=== PATIENT | female | born 1970 | race Caucasian/White ===

== ENCOUNTER 2017-07-02 07:42 | Observation (INO) | payer BC ==
[~2017-07-02] VITALS: Ht 162.6 cm; Wt 123.9 kg
[~2017-07-02 07:42] MED LIST: ASPI81TA28 PO; ATOR-26 PO; CLOP1TAB15 PO; GLC/500 PO; INSDGIPEN SC; LOSA50TA6 PO; METO1TAB69 PO; NVLGIPEN SC
[2017-07-02] MEDS ORDERED: LOSA100T65 PO (08:19)
[2017-07-02] MEDS ORDERED: TPRSR/100 PO (08:19)
--- NOTE | 2017-07-02 08:25 | EMERGENCY ROOM VISIT NOTE ---
History First contact with patient: 07:52 Chief Complaint: CHEST PAIN Stated Complaint: BACK PAIN (UPPER) - TIGHTNESS AROUND CHEST Nursing Triage Summary: pt report feeling tightness around upper abd lower chest area describes as feeling like a band. has been burping all night and does not feel rested this am, feeling worn down .denies any sob History of Present Illness The patient is a 47 year old female who presents to the Emergency Room via private vehicle with complaints of "back pain (upper)- tightness around chest". The patient states that she has a history of diabetes, hypertension, coronary disease, and STEMI with stent placement 2014 as well as hypercholesterolemia with complaints of a band sensation around her chest for the past 2 weeks has been off and on. Most recently it occurred upon awakening this morning around 6 AM. She states that she also had some reflux/eructation. She is concerned secondary to her past medical history that this could be a serious event therefore came here for evaluation today. She denies any symptoms at present time. She did take an aspirin and all of her medications as prescribed prior to arrival. Review of Systems A complete 10-point Review of Systems was discussed with the patient, with pertinent positives and negatives listed in the History of Present Illness. All remaining Review of Systems questions can be considered negative unless otherwise specified. Past Medical/Surgical History Medical Problems: (1) Chest pain (2) CHF (congestive heart failure) (3) Dog bite (4) HTN (hypertension) (5) NSTEMI (non-ST elevated myocardial infarction) (6) Visit for suture removal Social History Smoking Status: Never Smoker Drug Use: none Marital Status: Housing Status: lives with family Occupation Status: employed Current/Historical Medications Scheduled Aspirin (Aspirin Ec), 81 MG PO DAILY Atorvastatin (Lipitor), 80 MG PO DAILY Clopidogrel (Plavix), 75 MG PO DAILY Losartan Potassium (Cozaar), 100 MG PO DAILY Metformin Hcl (Glucophage), 500 MG PO BID Metoprolol Succinate (Metoprolol Succinate ER), 200 MG PO DAILY Physical Exam Vital Signs Date Time Temp Pulse Resp B/P (MAP) Pulse Ox O2 Delivery O2 Flow Rate FiO2 07/02/17 10:02 64 18 129/69 96 Room Air 07/02/17 09:50 95 Room Air 07/02/17 09:36 55 18 94/55 95 Room Air 07/02/17 09:25 67 102/68 96 Room Air 07/02/17 09:21 62 98/66 96 Room Air 07/02/17 09:20 44 07/02/17 08:55 69 18 156/86 99 Room Air 07/02/17 08:08 72 07/02/17 07:59 71 20 152/88 100 Room Air 07/02/17 07:59 99 Room Air 07/02/17 07:47 36.7 78 18 168/83 99 Room Air Physical Exam VITAL SIGNS - Vital signs and nursing notes were reviewed. Afebrile, hypertensive, non-tachycardic and is saturating well on room air 99%. GENERAL -27-year-old female appearing her stated age who is in no acute distress. Communicates well with provider and answers questions appropriately. SKIN - Without rashes. No petechial rashes. HEAD - NC/AT. MOUTH/OROPHARYNX - Without perioral cyanosis. LUNGS - Chest wall symmetric without accessory muscle use, intercostals retractions, or central cyanosis. Normal vesicular breath sounds CTA B/L. No wheezes, rales, or rhonchi appreciated. CARDIAC - RRR with S1/S2. No murmur, rubs, or gallops appreciated. ABDOMEN - Abdominal contour without pulsations or visible masses. BS normoactive all four quadrants. No tenderness, palpable masses, hepatosplenomegaly, or ascites noted. EXTREMITIES - No clubbing or peripheral cyanosis. No pretibial edema present. +5 /5 strength noted in UE/LE bilaterally. NEUROLOGIC - Cranial nerves II through XII grossly intact. PSYCH - A&O. and cooperates fully with examiner. Pt is very pleasant and interacts well with examiner. Medical Decision & Procedures ER Provider Diagnostic Interpretation: CHEST ONE VIEW PORTABLE CLINICAL HISTORY: 47 years-old Female presenting with chest pain. TECHNIQUE: Portable upright AP view of the chest was obtained. COMPARISON: 12/24/2015. FINDINGS: Cardiomediastinal silhouette normal. Interval decreased prominence of pulmonary vasculature. Lungs and pleural spaces clear. Osseous structures normal. Upper abdomen normal. IMPRESSION: 1. Resolution of mild pulmonary vascular congestion. No convincing evidence of acute cardiopulmonary disease. Electronically signed by: Darrell Brenner M.D. 07/02/2017 8:51 AM Dictated Date/Time: 07/02/2017 8:49 AM Laboratory Results 07/02/17 08:35 Red Blood Count 5.02, Mean Corpuscular Volume 80.5, Mean Corpuscular Hemoglobin 25.9, Mean Corpuscular Hemoglobin Concent 32.2, Mean Platelet Volume 9.1, Neutrophils (%) (Auto) 71.3, Lymphocytes (%) (Auto) 20.3, Monocytes (%) (Auto) 6.0, Eosinophils (%) (Auto) 1.8, Basophils (%) (Auto) 0.4, Neutrophils # (Auto) 4.05, Lymphocytes # (Auto) 1.15, Monocytes # (Auto) 0.34, Eosinophils # (Auto) 0.10, Basophils # (Auto) 0.02 07/02/17 08:35 Test 07/02/17 08:35 07/02/17 08:42 White Blood Count 5.67 K/uL (4.8-10.8) Red Blood Count 5.02 M/uL (4.2-5.4) Hemoglobin 13.0 g/dL (12.0-16.0) Hematocrit 40.4 % (37-47) Mean Corpuscular Volume 80.5 fL (80-100) Mean Corpuscular Hemoglobin 25.9 pg (25-34) Mean Corpuscular Hemoglobin Concent 32.2 g/dl (32-36) Platelet Count 146 K/uL (130-400) Mean Platelet Volume 9.1 fL (7.4-10.4) Neutrophils (%) (Auto) 71.3 % Lymphocytes (%) (Auto) 20.3 % Monocytes (%) (Auto) 6.0 % Eosinophils (%) (Auto) 1.8 % Basophils (%) (Auto) 0.4 % Neutrophils # (Auto) 4.05 K/uL (1.4-6.5) Lymphocytes # (Auto) 1.15 K/uL (1.2-3.4) Monocytes # (Auto) 0.34 K/uL (0.11-0.59) Eosinophils # (Auto) 0.10 K/uL (0-0.5) Basophils # (Auto) 0.02 K/uL (0-0.2) RDW Standard Deviation 44.6 fL (36.4-46.3) RDW Coefficient of Variation 15.5 % (11.5-14.5) Immature Granulocyte % (Auto) 0.2 % Immature Granulocyte # (Auto) 0.01 K/uL (0.00-0.02) Prothrombin Time 10.3 SECONDS (9.0-12.0) Prothromb Time International Ratio 1.0 (0.9-1.1) Activated Partial Thromboplast Time 26.1 SECONDS (21.0-31.0) Partial Thromboplastin Ratio 1.0 Urine Color YELLOW Urine Appearance CLEAR (CLEAR) Urine pH 6.0 (4.5-7.5) Urine Specific [place] 1.009 (1.000-1.030) Urine Protein NEG (NEG) Urine Glucose (UA) NEG (NEG) Urine Ketones NEG (NEG) Urine Occult Blood NEG (NEG) Urine Nitrite NEG (NEG) Urine Bilirubin NEG (NEG) Urine Urobilinogen NEG (NEG) Urine Leukocyte Esterase MODERATE (NEG) Urine WBC (Auto) 10-30 /hpf (0-5) Urine RBC (Auto) 0-4 /hpf (0-4) Urine Hyaline Casts (Auto) 1-5 /lpf (0-5) Urine Epithelial Cells (Auto) >30 /lpf (0-5) Urine Bacteria (Auto) 1+ (NEG) Urine Test NEG (NEG) Anion Gap 5.0 mmol/L (3-11) Est Creatinine Clear Calc Drug Dose 96.2 ml/min Estimated GFR () 84.2 Estimated GFR (Non- 72.7 BUN/Creatinine Ratio 14.2 (10-20) Calcium Level 8.6 mg/dl (8.5-10.1) Magnesium Level 2.1 mg/dl (1.8-2.4) Total Bilirubin 0.5 mg/dl (0.2-1) Aspartate Amino Transf (AST/SGOT) 15 U/L (15-37) Alanine Aminotransferase (ALT/SGPT) 25 U/L (12-78) Alkaline Phosphatase 76 U/L (45-117) Total Protein 6.9 gm/dl (6.4-8.2) Albumin 3.4 gm/dl (3.4-5.0) Globulin 3.5 gm/dl (2.5-4.0) Albumin/Globulin Ratio 1.0 (0.9-2) Bedside Troponin I < 0.030 ng/ml (0-0.045) Medications Administered Medications (Trade) Dose Ordered Sig/Cain Route Start Time Stop Time Status Last Admin Dose Admin Sodium Chloride 500 ml @ 999 mls/hr Q31M STAT IV 07/02/17 09:22 07/02/17 09:52 DC 07/02/17 09:36 999 MLS/HR Medical Decision Patient was seen and evaluated as above. After obtaining a thorough history and physical examination IV access was initiated, and the above workup was performed. Patient presents to us today with generalized bandlike sensation around her chest, history of MO in the past. There is concern of potential cardiac events. Stat EKG was obtained, and reveals normal sinus rhythm, right bundle-branch block, which appears to be new. EKG was repeated as the patient did have an episode of hypotension here, and her pulse went down to 48/m. There is a bifascicular block noted. Her EKG today has changed from previous. I do believe that further evaluation is necessary. Her initial troponin is negative. Chest x-ray negative. CBC reveals no leukocytosis or anemia. Coags normal. CMP unremarkable for acute process. Urine reveals what appears to be a contaminated sample with epithelial cells. Case was discussed with the attending physician. Patient was given 1 L of normal saline here during her episode of hypotension. She already had aspirin this morning. I believe that further evaluation in inpatient setting is warranted. Please refer to further documentation regarding her stay. Concern is over ACS, therefore chest pain rule out admission will be considered. In evaluation treatment this patient the following differential diagnoses were entertained: MO, PE, GI causes, among others. Impression Primary Impression: Chest pain Departure Information Dispostion Admitted as an inpatient Condition GOOD Referrals Marylou Dasilva M.D. (PCP) Patient Instructions My [facility]
[2017-07-02 08:49] LABS: BASO % 0.4 %; BASO ABS # 0.02 K/uL (0-0.2); COMPLETE YES; EOS % 1.8 %; HEMATOCRIT 40.4 % (37-47); IG% 0.2 %; LYMPH % 20.3 %; LYMPH ABS # 1.15 K/uL (1.2-3.4); MEAN CELL VOLUME 80.5 fL (80-100); MEAN CORPUSCULAR HEMOGLOBIN 25.9 pg (25-34); MEAN CORPUSCULAR HGB CONC 32.2 g/dl (32-36); MEAN PLATELET VOLUME 9.1 fL (7.4-10.4); NEUT % 71.3 %; PLATELET COUNT 146 K/uL (130-400); RED BLOOD COUNT 5.02 M/uL (4.2-5.4); WHITE BLOOD COUNT 5.67 K/uL (4.8-10.8)
--- NOTE | 2017-07-02 08:52 | DIAGNOSTIC IMAGING REPORT ---
CHEST ONE VIEW PORTABLE CLINICAL HISTORY: 47 years-old Female presenting with chest pain. TECHNIQUE: Portable upright AP view of the chest was obtained. COMPARISON: 12/24/2015. FINDINGS: Cardiomediastinal silhouette normal. Interval decreased prominence of pulmonary vasculature. Lungs and pleural spaces clear. Osseous structures normal. Upper abdomen normal. IMPRESSION: 1. Resolution of mild pulmonary vascular congestion. No convincing evidence of acute cardiopulmonary disease. Electronically signed by: Darrell Brenner M.D. 07/02/2017 8:51 AM Dictated Date/Time: 07/02/2017 8:49 AM
[2017-07-02 08:54] LABS: URINE APPEARANCE CLEAR (CLEAR); URINE BILIRUBIN NEG (NEG); URINE COLOR YELLOW; URINE EPITHELIAL CELL AUTO >30 /lpf (0-5); URINE NITRITE NEG (NEG); URINE SPECIFIC GRAVITY 1.009 (1.000-1.030); UROBILINOGEN NEG (NEG); ZZUR CULT IF INDIC CLEAN CATCH YES
[2017-07-02 08:55] LABS: MANUAL MICROSCOPIC REQUIRED? NO; REVIEW REQ? NO
[2017-07-02 08:58] LABS: PROTHROMBIN TIME (PATIENT) 10.3 SECONDS (9.0-12.0)
[2017-07-02 09:07] LABS: BUN/CREATININE RATIO 14.2 (10-20); CALCIUM 8.6 mg/dl (8.5-10.1); CREATININE 0.93 mg/dl (0.60-1.20); MAGNESIUM 2.1 mg/dl (1.8-2.4)
[2017-07-02] MEDS ORDERED: SODIUM CHLORIDE 0.9% 500ML 500 ML IV STA (09:22)
[2017-07-02 09:50] VITALS: O2SAT 95; Ht 162.6 cm; Wt 123.9 kg
[2017-07-02] MEDS ORDERED: POLYETHYLENE (MIRALAX) 17 GM PACK PO PRN (10:30)
[2017-07-02] MEDS ORDERED: ALUMINUM/MAGNESIUM/SIMETH (MAALOX MAX) 30 ML UDC PO PRN (10:30)
[2017-07-02] MEDS ORDERED: ONDANSETRON INJ 2 MG/ML 2 ML VIAL IV PRN (10:30)
[2017-07-02] MEDS ORDERED: ACETAMINOPHEN 325 MG TAB PO PRN (10:30)
[2017-07-02] MEDS ORDERED: MoRPHine SULFATE 2 MG/ML CARP IV PRN (10:30)
[2017-07-02] MEDS ORDERED: MAGNESIUM HYDROXIDE SUSP 30 ML UDC PO PRN (10:30)
[2017-07-02] MEDS ORDERED: SODIUM CHLORIDE 0.9% 1000ML 1,000 ML IV ONE (10:45)
--- NOTE | 2017-07-02 10:53 | History and Physical ---
History & Physical Date & Time of Service: Jul 02, 2017 at 10:34 Chief Complaint: Back Pain (Upper) - Tightness Around Chest Primary Care Physician: Marylou Dasilva M.D. History of Present Illness Source: patient, family ( at bedside), clinic records, hospital records Patient is a pleasant 47 y/o female, with PMHx of CAD s/p STEMI w/ stent placement to LAD in 2014, T2DM, HTN, and hypercholesterolemia, who presented to the ED because of chest discomfort. Two weeks ago, patient started to notice discomfort under bilateral breast radiating to back- no epigastric pain. Pain would increase with movement so she initially thought she pulled a muscle. Patient notes that taking her Lasix seemed to improve her pain, but did not work this AM. This morning around 6AM, the discomfort woke her up and was a constant pain. Due to her h/o of PR, she presented to the ED today. She had one episode of nausea/vomiting and diaphoresis while in ED. Denies any injuries. Currently, she states she is feeling well. She follows w/ Dr. Toribio and Gricel Shetty PA-C. She was last seen by cardiology 6 months ago, no changes were made. Her last admission to [facility] was in 12/2015 with acute on chronic systolic CHF exacerbation. She denies any SOB, edema, or acute weight gain. Denies h/o GERD. Patient denies any fever, chills, sweats, lightheadedness, dizziness, vision changes, CP, palpitations, edema, SOB, wheezing, cough, abdominal pain, diarrhea, urinary symptoms, melena, numbness/tingling, weakness, muscle/joint pain, anxiety/depression, active bleeding, or new skin discoloration/changes. Past Medical/Surgical History Past Medical History: CAD s/p STEMI w/ stent placement to LAD in 2014 T2DM HTN hypercholesterolemia Social History Smoking Status: Former Smoker Drug Use: none Marital Status: Housing status: lives with family Occupational Status: employed Multi-Drug Resistant Organisms History of MDRO: No Allergies Coded Allergies: No Known Allergies (Unverified , 07/02/17) Home Medications Scheduled Aspirin (Aspirin Ec), 81 MG PO DAILY Atorvastatin (Lipitor), 80 MG PO DAILY Clopidogrel (Plavix), 75 MG PO DAILY Losartan Potassium (Cozaar), 100 MG PO DAILY Metformin Hcl (Glucophage), 500 MG PO BID Metoprolol Succinate (Metoprolol Succinate ER), 200 MG PO DAILY Physical Exam Vital Signs Date Time Temp Pulse Resp B/P (MAP) Pulse Ox O2 Delivery O2 Flow Rate FiO2 07/02/17 10:02 64 18 129/69 96 Room Air 07/02/17 09:50 95 Room Air 07/02/17 09:36 55 18 94/55 95 Room Air 07/02/17 09:25 67 102/68 96 Room Air 07/02/17 09:21 62 98/66 96 Room Air 07/02/17 09:20 44 07/02/17 08:55 69 18 156/86 99 Room Air 07/02/17 08:08 72 07/02/17 07:59 71 20 152/88 100 Room Air 07/02/17 07:59 99 Room Air 07/02/17 07:47 36.7 78 18 168/83 99 Room Air General Appearance: no apparent distress, + obese Head: normocephalic, atraumatic Eyes: normal inspection, PERRL ENT: hearing grossly normal Neck: supple Respiratory/Chest: lungs clear, no respiratory distress, no accessory muscle use Cardiovascular: regular rate, rhythm, no JVD Abdomen/GI: normal bowel sounds, non tender, soft Back: normal inspection, no CVA tenderness, no muscle spasm, normal range of motion Extremities/Musculoskelatal: no calf tenderness, no pedal edema Neurologic/Psych: alert, normal mood/affect, oriented x 3 Skin: normal color, warm/dry, no rash Diagnostics Laboratory Results Results Past 24 Hours Test 07/02/17 08:35 07/02/17 08:42 Range/Units White Blood Count 5.67 4.8-10.8 K/uL Red Blood Count 5.02 4.2-5.4 M/uL Hemoglobin 13.0 12.0-16.0 g/dL Hematocrit 40.4 37-47 % Mean Corpuscular Volume 80.5 80-100 fL Mean Corpuscular Hemoglobin 25.9 25-34 pg Mean Corpuscular Hemoglobin Concent 32.2 32-36 g/dl Platelet Count 146 130-400 K/uL Mean Platelet Volume 9.1 7.4-10.4 fL Neutrophils (%) (Auto) 71.3 % Lymphocytes (%) (Auto) 20.3 % Monocytes (%) (Auto) 6.0 % Eosinophils (%) (Auto) 1.8 % Basophils (%) (Auto) 0.4 % Neutrophils # (Auto) 4.05 1.4-6.5 K/uL Lymphocytes # (Auto) 1.15 1.2-3.4 K/uL Monocytes # (Auto) 0.34 0.11-0.59 K/uL Eosinophils # (Auto) 0.10 0-0.5 K/uL Basophils # (Auto) 0.02 0-0.2 K/uL RDW Standard Deviation 44.6 36.4-46.3 fL RDW Coefficient of Variation 15.5 11.5-14.5 % Immature Granulocyte % (Auto) 0.2 % Immature Granulocyte # (Auto) 0.01 0.00-0.02 K/uL Prothrombin Time 10.3 9.0-12.0 SECONDS Prothromb Time International Ratio 1.0 0.9-1.1 Activated Partial Thromboplast Time 26.1 21.0-31.0 SECONDS Partial Thromboplastin Ratio 1.0 Urine Color YELLOW Urine Appearance CLEAR CLEAR Urine pH 6.0 4.5-7.5 Urine Specific [place] 1.009 1.000-1.030 Urine Protein NEG NEG Urine Glucose (UA) NEG NEG Urine Ketones NEG NEG Urine Occult Blood NEG NEG Urine Nitrite NEG NEG Urine Bilirubin NEG NEG Urine Urobilinogen NEG NEG Urine Leukocyte Esterase MODERATE NEG Urine WBC (Auto) 10-30 0-5 /hpf Urine RBC (Auto) 0-4 0-4 /hpf Urine Hyaline Casts (Auto) 1-5 0-5 /lpf Urine Epithelial Cells (Auto) >30 0-5 /lpf Urine Bacteria (Auto) 1+ NEG Urine Test NEG NEG Sodium Level 141 136-145 mmol/L Potassium Level 4.0 3.5-5.1 mmol/L Chloride Level 108 98-107 mmol/L Carbon Dioxide Level 28 21-32 mmol/L Anion Gap 5.0 3-11 mmol/L Blood Urea Nitrogen 13 7-18 mg/dl Creatinine 0.93 0.60-1.20 mg/dl Est Creatinine Clear Calc Drug Dose 96.2 ml/min Estimated GFR () 84.2 Estimated GFR (Non- 72.7 BUN/Creatinine Ratio 14.2 10-20 Random Glucose 181 70-99 mg/dl Calcium Level 8.6 8.5-10.1 mg/dl Magnesium Level 2.1 1.8-2.4 mg/dl Total Bilirubin 0.5 0.2-1 mg/dl Aspartate Amino Transf (AST/SGOT) 15 15-37 U/L Alanine Aminotransferase (ALT/SGPT) 25 12-78 U/L Alkaline Phosphatase 76 45-117 U/L Total Protein 6.9 6.4-8.2 gm/dl Albumin 3.4 3.4-5.0 gm/dl Globulin 3.5 2.5-4.0 gm/dl Albumin/Globulin Ratio 1.0 0.9-2 Bedside Troponin I < 0.030 0-0.045 ng/ml Microbiology Results 07/02/17 Urine Culture, Received Pending Diagnostic Radiology CHEST ONE VIEW PORTABLE CLINICAL HISTORY: 47 years-old Female presenting with chest pain. TECHNIQUE: Portable upright AP view of the chest was obtained. COMPARISON: 12/24/2015. FINDINGS: Cardiomediastinal silhouette normal. Interval decreased prominence of pulmonary vasculature. Lungs and pleural spaces clear. Osseous structures normal. Upper abdomen normal. IMPRESSION: 1. Resolution of mild pulmonary vascular congestion. No convincing evidence of acute cardiopulmonary disease. Electronically signed by: Darrell Brenner M.D. 07/02/2017 8:51 AM Dictated Date/Time: 07/02/2017 8:49 AM The status of this report is Signed. Draft = Not yet reviewed or approved by Radiologist. Signed = Reviewed and approved by Radiologist. EKG MELANI WEN ID:[id number] 02-JUL-2017 09:21:50 [facility] Sinus bradycardia with sinus arrhythmia Right bundle branch block Left anterior fascicular block Bifascicular block Anteroseptal infarct (cited on or before 14-OCT-2015) Abnormal ECG When compared with ECG of 02-JUL-2017 07:58, (unconfirmed) Vent. rate has decreased BY 29 BPM 25mm/s 10mm/mV 150Hz 8.0 SP2 12SL 241 MADI: 0 Referred by: Referred Self Unconfirmed Vent. rate 49 BPM MS interval 160 ms QRS duration 138 ms QT/QTc 498/449 ms P-R-T axes 57 -48 34 1970 (47 yr) Female 110in 1lb Room:[facility] Loc:15 Asp Web Developer:JERSON PICKERING Test ind: MELANI WEN ID:[id number] 02-JUL-2017 07:58:00 [facility] Normal sinus rhythm Right bundle branch block Septal infarct (cited on or before 14-OCT-2015) Abnormal ECG When compared with ECG of 24-DEC-2015 03:13, Premature ventricular complexes are no longer Present Right bundle branch block is now Present 25mm/s 10mm/mV 150Hz 8.0 SP2 12SL 241 MADI: 0 Referred by: Referred Self Unconfirmed Vent. rate 78 BPM MS interval 166 ms QRS duration 140 ms QT/QTc 432/492 ms P-R-T axes 57 -2 36 1970 (47 yr) Female 110in 1lb Room:B12B Loc:15 Asp Web Developer:JERSON PICKERING Test ind: Impression Assessment and Plan Patient is a pleasant 47 y/o female, with PMHx of CAD s/p STEMI w/ stent placement to LAD in 2014, T2DM, HTN, and hypercholesterolemia, who presented to the ED because of chest discomfort. ACS r/o, h/o CAD s/p STEMI with stent placement to LAD in 2015: - Admit to tele for cardiac monitoring - Trend cardiac enzymes- initially negative - Follow EKG QAM and PRN w/ CP - O2 protocol - IV Morphine PRN for CP and nitro paste - Continue Plavix 75 mg daily, ASA 81 mg daily - Continue Metoprolol 200 mg daily cautiously with episode of bradycardia at 44 in ED- resolved at admission - Stress echocardiogram in the AM if cardiac enzymes remain negative - Consult cardiology, appreciate recommendations HTN: - Continue Cozaar 100 mg daily cautiously with nitro paste and episodes of hypotension in ED - Hypotension resolved: Treated with IV NSS x1 bag in ED, will given addition IV NSS @ 100 ml/hr x1 T2DM: - Hold Metformin 500 mg BID - BSG ACHS and sliding insulin scale - Check HgbA1c Hypercholesterolemia: - Continue Lipitor 80 mg HS - Check lipid panel tomorrow AM UA dirty- no s/s of UTI: Hold on antibiotic therapy pending UCx GI prophylaxis: Protonix DVT prophylaxis: Lovenox SQ 24 hrs Code Status: LEVEL I, FULL Dispo: From home, lives w/ - no discharge needs anticipated Level of Care Telemetry Advanced Directives Existing Living Will: No Existing Power of Die Repairer Forging: No Resuscitation Status FULL RESUSCITATION VTE Prophylaxis VTE Risk Assessment Done? Y/N: Yes Risk Level: Moderate Given or contraindicated: Enoxaparin (Lovenox)SQ, T.E.D. Stockings, SCD's Note Attending Admission Note & Attestation: Pt seen/examined, chart reviewed, care plan d/w [facility]. I agree w/ the carranza components of her admission documentation. 47yo female with known CAD s/p LAD stent due to PR in 2014, T2DM, HTN, morbid obesity - presenting with 2 weeks of intermittent b/l lower costal margin pain ( she points to just under the rib cage b/l). No inciting factors. No associated dyspnea. Seems to be worse with activity. No association with food/ meals. Pain wraps around to the back/flanks. Was doing some heavy lifting at work about 2 weeks ago when it started. Denies any DOS SANTOS, sob, orthopnea, chest pain at rest or chest pain with activity. Has had fatigue. No fevers/chills. Came today to ER because she woke up with the pain. Initial work-up -- troponin , EKG, cxr - neg/normal. PMH, PSH, allergies, meds, sochx, famhx, ros - reviewed vitals - transient hypotension, transient bradycardia - resolved; VSS otherwise gen - nad, obese neck - no JVD; lymphadenopathy on left, about 1.5cm; nontender; mouth - MMM, no lesions heart - RRR, s1, s2, no murmur chest - no reproducible chest wall pain lungs - CTA b/l abd - soft, NT, ND, BS+, no HSM ext - trace edema left, none on right, pulses 2+ b/l back - no tenderness to palpation over t-spine or l-spine; minimal tenderness left paraspinal areas cbc, bmp, troponin - normal u/a - mildly dirty cxr - no infiltrates EKG - NSR, RBBB, <1mm (subtle) ST depression V4-V6 A/P: 1. atypical lower chest/upper abdominal discomfort for 1-2 weeks with no inciting factors 2. known CAD with prior PR 2014, s/p LAD stent; had mild disease in L Cx and RCA as well on that cath 3. T2DM 4. HTN 5. Hyperlipidemia 6. morbid obesity with increased risk of BEHZAD 7. cervical lymphadenopathy doubt GI causes for #1; doubt aortic dissection or PEs r/o PR with 2 more sets of enzymes stress echo in AM if cardiac w/u is negative this may be musculoskeletal outpatient f/u for lymphadenopathy and fatigue pt needs outpatient sleep study as well transient hypotension/bradycardia could have been vagal response to her nausea/ diaphoresis; she does not appear volume depleted monitor carefully Gurvinder Hoover MD
[2017-07-02 11:05] VITALS: BP 128/84; PULSE 66; TEMP 36.7; O2SAT 99
[2017-07-02] MEDS ORDERED: IV FLUIDS COMPLETED PRN (11:30)
[2017-07-02 12:00] VITALS: O2SAT 99
[2017-07-02] MEDS ORDERED: NITROGLYCERIN OINT 2% 1GM PACKET EXT SCH (12:00)
[2017-07-02] MEDS: INSULIN ASPART 100 UNITS/ML 3 ML PEN SC SCH ×2 (12:19→17:26)
[2017-07-02 15:35] VITALS: BP 161/98; PULSE 70; TEMP 36.6; O2SAT 98
[2017-07-02 16:00] VITALS: O2SAT 97
--- NOTE | 2017-07-02 16:58 | CARDIOLOGY CONSULTATION ---
DATE OF CONSULTATION: 07/02/2017 DATE OF CONSULTATION: 07/02/2017 REFERRING PHYSICIAN: Gurvinder Hoover M.D. PRIMARY PHYSICIAN: Marylou Dasilva M.D. CONSULTATION: Sekou Toribio M.D. HISTORY OF PRESENT ILLNESS: The patient is a 47-year-old white female with a known history of coronary artery disease. She underwent emergency intervention to a subtotal early mid LAD occlusion on 10/15/2015 performed for acute anterior myocardial infarction. Deployment of 3.5 x 15 mm Xience drug-eluting stent. No residual stenosis. The catheterization also revealed a 75% early distal LAD stenosis (very small caliber vessel at this site), 20-30% mid left circumflex stenosis, 30% proximal and 20% mid RCA stenosis. Small caliber right posterolateral artery with 90% ostial stenosis. Small caliber second right posterolateral artery with 50% ostial stenosis. Echocardiography performed on 10/13/2015 revealed LV ejection fraction 25-30%. Apical akinesis. Repeat echocardiogram performed 12/24/2015 revealed LV ejection fraction 42%. Basal septal and apical akinesis reported at that time. She states that at the time of her myocardial infarction in 2014 she had jaw discomfort. In December of 2015, she was admitted with complaints of dyspnea. She came to the Emergency Department for evaluation. It resolved after 1 hour with no intervention. Her cardiac enzymes were negative for injury at that time. Chest x-ray revealed no significant findings of heart failure. Her electrocardiogram revealed septal NJ, which was noted previously. She was subsequently discharged home. The presumptive diagnosis was heart failure. However, her dyspnea resolved without any intervention. Her lung exam performed by maintenance foreman at that time showed no rales. There is no physical evidence of congestive heart failure. Her BNP was slightly elevated at 1,676. The patient states that over the past few weeks she has been experiencing bilateral aching pain beneath both breasts radiating around the sides of her thorax to her back. There are no associated symptoms of nausea, dyspnea, or diaphoresis. The discomfort is usually precipitated by movement of her upper body. The symptoms usually only last seconds. With strenuous exertion such as prolonged walking or carrying heavy object she denies any such symptoms. She denies any exertionally precipitated jaw discomfort in her upper chest discomfort. No exertionally precipitated dyspnea. Her exercise tolerance recently has been stable. She has felt fatigued over the past 2 days. Last night she went to bed feeling fine. When she awoke this morning she noticed that she had bilateral aching pain. However, this pain was constant and appeared similar to the pain which she has been experiencing over the past few weeks. It did not increase in intensity with exertion. She had no associated symptoms with it. Because it persisted she came to the Emergency Department for evaluation. By the time she was evaluated in the Emergency Department she states the discomfort had resolved. It lasted for approximately 1-1/2 hours. Since then, no such discomfort. While in the Emergency Department she did have a sensation of feeling hot and nauseated. This was associated with lightheadedness. She was noted to have a blood pressure of 94/55. Her blood pressure subsequently improved and her symptoms resolved. Since admission to telemetry unit, she denies any cardiac type complaints. PAST MEDICAL HISTORY: 1. Coronary artery disease as above. 2. Ischemic cardiomyopathy as above. 3. Dyslipidemia. 4. Hypertension. 5. Type 2 diabetes mellitus. PAST SURGICAL HISTORY: Negative. FAMILY HISTORY: Her father had a myocardial infarction when he was in his 60s. History of diabetes mellitus in her father and brother. Mother with history of hypertension. Father with history of hypertension. SOCIAL HISTORY: The patient is and lives with her . Rare alcohol use. She does not smoke cigarettes. ALLERGIES: No known drug allergies. CURRENT MEDICATIONS: Aspirin 81 mg daily, atorvastatin 80 mg daily, clopidogrel 75 mg daily, losartan 100 mg daily, metoprolol succinate ER 200 mg daily, pantoprazole 40 mg daily, enoxaparin 40 mg subQ daily, nitroglycerin ointment was prescribed at 1/2 inch q. 6 hours (discontinued by me), and several p.r.n. medications. In the Emergency Department, she received a bolus of normal saline 500 mL. This was after the episode of low blood pressure. CURRENT EXAMINATION: VITAL SIGNS: Most recent vitals signs with oral temperature 36.6, pulse 70, blood pressure 161/98, pulse oximetry room air 98%. GENERAL APPEARANCE: Shows her to be in no distress. She is sitting up in her bed. HEAD: Normal. EYES: Pupils equal and round. Anicteric. Conjunctivae normal. No xanthelasma. NECK: No jugular venous distension. Carotids 2/2 bilaterally. Normal upstroke. No bruits. LUNGS: Normal respiratory effort. Clear. No rales or wheezes. CHEST: Tenderness on palpation of her lateral chest wall. This is on the right and left sides. She states it replicates the discomfort which she complained this morning. HEART: Regular rate and rhythm. S1, S2 normal. No S3 or S4. No murmur or rub. ABDOMEN: Soft. Nontender. No palpable masses or organomegaly. No bruits. Normal bowel sounds. EXTREMITIES: No pretibial edema. PULSES: Distal pulses strongly palpable all extremities. NEUROLOGICAL: Alert and oriented x3. Motor grossly intact. PSYCHIATRIC: Affect normal. LABORATORY DATA: Labs today with WBC 5.67, hemoglobin 13.0, hematocrit 40.4, platelet count 146. INR 1.0. PTT 26.1. Metabolic profile -- sodium 141, potassium 4.0, chloride 108, carbon dioxide 28, BUN 13, creatinine 0.93. Random glucose 181. AST 15. ALT 25. Plan of care troponin I at 8:42 a.m. was less than 0.030. Chest x-ray reviewed by me shows no evidence of pulmonary vascular congestion. No infiltrate. Electrocardiogram at 8:12 a.m. and then at 9:17 a.m. reviewed by me. Normal sinus rhythm, right bundle branch block, anteroseptal NJ, no ST or T-wave abnormalities diagnostic of ischemia or acute injury. ADDENDUM TO HISTORY OF PRESENT ILLNESS: On a 10-point review of systems her responses are negative other than that reported above. No HEENT complaints. No pulmonary complaints. No symptoms of bleeding. No GI complaints reported to me. No urinary complaints. No cerebrovascular type complaints. No claudication type complaints. No skin rash complaints. No fevers or chills. No constitutional complaints. ASSESSMENT: 1. Musculoskeletal type chest discomfort by history and exam. She states that the discomfort has been present for the past few weeks and was precipitated by twisting of her upper body. No relationship to strenuous exertion. She did have a prolonged episode this morning at rest. However, no increase in intensity with exertion, different than her prior anginal/NJ pains. She has tenderness on her chest wall on exam this afternoon. 2. Troponin I performed this morning was negative for myocardial injury. 3. Electrocardiogram without any acute ischemic changes. 4. Right bundle branch block. This is a new finding compared to 2016. However, right bundle branch block is not usually associated with myocardial ischemia or injury. 5. Hypertension. Blood pressure elevated today. It is unclear whether she took her hypertensive medications this morning. 6. History of ischemic cardiomyopathy. No current signs or symptoms of congestive heart failure. 7. No bleeding complaints on dual antiplatelet therapy. 8. Dyslipidemia and coronary disease. She is on a maximum atorvastatin dose consistent with current guidelines. PLAN: 1. Stress echocardiogram this afternoon. If there is no evidence of any significant myocardial ischemia, would then recommend she be discharged home this evening. 2. Continue current medications. If she remains hypertensive with normal dosing of her antihypertensives then she would need increase in her antihypertensive regimen. When she was last seen in cardiology clinic at [facility] in February of 2017, her blood pressure was 130/80. 3. As stated above, further recommendations and plans will be based upon the results of the stress echocardiogram. If there is no evidence of significant myocardial ischemia, no further cardiac workup at this time. Analgesics for the chest discomfort. Thank you for asking us to see this patient in cardiology consultation.
--- NOTE | 2017-07-02 18:10 | EXERCISE STRESS ECHO ---
*NOTICE TO RECEIVING CONSTITUTION PARTY AGENCY This information is strictly Confidential and protected under [place] law. [place] law prohibits you from making any further disclosure of this information unless further disclosure is expressly permitted by the written consent of the person to whom it pertains or is authorized by law. A general authorization for the release of medical or other information is not sufficient for this purpose. Hospital accepts no responsibility if the information is made available to any other person, INCLUDING THE PATIENT. Interpretation Summary * Name: MELANI WEN Study Date: 07/02/2017 04:04 PM BP: 156/101 mmHg * Patient Location: C.2T\S\S238\S\1 HR: 67 * : 1970 (M/d/yyyy) Gender: Female Height: 64 in * Age: 47 yrs Ethnicity: [place] Weight: 273 lb * Ordering Physician: Sekou Toribio * Referring Physician: Self, Referred * Performed By: Tripp Figueroa RCS * * Reason For Study: Chest Pain * BSA: 2.2 m2 * Resting echo with moderate LV systolic dysfunction . Akinesis of the LV apex. * The stress echocardiogram is negative for inducible ischemia. * The stress ECG response was normal Procedure Details * ECHOEX, CPT #24485 * A contrast injection of Definity was performed to improve assessment of LV function. * Contrast was injected into an intravenous site in the left arm. * One vial of Definity ultrasound contrast was diluted in normal saline to a total volume of 10 ml. A total of '4' ml of solution was administered during imaging. * Lot # 4 of Definity utilized for procedure. * Expiration date 1A. * The attending nurse who injected the contrast agent was Momo Loza RN. Left Ventricle * The left ventricle is normal in size. * Left ventricular systolic function is moderately reduced. * Ejection Fraction = 40-45%. * There is apical akinesis. * There is moderate anterior wall hypokinesis. * With exercise improvement in LV wall motion except the apex which remained akinetic.The overall LV systolic function increased post exercise compared to rest. There was a decrease in the end systolic volume post exercise compared to rest. Stress Parameters * Normal sinus rhythm, right bundle branch block, normal ST -T * The stress ECG response was normal * The stress portion of this study was personally supervised by the undersigned interpreting physician. * Rest heart rate was '67' BPM. * Rest blood pressure was '156/101' * Maximum heart rate achieved was 137 bpm. * Maximum heart rate was 79 % of maximum age-predicted heart rate. * Maximum blood pressure was '206/100' * Total exercise time was '4:11' * Maximum exercise MET level achieved was '6' METS * Maximum treadmill speed was '2.5' miles per hour. * Maximum treadmill elevation was '12'% grade. * Exercise was terminated due to 'fatigue' * No chest pain during or following exercise. * Exercise-induced hypertension.
--- NOTE | 2017-07-02 18:45 | Discharge Instructions ---
Discharge Instructions Date of Service Jul 02, 2017. Admission Reason for Admission: Chest Pain Discharge Discharge Diagnosis / Problem: chest pain, negative stress test Discharge Goals Goal(s): Learn about illness, Diagnostic testing, Therapeutic intervention Activity Recommendations Activity Limitations: resume your previous activity (as tolerated (as long as your activity does not make your pain worse)) . Instructions / Follow-Up Instructions / Follow-Up From Dr. Hoover - 1. Your blood work for your heart, stress test, ekg's, and telemetry were all negative/normal making it unlikely that the cause of your pain is from the heart. 2. Your pain may be due to muscle pain. Please take an hvvk-[id number] aleve 250mg tonight, tomorrow morning, and tomorrow evening to see if this helps your pain. While taking the aleve I would hold your aspirin for a day or so. Take the aleve with food. You may also try tylenol, heat, stretching exercises, etc. 3. Please see your family doctor (Dr. Dasilva) this for follow- up. 4. Please have Dr. Dasilva recheck your swollen glands in the neck. 5. Discuss having a sleepy study. 6. Return to [facility] if - * your back/lower chest/upper abdominal discomfort worsens * you develop chest pain in the center of your chest * you develop any new symptoms that concern you Current Hospital Diet Patient's current hospital diet: AHA Diet (Heart Healthy), Diabetes Type 2 Diet Discharge Diet Recommended Diet: AHA Diet (Heart Healthy) Procedures Procedures Performed: stress echocardiogram - NEGATIVE STRESS TEST. Pending Studies Studies pending at discharge: yes List of pending studies: urine culture Medical Emergencies . Who to Call and When: Medical Emergencies: If at any time you feel your situation is an emergency, please call 911 immediately. . Non-Emergent Contact Non-Emergency issues call your: Primary Care Provider Call Non-Emergent contact if: temperature is above 100.5, your pain is not controlled, your pain is worsening, your pain is unusual for you, your pain is concerning you, you have any medication questions . . "Provider Documentation" section prepared by Gurvinder Hoover. . VTE Core Measure Inpt VTE Proph given/why not?: Enoxaparin (Lovenox)SQ, T.E.Samy. Stockings, SCD's
[2017-07-02 19:04] VITALS: BP 161/98; PULSE 70; TEMP 36.6; O2SAT 97
[2017-07-02] MEDS ORDERED: ENOXAPARIN 40 MG/0.4 ML SYR SC SCH (21:00)
[2017-07-03] MEDS ORDERED: ATORVASTATIN 40 MG TAB PO SCH (09:00)
[2017-07-03] MEDS ORDERED: LOSARTAN POTASSIUM 50 MG TAB PO SCH (09:00)
[2017-07-03] MEDS ORDERED: CLOPIDOGREL BISULFATE 75 MG TAB PO SCH (09:00)
[2017-07-03] MEDS ORDERED: METOPROLOL SUCC 50MG EXT REL TAB PO SCH (09:00)
[2017-07-03] MEDS ORDERED: ASPIRIN 81 MG ECTAB PO SCH ×2 (09:00)
[2017-07-03] MEDS ORDERED: PANTOprazole SOD 40 MG TAB PO SCH (09:00)
--- NOTE | 2017-07-03 22:03 | Discharge Summary ---
Discharge Summary Date of Service Jul 03, 2017. Discharge Summary Admission Date: Jul 02, 2017 at 10:33 Discharge Date: Jul 02, 2017 Discharge Disposition: Home Principal Diagnosis: chest pain, acute OH ruled out, negative stress test Problems/Secondary Diagnoses: 1. Coronary artery disease s/p OH in the past with stent deployment. 2. Ischemic cardiomyopathy with resulting chronic systolic CHF. 3. Dyslipidemia. 4. Hypertension. 5. Type 2 diabetes mellitus. 6. Morbid obesity with BMI 46. Procedures: exercise stress echocardiogram: * Resting echo with moderate LV systolic dysfunction, EF 40-45%. Akinesis of the LV apex. * The stress echocardiogram is negative for inducible ischemia. * The stress ECG response was normal. Consultations: cardiology - Sekou Toribio MD Medication Reconciliation Continued Medications: Aspirin (Aspirin Ec) 81 Mg Tab 81 MG PO DAILY Atorvastatin (Lipitor) 80 Mg Tab 80 MG PO DAILY, TAB Clopidogrel (Plavix) 75 Mg Tab 75 MG PO DAILY, TAB Losartan Potassium (Cozaar) 100 Mg Tab 100 MG PO DAILY, TAB Metformin Hcl (Glucophage) 500 Mg Tab 500 MG PO BID, TAB Metoprolol Succinate (Metoprolol Succinate ER) 100 Mg Tabcr 200 MG PO DAILY Discharge Exam Physical Exam: General Appearance: no apparent distress, + obese ENT: pharynx normal Neck: no JVD Respiratory/Chest: lungs clear, no respiratory distress, no accessory muscle use Cardiovascular: regular rate, rhythm, no gallop, no murmur, normal peripheral pulses Abdomen / GI: normal bowel sounds, non tender, soft, no organomegaly, + pertinent finding (minimal tenderness over left flank/left lower back paraspinal muscles ) Extremities: no pedal edema Hospital Course HISTORY OF PRESENT ILLNESS: Patient is a pleasant 47 y/o female, with PMHx of CAD s/p STEMI w/ stent placement to LAD in 2014, T2DM, HTN, and hypercholesterolemia, who presented to the ED because of chest discomfort. Two weeks ago, patient started to notice discomfort under bilateral breast radiating to back- no epigastric pain. Pain would increase with movement so she initially thought she pulled a muscle. Patient notes that taking her Lasix seemed to improve her pain, but did not work this AM. This morning around 6AM, the discomfort woke her up and was a constant pain. Due to her h/o of OH, she presented to the ED today. She had one episode of nausea/vomiting and diaphoresis while in ED. Denies any injuries. Currently, she states she is feeling well. She follows w/ Dr. Toribio and Gricel Shetty PA-C. She was last seen by cardiology 6 months ago, no changes were made. Her last admission to [facility] was in 12/2015 with acute on chronic systolic CHF exacerbation. She denies any SOB, edema, or acute weight gain. Denies h/o GERD. Patient denies any fever, chills, sweats, lightheadedness, dizziness, vision changes, CP, palpitations, edema, SOB, wheezing, cough, abdominal pain, diarrhea, urinary symptoms, melena, numbness/tingling, weakness, muscle/joint pain, anxiety/depression, active bleeding, or new skin discoloration/changes. HOSPITAL COURSE: The patient's brief hospital stay was marked by negative cardiac enzymes, normal telemetry, and resolution of her lower chest wall pain. She was seen in consult by her primary filler leaf cutter long, Dr. Sekou Toribio, who performed an exercise stress echocardiogram that was NEGATIVE for inducible ischemia. The only abnormality during her stay was that of labile blood pressure and one episode of transient bradycardia. The team did not recommend any titration of her blood pressure medications but instead advised the patient to purchase a BP cuff for home use and to check her BP at home. She was asked to review her home BPs with her PCP at time of hospital follow-up. The exact cause of her presenting chest discomfort was uncertain but may have been musculoskeletal in origin. The symptoms had started shortly after she had been lifting some heavy objects at her work-place. In addition, the pain was positional in nature and often brought on by certain movements. She was asked to try [id number] NSAIDs for 1-2 days to see if she gained any relief. Lastly, due to her morbid obesity, she was asked to speak with her PCP about obtaining a sleepy study to rule out BEHZAD. Total Time Spent: Greater than 30 minutes This includes examination of the patient, discharge planning, medication reconciliation, and communication with other providers. Discharge Instructions Please refer to the electronic Patient Visit Report (Discharge Instructions) for additional information. Follow-Up see Dr. Dasilva in 2-3 days Additional Copies To Marylou Dasilva M.D.; Sekou Toribio M.D.
== END 2017-07-02 19:15 | disposition home or self-care (01) ==
LOC: C.EDB 07:43 → C.2T 10:33 → ENRESERV 10:41
PROVIDERS: ADMIT Internal Medicine; ATTEND Internal Medicine
DX: R07.9 Chest pain, unspecified (principal); I25.10 Atherosclerotic heart disease of native coronary artery without angina pectoris; I50.22 Chronic systolic (congestive) heart failure; I25.5 Ischemic cardiomyopathy; I11.0 Hypertensive heart disease with heart failure; I25.2 Old myocardial infarction; E78.5 Hyperlipidemia, unspecified; E11.9 Type 2 diabetes mellitus without complications; E66.01 Morbid (severe) obesity due to excess calories; Z68.42 Body mass index [BMI] 45.0-49.9, adult; Z79.82 Long term (current) use of aspirin; Z79.84 Long term (current) use of oral hypoglycemic drugs; Z79.899 Other long term (current) drug therapy; Z95.5 Presence of coronary angioplasty implant and graft

== ENCOUNTER → 2017-07-24 | Outpatient (CLI) | payer BC ==
[~2017-07-24] MED LIST changes: -INSDGIPEN SC; +LOSA100T65 PO; -LOSA50TA6 PO; -METO1TAB69 PO; -NVLGIPEN SC; +TPRSR/100 PO
== END | disposition home or self-care (01) ==
LOC: C.LABPVFM 10:10
PROVIDERS: ATTEND Family Medicine
DX: R39.9 Unspecified symptoms and signs involving the genitourinary system (principal)

== ENCOUNTER 2019-01-02 21:40 | Inpatient (IN) ==
[2019-01-02] MEDS ORDERED: METOPROLOL TARTRATE 1 MG/ML VIAL IV ONE (22:07)
[2019-01-02] MEDS ORDERED: METOPROLOL TARTRATE 1 MG/ML VIAL IV STA (22:07)
[2019-01-02 22:13] LABS: Basophils # (auto) 0.04 K/uL (0-0.2); Basophils % (auto) 0.7 %; Eosinophils % (auto) 1.8 %; Hemoglobin 13.8 g/dL (12.0-16.0); Immature Granulocytes # (auto) 0.01 K/uL (0.00-0.02); Immature Granulocytes % (auto) 0.2 %; Lymphocytes # (auto) 1.48 K/uL (1.2-3.4); Mean Corpuscular Hgb Conc 32.9 g/dL (32-36); Mean Platelet Volume 9.6 fL (7.4-10.4); Monocytes # (auto) 0.27 K/uL (0.11-0.59); Monocytes % (auto) 4.7 %; Neutrophils % (auto) 66.6 %; Platelet Count 157 K/uL (130-400); RDW Coefficient of Variation 14.2 % (11.5-14.5); RDW Standard Deviation 43.7 fL (36.4-46.3)
[2019-01-02 22:19] LABS: iSTAT Hemoglobin 13.6 g/dl (12.0-16.0); iSTAT Ionized Calcium 1.18 mmol/l (1.12-1.32)
[2019-01-02] MEDS: METOPROLOL TARTRATE 1 MG/ML VIAL IV PRN ×2 (22:20→22:39)
--- NOTE | 2019-01-02 22:27 | XRay Report ---
XR chest 1V portable CLINICAL HISTORY: Palpitations COMPARISON STUDY: 08/01/2018 FINDINGS: The heart is enlarged. There is mild central vascular prominence without evidence for overt failure. There is no lobar consolidation. There are no pleural effusions.[ IMPRESSION: Mild cardiomegaly. No evidence of focal pulmonary consolidation. No evidence of overt adriana lure Electronically signed by: Jony Zaman M.D. 01/02/2019 10:26 PM
[2019-01-02 22:34] LABS: Albumin Level 3.5 gm/dl (3.4-5.0); Calcium 8.8 mg/dl (8.5-10.1); Creatinine Clr Calc Pharmacy 60.1 ml/min; Est GFR (African American) 48.5; Est GFR (Non-African American) 41.8; Magnesium 1.7 mg/dl (1.8-2.4); Potassium 3.5 mmol/L (3.5-5.1)
[2019-01-02 22:39] LABS: Albumin Globulin Ratio 1.1 (0.9-2); Bilirubin,Total 0.5 mg/dl (0.2-1); Globulin 3.3 gm/dl (2.5-4.0); Total Protein 6.8 gm/dl (6.4-8.2)
[2019-01-02 22:40] LABS: Troponin I 0.115 ng/ml (0-0.045)
[2019-01-02 23:08] LABS: Lyme Ab IgG w/WB Rflx Negative (Negative); Lyme Ab IgM w/WB Rflx Negative (Negative)
[2019-01-02] MEDS ORDERED: dilTIAZem HCl 5 MG/ML 5 ML VIAL IV STA (23:10)
[2019-01-02] MEDS ORDERED: MAGNESIUM SULFATE / D5W 1 GM/100 ML BAG IV ONE (23:13)
[2019-01-02] MEDS ORDERED: dilTIAZem HCl 125 MG in DEXTROSE 5% 100 ML IV SCH (23:15)
[2019-01-03 00:33] LABS: Partial Thromboplastin Time 25.4 Seconds (21.0-31.0); Prothrombin Time 10.5 Seconds (9.0-12.0)
[2019-01-03] MEDS ORDERED: HEPARIN STANDARD DEXTROSE 25,000 UNITS/500 ML IV SCH (00:46)
[2019-01-03] MEDS ORDERED: HEPARIN BOLUS ED USE ONLY IV STA (00:46)
--- NOTE | 2019-01-03 01:32 | History & Physical Report ---
Date of Service January 03, 2019 Assessment & Plan (1) Atrial fibrillation with RVR: Patient with new onset atrial fibrillation. Rate improving on cardizem gtt, 108-122 during my encounter. TSH WNL. Magnesium repleted, electrolytes otherwise normal. Lyme serology ordered. Trace pitting edema of bilateral LE which patient gets at times, otherwise no suggestion of failure. -Admit to PCU -Trend troponin x 3 sets -Check 2d echo -Cardiology consultation - appreciate assistance with this case -Continue Diltiazem gtt -Continue home Metoprolol 200mg po daily -Heparin gtt for anticoagulation -Lasix 40mg PO x 1 (2) Elevated troponin: Patient with mildly elevated troponin at 0.115, known CAD s/p revascularization. Patient denies chest pain, SOB. Most likely rate-related demand ischemia -Trend cardiac enzymes as above -Continue ASA, Atorvastatin -Cardiology consult as above (3) CAD (coronary artery disease): Patient with known CAD s/p anterior NJ in 09/2015 s/p DAMON to LAD. She had ICM with EF of 25% initially which improved with medical management. Presently with no chest pain -Continue ASA -Hold Plavix while patient is on Heparin gtt -Continue Metoprolol -Continue Atorvastatin -Continue Losartan (4) Diabetes: Blood sugar elevated at 260 presently. [id number]=8.7 07/2018 -Hold Metformin while inpatient -Lantus 10u BID -ISS -Target blood sugar 80 - 140 (5) HTN (hypertension): Blood pressure 136/112 at present -Continue Metoprolol -Continue Losartan (6) CHF (congestive heart failure): Patient with history of ICM s/p acute NJ which improved with medical management. Presently no evidence of CHF -2D echo as above -Lasix 40mg po x 1 dose Morbid Obesity - encourage healthy lifestyle modifications, diet and exercise F/E/N- [place]. Mg repleted, repeat chemistry/Mg in AM, Heart healthy diet as tolerated Ppx - Heparin gtt. Continue home Protonix Code - Full per discussion with patient Dispo - Admit to PCU for continued rate control and further workup of new onset AF History of Present Illness Chief Complaint: Palpitations Primary Care Provider: Marylou Dasilva MD Patient is a 48yo female with history of CAD s/p acute NJ in 2014 with DAMON placed to the LAD, HTN, HLP, DM and Obesity presenting with acute onset of palpitations. Patient was out to dinner with her zhang. When she came home she had sudden onset of feeling her heart racing. Heartbeat felt irregular. Associated with some decreased energy. No chest pain/dizziness/SOB/ syncope. Patient with no prior history of arrhythmia. She follows with Dr. Toribio. Last seen in June 2018. Her cardiac history is significant for acute anterior NJ in September, with DAMON placed to mid-LAD. Nonobstructive CAD of LCx, RCA noted as well. Echo performed 10/13/15 with poor EF, 25-30%. Repeat echo with improved EF to 42%. Echo in 07/02/17 wtih EF of 40-45%. Negative stress echo 07/02/17. ER Course: Diltiazem 10mg IV then gtt, Heparin gtt, Mag 1gm, Metoprolol 5mg IV x 4 Allergies Allergy/AdvReac Type Severity Reaction Status Date / Time No Known Allergies Allergy Verified 01/03/19 00:38 Home Medications Home Medications Medication Instructions Recorded Confirmed Type aspirin 81 mg PO DAILY 08/01/18 01/03/19 History atorvastatin 80 mg PO DAILY 08/01/18 01/03/19 History clopidogrel 75 mg PO DAILY 08/01/18 01/03/19 History furosemide 40 mg PO DAILY PRN 08/01/18 01/03/19 History ibuprofen 400 mg PO Q4 PRN 08/01/18 01/03/19 History losartan 100 mg PO DAILY 08/01/18 01/03/19 History metformin 500 mg PO BID 08/01/18 01/03/19 History metoprolol succinate 200 mg PO DAILY 08/01/18 01/03/19 History pantoprazole 40 mg PO DAILY 08/01/18 01/03/19 History Past Med/Surg History Medical History Benign essential HTN DM II (diabetes mellitus, type II), controlled HLD (hyperlipidemia) Morbid obesity with BMI of 40.0-44.9, adult Myocardial infarction anterior NJ, DAMON to LAD in 2014 Surgical History H/O heart artery stent 2014 Social History Current Living Situation: Spouse and Family Feels Safe at Home: Yes Smoking Status: Never smoker Hx Alcohol Use: No Hx Substance Use: No Beliefs That Will Affect Care: None Preferred Language: Turkish Review of Systems All systems reviewed & are unremarkable except as noted in HPI & below Physical Exam 2 Vital Signs (Past 24 Hours): Last Vital Signs Temp 36.9 C 01/02/19 21:42 Pulse 136 H 01/02/19 23:51 Resp 20 01/02/19 23:51 BP 164/122 H 01/02/19 23:51 Pulse Ox 93 01/02/19 23:51 Physical Exam: General: patient resting comfortably, NAD, non-toxic in appearance, AA&O x 4 Skin: warm, dry, intact, no rashes or lesions HEENT: NC/AT, PERRL, EOMI, anicteric sclera, conjunctiva without injection, external ear normal to inspection and nontender, nares patent, moist mucus membranes, dentition intact, no oropharyngeal lesions, neck supple, trachea midline, no LAD, no thyromegaly, no JVD Heart: +S1/S2, irregularly irregular, no m/r/g Lungs: equal air entry bilaterally, no rales/rhonchi/wheezes Abd: +BS, soft, NT/ND, no masses/organomegaly/ascites Ext: warm, 2+ pulses in UE/LE bilaterally, no clubbing/cyanosis, trace pitting LE edema Neuro: nonfocal, patient AA&O x 4, speech intact, no facial droop, moving all extremities on command with equal strength 5/5 Results & Data Laboratory Results Lab Results 01/02/19 01/02/19 01/02/19 Range/Units 22:00 22:00 22:00 WBC 5.70 (4.8-10.8) K/uL RBC 5.00 (4.2-5.4) M/uL Hgb 13.8 (12.0-16.0) g/dL POC Hgb (12.0-16.0) g/dl Hct 42.0 (37-47) % POC Hct (37-47) % MCV 84.0 (80-100) fL MCH 27.6 (25-34) pg MCHC 32.9 (32-36) g/dL RDW Std Deviation 43.7 (36.4-46.3) fL RDW Coeff of [place]hela 14.2 (11.5-14.5) % Plt Count 157 (130-400) K/uL MPV 9.6 (7.4-10.4) fL Immature Gran % (Auto) 0.2 % Neut % (Auto) 66.6 % Lymph % (Auto) 26.0 % [place] % (Auto) 4.7 % Eos % (Auto) 1.8 % Baso % (Auto) 0.7 % Immature Gran # (Auto) 0.01 (0.00-0.02) K/uL Neut # (Auto) 3.80 (1.4-6.5) K/uL Lymph # (Auto) 1.48 (1.2-3.4) K/uL [place] # (Auto) 0.27 (0.11-0.59) K/uL Eos # (Auto) 0.10 (0-0.5) K/uL Baso # (Auto) 0.04 (0-0.2) K/uL PT (9.0-12.0) Seconds INR (0.9-1.1) APTT (21.0-31.0) Seconds PTT Ratio POC Sodium (135-144) mEq/L Sodium 139 (136-145) mmol/L POC Potassium (3.3-5.0) mEq/L Potassium 3.5 (3.5-5.1) mmol/L POC Chloride (101-112) mEq/L Chloride 105 (98-107) mmol/L Carbon Dioxide 27 (21-32) mmol/L POC Total CO2 (24-31) mEq/l Anion Gap 7.0 (3-11) POC Anion Gap (16-25) mmol/L POC BUN (7-18) mg/dl BUN 19 H (7-18) mg/dl Creatinine 1.46 H (0.6-1.2) mg/dl POC Creatinine (0.6-1.3) mg/dl Est Cr Clr Drug Dosing 60.1 ml/min Est GFR ( Amer) 48.5 Est GFR (Non-Af Amer) 41.8 BUN/Creatinine Ratio 13.0 (10-20) Glucose 260 H (70-99) mg/dl POC Glucose (other) (70-99) mg/dl Calcium 8.8 (8.5-10.1) mg/dl POC Ioniz Calcium [place] (1.12-1.32) mmol/l Magnesium 1.7 L (1.8-2.4) mg/dl Total Bilirubin 0.5 (0.2-1) mg/dl AST 28 (15-37) U/L ALT 34 (12-78) U/L Alkaline Phosphatase 111 (45-117) U/L POC Troponin I (0-0.045) ng/ml Troponin I 0.115 H* (0-0.045) ng/ml Total Protein 6.8 (6.4-8.2) gm/dl Albumin 3.5 (3.4-5.0) gm/dl Globulin 3.3 (2.5-4.0) gm/dl Albumin/Globulin Ratio 1.1 (0.9-2) TSH 1.670 (0.300-4.500) uIu/ml Specimen Hemolysis Lyme Disease IgG Ab Negative (Negative) Lyme Disease IgM Ab Negative (Negative) 01/02/19 01/02/19 01/02/19 Range/Units 22:00 22:06 22:10 WBC (4.8-10.8) K/uL RBC (4.2-5.4) M/uL Hgb (12.0-16.0) g/dL POC Hgb 13.6 (12.0-16.0) g/dl Hct (37-47) % POC Hct 40 (37-47) % MCV (80-100) fL MCH (25-34) pg MCHC (32-36) g/dL RDW Std Deviation (36.4-46.3) fL RDW Coeff of [place] (11.5-14.5) % Plt Count (130-400) K/uL MPV (7.4-10.4) fL Immature Gran % (Auto) % Neut % (Auto) % Lymph % (Auto) % [place] % (Auto) % Eos % (Auto) % Baso % (Auto) % Immature Gran # (Auto) (0.00-0.02) K/uL Neut # (Auto) (1.4-6.5) K/uL Lymph # (Auto) (1.2-3.4) K/uL [place] # (Auto) (0.11-0.59) K/uL Eos # (Auto) (0-0.5) K/uL Baso # (Auto) (0-0.2) K/uL PT 10.5 (9.0-12.0) Seconds INR 1.0 (0.9-1.1) APTT 25.4 (21.0-31.0) Seconds PTT Ratio 1.0 POC Sodium 140 (135-144) mEq/L Sodium (136-145) mmol/L POC Potassium 3.5 (3.3-5.0) mEq/L Potassium (3.5-5.1) mmol/L POC Chloride 102 (101-112) mEq/L Chloride (98-107) mmol/L Carbon Dioxide (21-32) mmol/L POC Total CO2 26 (24-31) mEq/l Anion Gap (3-11) POC Anion Gap 16.0 (16-25) mmol/L POC BUN 17 (7-18) mg/dl BUN (7-18) mg/dl Creatinine (0.6-1.2) mg/dl POC Creatinine 1.3 (0.6-1.3) mg/dl Est Cr Clr Drug Dosing ml/min Est GFR ( Amer) Est GFR (Non-Af Amer) BUN/Creatinine Ratio (10-20) Glucose (70-99) mg/dl POC Glucose (other) 245 H (70-99) mg/dl Calcium (8.5-10.1) mg/dl POC Ioniz Calcium [place] 1.18 (1.12-1.32) mmol/l Magnesium (1.8-2.4) mg/dl Total Bilirubin (0.2-1) mg/dl AST (15-37) U/L ALT (12-78) U/L Alkaline Phosphatase (45-117) U/L POC Troponin I 0.09 H (0-0.045) ng/ml Troponin I (0-0.045) ng/ml Total Protein (6.4-8.2) gm/dl Albumin (3.4-5.0) gm/dl Globulin (2.5-4.0) gm/dl Albumin/Globulin Ratio (0.9-2) TSH (0.300-4.500) uIu/ml Specimen Hemolysis Lyme Disease IgG Ab (Negative) Lyme Disease IgM Ab (Negative) Diagnostic Findings XR chest 1V portable CLINICAL HISTORY: Palpitations COMPARISON STUDY: 08/01/2018 FINDINGS: The heart is enlarged. There is mild central vascular prominence without evidence for overt failure. There is no lobar consolidation. There are no pleural effusions.[ IMPRESSION: Mild cardiomegaly. No evidence of focal pulmonary consolidation. No evidence of overt failure Electronically signed by: Jony Zaman M.D. 01/02/2019 10:26 PM Dictated: 01/02/192224 Transcribed: 01/02/192224 ECG Additional Comments: AF with RVR, rate of 122, left axis deviation, RXM=291, QTc =495, RBBB, prior anterior/septal infarct, no acute ischemia Code Status & VTE Plan Code Status full VTE Prophylaxis Plan VTE Prophylaxis will be ordered: Yes Critical Care Time Critical Care Time: No _ (1) CAD (coronary artery disease) Coronary Disease-Associated Artery/Lesion type: [place] artery [place] vs. transplanted heart: [place] heart Associated angina: without angina Qualified Code(s): I25.10 - Atherosclerotic heart disease of [place] coronary artery without angina pectoris (2) Diabetes Diabetes mellitus type: type 2 Diabetes mellitus terminal supervisor insulin use: with terminal supervisor use Diabetes mellitus complication status: without complication Qualified Code(s): E11.9 - Type 2 diabetes mellitus without complications; Z79.4 - USP (current) use of insulin (3) HTN (hypertension) Hypertension type: essential hypertension Qualified Code(s): I10 - Essential (primary) hypertension (4) CHF (congestive heart failure) Heart failure type: systolic Heart failure chronicity: chronic Qualified Code(s): I50.22 - Chronic systolic (congestive) heart failure
[2019-01-03] MEDS ORDERED: GLUCAGON FOR INJ 1 MG VIAL SQ PRN (01:45)
[2019-01-03] MEDS ORDERED: GLUCOSE 10 TABS/TUBE PO PRN (01:45)
[2019-01-03] MEDS ORDERED: CARBOHYDRATES FOR HYPOGLYCEMIA PO PRN (01:45)
[2019-01-03] MEDS ORDERED: dilTIAZem HCl 125 MG in DEXTROSE 5% 100 ML IV SCH (01:45)
[2019-01-03] MEDS ORDERED: Heparin IV Standard *NO* Bolus IV ONE (01:45)
[2019-01-03] MEDS ORDERED: GLUCOSE 40% GEL 15 GM TUBE PO PRN (01:45)
[2019-01-03] MEDS: HEPARIN STANDARD DEXTROSE 25,000 UNITS/500 ML IV SCH ×2 (01:45→21:58)
[2019-01-03] MEDS ORDERED: DEXTROSE 50% 50 ML SYRINGE IV PRN (01:45)
[2019-01-03] MEDS ORDERED: ACETAMINOPHEN 325 MG TAB PO PRN (01:45)
[2019-01-03] MEDS ORDERED: FUROSEMIDE 40 MG TAB PO PRN (01:45)
[2019-01-03 02:21] LABS: BUN Creatinine Ratio 12.7 (10-20); Calcium 8.2 mg/dl (8.5-10.1); Creatinine Clr Calc Pharmacy 69.1 ml/min; Est GFR (African American) 57.4; Est GFR (Non-African American) 49.5; Magnesium 1.9 mg/dl (1.8-2.4); Potassium 3.7 mmol/L (3.5-5.1)
[2019-01-03 02:33] LABS: Troponin I 0.313 ng/ml (0-0.045)
--- NOTE | 2019-01-03 02:51 | Emergency Department Note ---
Entered by Willem Freed acting as a scribe for Jones Rivas MD ED Provider Note CHIEF COMPLAINT: Palpitations HISTORY OF PRESENT ILLNESS: The patient is a 48 year old female who presents to the ED with complaints of constant heart palpitations that started about 2 hours ago. She states she currently feels okay but is just very tired. She denies any lightheadedness. She states this has happened before but never this bad. She does have an extensive cardiac history including a myocardial infarction in 2014. She currently takes 200mg of Metoprolol daily, along with Metformin for diabetes, Losartan for hypertension, and Plavix, but she is not on any blood thinners. She also admitted that she forgot to take her medications this morning, but does note she has done this before without having these symptoms. Pt denies LOC, headache, fevers, chills, diaphoresis, visual changes, neck pain , chest pain, breathing difficulties, nausea, vomiting, abdominal pain, back pain, melena, hematochezia, urinary symptoms, numbness, weakness, lymphadenopathy, rash, or other complaints. REVIEW OF SYSTEMS: See HPI for pertinent positives and negatives. A total of ten systems were reviewed and were otherwise negative. PMHx/PSHx: Diabetes, myocardial infarction, hypertension, diabetes, HLD SOCIAL HISTORY: Patient lives at home. PHYSICAL EXAM: GENERAL: Awake, alert, well-appearing, in no distress HENT: Normocephalic, atraumatic. Oropharynx unremarkable. EYES: Normal conjunctiva. Sclera non-icteric. NECK: Inspection normal. Non-tender. Supple. No nuchal rigidity. FROM. No masses. RESPIRATORY: Clear to auscultation. No wheezes. No rales. Normal respiratory effort. CARDIAC: Tachycardic rate. Irregular rhythm. No murmurs. No rubs. Extremities warm and well perfused. Pulses equal. No JVD. GI: Soft, non-distended. No tenderness to palpation. No rebound or guarding. No masses. RECTAL: Deferred. MUSCULOSKELETAL: Atraumatic. Chest examination reveals no tenderness. The back is symmetrical on inspection without obvious abnormality. There is no CVA tenderness to palpation. No joint edema. LOWER EXTREMITIES: Calves are equal size bilaterally and non-tender. No edema. No discoloration. NEURO: Normal sensorium. No sensory or motor deficits noted. SKIN: No rash or jaundice noted. EMERGENCY DEPARTMENT COURSE: 2204: Past medical records reviewed. The patient was evaluated in room C12A, and a complete history and physical examination were performed. 2330: I reevaluated the patient and updated her on results. Given her lab results and EKG she will be hospitalized. 0015: I spoke to Dr. Kelly - [facility] Hospitalist about the patient's case and she is going to accept the her for further evaluation. MEDICAL DECISION MAKING: Prior records/ancillary studies reviewed. Triage Nursing notes reviewed and agree them. Additional history obtained from the family. The patient's history was concerning for palpitations. Differential diagnosis: Etiologies such as electrolyte abnormality, cardiac dysrhythmia, thyroid dysfunction, pulmonary embolism, infection, gastrointestinal, as well as others were entertained. Physical examination: Severe tachycardia noted. ER treatment provided: Cardiac monitoring. IV metoprolol 5 mg x3 with out successful rate control. IV Cardizem bolus and drip. IV heparin Diagnostic interpretation by me: The electrocardiogram concerning for new onset rapid atrial fibrillation The labs revealed an unremarkable CBC. Chemistry panel unremarkable except for hyperglycemia. The patient's troponin is elevated. Imaging studies: Chest x-ray negative for acute pathology. The patient presented with new onset rapid atrial fibrillation. She was treated as above. She was started on IV heparin. Consultation: A consultation was placed with the hospitalist. The case was discussed and diagnostics were reviewed. The patient was evaluated in the ER for further treatment. IMPRESSION: Hypomagnesaemia, Afib with RVR, elevated troponin Critical Care: I have personally spent greater than 30 minutes of critical care time in the direct management of this patient. This includes bedside care, interpretation of diagnostic studies, and testing, discussion with consultants, patient, and family members, and other required patient management activities. This 30 minutes is in excess of all separately billable procedures. PLAN: Being evaluated by a hospitalist The scribe's documentation has been prepared under my direction and personally reviewed by me in its entirety. I confirm that the note above accurately reflects all work, treatment, procedures, and medical decision making performed by me. Impression & Plan Hypomagnesemia, Atrial fibrillation with RVR, Elevated troponin Past Med/Surg History Social History Current Living Situation: Family Other Information That Helps Us Care for You: Yes Feels Safe at Home: Yes Safety Concerns: Feels Safe At This Time Smoking Status: Never smoker Do You Dip or Chew Tobacco: No Second Hand Exposure: No Tobacco Cessation Education Requested by Patient: No Hx Alcohol Use: No Hx Substance Use: No Beliefs That Will Affect Care: None Preferred Language: Finnish Communication Ability: Effective Russian History Professor Required: No Results & Data Vital Signs Vital Signs - 24 hr 01/02/19 21:42 01/02/19 22:10 01/02/19 22:15 Temperature 36.9 C Temperature Source Oral Sepsis Recent Fever Within 48 Hours No Sepsis Action Taken by Nursing No Action Required Pulse Rate 150 H 163 H Pulse Rate [Finger] 135 H Pulse Rhythm [Finger] Pulse Strength [Finger] Respiratory Rate 20 20 Respiratory Effort / Characteristics Non-Labored Respiratory Depth Normal Respiratory Pattern Blood Pressure 157/91 H 176/128 H Blood Pressure [Left Arm] 167/130 H Blood Pressure Mean 113 Blood Pressure Mean [Left Arm] 142 Blood Pressure Position [Left Arm] Pulse Oximetry 96 95 Oxygen Delivery Method Room Air 01/02/19 22:20 01/02/19 22:24 01/02/19 22:41 Temperature Temperature Source Sepsis Recent Fever Within 48 Hours Sepsis Action Taken by Nursing Pulse Rate 136 H Pulse Rate [Finger] 125 H Pulse Rhythm [Finger] Pulse Strength [Finger] Respiratory Rate 19 Respiratory Effort / Characteristics Respiratory Depth Respiratory Pattern Blood Pressure 129/112 H Blood Pressure [Left Arm] 166/124 H Blood Pressure Mean Blood Pressure Mean [Left Arm] 138 Blood Pressure Position [Left Arm] Pulse Oximetry 95 93 Oxygen Delivery Method Room Air Room Air 01/02/19 23:04 01/02/19 23:11 01/02/19 23:21 Temperature Temperature Source Sepsis Recent Fever Within 48 Hours Sepsis Action Taken by Nursing Pulse Rate 139 H 133 H Pulse Rate [Finger] 129 H Pulse Rhythm [Finger] Pulse Strength [Finger] Respiratory Rate 21 17 30 H Respiratory Effort / Characteristics Respiratory Depth Respiratory Pattern Blood Pressure 168/98 H 162/105 H Blood Pressure [Left Arm] 150/95 H Blood Pressure Mean 121 124 Blood Pressure Mean [Left Arm] 113 Blood Pressure Position [Left Arm] Pulse Oximetry 93 92 94 Oxygen Delivery Method Room Air 01/02/19 23:51 01/03/19 00:00 01/03/19 00:01 Temperature Temperature Source Sepsis Recent Fever Within 48 Hours Sepsis Action Taken by Nursing Pulse Rate 136 H 138 H 132 H Pulse Rate [Finger] Pulse Rhythm [Finger] Pulse Strength [Finger] Respiratory Rate 20 26 H 9 L Respiratory Effort / Characteristics Respiratory Depth Respiratory Pattern Blood Pressure 164/122 H 166/129 H Blood Pressure [Left Arm] Blood Pressure Mean 136 141 Blood Pressure Mean [Left Arm] Blood Pressure Position [Left Arm] Pulse Oximetry 93 94 90 Oxygen Delivery Method 01/03/19 00:12 01/03/19 00:21 01/03/19 00:30 Temperature Temperature Source Sepsis Recent Fever Within 48 Hours Sepsis Action Taken by Nursing Pulse Rate 103 H 108 H 112 H Pulse Rate [Finger] Pulse Rhythm [Finger] Pulse Strength [Finger] Respiratory Rate 31 H 16 25 H Respiratory Effort / Characteristics Respiratory Depth Respiratory Pattern Blood Pressure 177/129 H 172/132 H Blood Pressure [Left Arm] Blood Pressure Mean 145 145 Blood Pressure Mean [Left Arm] Blood Pressure Position [Left Arm] Pulse Oximetry 91 91 91 Oxygen Delivery Method 01/03/19 00:31 01/03/19 00:41 01/03/19 00:48 Temperature Temperature Source Sepsis Recent Fever Within 48 Hours Sepsis Action Taken by Nursing Pulse Rate 122 H 117 H 109 H Pulse Rate [Finger] Pulse Rhythm [Finger] Pulse Strength [Finger] Respiratory Rate 15 26 H 19 Respiratory Effort / Characteristics Respiratory Depth Respiratory Pattern Blood Pressure 175/139 H 160/116 H 155/99 H Blood Pressure [Left Arm] Blood Pressure Mean 151 130 117 Blood Pressure Mean [Left Arm] Blood Pressure Position [Left Arm] Pulse Oximetry 93 95 94 Oxygen Delivery Method 01/03/19 01:00 01/03/19 01:01 01/03/19 01:59 Temperature Temperature Source Sepsis Recent Fever Within 48 Hours Sepsis Action Taken by Nursing Pulse Rate 104 H 104 H 126 H Pulse Rate [Finger] Pulse Rhythm [Finger] Pulse Strength [Finger] Respiratory Rate 21 28 H Respiratory Effort / Characteristics Respiratory Depth Respiratory Pattern Blood Pressure 136/112 H Blood Pressure [Left Arm] Blood Pressure Mean 120 Blood Pressure Mean [Left Arm] Blood Pressure Position [Left Arm] Pulse Oximetry 93 95 Oxygen Delivery Method 01/03/19 02:09 Temperature 37 C Temperature Source Oral Sepsis Recent Fever Within 48 Hours Sepsis Action Taken by Nursing Pulse Rate Pulse Rate [Finger] 105 H Pulse Rhythm [Finger] Irregular Pulse Strength [Finger] Normal Respiratory Rate 16 Respiratory Effort / Characteristics Non-Labored Spontaneous Respiratory Depth Normal Respiratory Pattern Regular Blood Pressure Blood Pressure [Left Arm] 134/90 Blood Pressure Mean Blood Pressure Mean [Left Arm] 104 Blood Pressure Position [Left Arm] Sitting Pulse Oximetry 95 Oxygen Delivery Method Room Air Home Medications Current Medication List: was personally reviewed by me Laboratory Data Attestation: I reviewed the patient's lab results. Result diagrams: 01/02/19 22:00 01/03/19 01:53 Lab Results 01/02/19 01/02/19 01/02/19 Range/Units 22:00 22:00 22:00 WBC 5.70 (4.8-10.8) K/uL RBC 5.00 (4.2-5.4) M/uL Hgb 13.8 (12.0-16.0) g/dL POC Hgb (12.0-16.0) g/dl Hct 42.0 (37-47) % POC Hct (37-47) % MCV 84.0 (80-100) fL MCH 27.6 (25-34) pg MCHC 32.9 (32-36) g/dL RDW Std Deviation 43.7 (36.4-46.3) fL RDW Coeff of Esthela 14.2 (11.5-14.5) % Plt Count 157 (130-400) K/uL MPV 9.6 (7.4-10.4) fL Immature Gran % (Auto) 0.2 % Neut % (Auto) 66.6 % Lymph % (Auto) 26.0 % [place] % (Auto) 4.7 % Eos % (Auto) 1.8 % Baso % (Auto) 0.7 % Immature Gran # (Auto) 0.01 (0.00-0.02) K/uL Neut # (Auto) 3.80 (1.4-6.5) K/uL Lymph # (Auto) 1.48 (1.2-3.4) K/uL [place] # (Auto) 0.27 (0.11-0.59) K/uL Eos # (Auto) 0.10 (0-0.5) K/uL Baso # (Auto) 0.04 (0-0.2) K/uL PT (9.0-12.0) Seconds INR (0.9-1.1) APTT (21.0-31.0) Seconds PTT Ratio POC Sodium (135-144) mEq/L Sodium 139 (136-145) mmol/L POC Potassium (3.3-5.0) mEq/L Potassium 3.5 (3.5-5.1) mmol/L POC Chloride (101-112) mEq/L Chloride 105 (98-107) mmol/L Carbon Dioxide 27 (21-32) mmol/L POC Total CO2 (24-31) mEq/l Anion Gap 7.0 (3-11) POC Anion Gap (16-25) mmol/L POC BUN (7-18) mg/dl BUN 19 H (7-18) mg/dl Creatinine 1.46 H (0.6-1.2) mg/dl POC Creatinine (0.6-1.3) mg/dl Est Cr Clr Drug Dosing 60.1 ml/min Est GFR ( Amer) 48.5 Est GFR (Non-Af Amer) 41.8 BUN/Creatinine Ratio 13.0 (10-20) Glucose 260 H (70-99) mg/dl POC Glucose (other) (70-99) mg/dl Calcium 8.8 (8.5-10.1) mg/dl POC Ioniz Calcium Jailene (1.12-1.32) mmol/l Phosphorus (2.5-4.9) mg/dl Magnesium 1.7 L (1.8-2.4) mg/dl Total Bilirubin 0.5 (0.2-1) mg/dl AST 28 (15-37) U/L ALT 34 (12-78) U/L Alkaline Phosphatase 111 (45-117) U/L POC Troponin I (0-0.045) ng/ml Troponin I 0.115 H* (0-0.045) ng/ml Total Protein 6.8 (6.4-8.2) gm/dl Albumin 3.5 (3.4-5.0) gm/dl Globulin 3.3 (2.5-4.0) gm/dl Albumin/Globulin Ratio 1.1 (0.9-2) TSH 1.670 (0.300-4.500) uIu/ml Specimen Hemolysis Lyme Disease IgG Ab Negative (Negative) Lyme Disease IgM Ab Negative (Negative) 01/02/19 01/02/19 01/02/19 Range/Units 22:00 22:06 22:10 WBC (4.8-10.8) K/uL RBC (4.2-5.4) M/uL Hgb (12.0-16.0) g/dL POC Hgb 13.6 (12.0-16.0) g/dl Hct (37-47) % POC Hct 40 (37-47) % MCV (80-100) fL MCH (25-34) pg MCHC (32-36) g/dL RDW Std Deviation (36.4-46.3) fL RDW Coeff of Esthela (11.5-14.5) % Plt Count (130-400) K/uL MPV (7.4-10.4) fL Immature Gran % (Auto) % Neut % (Auto) % Lymph % (Auto) % [place] % (Auto) % Eos % (Auto) % Baso % (Auto) % Immature Gran # (Auto) (0.00-0.02) K/uL Neut # (Auto) (1.4-6.5) K/uL Lymph # (Auto) (1.2-3.4) K/uL [place] # (Auto) (0.11-0.59) K/uL Eos # (Auto) (0-0.5) K/uL Baso # (Auto) (0-0.2) K/uL PT 10.5 (9.0-12.0) Seconds INR 1.0 (0.9-1.1) APTT 25.4 (21.0-31.0) Seconds PTT Ratio 1.0 POC Sodium 140 (135-144) mEq/L Sodium (136-145) mmol/L POC Potassium 3.5 (3.3-5.0) mEq/L Potassium (3.5-5.1) mmol/L POC Chloride 102 (101-112) mEq/L Chloride (98-107) mmol/L Carbon Dioxide (21-32) mmol/L POC Total CO2 26 (24-31) mEq/l Anion Gap (3-11) POC Anion Gap 16.0 (16-25) mmol/L POC BUN 17 (7-18) mg/dl BUN (7-18) mg/dl Creatinine (0.6-1.2) mg/dl POC Creatinine 1.3 (0.6-1.3) mg/dl Est Cr Clr Drug Dosing ml/min Est GFR ( Amer) Est GFR (Non-Af Amer) BUN/Creatinine Ratio (10-20) Glucose (70-99) mg/dl POC Glucose (other) 245 H (70-99) mg/dl Calcium (8.5-10.1) mg/dl POC Ioniz Calcium Jailene 1.18 (1.12-1.32) mmol/l Phosphorus (2.5-4.9) mg/dl Magnesium (1.8-2.4) mg/dl Total Bilirubin (0.2-1) mg/dl AST (15-37) U/L ALT (12-78) U/L Alkaline Phosphatase (45-117) U/L POC Troponin I 0.09 H (0-0.045) ng/ml Troponin I (0-0.045) ng/ml Total Protein (6.4-8.2) gm/dl Albumin (3.4-5.0) gm/dl Globulin (2.5-4.0) gm/dl Albumin/Globulin Ratio (0.9-2) TSH (0.300-4.500) uIu/ml Specimen Hemolysis Lyme Disease IgG Ab (Negative) Lyme Disease IgM Ab (Negative) 01/03/19 Range/Units 01:53 WBC (4.8-10.8) K/uL RBC (4.2-5.4) M/uL Hgb (12.0-16.0) g/dL POC Hgb (12.0-16.0) g/dl Hct (37-47) % POC Hct (37-47) % MCV (80-100) fL MCH (25-34) pg MCHC (32-36) g/dL RDW Std Deviation (36.4-46.3) fL RDW Coeff of Esthela (11.5-14.5) % Plt Count (130-400) K/uL MPV (7.4-10.4) fL Immature Gran % (Auto) % Neut % (Auto) % Lymph % (Auto) % [place] % (Auto) % Eos % (Auto) % Baso % (Auto) % Immature Gran # (Auto) (0.00-0.02) K/uL Neut # (Auto) (1.4-6.5) K/uL Lymph # (Auto) (1.2-3.4) K/uL [place] # (Auto) (0.11-0.59) K/uL Eos # (Auto) (0-0.5) K/uL Baso # (Auto) (0-0.2) K/uL PT (9.0-12.0) Seconds INR (0.9-1.1) APTT (21.0-31.0) Seconds PTT Ratio POC Sodium (135-144) mEq/L Sodium 137 (136-145) mmol/L POC Potassium (3.3-5.0) mEq/L Potassium 3.7 (3.5-5.1) mmol/L POC Chloride (101-112) mEq/L Chloride 110 H (98-107) mmol/L Carbon Dioxide 22 (21-32) mmol/L POC Total CO2 (24-31) mEq/l Anion Gap 5.0 (3-11) POC Anion Gap (16-25) mmol/L POC BUN (7-18) mg/dl BUN 16 (7-18) mg/dl Creatinine 1.27 H (0.6-1.2) mg/dl POC Creatinine (0.6-1.3) mg/dl Est Cr Clr Drug Dosing 69.1 ml/min Est GFR ( Amer) 57.4 Est GFR (Non-Af Amer) 49.5 BUN/Creatinine Ratio 12.7 (10-20) Glucose 247 H (70-99) mg/dl POC Glucose (other) (70-99) mg/dl Calcium 8.2 L (8.5-10.1) mg/dl POC Ioniz Calcium Jailene (1.12-1.32) mmol/l Phosphorus 3.0 (2.5-4.9) mg/dl Magnesium 1.9 (1.8-2.4) mg/dl Total Bilirubin (0.2-1) mg/dl AST (15-37) U/L ALT (12-78) U/L Alkaline Phosphatase (45-117) U/L POC Troponin I (0-0.045) ng/ml Troponin I 0.313 H* (0-0.045) ng/ml Total Protein (6.4-8.2) gm/dl Albumin (3.4-5.0) gm/dl Globulin (2.5-4.0) gm/dl Albumin/Globulin Ratio (0.9-2) TSH (0.300-4.500) uIu/ml Specimen Hemolysis Lyme Disease IgG Ab (Negative) Lyme Disease IgM Ab (Negative) Administered Medications Discontinued Medications Diltiazem HCl (Cardizem) 10 mg IV NOW STA Stop: 01/02/19 23:11 Last Admin: 01/02/19 23:57 Dose: 10 mg Heparin Sodium (Porcine) (Heparin Iv Bolus) 5,000 units IV NOW STA Stop: 01/03/19 00:47 Last Admin: 01/03/19 01:10 Dose: 5,000 units Heparin Sodium/Dextrose () 1 ea N/A NOW STA; Protocol Stop: 01/03/19 00:17 Last Admin: 01/03/19 01:13 Dose: Not Given Diltiazem HCl 125 mg/ Dextrose 125 mls @ 5 mls/hr IV .Q24H [facility]; Protocol Stop: 02/01/19 23:14 Last Admin: 01/02/19 23:58 Dose: 5 mg/hr, 5 mls/hr Magnesium Sulfate/Dextrose (Magnesium Sulfate / D5w) 1 gm in 100 mls @ 100 mls/ hr IV ONE ONE Stop: 01/03/19 00:12 Last Infusion: 01/03/19 00:46 Dose: 0 mls/hr Admin: 01/02/19 23:35 Dose: 100 mls/hr Heparin Sodium/Dextrose (Heparin Sodium/Dextrose) 25,000 units in 500 mls @ 29 mls/hr IV .[id number] [facility]; Protocol Stop: 02/02/19 00:45 Last Admin: 01/03/19 01:11 Dose: 1,450 units/hr, 29 mls/hr Metoprolol Tartrate (Lopressor) 5 mg IV NOW STA Stop: 01/02/19 22:08 Last Admin: 01/02/19 22:10 Dose: 5 mg Metoprolol Tartrate (Lopressor) Confirm Administered Dose 5 mg IV .STK-MED ONE Stop: 01/02/19 22:08 Last Admin: 01/02/19 22:10 Dose: Not Given Metoprolol Tartrate (Lopressor) 5 mg IV Q5M PRN PRN Reason: Tachycardia Stop: 02/01/19 22:07 Last Admin: 01/02/19 22:39 Dose: 5 mg Admin: 01/02/19 22:20 Dose: 5 mg Imaging Data Radiologist's Impression: Radiology results as stated below per my review and the radiologist's interpretation: XR chest 1V portable CLINICAL HISTORY: Palpitations COMPARISON STUDY: 08/01/2018 FINDINGS: The heart is enlarged. There is mild central vascular prominence without evidence for overt failure. There is no lobar consolidation. There are no pleural effusions.[ IMPRESSION: Mild cardiomegaly. No evidence of focal pulmonary consolidation. No evidence of overt failure Electronically signed by: Jony Zaman M.D. 01/02/2019 10:26 PM ECG Data Attestation: I personally reviewed and interpreted this ECG as follows: Indication: palpitations Rate (beats per minute): 144 Rhythm: atrial fibrillation Findings: + PVC, + Q waves (Anteroseptal), + RBBB and + left axis deviation Comparison ECG Date: from (08/01/2018) Change: the following changes noted (Afib is new) Additional Comments: REPEAT: AFib with RVR rate of 122, left axis deviation, RBBB, anteroseptal Q waves, PVC Blood Pressure Blood Pressure Findings: Elevated blood pressure Blood Pressure Disposition: further management by hospitalist Discharge Plan Visit Data *Final* Discharge Date/Time: 01/03/19 01:21 Chief Complaint: Cardiac Assessment Stated Complaint: CHEST PAIN- CARDIAC HX ED Provider: Jones Rivas Discharge Problem: Hypomagnesemia, Atrial fibrillation with RVR, Elevated troponin Patient Disposition: Admitted As Inpatient Discharge Instructions Interventions: ED Discharge Assessment Last Done: 01/03/19 01:21 The scribe's documentation has been prepared under my direction and personally reviewed by me in its entirety. I confirm that the note above accurately reflects all work, treatment, procedures, and medical decision making performed by me.
[2019-01-03] MEDS: INSULIN GLARGINE SOLOSTAR 100 UNITS/ML 3 ML PEN SC SCH ×3 (02:58→21:22)
[2019-01-03] MEDS: INSULIN ASPART 100 UNITS/ML 3 ML PEN SC SCH ×5 (03:03→21:22)
[2019-01-03 06:35] LABS: Estimated Average Glucose 186 mg/dl
[2019-01-03] MEDS ORDERED: PERFLUTREN LIPID MICROSPHERE (DEFINITY) IV ONE (07:37)
[2019-01-03] MEDS: ASPIRIN 81 MG ECTAB PO SCH (08:28)
[2019-01-03] MEDS: ATORVASTATIN 40 MG TAB PO SCH (08:28)
[2019-01-03] MEDS: LOSARTAN POTASSIUM 50 MG TAB PO SCH (08:28)
[2019-01-03 08:29] LABS: Partial Thromboplastin Ratio 1.5; Partial Thromboplastin Time 38.5 Seconds (21.0-31.0)
[2019-01-03] MEDS: METOPROLOL SUCC 50MG EXT REL TAB PO SCH (08:29)
[2019-01-03] MEDS: PANTOprazole 40 MG TAB PO SCH (08:29)
[2019-01-03] MEDS ORDERED: HEPARIN IV BOLUS 7,000 UNITS in SYRINGE 0 ML IV ONE (09:00)
[2019-01-03] MEDS ORDERED: POTASSIUM CHLORIDE 20 MEQ TABCR PO STA (11:26)
[2019-01-03] MEDS ORDERED: MAGNESIUM SULFATE / D5W 1 GM/100 ML BAG IV ONE (12:15)
--- NOTE | 2019-01-03 14:01 | Family Medicine Progress Note ---
Date of Service January 03, 2019 Assessment & Plan (1) Atrial fibrillation with RVR: 48 y/o F with PMH CAD s/p [place] 2014 e/ DAMON in LAD, HTN, HLD, DM, obesity presenting with acute onset of palpitations and found to be in Afib with RVR. 1) A fib w/RVR - had missed dose of metoprolol yesterday am. -converted to NSR. -stop heparin gtt and dilt gtt -eliquis 5 mg BID -Continue home Metoprolol 200mg po daily -Echo 01/03- EF 40-45%, LV moderately dilated, Mild concentric LVH -with h/o significant snoring - will need outpatient sleep study. -Cardiac consult WCT -Wide complexes noted on EKG. QRS 144. Will monitor pt overnight -replace K and mag 2) Elevated troponin -last trop .313, known CAD s/p revascularization. Patient asymptomatic, denies chest pain, SOB. Most likely rate-related demand ischemia from initial Afib w/ RVR -Continue ASA, Atorvastatin 3) CAD -anterior [place] in 09/2015 s/p DAMON to LAD -Continue ASA, Metoprolol, Atorvastatin, Losartan 4) DM -CyC8N=4.7 07/2018 -Hold Metformin while inpatient -Lantus 10u BID -ISS. Target blood sugar 80 - 140 5) HTN -BP stable at present -Continue Metoprolol, Losartan 6) CHF -Presently no evidence of CHF -Echo results as above -Lasix 40mg po if overloaded. Will monitor 7) GERD -cont home PPI FULL DVT Prophylaxis: Eliquis 5 mg BID Dispo - PCU for continue monitor. Likely d/c tomorrow Supervising Physician Co-Signing Physician Notes Resident Physician Supervision Note: I independently interviewed and examined the patient and verified the carranza history and physical, reviewed labs and image studies, discussed the case with the resident Dr. Coleman and agree with the findings and care plan. Subjective 48 y/o F found in bed this AM in NAD. Pt reports no acute overnight events. Denies CP, palpitations, SOB, syncope. Tolerating PO intake. No issues voiding or with ambulation. Pt has no other acute concerns or complaints. Review of Systems All systems reviewed & are unremarkable except as noted in HPI & below Physical Exam 2 Vital Signs (Past 24 Hours): Last Vital Signs Temp 36.9 C 01/03/19 11:51 Pulse 89 01/03/19 11:51 Resp 18 01/03/19 11:51 BP 136/90 01/03/19 11:51 Pulse Ox 95 01/03/19 11:51 Constitutional: WD/WN, vitals as above Eyes: PERRL, conjunctivae normal, anicteric sclerae ENMT: external ear and nose normal, oropharynx normal Respiratory: normal respiratory effort, lungs clear to auscultation Cardiovascular: RRR, no murmur, no edema Gastrointestinal (Abdomen): normal bowel sounds, soft, nontender, no hepatosplenomegaly Skin: no rashes, warm and dry Psychiatric: A+Ox3, euthymic affect Lymphatic: trace LE edema Results & Data Laboratory Results Laboratory Results - last 24 hr 01/02/19 01/02/19 01/02/19 22:00 22:00 22:00 WBC 5.70 RBC 5.00 Hgb 13.8 POC Hgb Hct 42.0 POC Hct MCV 84.0 MCH 27.6 MCHC 32.9 RDW Std Deviation 43.7 RDW Coeff of Esthela 14.2 Plt Count 157 MPV 9.6 Immature Gran % (Auto) 0.2 Neut % (Auto) 66.6 Lymph % (Auto) 26.0 Gray % (Auto) 4.7 Eos % (Auto) 1.8 Baso % (Auto) 0.7 Immature Gran # (Auto) 0.01 Neut # (Auto) 3.80 Lymph # (Auto) 1.48 Gray # (Auto) 0.27 Eos # (Auto) 0.10 Baso # (Auto) 0.04 PT INR APTT PTT Ratio POC Sodium Sodium 139 POC Potassium Potassium 3.5 POC Chloride Chloride 105 Carbon Dioxide 27 POC Total CO2 Anion Gap 7.0 POC Anion Gap POC BUN BUN 19 H Creatinine 1.46 H POC Creatinine Est Cr Clr Drug Dosing 60.1 Est GFR ( Amer) 48.5 Est GFR (Non-Af Amer) 41.8 BUN/Creatinine Ratio 13.0 Glucose 260 H POC Glucose POC Glucose (other) Estimat Average Glucose Hemoglobin A1c Calcium 8.8 POC Ioniz Calcium Jailene Phosphorus Magnesium 1.7 L Total Bilirubin 0.5 AST 28 ALT 34 Alkaline Phosphatase 111 POC Troponin I Troponin I 0.115 H* Total Protein 6.8 Albumin 3.5 Globulin 3.3 Albumin/Globulin Ratio 1.1 TSH 1.670 Specimen Hemolysis Lyme Disease IgG Ab Negative Lyme Disease IgM Ab Negative 01/02/19 01/02/19 01/02/19 22:00 22:06 22:10 WBC RBC Hgb POC Hgb 13.6 Hct POC Hct 40 MCV MCH MCHC RDW Std Deviation RDW Coeff of Esthela Plt Count MPV Immature Gran % (Auto) Neut % (Auto) Lymph % (Auto) Gray % (Auto) Eos % (Auto) Baso % (Auto) Immature Gran # (Auto) Neut # (Auto) Lymph # (Auto) Gray # (Auto) Eos # (Auto) Baso # (Auto) PT 10.5 INR 1.0 APTT 25.4 PTT Ratio 1.0 POC Sodium 140 Sodium POC Potassium 3.5 Potassium POC Chloride 102 Chloride Carbon Dioxide POC Total CO2 26 Anion Gap POC Anion Gap 16.0 POC BUN 17 BUN Creatinine POC Creatinine 1.3 Est Cr Clr Drug Dosing Est GFR ( Amer) Est GFR (Non-Af Amer) BUN/Creatinine Ratio Glucose POC Glucose POC Glucose (other) 245 H Estimat Average Glucose Hemoglobin A1c Calcium POC Ioniz Calcium Jailene 1.18 Phosphorus Magnesium Total Bilirubin AST ALT Alkaline Phosphatase POC Troponin I 0.09 H Troponin I Total Protein Albumin Globulin Albumin/Globulin Ratio TSH Specimen Hemolysis Lyme Disease IgG Ab Lyme Disease IgM Ab 01/03/19 01/03/19 01/03/19 01:53 01:53 03:02 WBC RBC Hgb POC Hgb Hct POC Hct MCV MCH MCHC RDW Std Deviation RDW Coeff of Esthela Plt Count MPV Immature Gran % (Auto) Neut % (Auto) Lymph % (Auto) Gray % (Auto) Eos % (Auto) Baso % (Auto) Immature Gran # (Auto) Neut # (Auto) Lymph # (Auto) Gray # (Auto) Eos # (Auto) Baso # (Auto) PT INR APTT PTT Ratio POC Sodium Sodium 137 POC Potassium Potassium 3.7 POC Chloride Chloride 110 H Carbon Dioxide 22 POC Total CO2 Anion Gap 5.0 POC Anion Gap POC BUN BUN 16 Creatinine 1.27 H POC Creatinine Est Cr Clr Drug Dosing 69.1 Est GFR ( Amer) 57.4 Est GFR (Non-Af Amer) 49.5 BUN/Creatinine Ratio 12.7 Glucose 247 H POC Glucose 202 H POC Glucose (other) Estimat Average Glucose 186 Hemoglobin A1c 8.1 H Calcium 8.2 L POC Ioniz Calcium Jailene Phosphorus 3.0 Magnesium 1.9 Total Bilirubin AST ALT Alkaline Phosphatase POC Troponin I Troponin I 0.313 H* Total Protein Albumin Globulin Albumin/Globulin Ratio TSH Specimen Hemolysis Lyme Disease IgG Ab Lyme Disease IgM Ab 01/03/19 01/03/19 01/03/19 07:37 07:53 11:17 WBC RBC Hgb POC Hgb Hct POC Hct MCV MCH MCHC RDW Std Deviation RDW Coeff of Esthela Plt Count MPV Immature Gran % (Auto) Neut % (Auto) Lymph % (Auto) Gray % (Auto) Eos % (Auto) Baso % (Auto) Immature Gran # (Auto) Neut # (Auto) Lymph # (Auto) Gray # (Auto) Eos # (Auto) Baso # (Auto) PT INR APTT 38.5 H PTT Ratio 1.5 POC Sodium Sodium POC Potassium Potassium POC Chloride Chloride Carbon Dioxide POC Total CO2 Anion Gap POC Anion Gap POC BUN BUN Creatinine POC Creatinine Est Cr Clr Drug Dosing Est GFR ( Amer) Est GFR (Non-Af Amer) BUN/Creatinine Ratio Glucose POC Glucose 163 H 169 H POC Glucose (other) Estimat Average Glucose Hemoglobin A1c Calcium POC Ioniz Calcium Jailene Phosphorus Magnesium Total Bilirubin AST ALT Alkaline Phosphatase POC Troponin I Troponin I Total Protein Albumin Globulin Albumin/Globulin Ratio TSH Specimen Hemolysis Lyme Disease IgG Ab Lyme Disease IgM Ab Medications Administered Current Inpatient Medications Acetaminophen (Tylenol) 650 mg PO Q4H PRN PRN Reason: pain/fever Stop: 02/02/19 01:44 Aspirin (Ecotrin Ectab) 81 mg PO DAILY [facility] Stop: 02/02/19 08:59 Last Admin: 01/03/19 08:28 Dose: 81 mg Atorvastatin Calcium (Lipitor) 80 mg PO DAILY [facility] Stop: 02/02/19 08:59 Last Admin: 01/03/19 08:28 Dose: 80 mg Dextrose (Dextrose 50%) 25 - 50 ml IV UD PRN; Protocol PRN Reason: Hypoglycemia Protocol Stop: 02/02/19 01:44 Furosemide (Lasix) 40 mg PO DAILY PRN PRN Reason: Edema Stop: 02/02/19 01:44 Glucagon (Glucagen) 1 mg SQ UD PRN; Protocol PRN Reason: Hypoglycemia Protocol Stop: 02/02/19 01:44 Glucose (Glucose 40%) 15 - 30 gm PO UD PRN; Protocol PRN Reason: Hypoglycemia Protocol Stop: 02/02/19 01:44 Glucose (Dex4 Glucose) 4 - 8 tabs PO UD PRN; Protocol PRN Reason: Hypoglycemia Protocol Stop: 02/02/19 01:44 Diltiazem HCl 125 mg/ Dextrose 125 mls @ 5 mls/hr IV .Q24H [facility]; Protocol Stop: 02/02/19 01:44 Last Titration: 01/03/19 07:08 Dose: 5 mg/hr, 5 mls/hr Heparin Sodium/Dextrose (Heparin Sodium/Dextrose) 25,000 units in 500 mls @ 36 mls/hr IV .[id number] [facility]; Protocol Stop: 02/02/19 02:29 Last Titration: 01/03/19 08:37 Dose: 1,800 units/hr, 36 mls/hr Insulin Aspart (Novolog Flexpen) 0 units SC ACHS [facility] Stop: 02/02/19 02:44 Last Admin: 01/03/19 12:09 Dose: 2 units Insulin Glargine (Lantus Solostar Pen) 10 units SC BID [facility] Stop: 02/02/19 02:44 Last Admin: 01/03/19 08:28 Dose: 10 units Losartan Potassium (Cozaar) 100 mg PO DAILY [facility] Stop: 02/02/19 08:59 Last Admin: 01/03/19 08:28 Dose: 100 mg Metoprolol Succinate (Toprol Xl) 200 mg PO DAILY [facility] Stop: 02/02/19 08:59 Last Admin: 01/03/19 08:29 Dose: 200 mg Miscellaneous (Carbohydrates For Hypoglycemia) 15 - 30 gm PO UD PRN PRN Reason: Hypoglycemia Treatment Stop: 02/02/19 01:44 Pantoprazole Sodium (Protonix) 40 mg PO DAILY [facility] Stop: 02/02/19 08:59 Last Admin: 01/03/19 08:29 Dose: 40 mg Resident Activity Tracking Resident Involvement: Resident Care Provided Care Provided: Adult Hospital Medicine
[2019-01-03 15:55] LABS: Partial Thromboplastin Ratio 4.1
[2019-01-03 15:57] LABS: Partial Thromboplastin Time 107.6 Seconds (21.0-31.0)
[2019-01-03] MEDS ORDERED: Nursing to Pharmacy Communication ONE (17:42)
--- NOTE | 2019-01-03 20:56 | Consultation Report ---
DATE OF CONSULTATION: 01/03/2019 REQUESTING PHYSICIAN: Ashtyn Terrell MD SHOT EXAMINER: Luis Enrique Moreira DO, [facility], for Dr. 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 REASON FOR CONSULTATION: Atrial fibrillation with a rapid ventricular response, coronary artery disease with an ischemic cardiomyopathy. Dear Ashtyn, Thank you for requesting cardiology consultation on Shanelle with regards to her episode of atrial fibrillation. As you know, she is a very pleasant 48-year-old female with a history of a prior heart attack approximately 18 months ago in the fall of 2014. She is known to have an ischemic cardiomyopathy. She has been on appropriate medical regimens as an outpatient. She notes yesterday morning she forgot to take her 200 mg of Toprol. She went about her work day as usual. They went to dinner and when they arrived home, she noted she just felt like all the energy was drained out of her. She also had to walk at a slight incline into her house with a short number of stairs and she was very fatigued. She laid down in bed. Her episode did not improve and she subsequently came to the Emergency Room where she was found to be in atrial fibrillation with a rapid ventricular response with heart rates in the 140s. Overnight, she converted back to sinus rhythm. She feels back to herself. She denies any chest pain, chest pressure, chest heaviness, shortness of breath, PND, orthopnea. She has no further palpitations. I did ask her if she has noted any palpitations like this in the past and she denies them. She was also having short runs of nonsustained VT on the monitor and denies feeling any of those episodes either. She is able to climb 7 steps to a landing and an additional 7 steps without any difficulty. She can carry the groceries and laundry without any difficulty. Her functional capacity has been stable. She denies any bleeding, bruising, dark stools, black stools, fevers, chills, sweats, cough, productive sputum. Her appetite is stable. Her weight is stable. She snores very loudly and notes that she and her compete to see who snores the loudest. She has daytime somnolence, some of this she attributes to taking care of her grandson who does not sleep well. She has never fallen asleep driving the car or talking in mid conversation. The rest of review of systems is otherwise negative. PAST MEDICAL HISTORY: 1. Coronary artery disease status post LAD infarct, fall 2017. 2. [id number]-ge-bdmfmcdm ischemic cardiomyopathy with an ejection fraction in the range of 40% to 45% by biplane El's. 3. Hyperlipidemia. 4. Hypertension. 5. Diabetes mellitus type 2. 6. Atrial fibrillation with a rapid ventricular response with a CHADS2-VASc score being her gender, diabetes, coronary artery disease, heart failure, and hypertension. 7. Short episodes of nonsustained VT. 8. GERD. 9. Obesity. 10. Likely untreated obstructive sleep apnea. SOCIAL HISTORY: She is . She denies any tobacco. 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 FAMILY HISTORY: Noncontributory. MEDICATIONS: Reviewed in the electronic medical record. ALLERGIES: No known drug allergies. PHYSICAL EXAMINATION: GENERAL: She is awake, alert, oriented x3. She is no acute distress, a well-appearing female who looks her stated age. VITAL SIGNS: Her heart rate is 90, blood pressure 132/81, respirations 16, sat 96% on room air. HEENT: Mildly reduced carotid upstrokes. No evidence of carotid bruits. Jugular venous pressure appeared normal. Her sclerae are anicteric. Her hearing is normal. LUNGS: Clear to auscultation bilaterally. No rales, rhonchi or wheezing. HEART: Regular rate and rhythm. No appreciable murmurs, rubs, or gallops. ABDOMEN: Soft, nontender, nondistended. Positive bowel sounds. EXTREMITIES: No clubbing, cyanosis, or edema. PSYCHIATRIC: Affect appeared appropriate. ECHOCARDIOGRAM: Mild left ventricular hypertrophy, EF 40% to 45%, moderately dilated left ventricle, distal LAD wall motion abnormality, moderate pulmonary hypertension. IMAGING DATA: Chest x-ray, cardiomegaly, no evidence of heart failure. LABORATORY STUDIES: Hemoglobin 13.8, platelet count 157. Sodium 137, potassium 3.7, BUN 16, creatinine 1.27. Her troponin 0.313. IMPRESSION: 1. Atrial fibrillation with a rapid ventricular response with spontaneous conversion back to sinus rhythm. 2. CHADS2-VASc score of 5. 3. Coronary artery disease with LAD territory wall motion abnormality and a [id number] ischemic cardiomyopathy with an ejection fraction in the range of 40%. 4. Episodes of nonsustained ventricular tachycardia. 5. Probable obstructive sleep apnea. RECOMMENDATIONS: I made the following recommendations in discussion with the hospitalist service. 1. She will need a formal outpatient sleep study. 2. We will replete her magnesium and potassium to keep her mag greater than 2 and potassium greater than 4 with her episodes of nonsustained ventricular tachycardia. 3. She will be placed on apixaban 5 mg b.i.d. as her weight is just under 120 kilos. 4. She will remain on the rest of her medical regimen. I did discuss with her if she has future episodes of atrial fibrillation, she may need antiarrhythmic therapy in order to maintain sinus rhythm. But that hopefully if she has sleep apnea, by treating it and being compliant with her medications, we can avoid future episodes. She is having episodes of nonsustained ventricular tachycardia. We will keep her overnight to monitor her to make sure she does not have any extended episodes. We will also replace her electrolytes. She ultimately may need additional risk stratification based on her coronary disease and cardiomyopathy. Her troponin is related to demand ischemia. There is nothing to suggest acute coronary syndrome. Thank you for allowing us to participate in her care. LASHON
[2019-01-03] MEDS: APIXABAN 5 MG TABLET PO SCH (21:20)
[2019-01-04 06:51] LABS: Basophils # (auto) 0.02 K/uL (0-0.2); Basophils % (auto) 0.4 %; Eosinophils # (auto) 0.12 K/uL (0-0.5); Eosinophils % (auto) 2.2 %; Hematocrit (blood only) 40.2 % (37-47); Hemoglobin 12.8 g/dL (12.0-16.0); Immature Granulocytes # (auto) 0.01 K/uL (0.00-0.02); Immature Granulocytes % (auto) 0.2 %; Lymphocytes % (auto) 23.3 %; Mean Corpuscular Hgb Conc 31.8 g/dL (32-36); Mean Corpuscular Volume 84.3 fL (80-100); Mean Platelet Volume 9.9 fL (7.4-10.4); Monocytes # (auto) 0.45 K/uL (0.11-0.59); Monocytes % (auto) 8.1 %; Neutrophils # (auto) 3.67 K/uL (1.4-6.5); Neutrophils % (auto) 65.8 %; Platelet Count 168 K/uL (130-400); RDW Coefficient of Variation 14.3 % (11.5-14.5); RDW Standard Deviation 44.2 fL (36.4-46.3); Red Blood Count 4.77 M/uL (4.2-5.4); White Blood Count 5.57 K/uL (4.8-10.8)
[2019-01-04 06:58] LABS: Partial Thromboplastin Time 26.4 Seconds (21.0-31.0)
[2019-01-04 07:29] LABS: Albumin Level 3.3 gm/dl (3.4-5.0); BUN Creatinine Ratio 13.1 (10-20); Calcium 8.4 mg/dl (8.5-10.1); Creatinine Clr Calc Pharmacy 64.8 ml/min; Est GFR (African American) 53.3; Magnesium 2.1 mg/dl (1.8-2.4); Potassium 4.1 mmol/L (3.5-5.1)
[2019-01-04 07:32] LABS: Albumin Globulin Ratio 1.1 (0.9-2); Bilirubin,Total 0.9 mg/dl (0.2-1); Globulin 3.1 gm/dl (2.5-4.0); Total Protein 6.4 gm/dl (6.4-8.2)
[2019-01-04] MEDS: INSULIN ASPART 100 UNITS/ML 3 ML PEN SC SCH (08:07)
[2019-01-04] MEDS: LOSARTAN POTASSIUM 50 MG TAB PO SCH (08:08)
[2019-01-04] MEDS: ATORVASTATIN 40 MG TAB PO SCH (08:08)
[2019-01-04] MEDS: PANTOprazole 40 MG TAB PO SCH (08:09)
[2019-01-04] MEDS: ASPIRIN 81 MG ECTAB PO SCH (08:09)
[2019-01-04] MEDS: METOPROLOL SUCC 50MG EXT REL TAB PO SCH (08:09)
[2019-01-04] MEDS: APIXABAN 5 MG TABLET PO SCH (08:09)
[2019-01-04] MEDS: INSULIN GLARGINE SOLOSTAR 100 UNITS/ML 3 ML PEN SC SCH (08:10)
--- NOTE | 2019-01-04 10:03 | Discharge Summary ---
Date of Service January 04, 2019 Admission HPI Per Admitting Provider Patient is a 48yo female with history of CAD s/p acute [place] in 2014 with DAMON placed to the LAD, HTN, HLP, DM and Obesity presenting with acute onset of palpitations. Patient was out to dinner with her zhang. When she came home she had sudden onset of feeling her heart racing. Heartbeat felt irregular. Associated with some decreased energy. No chest pain/dizziness/SOB/ syncope. Patient with no prior history of arrhythmia. She follows with Dr. Toribio. Last seen in June 2018. Her cardiac history is significant for acute anterior [place] in September, with DAMON placed to mid-LAD. Nonobstructive CAD of LCx, RCA noted as well. Echo performed 10/13/15 with poor EF, 25-30%. Repeat echo with improved EF to 42%. Echo in 07/02/17 wtih EF of 40-45%. Negative stress echo 07/02/17. ER Course: Diltiazem 10mg IV then gtt, Heparin gtt, Mag 1gm, Metoprolol 5mg IV x 4 Principal Diagnosis a fib Discharge Exam Constitutional WD/WN, vitals as above Eyes PERRL, conjunctivae normal, anicteric sclerae ENMT external ear and nose normal, oropharynx normal Respiratory normal respiratory effort, lungs clear to auscultation Cardiovascular RRR, no murmur, no edema Gastrointestinal (Abdomen) normal bowel sounds, soft, nontender, no hepatosplenomegaly Skin no rashes, warm and dry Psychiatric A+Ox3, euthymic affect Discharge Data Allergies Allergy/AdvReac Type Severity Reaction Status Date / Time No Known Allergies Allergy Verified 01/03/19 00:38 Consultations 01/03/19 00:13 ED Decision to Admit Stat 01/03/19 01:45 Consult Cardiology Routine Hospital Course (1) Atrial fibrillation with RVR: 48 y/o F with PMH CAD s/p [place] 2015 e/ DAMON in LAD, HTN, HLD, DM, obesity presented to [facility] on 01/03 with acute onset of palpitations when she was out to dinner. Pt had some associated decreased energy, but otherwise denies chest pain /dizziness/SOB/syncope. EKG showed that pt was in A fib with RVR and was started on Diltiazem 10mg IV then gtt, Heparin gtt, Metoprolol 5mg IV x 4 The following is the medical management during her stay here. For pt's A fib w/ RVR, she was converted to NSR overnight, so we stopped heparin gtt and dilt gtt. Pt was put on eliquis 5 mg BID and continued on home Metoprolol 200mg po daily. Echo 01/03 showed EF 40-45%, LV moderately dilated, Mild concentric LVH. On tele, pt was seen to have episodes of nonsustained ventricular tachycardia, and thus was monitored overnight to make sure she did not have any extended episodes, which she did not. We repleted her magnesium and potassium to keep her mag greater than 2 and potassium greater than 4. Pt instructed to take daily K and Mg and to double her dose of K whenever she takes Lasix (normally only takes prn for fluid overload). Cardiology was consulted and made the following recommendations: Pt will be placed on apixaban 5 mg b.i.d. as her weight is just under 120 kilos, and will remain on the rest of her medical regimen. Also advised that pt should have a formal outpatient sleep study because if she has sleep apnea, by treating it and being compliant with her medications, we can avoid future episodes of A fib. Otherwise, if she has future episodes of atrial fibrillation, she may need antiarrhythmic therapy in order to maintain sinus rhythm. Pt's elevated troponin (peak .313, known CAD) was likely rate-related demand ischemia from initial Afib w/ RVR. Patient was asymptomatic during stay, denied chest pain, SOB. We continued ASA, Metoprolol, Atorvastatin, Losartan. Pt's DM managed with Lantus 10u BID and ISS, Metformin was held. Pt's HTN was stable and was continued on Metoprolol, Losartan. GERD managed with home PPI. DVT Prophylaxis with Eliquis 5 mg BID. At time of d/c, pt had no other acute concerns or complaints. Total Time Total Time Spent Total Time Spent (In Minutes): 30 min Discharge Plan Discharge Items Patient Disposition: Home - Self-Care Reason For Visit: AF WITH RVR Discharge Diagnosis: A fib Discharge Goals: Improve disease control Activity: Per 'Additional Instructions' section Non-emergency contact: Primary Care Provider Call non-emergency contact if: you have any medication questions and your symptoms worsen Diet: Carb Consistent or DM2 Addtl Provider Instructions: You were admitted for chest palpitations and were found to be in A fib. You were given a rate controlling medication along with anticoagulation meds and eventually went back into a normal rhythm. However, while on monitor, you were found to have episodes of nonsustained ventricular tachycardia, so we kept you overnight to monitor to make sure you did not have any extended episodes. Please follow the below instructions that are recommended by us and cardiology: -Please see your PCP within one week of discharge. You will need to have a formal outpatient sleep study. -Please see Dr. Toribio ([facility]) within 10 days of discharge -You will start daily potassium and magnesium supplements. You will double your potassium dose whenever you take your lasix. -Please continue taking eliquis 5 mg 2x/day -if you have similar symptoms that you had on admission, please come back into ER Prescriptions: New apixaban [Eliquis] 5 mg Tablet 5 mg PO BID Qty: 30 RF: 0 magnesium 200 mg tablet 200 mg PO DAILY Qty: 30 RF: 0 potassium chloride 20 mEq tablet extended release 20 meq PO DAILY Qty: 30 RF: 0 apixaban [Eliquis] 5 mg tablet 5 mg PO BID Qty: 30 RF: 0 potassium chloride 20 mEq tablet extended release 20 meq PO DAILY Qty: 30 RF: 0 magnesium 200 mg tablet 200 mg PO DAILY Qty: 30 RF: 0 Continue furosemide 40 mg tablet 40 mg PO DAILY PRN (Reason: Edema) RF: 0 metformin 500 mg tablet 500 mg PO BID RF: 0 atorvastatin 80 mg tablet 80 mg PO DAILY RF: 0 metoprolol succinate 200 mg tablet extended release 24 hr 200 mg PO DAILY RF: 0 clopidogrel 75 mg tablet 75 mg PO DAILY RF: 0 pantoprazole 40 mg tablet,delayed release (DR/EC) 40 mg PO DAILY RF: 0 losartan 100 mg tablet 100 mg PO DAILY RF: 0 aspirin 81 mg Tablet,Delayed Release (Dr/Ec) 81 mg PO DAILY RF: 0 ibuprofen 200 mg Tablet 400 mg PO Q4 PRN (Reason: Fever Or Pain) RF: 0 Stand-Alone Forms: My [facility]/Other Patient Handouts: Hyperglycemia, Hypoglycemia, Blood Sugar Check Discharge Orders: Discharge Order (Routine); Ordered 01/04/19 Ordered By: Andrew Coleman Admission Data Admit Date/Time: 01/03/19 00:59 Attending Provider: Ashtyn Terrell Admit Provider: Jayshree Kelly Primary Care Provider: Marylou Dasilva Other Providers: Jayshree Kelly ; Jaime Dimas ; Tito Lay ; Bud Masters ; Jesu Ramos ; Sekou Toribio Jr ; Иван Denton ; Amy Brown ; Gricel Mcelroy ; Cachorro Novoa ; Cachorro Ordoñez ; Alexandro Christensen ; Willem Sharma ; Jones Schmitt ; Kim Meraz ; Shantelle Breaux Service: Telemetry Other Interventions: Discharge Summary Assessment (RN) Last Done: 01/04/19 10:49 DC Date/Time DO NOT enter until pt leaves facility: 01/04/19 11:11 Supervising Physician Co-Signing Physician Notes Resident Physician Supervision Note: I independently interviewed and examined the patient and verified the carranza history and physical, reviewed labs and image studies, discussed the case with the resident Dr. Coleman and agree with the findings and care plan. Time spent in discharge 35 min Resident Activity Tracking Resident Involvement: Resident Care Provided Care Provided: Adult Hospital Medicine
== END 2019-01-04 11:11 | disposition home or self-care (01) | DRG 309 ==
LOC: ED 21:40 → 2E 01-03 00:59 → SUATTDRO 01-03 00:59 → 2E 01-03 01:21

== ENCOUNTER 2019-09-16 05:41 | Inpatient (IN) ==
[2019-09-16] MEDS ORDERED: ACETAMINOPHEN 1,000 MG/100 ML VIAL IV STA (06:02)
[2019-09-16] MEDS ORDERED: KETOROLAC 30 MG/ML VIAL IV STA (06:02)
--- NOTE | 2019-09-16 06:07 | Emergency Department Note ---
History of Present Illness General Chief complaint: Flu Like Symptoms Stated complaint: ILL,VOMITING,FLU SYMPTOMS Time Seen by Provider: 09/16/19 05:59 History of Present Illness Maximum Pain Intensity: 7 This is a 49-year-old female presenting to the emergency department with flulike symptoms for the past 2 days. The patient feels very fatigued and has a dry cough. Patient does not have any chest pain, chest tightness, or shortness of breath. She has not taken anything [id number] for her discomfort. She does report possible exposure to the flu. No recent travel history. She rates her current discomfort a 7/10. She has felt nauseated, and feels like she has not eaten or drinking well. Home Medications Home Medications Medication Instructions Recorded Confirmed Type atorvastatin 80 mg PO DAILY 08/01/18 09/16/19 History ibuprofen 400 mg PO Q4 PRN 08/01/18 09/16/19 History metformin 500 mg PO BID 08/01/18 09/16/19 History magnesium 200 mg PO DAILY #30 tab 01/04/19 09/16/19 Rx potassium chloride 20 meq PO DAILY #30 tab 01/04/19 09/16/19 Rx losartan 100 mg tablet 100 mg PO DAILY #30 tab 06/30/19 09/16/19 Rx blood sugar diagnostic strips #10 ea 07/06/19 09/16/19 History ferrous gluconate 324 mg (37.5 mg 324 mg PO BID tab 07/06/19 09/16/19 History iron) tablet furosemide 40 mg tablet 40 mg PO DAILY 07/06/19 09/16/19 History metoprolol succinate ER 200 mg 300 mg PO DAILY tab 07/06/19 09/16/19 History tablet,extended release 24 hr pantoprazole 40 mg tablet,delayed 40 mg PO DAILY #30 tab 07/22/19 09/16/19 Rx release apixaban 5 mg tablet 5 mg PO BID #30 tab 09/15/19 09/16/19 Rx Allergies Allergy/AdvReac Type Severity Reaction Status Date / Time lisinopril AdvReac Mild Cough Verified 09/16/19 06:23 Past Med/Surg History Medical History Mild acid reflux (Acute) Dyslipidemia (Acute) Cardiomyopathy (Acute) Wide-complex tachycardia (Acute) Diabetes (Acute) CAD (coronary artery disease) (Acute) Hypomagnesemia (Acute) Atrial fibrillation with RVR (Acute) Elevated troponin (Acute) Shortness of breath (Acute) HTN (hypertension) (Acute) CHF (congestive heart failure) (Acute) Chest pain (Acute) NSTEMI (non-ST elevated myocardial infarction) (Acute) Benign essential HTN DM II (diabetes mellitus, type II), controlled HLD (hyperlipidemia) Morbid obesity with BMI of 40.0-44.9, adult Myocardial infarction anterior [place], DAMON to LAD in 2015 Surgical History H/O heart artery stent 2014 Social History Preferred Language: Belarusian Communication Ability: Effective Games Dealer Required: No Beliefs That Will Affect Care: None Current Living Situation: Family Feels Safe at Home: Yes Smoking Status: Never smoker Second Hand Exposure: No ; Hx Alcohol Use: No Hx Substance Use: No Review of Systems A total of 10 systems reviewed and were otherwise negative Physical Exam Vital Signs Vital Signs - 24 hr 09/16/19 05:46 Temperature 37.9 C H Temperature Source Oral Sepsis Recent Fever Within 48 Hours Yes Sepsis New/Unexplained Change in Mental Status No Sepsis Action Taken by Nursing No Action Required Pulse Rate 87 Respiratory Rate 18 Respiratory Effort / Characteristics Non-Labored Spontaneous Respiratory Depth Normal Respiratory Pattern Regular Blood Pressure 133/73 Blood Pressure Mean 93 Blood Pressure Position Sitting Pulse Oximetry 99 Oxygen Delivery Method Room Air VITALS: Vitals are noted on the nurse's note and reviewed by myself. Vital s igns with low-grade fever GENERAL: Well-developed, well-nourished, white female, who appears ill but nontoxic. HEAD: Normocephalic atraumatic. MOUTH: Mucous membranes moist. Tonsils are not enlarged. Pharynx without erythema, blood, or exudate. Uvula midline. Airway patent. NECK: Supple without nuchal rigidity. No lymphadenopathy. No thyromegaly. Cervical spine is nontender. HEART: Regular rate and rhythm LUNGS: Clear to auscultation bilaterally without wheezes, rales or rhonchi. No retractions or accessory muscle use. ABDOMEN: Positive normal bowel sounds x 4. Soft with mild epigastric tenderness MUSCULOSKELETAL: No muscle atrophy, erythema, or edema noted. Full range of motion in all extremities. Course Administered Medications Sodium Chloride (Nss 1000ml) 1,000 mls @ 999 mls/hr IV .Q1H1M REAGAN Stop: 09/16/19 07:15 Last Admin: 09/16/19 06:19 Dose: 999 mls/hr Documented by: [id number] Discontinued Medications Acetaminophen (Ofirmev) 1,000 mg in 100 mls @ 400 mls/hr IV NOW STA Stop: 09/16/19 06:16 Last Infusion: 09/16/19 06:48 Dose: 0 mls/hr Documented by: [id number] Admin: 09/16/19 06:20 Dose: 400 mls/hr Documented by: [id number] Ketorolac Tromethamine (Toradol) 30 mg IV NOW STA Stop: 09/16/19 06:03 Last Admin: 09/16/19 06:20 Dose: 30 mg Documented by: [id number] Ondansetron HCl (Zofran) 4 mg IV NOW STA Stop: 09/16/19 06:25 Last Admin: 09/16/19 06:53 Dose: 4 mg Documented by: [id number] Medical Decision Making Differential Diagnosis Differential diagnosis: Etiologies such as viral syndrome, otitis, pharyngitis, pneumonia, influenza, meningitis, urinary tract infection, septic arthritis, soft tissue infectious process, intra-abdominal process, sepsis, bacteremia, as well as others were entertained. Laboratory Data Result diagrams: 09/16/19 06:10 09/16/19 06:10 Lab Results 09/16/19 09/16/19 Range/Units 06:10 06:10 WBC 11.32 H (4.8-10.8) K/uL RBC 4.83 (4.2-5.4) M/uL Hgb 10.5 L (12.0-16.0) g/dL Hct 36.8 L (37-47) % MCV 76.2 L (80-100) fL MCH 21.7 L (25-34) pg MCHC 28.5 L (32-36) g/dL RDW Std Deviation 52.6 H (36.4-46.3) fL RDW Coeff of Esthela 18.9 H (11.5-14.5) % Plt Count 156 (130-400) K/uL MPV 9.4 (7.4-10.4) fL Immature Gran % (Auto) 0.2 % Neut % (Auto) 94.1 % Lymph % (Auto) 1.4 % [place] % (Auto) 4.2 % Eos % (Auto) 0.0 % Baso % (Auto) 0.1 % Immature Gran # (Auto) 0.02 (0.00-0.02) K/uL Neut # (Auto) 10.65 H (1.4-6.5) K/uL Lymph # (Auto) 0.16 L (1.2-3.4) K/uL [place] # (Auto) 0.48 (0.11-0.59) K/uL Eos # (Auto) 0.00 (0-0.5) K/uL Baso # (Auto) 0.01 (0-0.2) K/uL Sodium 137 (136-145) mmol/L Potassium 3.6 (3.5-5.1) mmol/L Chloride 103 (98-107) mmol/L Carbon Dioxide 24 (21-32) mmol/L Anion Gap 10.0 (3-11) BUN 14 (7-18) mg/dl Creatinine 1.44 H (0.6-1.2) mg/dl Est Cr Clr Drug Dosing 54.8 ml/min Est GFR ( Amer) 49.0 Est GFR (Non-Af Amer) 42.2 BUN/Creatinine Ratio 10.0 (10-20) Glucose 210 H (70-99) mg/dl Calcium 9.3 (8.5-10.1) mg/dl Total Bilirubin 6.6 H (0.2-1) mg/dl AST 184 H (15-37) U/L ALT 176 H (12-78) U/L Alkaline Phosphatase 265 H (45-117) U/L Total Protein 6.9 (6.4-8.2) gm/dl Albumin 3.6 (3.4-5.0) gm/dl Globulin 3.3 (2.5-4.0) gm/dl Albumin/Globulin Ratio 1.1 (0.9-2) Imaging Data Radiologist's Impression: XR chest 1V portable CLINICAL HISTORY: Fever. Cough. COMPARISON STUDY: Chest radiograph January 02, 2019. Chest CT October 27, 2015. FINDINGS: Lung volumes are normal. Lungs are clear. There is no pneumothorax or pleural effusion. Mild enlargement of the cardiac silhouette is unchanged. Mediastinal contours are normal. There is no evidence for pulmonary edema. IMPRESSION: No acute cardiopulmonary findings. Stable mild enlargement of the cardiac silhouette. MDM Narrative Physical exam and history were performed. Nursing notes, EMR, and Medication List were personally reviewed. Patient appears to have fever, fatigue, and flulike symptoms for the past 1 to 2 days. She does have a fever here in the department. IV access was established and labs were obtained. The patient was hydrated with normal saline and given IV Toradol and IV Tylenol. Chest x-ray was performed. The patient's blood work is as above and was reviewed. The patient does have mildly elevated white blood cell count of 11,000. She is mildly anemic, however this seems consistent with labs that were performed about 4 months ago. Glucose is 210. Creatinine is 1.44. The patient transaminases are elevated higher than normal. Chest x-ray was reviewed by myself and radiology showing no acute process. With the patient's elevated transaminases I did reevaluate her. She does report some right upper quadrant tenderness. Because of this I did elect to perform ultrasound of the right upper quadrant. At this time additional blood work is pending. The patient remained in stable condition until the time of shift change. The case was discussed with my colleague, Raciel Alvarez PA-C, who will assume care. Please see Lilliam Antonio's dictation for further patient course, plan, and disposition. The chart was completed utilizing [employer] Voice Recognition Software. G rammatical errors, random word insertions, pronoun errors, and incomplete sentences are an occasional consequence of this system due to software limitations, ambient noise, and hardware issues. Any formal questions or concerns about the content, text, or information contained within the body of this dictation should be directly addressed to the provider for clarification. . Impression & Plan Acute febrile illness, Epigastric abdominal pain, Elevated LFTs Discharge Plan Visit Data Chief Complaint: Flu Like Symptoms Stated Complaint: ILL,VOMITING,FLU SYMPTOMS ED Provider: Sharita Hassan ED Midlevel Provider: Luigi Walters Discharge Problem: Acute febrile illness, Epigastric abdominal pain, Elevated LFTs Forms Stand Alone Forms: My [employer] Prescriptions Prescriptions: No Action losartan 100 mg tablet 100 mg PO DAILY Qty: 30 RF: 11 Eliquis 5 mg tablet 5 mg PO BID Qty: 30 RF: 11 ferrous gluconate 324 mg (37.5 mg iron) tablet 324 mg PO BID RF: 0 furosemide 40 mg tablet 40 mg PO DAILY RF: 0 FreeStyle Lite Strips strip .ROUTE .MEDSUPPLY Qty: 10 RF: 0 pantoprazole 40 mg tablet,delayed release (DR/EC) 40 mg PO DAILY Qty: 30 RF: 5 metformin 500 mg tablet 500 mg PO BID RF: 0 atorvastatin 80 mg tablet 80 mg PO DAILY RF: 0 ibuprofen 200 mg Tablet 400 mg PO Q4 PRN (Reason: Fever Or Pain) RF: 0 metoprolol succinate 200 mg tablet extended release 24 hr 300 mg PO DAILY RF: 0 magnesium 200 mg tablet 200 mg PO DAILY Qty: 30 RF: 0 potassium chloride 20 mEq tablet extended release 20 meq PO DAILY Qty: 30 RF: 0 Referrals Referrals: Marylou Dasilva MD [Primary Care Provider] -
[2019-09-16] MEDS ORDERED: SODIUM CHLORIDE 0.9% 1000ML 1,000 ML IV SCH (06:15)
[2019-09-16] MEDS ORDERED: ONDANSETRON INJ 2 MG/ML 2 ML VIAL IV STA (06:24)
[2019-09-16 06:27] LABS: Basophils # (auto) 0.01 K/uL (0-0.2); Basophils % (auto) 0.1 %; Hematocrit (blood only) 36.8 % (37-47); Hemoglobin 10.5 g/dL (12.0-16.0); Immature Granulocytes # (auto) 0.02 K/uL (0.00-0.02); Immature Granulocytes % (auto) 0.2 %; Lymphocytes # (auto) 0.16 K/uL (1.2-3.4); Lymphocytes % (auto) 1.4 %; Mean Corpuscular Hemoglobin 21.7 pg (25-34); Mean Corpuscular Hgb Conc 28.5 g/dL (32-36); Mean Corpuscular Volume 76.2 fL (80-100); Mean Platelet Volume 9.4 fL (7.4-10.4); Monocytes # (auto) 0.48 K/uL (0.11-0.59); Monocytes % (auto) 4.2 %; Neutrophils # (auto) 10.65 K/uL (1.4-6.5); Neutrophils % (auto) 94.1 %; Platelet Count 156 K/uL (130-400); RDW Coefficient of Variation 18.9 % (11.5-14.5); RDW Standard Deviation 52.6 fL (36.4-46.3); Red Blood Count 4.83 M/uL (4.2-5.4); White Blood Count 11.32 K/uL (4.8-10.8)
--- NOTE | 2019-09-16 06:29 | XRay Report ---
XR chest 1V portable CLINICAL HISTORY: Fever. Cough. COMPARISON STUDY: Chest radiograph January 02, 2019. Chest CT October 27, 2015. FINDINGS: Lung volumes are normal. Lungs are clear. There is no pneumothorax or pleural effusion. Mil d enlargement of the cardiac silhouette is unchanged. Mediastinal contours are normal. There is no ev idence for pulmonary edema. IMPRESSION: No acute cardiopulmonary findings. Stable mild enlargement of the cardiac silhouette. Electronically signed by: Yung Oates M.D. 09/16/2019 6:28 AM
[2019-09-16 06:44] LABS: Albumin Level 3.6 gm/dl (3.4-5.0); Calcium 9.3 mg/dl (8.5-10.1); Creatinine Clr Calc Pharmacy 54.8 ml/min; Est GFR (Non-African American) 42.2; Potassium 3.6 mmol/L (3.5-5.1)
[2019-09-16 06:52] LABS: Albumin Globulin Ratio 1.1 (0.9-2); Bilirubin,Total 6.6 mg/dl (0.2-1); Globulin 3.3 gm/dl (2.5-4.0); Total Protein 6.9 gm/dl (6.4-8.2)
--- NOTE | 2019-09-16 07:07 | Emergency Department Note ---
ED Provider Note 49-year-old female whose care was transferred to ks from Luigi Walters PA-C at change of shift. The patient presented to the emergency department with complaint of fever, cough and weakness. The patient reports that she has been having some right upper abdomen, flank and back pain for the past few days that is progressively worsening. At the time of transfer of care, an ultrasound of the right upper quadrant was pending secondary to elevated liver transaminases, alkaline phosphatase and bilirubin. At 7:03 AM, the patient's repeat oral tem perature was 37.9 C. The patient had just been administered IV Tylenol and Toradol. Review of labs did show a mild leukocytosis. Lipase was normal. Influenza screen was negative. The patient does have a significant cardiac history with prior history of myocardial infarction. Troponin was normal. A chest x-ray was performed and was normal. ECG showed sinus rhythm with occasional PVCs and right bundle branch block. No ST elevations or ischemic changes are noted. When compared with the prior ECG of 01/03/2019, no significant changes were found. Ultrasound shows evidence for acute lotus cystitis and probable choledocholithiasis. After the patient returned from ultrasound, she was administered an additional Dilaudid 0.5 mg IVP for pain. This reduced her pain to a 2 out of 10. The patient reports resolution of nausea. The case was discussed with Dr. Hassan, ED attending physician, who recommended surgical consultation. The case was discussed with Luis Rome PA-C, working with Dr. Soto, general surgeon, who recommended hospitalist admission with GI consultation for ERCP followed by laparoscopic cholecystectomy. Please see their dictations for further treatment and final disposition. At the time of transfer of care, the patient was hemodynamically stable and comfortable. Impression & Plan Choledocholithiasis with acute cholecystitis, Acute febrile illness, Epigastric abdominal pain, Elevated LFTs Past Med/Surg History Medical History Paroxysmal atrial fibrillation Mild acid reflux (Acute) Dyslipidemia (Acute) Cardiomyopathy (Acute) Wide-complex tachycardia (Acute) Diabetes (Acute) CAD (coronary artery disease) (Acute) Hypomagnesemia (Acute) Atrial fibrillation with RVR (Acute) Elevated troponin (Acute) Shortness of breath (Acute) HTN (hypertension) (Acute) CHF (congestive heart failure) (Acute) Chest pain (Acute) NSTEMI (non-ST elevated myocardial infarction) (Acute) Benign essential HTN DM II (diabetes mellitus, type II), controlled HLD (hyperlipidemia) Morbid obesity with BMI of 40.0-44.9, adult Myocardial infarction anterior [place], DAMON to LAD in 2014 Surgical History S/P coronary artery stent placement H/O heart artery stent 2014 Family History Other Diabetes Heart disease Hypertension Myocardial infarction Social History Preferred Language: Serbian Communication Ability: Effective Dry Heat Cabinet Attendant Required: No Beliefs That Will Affect Care: None Current Living Situation: Family Feels Safe at Home: Yes Smoking Status: Never smoker Second Hand Exposure: No ; Hx Alcohol Use: No Hx Substance Use: No Results & Data Vital Signs Vital Signs - 24 hr 09/16/19 05:46 09/16/19 07:03 Temperature 37.9 C H Temperature Source Oral Sepsis Recent Fever Within 48 Hours Yes Sepsis New/Unexplained Change in Mental Status No Sepsis Action Taken by Nursing No Action Required Pulse Rate 87 Pulse Rate [Right Finger] 77 Respiratory Rate 18 20 Respiratory Effort / Characteristics Non-Labored Spontaneous Non-Labored Spontaneous Respiratory Depth Normal Normal Respiratory Pattern Regular Regular Blood Pressure 133/73 Blood Pressure [Left Arm] 120/60 Blood Pressure Mean 93 Blood Pressure Mean [Left Arm] 80 Blood Pressure Position Sitting Pulse Oximetry 99 93 Oxygen Delivery Method Room Air Room Air Home Medications Current Medication List: was personally reviewed by me Laboratory Data Attestation: I reviewed the patient's lab results. Result diagrams: 09/16/19 06:10 09/16/19 06:10 Lab Results 09/16/19 09/16/19 09/16/19 Range/Units 06:10 06:10 06:10 WBC 11.32 H (4.8-10.8) K/uL RBC 4.83 (4.2-5.4) M/uL Hgb 10.5 L (12.0-16.0) g/dL Hct 36.8 L (37-47) % MCV 76.2 L (80-100) fL MCH 21.7 L (25-34) pg MCHC 28.5 L (32-36) g/dL RDW Std Deviation 52.6 H (36.4-46.3) fL RDW Coeff of Esthela 18.9 H (11.5-14.5) % Plt Count 156 (130-400) K/uL MPV 9.4 (7.4-10.4) fL Immature Gran % (Auto) 0.2 % Neut % (Auto) 94.1 % Lymph % (Auto) 1.4 % [place] % (Auto) 4.2 % Eos % (Auto) 0.0 % Baso % (Auto) 0.1 % Immature Gran # (Auto) 0.02 (0.00-0.02) K/uL Neut # (Auto) 10.65 H (1.4-6.5) K/uL Lymph # (Auto) 0.16 L (1.2-3.4) K/uL [place] # (Auto) 0.48 (0.11-0.59) K/uL Eos # (Auto) 0.00 (0-0.5) K/uL Baso # (Auto) 0.01 (0-0.2) K/uL Sodium 137 (136-145) mmol/L Potassium 3.6 (3.5-5.1) mmol/L Chloride 103 (98-107) mmol/L Carbon Dioxide 24 (21-32) mmol/L Anion Gap 10.0 (3-11) BUN 14 (7-18) mg/dl Creatinine 1.44 H (0.6-1.2) mg/dl Est Cr Clr Drug Dosing 54.8 ml/min Est GFR ( Amer) 49.0 Est GFR (Non-Af Amer) 42.2 BUN/Creatinine Ratio 10.0 (10-20) Glucose 210 H (70-99) mg/dl Calcium 9.3 (8.5-10.1) mg/dl Total Bilirubin 6.6 H (0.2-1) mg/dl AST 184 H (15-37) U/L ALT 176 H (12-78) U/L Alkaline Phosphatase 265 H (45-117) U/L Troponin I 0.028 (0-0.045) ng/ml Total Protein 6.9 (6.4-8.2) gm/dl Albumin 3.6 (3.4-5.0) gm/dl Globulin 3.3 (2.5-4.0) gm/dl Albumin/Globulin Ratio 1.1 (0.9-2) Lipase 264 (73-393) U/L Influenza Type A Ag Neg for Influ A (Neg) Influenza Type B Ag Neg for Influ B (Neg) Administered Medications Potassium Chloride/Sodium Chloride (Normal Saline W/20 Meq Kcl) 20 meq in 1,000 mls @ 100 mls/hr IV .Q10H REAGAN Stop: 10/16/19 11:59 Last Admin: 09/16/19 12:38 Dose: 100 mls/hr Documented by: [id number] Insulin Aspart (Novolog Flexpen) 0 units SC ACHS REAGAN Stop: 10/16/19 11:29 Last Admin: 09/16/19 12:50 Dose: 1 units Documented by: [id number] Cosigned by: [id number] Metoprolol Succinate (Toprol Xl) 300 mg PO DAILY REAGAN Stop: 10/16/19 11:59 Last Admin: 09/16/19 12:08 Dose: Not Given Documented by: [id number] Discontinued Medications Hydromorphone HCl (Dilaudid) 0.5 mg IV NOW STA Stop: 09/16/19 07:47 Last Admin: 09/16/19 07:59 Dose: 0.5 mg Documented by: [id number] Acetaminophen (Ofirmev) 1,000 mg in 100 mls @ 400 mls/hr IV NOW STA Stop: 09/16/19 06:16 Last Infusion: 09/16/19 06:48 Dose: 0 mls/hr Documented by: [id number] Admin: 09/16/19 06:20 Dose: 400 mls/hr Documented by: [id number] Sodium Chloride (Nss 1000ml) 1,000 mls @ 999 mls/hr IV .Q1H1M REAGAN Stop: 09/16/19 07:15 Last Infusion: 09/16/19 07:28 Dose: 0 mls/hr Documented by: [id number] Admin: 09/16/19 06:19 Dose: 999 mls/hr Documented by: [id number] Piperacillin Sod/Tazobactam (Sod 3.375 gm/ Dextrose) 115 mls @ 230 mls/hr IV 1200 ONE; Protocol Stop: 09/16/19 12:29 Last Infusion: 09/16/19 13:08 Dose: 0 mls/hr Documented by: [id number] Admin: 09/16/19 12:38 Dose: 230 mls/hr Documented by: [id number] Ketorolac Tromethamine (Toradol) 30 mg IV NOW STA Stop: 09/16/19 06:03 Last Admin: 09/16/19 06:20 Dose: 30 mg Documented by: [id number] Ondansetron HCl (Zofran) 4 mg IV NOW STA Stop: 09/16/19 06:25 Last Admin: 09/16/19 06:53 Dose: 4 mg Documented by: [id number] Imaging Data Attestation: I personally reviewed and interpreted this imaging study as follows: Blood Pressure Blood Pressure Findings: Normal blood pressure Medical Decision Making Medical Records Attestation: I reviewed the patient's medical records. Home Medications Current Medication List: was personally reviewed by me Laboratory Data Attestation: I reviewed the patient's lab results. Result diagrams: 09/16/19 06:10 09/16/19 06:10 Lab Results 09/16/19 09/16/19 09/16/19 Range/Units 06:10 06:10 06:10 WBC 11.32 H (4.8-10.8) K/uL RBC 4.83 (4.2-5.4) M/uL Hgb 10.5 L (12.0-16.0) g/dL Hct 36.8 L (37-47) % MCV 76.2 L (80-100) fL MCH 21.7 L (25-34) pg MCHC 28.5 L (32-36) g/dL RDW Std Deviation 52.6 H (36.4-46.3) fL RDW Coeff of Esthela 18.9 H (11.5-14.5) % Plt Count 156 (130-400) K/uL MPV 9.4 (7.4-10.4) fL Immature Gran % (Auto) 0.2 % Neut % (Auto) 94.1 % Lymph % (Auto) 1.4 % [place] % (Auto) 4.2 % Eos % (Auto) 0.0 % Baso % (Auto) 0.1 % Immature Gran # (Auto) 0.02 (0.00-0.02) K/uL Neut # (Auto) 10.65 H (1.4-6.5) K/uL Lymph # (Auto) 0.16 L (1.2-3.4) K/uL [place] # (Auto) 0.48 (0.11-0.59) K/uL Eos # (Auto) 0.00 (0-0.5) K/uL Baso # (Auto) 0.01 (0-0.2) K/uL Sodium 137 (136-145) mmol/L Potassium 3.6 (3.5-5.1) mmol/L Chloride 103 (98-107) mmol/L Carbon Dioxide 24 (21-32) mmol/L Anion Gap 10.0 (3-11) BUN 14 (7-18) mg/dl Creatinine 1.44 H (0.6-1.2) mg/dl Est Cr Clr Drug Dosing 54.8 ml/min Est GFR ( Amer) 49.0 Est GFR (Non-Af Amer) 42.2 BUN/Creatinine Ratio 10.0 (10-20) Glucose 210 H (70-99) mg/dl Calcium 9.3 (8.5-10.1) mg/dl Total Bilirubin 6.6 H (0.2-1) mg/dl AST 184 H (15-37) U/L ALT 176 H (12-78) U/L Alkaline Phosphatase 265 H (45-117) U/L Troponin I 0.028 (0-0.045) ng/ml Total Protein 6.9 (6.4-8.2) gm/dl Albumin 3.6 (3.4-5.0) gm/dl Globulin 3.3 (2.5-4.0) gm/dl Albumin/Globulin Ratio 1.1 (0.9-2) Lipase 264 (73-393) U/L Influenza Type A Ag Neg for Influ A (Neg) Influenza Type B Ag Neg for Influ B (Neg) Imaging Data Attestation: I personally reviewed and interpreted this imaging study as follows: My Impression: Right upper quadrant ultrasound shows evidence for acute cholecystitis, cholelithiasis and possible choledocholithiasis. My interpretation of a two-view chest x-ray does not show any consolidations or pneumothorax. Radiologist reports were reviewed. Radiologist's Impression: US gallbladder HISTORY: 49 years-old Female n/v, elevated lft acute nausea and vomiting with elevated LFTs COMPARISON: Chest CT 10/27/2015 TECHNIQUE: Multiple real-time sonographic images of the abdominal right upper quadrant were obtained assessing grayscale appearance and color flow FINDINGS: Visualized pancreas is unremarkable. There is mild central intrahepatic biliary ductal dilation. No evidence of cirrhosis or focal hepatic mass lesion. Gallbladder distention with moderate cholelithiasis and intraluminal sludge. The gallbladder wall is mildly thickened and edematous measuring up to 4 mm. Sonographic Miller sign reported as positive. No definite pericholecystic fluid. Common bile duct is dilated measuring up to 1.7 cm. There is an equivocal no nshadowing small filling defect within the common bile duct on image 48. There is a hypoechoic mildly complex structure of the upper pole right kidney measuring up to 2.2 cm with a thin internal septation no central flow. 1.5 cm benign-appearing cyst of the inferior pole right kidney. IMPRESSION: 1. Gallbladder distention with sludge, cholelithiasis and wall thickening is noted in conjunction with positive sonographic Miller's sign. Findings are suspicious for acute cholecystitis. 2. Intrahepatic and extrahepatic biliary ductal dilation is noted with equivocal choledocholithiasis. Correlate with laboratory analysis. 3. Hypoechoic lesion of the superior pole right kidney, 2.2 cm with thin i nternal septation suggests a probable complex cyst. This could be further evaluated with CT or MRI. XR chest 1V portable CLINICAL HISTORY: Fever. Cough. COMPARISON STUDY: Chest radiograph January 02, 2019. Chest CT October 27, 2015. FINDINGS: Lung volumes are normal. Lungs are clear. There is no pneumothorax or pleural effusion. Mild enlargement of the cardiac silhouette is unchanged. Mediastinal contours are normal. There is no evidence for pulmonary edema. IMPRESSION: No acute cardiopulmonary findings. Stable mild enlargement of the cardiac silhouette. Blood Pressure Blood Pressure Findings: Normal blood pressure MDM Narrative Patient does have laboratory studies and ultrasound findings concerning for acute calculus cholecystitis with possible choledocholithiasis. The patient will likely require ERCP procedure, followed by microscopic cholecystectomy. Additional laboratory studies are not suggestive of acute cardiopulmonary etiologies, pancreatitis or UTI. Discharge Plan Visit Data *Final* Discharge Date/Time: 09/16/19 10:25 Chief Complaint: Flu Like Symptoms Stated Complaint: ILL,VOMITING,FLU SYMPTOMS ED Provider: Sharita Hassan ED Midlevel Provider: Hernán Alvarez Discharge Problem: Choledocholithiasis with acute cholecystitis, Acute febrile illness, Epigastric abdominal pain, Elevated LFTs Patient Disposition: Admitted As Inpatient Discharge Instructions Interventions: ED Discharge Assessment Last Done: 09/16/19 10:25
[2019-09-16 07:12] LABS: Troponin I 0.028 ng/ml (0-0.045)
[2019-09-16] MEDS ORDERED: HYDROmorphone INJ 0.5 MG/0.5 ML SYR IV STA (07:46)
--- NOTE | 2019-09-16 08:11 | Ultrasound Report ---
US gallbladder HISTORY: 49 years-old Female n/v, elevated lft acute nausea and vomiting with elevated LFTs COMPARISON: Chest CT 10/27/2015 TECHNIQUE: Multiple real-time sonographic images of the abdominal right upper quadrant were obtained assessing grayscale appearance and color flow FINDINGS: Visualized pancreas is unremarkable. There is mild central intrahepatic biliary ductal dilation. No e vidence of cirrhosis or focal hepatic mass lesion. Gallbladder distention with moderate cholelithiasi s and intraluminal sludge. The gallbladder wall is mildly thickened and edematous measuring up to 4 m m. Sonographic Miller sign reported as positive. No definite pericholecystic fluid. Common bile duct is dilated measuring up to 1.7 cm. There is an equivocal nonshadowing small filling defect within the common bile duct on image 48. There is a hypoechoic mildly complex structure of the upper pole right kidney measuring up to 2.2 cm with a thin internal septation no central flow. 1.5 cm benign-appearing cyst of the inferior pole rig ht kidney. IMPRESSION: 1. Gallbladder distention with sludge, cholelithiasis and wall thickening is noted in conjunction wit h positive sonographic Miller's sign. Findings are suspicious for acute cholecystitis. 2. Intrahepatic and extrahepatic biliary ductal dilation is noted with equivocal choledocholithiasis. Correlate with laboratory analysis. 3. Hypoechoic lesion of the superior pole right kidney, 2.2 cm with thin internal septation suggests a probable complex cyst. This could be further evaluated with CT or MRI. The above report was generated using voice recognition software. It may contain grammatical, syntax o r spelling errors. Electronically signed by: Jayro Catalan M.D. 09/16/2019 8:10 AM
--- NOTE | 2019-09-16 09:23 | Surgery Consultation ---
Date of Consultation September 16, 2019 Assessment & Plan (1) Choledocholithiasis with acute cholecystitis: This is a 49y F with a significant cardiac history on eliquis and DM who presents to the [facility] ED on 09/16/19 with complaints of right sided upper abdominal pain and fatigue since saturday. Workup in the ED showed an elevated Tbili to 6.6, elevated transaminases, WBC 11.3, and RUQ US findings concerning for acute cholecystitis with equivocal findings of choledocholithiasis. At this time would recommend keeping patient NPO with IVF. Appreciate medicine accepting patient and would also recommend a GI consultation for consideration of an ERCP. Medicine ordered an MRCP in the interim to further evaluate for CBD stones. Patient's Eliquis should continue to be held. We will follow along with you and will schedule cholecystectomy this admission pending GI workup. History of Present Illness History of Present Illness This is a 49y F with a PMH of afib on eliquis, [place] s/p cardiac stent in 09/2015, DM, and HTN who presents to the [facility] ED on 09/16/19 with complaints of fatigue and abdominal pain. Patient states that her symptoms started this past Saturday as she notice she was more tired than normal and started to feel some pains her right upper abdomen. She states that her pain stayed constant and each day progressively worsened, prompting her to come to the ED this morning. She says her pain radiates towards her back and rates it a 8/10 in severity. Her last meal was Saturday- /2 of a BLT, albanian fries, and applesauce. She endorses fever, chills, and and episode of vomiting x1 this AM. She denies diarrhea, constipation, any urinary symptoms, shortness of breath, or chest pain. Her last BM was this morning. In the ED workup shows a WBC: 11.3, Tbili: 6.6, AST: 184, ALT: 176, Alkp: 265, lipase: 264, and negative troponin. A RUQ US was obtained revealing gallbladder distention with sludge, cholelithiasis and wall thickening is noted in conjunction with positive sonographic Miller's sign, suspicious for acute cholecystitis. Intrahepatic and extrahepatic biliary ductal dilation is noted with equivocal choledocholithiasis. General surgery was consulted thereafter for gallbladder findings. Patient reports that she started Eliquis this past , and her last dose was yesterday evening. Allergies Allergy/AdvReac Type Severity Reaction Status Date / Time lisinopril AdvReac Mild Cough Verified 09/16/19 06:23 Home Medications Home Medications Medication Instructions Recorded Confirmed Type atorvastatin 80 mg PO DAILY 08/01/18 09/16/19 History ibuprofen 400 mg PO Q4 PRN 08/01/18 09/16/19 History metformin 500 mg PO BID 08/01/18 09/16/19 History magnesium 200 mg PO DAILY #30 tab 01/04/19 09/16/19 Rx potassium chloride 20 meq PO DAILY #30 tab 01/04/19 09/16/19 Rx losartan 100 mg tablet 100 mg PO DAILY #30 tab 06/30/19 09/16/19 Rx blood sugar diagnostic strips #10 ea 07/06/19 09/16/19 History ferrous gluconate 324 mg (37.5 mg 324 mg PO BID tab 07/06/19 09/16/19 History iron) tablet furosemide 40 mg tablet 40 mg PO DAILY 07/06/19 09/16/19 History metoprolol succinate ER 200 mg 300 mg PO DAILY tab 07/06/19 09/16/19 History tablet,extended release 24 hr pantoprazole 40 mg tablet,delayed 40 mg PO DAILY #30 tab 07/22/19 09/16/19 Rx release apixaban 5 mg tablet 5 mg PO BID #30 tab 09/15/19 09/16/19 Rx Patient History Medical History Mild acid reflux (Acute) Dyslipidemia (Acute) Cardiomyopathy (Acute) Wide-complex tachycardia (Acute) Diabetes (Acute) CAD (coronary artery disease) (Acute) Hypomagnesemia (Acute) Atrial fibrillation with RVR (Acute) Elevated troponin (Acute) Shortness of breath (Acute) HTN (hypertension) (Acute) CHF (congestive heart failure) (Acute) Chest pain (Acute) NSTEMI (non-ST elevated myocardial infarction) (Acute) Benign essential HTN DM II (diabetes mellitus, type II), controlled HLD (hyperlipidemia) Morbid obesity with BMI of 40.0-44.9, adult Myocardial infarction anterior [place], DAMON to LAD in 2014 Surgical History H/O heart artery stent 2014 Family History Other Diabetes Heart disease Hypertension Myocardial infarction Social History Preferred Language: Croatian Communication Ability: Effective Desk Representative Required: No Beliefs That Will Affect Care: None Current Living Situation: Family Feels Safe at Home: Yes Smoking Status: Never smoker Second Hand Exposure: No ; Hx Alcohol Use: No Hx Substance Use: No Review of Systems Constitutional: + fever, + chills and + fatigue Respiratory: no shortness of breath Cardiovascular: no chest pain Gastrointestinal: + abdominal pain (of right sided upper abdomen), + nausea and + vomiting; no change in bowel habits Genitourinary: no dysuria Physical Exam Physical Exam: awake/alert Constitutional: well developed, well nourished and cooperative; no acute distress Respiratory: normal respiratory effort Cardiovascular: Rate/Rhythm: regular rate Gastrointestinal (Abdomen): Inspection/Auscultation: abdomen not distended Percussion/Palpation: + abdomen tender (RUQ) and abdomen soft Results & Data Vital Signs (Past 12 Hours) Vital Signs Temp Pulse Pulse Resp BP BP Pulse Ox 09/16/19 07:03 77 20 120/60 93 09/16/19 05:46 37.9 C H 87 18 133/73 99 US gallbladder HISTORY: 49 years-old Female n/v, elevated lft acute nausea and vomiting with elevated LFTs COMPARISON: Chest CT 10/27/2015 TECHNIQUE: Multiple real-time sonographic images of the abdominal right upper quadrant were obtained assessing grayscale appearance and color flow FINDINGS: Visualized pancreas is unremarkable. There is mild central intrahepatic biliary ductal dilation. No evidence of cirrhosis or focal hepatic mass lesion. Gallbladder distention with moderate cholelithiasis and intraluminal sludge. The gallbladder wall is mildly thickened and edematous measuring up to 4 mm. Sonographic Miller sign reported as positive. No definite pericholecystic fluid. Common bile duct is dilated measuring up to 1.7 cm. There is an equivocal nonshadowing small filling defect within the common bile duct on image 48. There is a hypoechoic mildly complex structure of the upper pole right kidney measuring up to 2.2 cm with a thin internal septation no central flow. 1.5 cm benign-appearing cyst of the inferior pole right kidney. IMPRESSION: 1. Gallbladder distention with sludge, cholelithiasis and wall thickening is noted in conjunction with positive sonographic Miller's sign. Findings are suspicious for acute cholecystitis. 2. Intrahepatic and extrahepatic biliary ductal dilation is noted with equivocal choledocholithiasis. Correlate with laboratory analysis. 3. Hypoechoic lesion of the superior pole right kidney, 2.2 cm with thin internal septation suggests a probable complex cyst. This could be further evaluated with CT or MRI. The above report was generated using voice recognition software. It may contain grammatical, syntax or spelling errors. Electronically signed by: Jayro Catalan M.D. 09/16/2019 8:10 AM PG Care Time/CCT Total # of Minutes Spent Total Time Spent with Patient: Total time spent is greater than 50% in coordination of care (as documented) at patient's floor/unit and/or counseling patient:
--- NOTE | 2019-09-16 09:31 | History & Physical Report ---
Date of Service September 16, 2019 Assessment & Plan (1) Choledocholithiasis with acute cholecystitis: 2 days of pain and nausea, presents with jaundice vitals stable treat with Zosyn IV, NSS at 100cc/hr will obtain MRCP to determine location of stone consult Gastroenterology for possible ERCP keep NPO for now, allow for medications with sip took Eliquis 5mg evening of 09/15, ideally should wait 48 hours which would be evening 09/17 general surgery consulted, they will follow repeat CBC and CMP in the morning (2) Diabetes: hold oral agents use Novolog SS monitor for hypoglycemia (3) CAD (coronary artery disease): h/o DAMON in 2014 no issues since that time will consult cardiology for pre-operative evaluation, anticipate that anesthesia would want their input (4) Cardiomyopathy: examines euvolemic, maybe a little dry will give some IV fluids, monitor volume status, hold Lasix for now (5) HTN (hypertension): hold Losartan and Lasix continue Metoprolol with sips given h/o atrial fibrillation (6) Sepsis: due to cholecystitis treat with Zosyn, NSS at 100cc/hr follow up cultures plan for possible ERCP/cholecystectomy (7) Atrial fibrillation: chronic, rate controlled continue Metoprolol hold Eliquis, last dose was last evening, 09/15 (8) CKD stage 3 due to type 2 diabetes mellitus: Cr is 1.44, close to her baseline will give IV fluids as she examines a little dry repeat BMP in the morning electrolytes stable History of Present Illness Chief Complaint: I feel terrible Primary Care Provider: Marylou Dasilva MD 49 yo female with history of NSTEMI, atrial fibrillation, DM type II who presented to the ED this morning with abdominal pain and nausea. Her symptoms started two days ago, were subtle. She had epigastric and RUQ pain, associated with nausea and poor appetite. Two days ago she had fevers, chills. No dyspnea or cough. No chest pain or pressure. She stayed home from work due to not feeling well. Her symptoms progressed to the point that she was having severe pain in RUQ. The pain would not improve with positioning. She developed some yellow discoloration of her eyes and skin over the past 24 hours. Her last BM was this morning, normal color, no blood. She takes Eliquis for her atrial fibr illation, last dose was last night. She follows with Dr. Toribio in the office. She has a history of NSTEMI with DAMON in 2014, no events since that time. She believes she had an echo within the past year. In the ED she had stable vitals but temperature was 37.9. WBC was 11.3, Cr 1.44. Bili elevated at 6.6, Alk phos 265. GB US with evidence of cholecystitis, possible CBD dilatation. General surgery consulted for possible cholecystitis, they would like medicine admission with GI consultation. Will need to wait 48 hours from Eliquis dosing. Allergies Allergy/AdvReac Type Severity Reaction Status Date / Time lisinopril AdvReac Mild Cough Verified 09/16/19 06:23 Home Medications Home Medications Medication Instructions Recorded Confirmed Type atorvastatin 80 mg PO DAILY 08/01/18 09/16/19 History ibuprofen 400 mg PO Q4 PRN 08/01/18 09/16/19 History metformin 500 mg PO BID 08/01/18 09/16/19 History magnesium 200 mg PO DAILY #30 tab 01/04/19 09/16/19 Rx potassium chloride 20 meq PO DAILY #30 tab 01/04/19 09/16/19 Rx losartan 100 mg tablet 100 mg PO DAILY #30 tab 06/30/19 09/16/19 Rx blood sugar diagnostic strips #10 ea 07/06/19 09/16/19 History ferrous gluconate 324 mg (37.5 mg 324 mg PO BID tab 07/06/19 09/16/19 History iron) tablet furosemide 40 mg tablet 40 mg PO DAILY 07/06/19 09/16/19 History metoprolol succinate ER 200 mg 300 mg PO DAILY tab 07/06/19 09/16/19 History tablet,extended release 24 hr pantoprazole 40 mg tablet,delayed 40 mg PO DAILY #30 tab 07/22/19 09/16/19 Rx release apixaban 5 mg tablet 5 mg PO BID #30 tab 09/15/19 09/16/19 Rx Past Med/Surg History Medical History Mild acid reflux (Acute) Dyslipidemia (Acute) Cardiomyopathy (Acute) Wide-complex tachycardia (Acute) Diabetes (Acute) CAD (coronary artery disease) (Acute) Hypomagnesemia (Acute) Atrial fibrillation with RVR (Acute) Elevated troponin (Acute) Shortness of breath (Acute) HTN (hypertension) (Acute) CHF (congestive heart failure) (Acute) Chest pain (Acute) NSTEMI (non-ST elevated myocardial infarction) (Acute) Benign essential HTN DM II (diabetes mellitus, type II), controlled HLD (hyperlipidemia) Morbid obesity with BMI of 40.0-44.9, adult Myocardial infarction anterior [place], DAMON to LAD in 2014 Surgical History H/O heart artery stent 2015 Family History Other Diabetes Heart disease Hypertension Myocardial infarction Social History Preferred Language: Welsh Communication Ability: Effective Health Evaluator Required: No Beliefs That Will Affect Care: None Current Living Situation: Family Feels Safe at Home: Yes Smoking Status: Never smoker Second Hand Exposure: No ; Hx Alcohol Use: No Hx Substance Use: No Review of Systems Review of Systems: All systems reviewed & are unremarkable except as noted in HPI & below Constitutional: + fever, + chills, + fatigue, + malaise and + weakness; no sweats Eyes: + problem reported (icterus) Respiratory: no cough and no dyspnea Cardiovascular: no chest pain and no edema Gastrointestinal: + abdominal pain, + nausea and + vomiting; no constipation, no diarrhea/loose stools, no blood in stools and no melena Genitourinary: no dysuria, no urinary frequency and no hematuria Physical Exam Constitutional: WD/WN, vitals as above + overweight Eyes: normal visual gray by confrontation, + scleral abnormality (icterus), PERRL and EOM intact bilaterally ENMT: external ear and nose normal, oropharynx normal Neck: trachea midline, no thyromegaly Respiratory: normal respiratory effort, lungs clear to auscultation Cardiovascular: RRR, no murmur, no edema Gastrointestinal (Abdomen): Inspection/Auscultation: + abdomen distended and normal bowel sounds Percussion/Palpation: + abdomen tender (RUQ) and abdomen soft; no guarding and abdomen not rigid Musculoskeletal: no cyanosis or clubbing, extremities motor strength 5/5 Skin: no rashes, warm and dry (mild jaundice) Neurologic: patellar DTR's 2+ bilat, sensation intact and PERRL, EOMI, accommodation nl, no face palsy, no dysarthria Psychiatric: A+Ox3, euthymic affect Lymphatic: no cervical or axillary lymphadenopathy Results & Data Vital Signs (Past 12 Hours) Vital Signs Temp Pulse Pulse Resp BP BP Pulse Ox 09/16/19 09:20 61 20 96/55 L 96 09/16/19 07:03 77 20 120/60 93 09/16/19 05:46 37.9 C H 87 18 133/73 99 Laboratory Results Laboratory Results - last 24 hr 09/16/19 09/16/19 09/16/19 06:10 06:10 06:10 WBC 11.32 H RBC 4.83 Hgb 10.5 L Hct 36.8 L MCV 76.2 L MCH 21.7 L MCHC 28.5 L RDW Std Deviation 52.6 H RDW Coeff of Esthela 18.9 H Plt Count 156 MPV 9.4 Immature Gran % (Auto) 0.2 Neut % (Auto) 94.1 Lymph % (Auto) 1.4 [place] % (Auto) 4.2 Eos % (Auto) 0.0 Baso % (Auto) 0.1 Immature Gran # (Auto) 0.02 Neut # (Auto) 10.65 H Lymph # (Auto) 0.16 L [place] # (Auto) 0.48 Eos # (Auto) 0.00 Baso # (Auto) 0.01 Sodium 137 Potassium 3.6 Chloride 103 Carbon Dioxide 24 Anion Gap 10.0 BUN 14 Creatinine 1.44 H Est Cr Clr Drug Dosing 54.8 Est GFR ( Amer) 49.0 Est GFR (Non-Af Amer) 42.2 BUN/Creatinine Ratio 10.0 Glucose 210 H Calcium 9.3 Total Bilirubin 6.6 H AST 184 H ALT 176 H Alkaline Phosphatase 265 H Troponin I 0.028 Total Protein 6.9 Albumin 3.6 Globulin 3.3 Albumin/Globulin Ratio 1.1 Lipase 264 Influenza Type A Ag Neg for Influ A Influenza Type B Ag Neg for Influ B Diagnostic Findings US gallbladder HISTORY: 49 years-old Female n/v, elevated lft acute nausea and vomiting with elevated LFTs IMPRESSION: 1. Gallbladder distention with sludge, cholelithiasis and wall thickening is noted in conjunction with positive sonographic Miller's sign. Findings are suspicious for acute cholecystitis. 2. Intrahepatic and extrahepatic biliary ductal dilation is noted with equivocal choledocholithiasis. Correlate with laboratory analysis. 3. Hypoechoic lesion of the superior pole right kidney, 2.2 cm with thin internal septation suggests a probable complex cyst. This could be further evaluated with CT or MRI. XR chest 1V portable CLINICAL HISTORY: Fever. Cough. COMPARISON STUDY: Chest radiograph January 02, 2019. Chest CT October 27, 2015. FINDINGS: Lung volumes are normal. Lungs are clear. There is no pneumothorax or pleural effusion. Mild enlargement of the cardiac silhouette is unchanged. Mediastinal contours are normal. There is no evidence for pulmonary edema. IMPRESSION: No acute cardiopulmonary findings. Stable mild enlargement of the cardiac silhouette. Code Status & VTE Plan Code Status full code VTE Prophylaxis Plan VTE Prophylaxis will be ordered: Yes PG Care Time/CCT Total # of Minutes Spent Total Time Spent with Patient: Total time spent is greater than 50% in coordination of care (as documented) at patient's floor/unit and/or counseling patient: (1) Diabetes Diabetes mellitus type: type 2 Diabetes mellitus buttermaker helper insulin use: with buttermaker helper use Diabetes mellitus complication status: without complication Qualified Code(s): E11.9 - Type 2 diabetes mellitus without complications; Z79.4 - buttermaker helper (current) use of insulin (2) CAD (coronary artery disease) Coronary Disease-Associated Artery/Lesion type: [place] artery [place] vs. transplanted heart: [place] heart Associated angina: without angina Qualified Code(s): I25.10 - Atherosclerotic heart disease of [place] coronary artery without angina pectoris (3) HTN (hypertension) Hypertension type: essential hypertension Qualified Code(s): I10 - Essential (primary) hypertension
[2019-09-16] MEDS ORDERED: ACETAMINOPHEN 325 MG TAB PO PRN (10:55)
[2019-09-16] MEDS ORDERED: PIPERACILL/TAZOBAC CONSULT ACTIVE PRN (10:55)
--- NOTE | 2019-09-16 11:45 | Gastrointestinal Consultation ---
Date of Consultation September 16, 2019 Assessment & Plan (1) Choledocholithiasis with acute cholecystitis: Pt is a 49 yr old female who presented w RUQ, back pain, n/v, jaundice, on eval noted to have elevated LFTs and u/s findings of gallbladder sludge, stones, intra/extrahepatic biliary dilation w possible filling defect on CBD. She takes Eliquis for Afib, last dose last night. - Keep NPO - Zosyn IV coverage - Cancel MRCP - Plan for ERCP in OR by Dr. Js Noriega on 09/18/19 given her recent use of Eliquis. Keep NPO 09/18 00:01. - Trend LFTs - Surgery following, appreciate recs Supervising Physician Co-Signing Physician Notes Attending attestation I have seen, examined this patient, and agree with the findings and above by our mid-level provider NATACHA Monsivais, with the following additions -Concern for common bile duct obstruction due to choledocholithiasis, in the setting of concerning cholecystitis. Patient is now comfortable, without pain fever or signs of infection. Given Eliquis usage, will tentatively plan on ERCP on Saturday barring asymptomatic clinical state. History of Present Illness Reason for Consultation: Possible choledocholithiasis Requesting Physician: Dr. Jacky Pena Attending Physician: Dr. Ruperto Rizzo History of Present Illness Pt is a 49 y/o female w PMHx of Afibe on Eliquis (last dose 09/15 evening), CAD s/p cardiac stent in 2014, NSTEMI, DM II who presented to ED yesterday w c/o worsening pain from back radiating along R lower ribcage to RUQ area. She has associated nausea and vomiting, jaundice. She admits to have lower appetite in last few month, gets nauseated after eating. Pain symptoms started Saturday and got worse last night preventing her from sleeping. Upon eval, noted WBC up 11, LFTs up (previously normal): Tbili 6.6, AST 184, ALT 176, AP 265, Lipase normal 264. Gallbaldder u/s showed distended gallbladder w sludge, stone suspicious for cholecystitis, and intra/extrahepatic biliary dilation w equivocal choledocholithiasis, CBD 1.7cm. There's also positive Miller's sign Allergies Allergy/AdvReac Type Severity Reaction Status Date / Time lisinopril AdvReac Mild Cough Verified 09/16/19 06:23 Home Medications Home Medications Medication Instructions Recorded Confirmed Type atorvastatin 80 mg PO DAILY 08/01/18 09/16/19 History ibuprofen 400 mg PO Q4 PRN 08/01/18 09/16/19 History metformin 500 mg PO BID 08/01/18 09/16/19 History magnesium 200 mg PO DAILY #30 tab 01/04/19 09/16/19 Rx potassium chloride 20 meq PO DAILY #30 tab 01/04/19 09/16/19 Rx losartan 100 mg tablet 100 mg PO DAILY #30 tab 06/30/19 09/16/19 Rx blood sugar diagnostic strips #10 ea 07/06/19 09/16/19 History ferrous gluconate 324 mg (37.5 mg 324 mg PO BID tab 07/06/19 09/16/19 History iron) tablet furosemide 40 mg tablet 40 mg PO DAILY 07/06/19 09/16/19 History metoprolol succinate ER 200 mg 300 mg PO DAILY tab 07/06/19 09/16/19 History tablet,extended release 24 hr pantoprazole 40 mg tablet,delayed 40 mg PO DAILY #30 tab 07/22/19 09/16/19 Rx release apixaban 5 mg tablet 5 mg PO BID #30 tab 09/15/19 09/16/19 Rx Patient History Medical History Mild acid reflux (Acute) Dyslipidemia (Acute) Cardiomyopathy (Acute) Wide-complex tachycardia (Acute) Diabetes (Acute) CAD (coronary artery disease) (Acute) Hypomagnesemia (Acute) Atrial fibrillation with RVR (Acute) Elevated troponin (Acute) Shortness of breath (Acute) HTN (hypertension) (Acute) CHF (congestive heart failure) (Acute) Chest pain (Acute) NSTEMI (non-ST elevated myocardial infarction) (Acute) Benign essential HTN DM II (diabetes mellitus, type II), controlled HLD (hyperlipidemia) Morbid obesity with BMI of 40.0-44.9, adult Myocardial infarction anterior [place], DAMON to LAD in 2014 Surgical History H/O heart artery stent 2015 Family History Other Diabetes Heart disease Hypertension Myocardial infarction Social History Preferred Language: Lao Communication Ability: Effective Wellness Coordinator Required: No Beliefs That Will Affect Care: None Current Living Situation: Family Feels Safe at Home: Yes Smoking Status: Never smoker Second Hand Exposure: No ; Hx Alcohol Use: No Hx Substance Use: No Review of Systems Review of Systems: All systems reviewed & are unremarkable except as noted in HPI & below Physical Exam Constitutional: WD/WN, vitals as above well groomed, cooperative and comfortable Eyes: + scleral abnormality (icteric), PERRL and EOM intact bilaterally ENMT: external ear and nose normal, oropharynx normal Respiratory: normal respiratory effort, lungs clear to auscultation Cardiovascular: RRR, no murmur, no edema Gastrointestinal (Abdomen): Inspection/Auscultation: + hypoactive bowel sounds Percussion/Palpation: + abdomen tender (RUQ) and abdomen soft Skin: no rashes, warm and dry no jaundice Psychiatric: A+Ox3, euthymic affect Lymphatic: no lymphedema Results & Data Vital Signs (Past 12 Hours) Vital Signs Temp Pulse Pulse Resp BP BP Pulse Ox 09/16/19 10:59 36.6 C 67 18 95/62 L 94 09/16/19 10:25 65 20 110/60 96 09/16/19 09:20 61 20 96/55 L 96 09/16/19 07:03 77 20 120/60 93 09/16/19 05:46 37.9 C H 87 18 133/73 99
[2019-09-16] MEDS ORDERED: PIPERACILLIN/TAZOBACTAM 3.375 GM in DEXTROSE 5% 100 ML IV ONE (12:00)
[2019-09-16] MEDS: METOPROLOL SUCC 50MG EXT REL TAB PO SCH (12:08)
[2019-09-16] MEDS: NSS + 20MEQ KCL 20 MEQ/1,000 ML BAG IV SCH ×2 (12:38→21:16)
--- NOTE | 2019-09-16 12:48 | Cardiology Consultation ---
Date of Consultation September 16, 2019 Assessment & Plan (1) CAD (coronary artery disease): (2) S/P coronary artery stent placement: (3) Cardiomyopathy: (4) Paroxysmal atrial fibrillation: (5) HTN (hypertension): (6) Choledocholithiasis with acute cholecystitis: (7) Dyslipidemia: ASSESSMENT/PLAN: 1. CAD s/p LAD PCI: No angina. Recommend aspirin 81 mg daily given prior PCI, especially while off of her anticoagulation therapy. A page was placed for Ludmila Ventura (surgery PA) who saw Mrs. Cronin earlier today to discuss aspirin. At the time of this note, have not yet heard back but was also discussed with Dr. Pena of the primary hospitalist service will clarify with surgery. Continue beta-nas at home dose as tolerated. Continue high-intensity statin therapy when no contraindication. Transaminase levels currently quite elevated, likely due to presenting issues. 2. Cardiomyopathy: Mildly reduced LV systolic function. Continue current home regimen. She appears euvolemic. 3. Paroxysmal atrial fibrillation: In sinus rhythm. Asymptomatic. Anticoagulation therapy is on hold for upcoming cholecystectomy. Can resume Eliquis when safe from a surgical standpoint. Continue beta-nas without interruption. 4. Hypertension: Blood pressure normotensive and mildly hypotensive at times after receiving pain medications. 5. Dyslipidemia: Statin therapy when no contraindication. 6. Acute cholecystitis: Low cardiac risk for upcoming surgery. Recommend that she have no interruption in her beta-nas therapy, including in the perioperative period. Recommend aspirin, unless absolutely contraindicated given prior PCI to help reduce the risk of stent thrombosis and acute MA. Plan of care discussed with Dr. Pena of the primary hospitalist service. Please call with any other questions or concerns. Thank you for allowing me to participate in the care of your patient. Please call for any other questions or concerns. Sincerely, Luiz Denton M.D. History of Present Illness Reason for Consultation: CAD. Preoperative cardiac assessment. Requesting Physician: Jacky Pena DO Attending Physician: Jacky Pena DO History of Present Illness Mrs. Cronin is a very pleasant 49-year-old female with history significant for CAD status post NSTEMI and PCI of mid LAD (10/15/2015), paroxysmal atrial fibrillation on Eliquis, hypertension, dyslipidemia, and type 2 diabetes. Her primary senior data scientist is Dr. Toribio. She was admitted to [facility] earlier today with right back and right upper quadrant pain that was worse with food. Symptoms started Saturday evening, 3 days ago and have persisted since then. They became much worse this morning prompting her ER visit. This morning she also had an episode of vomiting. She has been nauseated. Her pain is currently improved after receiving pain medication. She admits that she has had chronic lower extremity swelling and it was worsened yesterday but she admits that she was dangling her feet more. She has been diagnosed with choledocholithiasis and acute cholecystitis. She has been seen by GI. It has been recommended that she undergo possible ERCP but also a cholecystectomy later this hospital stay. She has been on Eliquis, with her last dose being last evening. Surgical intervention is being delayed until 48 hours off of her anticoagulation therapy. She had a myocardial infarction him in 2014. Her symptoms at that time were shortness of breath and decreased energy. She denied any chest discomfort at that time. She has not had any anginal symptoms, despite remaining active. She is able to go grocery shopping, climb flights of stairs, and walk her dog 0.5 miles 2 or 3 days per week without exertional symptoms such as chest pain, shortness of breath, syncope, near-syncope. She has not been taking aspirin while on Eliquis. She denies adverse reaction while on aspirin. She admits that she has not been eating since Saturday but has been drinking a little bit of water and ice chips. Review of systems: As above. Review of systems otherwise negative/unremarkable. Family history: Father with CAD status post CABG. Social history: She quit smoking many years ago. In the past, she was a social smoker. Occasional alcohol. No drugs. She works at [employer]. She lives at home with her and 2 adult daughters, as well as a 5-year-old grandson. She is unaccompanied. Allergies Allergy/AdvReac Type Severity Reaction Status Date / Time lisinopril AdvReac Mild Cough Verified 09/16/19 06:23 Home Medications Home Medications Medication Instructions Recorded Confirmed Type atorvastatin 80 mg PO DAILY 08/01/18 09/16/19 History ibuprofen 400 mg PO Q4 PRN 08/01/18 09/16/19 History metformin 500 mg PO BID 08/01/18 09/16/19 History magnesium 200 mg PO DAILY #30 tab 02/17/19 10/30/19 Rx potassium chloride 20 meq PO DAILY #30 tab 01/04/19 09/16/19 Rx losartan 100 mg tablet 100 mg PO DAILY #30 tab 06/30/19 09/16/19 Rx blood sugar diagnostic strips #10 ea 07/06/19 09/16/19 History ferrous gluconate 324 mg (37.5 mg 324 mg PO BID tab 07/06/19 09/16/19 History iron) tablet furosemide 40 mg tablet 40 mg PO DAILY 07/06/19 09/16/19 History metoprolol succinate ER 200 mg 300 mg PO DAILY tab 07/06/19 09/16/19 History tablet,extended release 24 hr pantoprazole 40 mg tablet,delayed 40 mg PO DAILY #30 tab 07/22/19 09/16/19 Rx release apixaban 5 mg tablet 5 mg PO BID #30 tab 09/15/19 09/16/19 Rx Patient History Medical History Mild acid reflux (Acute) Dyslipidemia (Acute) Cardiomyopathy (Acute) Wide-complex tachycardia (Acute) Diabetes (Acute) CAD (coronary artery disease) (Acute) Hypomagnesemia (Acute) Atrial fibrillation with RVR (Acute) Elevated troponin (Acute) Shortness of breath (Acute) HTN (hypertension) (Acute) CHF (congestive heart failure) (Acute) Chest pain (Acute) NSTEMI (non-ST elevated myocardial infarction) (Acute) Benign essential HTN DM II (diabetes mellitus, type II), controlled HLD (hyperlipidemia) Morbid obesity with BMI of 40.0-44.9, adult Myocardial infarction anterior MA, DAMON to LAD in 2014 Surgical History H/O heart artery stent 2015 Family History Other Diabetes Heart disease Hypertension Myocardial infarction Social History Preferred Language: Hebrew Communication Ability: Effective Comparison Shopper Required: No Beliefs That Will Affect Care: None Current Living Situation: Family Feels Safe at Home: Yes Smoking Status: Never smoker Second Hand Exposure: No ; Hx Alcohol Use: No Hx Substance Use: No Physical Exam Physical Exam: Gen.: No acute distress. Alert and oriented. HEENT: Pupils round. Neck: No JVD. No bruits. Normal carotid upstrokes bilaterally. Cardiac: PMI was nonpalpable. No ventricular heave. Regular rate and rhythm. Normal S1-S2. 1/6 systolic murmur. No rubs, or gallops. Pulmonary: Clear to auscultation bilaterally without wheezes, rales, or rhonchi. Abdomen: Soft. Right upper quadrant tenderness. Nondistended, with hypoactive bowel sounds. No bruits noted. Extremities: 2+ radial pulses bilaterally. 2+ posterior tibialis pulses bilaterally. No edema or cyanosis. No palpable cords. Psychiatric: Affect appears appropriate. Results & Data Vital Signs (Past 12 Hours) Vital Signs Temp Pulse Pulse Resp BP BP Pulse Ox 09/16/19 10:59 36.6 C 67 18 95/62 L 94 09/16/19 10:25 65 20 110/60 96 09/16/19 09:20 61 20 96/55 L 96 09/16/19 07:03 77 20 120/60 93 09/16/19 05:46 37.9 C H 87 18 133/73 99 Laboratory Results Laboratory Results - last 24 hr 09/16/19 09/16/19 09/16/19 06:10 06:10 06:10 WBC 11.32 H RBC 4.83 Hgb 10.5 L Hct 36.8 L MCV 76.2 L MCH 21.7 L MCHC 28.5 L RDW Std Deviation 52.6 H RDW Coeff of Esthela 18.9 H Plt Count 156 MPV 9.4 Immature Gran % (Auto) 0.2 Neut % (Auto) 94.1 Lymph % (Auto) 1.4 [place] % (Auto) 4.2 Eos % (Auto) 0.0 Baso % (Auto) 0.1 Immature Gran # (Auto) 0.02 Neut # (Auto) 10.65 H Lymph # (Auto) 0.16 L [place] # (Auto) 0.48 Eos # (Auto) 0.00 Baso # (Auto) 0.01 Sodium 137 Potassium 3.6 Chloride 103 Carbon Dioxide 24 Anion Gap 10.0 BUN 14 Creatinine 1.44 H Est Cr Clr Drug Dosing 54.8 Est GFR ( Amer) 49.0 Est GFR (Non-Af Amer) 42.2 BUN/Creatinine Ratio 10.0 Glucose 210 H POC Glucose Calcium 9.3 Total Bilirubin 6.6 H AST 184 H ALT 176 H Alkaline Phosphatase 265 H Troponin I 0.028 Total Protein 6.9 Albumin 3.6 Globulin 3.3 Albumin/Globulin Ratio 1.1 Lipase 264 Influenza Type A Ag Neg for Influ A Influenza Type B Ag Neg for Influ B 09/16/19 12:28 WBC RBC Hgb Hct MCV MCH MCHC RDW Std Deviation RDW Coeff of Esthela Plt Count MPV Immature Gran % (Auto) Neut % (Auto) Lymph % (Auto) [place] % (Auto) Eos % (Auto) Baso % (Auto) Immature Gran # (Auto) Neut # (Auto) Lymph # (Auto) [place] # (Auto) Eos # (Auto) Baso # (Auto) Sodium Potassium Chloride Carbon Dioxide Anion Gap BUN Creatinine Est Cr Clr Drug Dosing Est GFR ( Amer) Est GFR (Non-Af Amer) BUN/Creatinine Ratio Glucose POC Glucose 200 H Calcium Total Bilirubin AST ALT Alkaline Phosphatase Troponin I Total Protein Albumin Globulin Albumin/Globulin Ratio Lipase Influenza Type A Ag Influenza Type B Ag Diagnostic Findings ECG personally reviewed: ECG 09/16/2019: Sinus rhythm with PVCs 79 bpm. RBBB. Inferior infarct. Anteroseptal infarct. Gallbladder ultrasound 09/16/2019: gallbladder distention with sludge, cholelithiasis and wall thickening with positive sonographic Miller sign. Intra hepatic and extrahepatic biliary duct dilation. Hypoechoic lesion superior pole right kidney, 2.2 cm with thin internal septation, suggesting probable complex cyst per Radiology. Follow up imaging recommended. Chest x-ray 09/16/2019: No acute cardiopulmonary findings. Echo 01/03/2019: Moderately dilated LV with mildly to moderately reduced systolic function. EF 40-45%. Distal anterior, distal anterolateral, distal inferior, apex, and mid to distal septum and anterior septum are akinetic. No obvious thrombus. Mild left atrial dilation. Sclerotic aortic valve. Mild to moderate MR. RVSP 50. Cardiac catheterization 10/15/2015: Mid LAD subtotal occlusion with associated thrombus. Early distal LAD 75% (very small caliber). Mid circumflex 20-30%. Proximal RCA 30%. Mid RCA 20%. Less than 10% distal RCA stenosis. PL ostial 90% (small vessel). Ostial PL to 50% (small vessel). PCI of LAD with 3.5 x 15 mm Xience DAMON post dilated with 3.75 NC balloon. Medications Administered Current Inpatient Medications Acetaminophen (Tylenol) 650 mg PO Q4H PRN PRN Reason: pain/fever Stop: 10/16/19 10:54 Potassium Chloride/Sodium Chloride (Normal Saline W/20 Meq Kcl) 20 meq in 1,000 mls @ 100 mls/hr IV .Q10H [facility] Stop: 10/16/19 11:59 Last Admin: 09/16/19 12:38 Dose: 100 mls/hr Documented by: Piperacillin Sod/Tazobactam (Sod 4.5 gm/ Dextrose) 120 mls @ 30 mls/hr IV Q8H [facility]; Protocol Stop: 09/26/19 17:59 Insulin Aspart (Novolog Flexpen) 0 units SC ACHS [facility] Stop: 10/16/19 11:29 Last Admin: 09/16/19 12:50 Dose: 1 units Documented by: Metoprolol Succinate (Toprol Xl) 300 mg PO DAILY [facility] Stop: 10/16/19 11:59 Last Admin: 09/16/19 12:08 Dose: Not Given Documented by: Miscellaneous Information (Consult) 1 ea N/A UD PRN PRN Reason: Consult Stop: 10/16/19 10:54 Morphine Sulfate (Morphine Sulfate) 2 mg IV Q4H PRN PRN Reason: Pain Stop: 09/30/19 10:54 Morphine Sulfate (Morphine Sulfate) 4 mg IV Q4H PRN PRN Reason: Severe Pain Stop: 09/30/19 10:54 Ondansetron HCl (Zofran) 4 mg IV Q6H PRN PRN Reason: Nausea Stop: 10/16/19 10:54 PG Care Time/CCT Total # of Minutes Spent Total Time Spent with Patient: Total time spent is greater than 50% in coordination of care (as documented) at patient's floor/unit and/or counseling patient: (1) CAD (coronary artery disease) Coronary Disease-Associated Artery/Lesion type: [place] artery [place] vs. transplanted heart: [place] heart Associated angina: without angina Qualified Code(s): I25.10 - Atherosclerotic heart disease of [place] coronary artery without angina pectoris (2) HTN (hypertension) Hypertension type: essential hypertension Qualified Code(s): I10 - Essential (primary) hypertension
[2019-09-16] MEDS: INSULIN ASPART 100 UNITS/ML 3 ML PEN SC SCH ×3 (12:50→21:15)
[2019-09-16] MEDS ORDERED: INFLUENZA ADMINISTRATION CHARGE ONE (15:15)
[2019-09-16] MEDS ORDERED: INFLUENZA VIRUS QUAD VACCINE 0.5 ML SYR IM ONE (15:15)
[2019-09-16] MEDS ORDERED: PIPERACILLIN/TAZOBACTAM 3.375 GM in DEXTROSE 5% 100 ML IV SCH (18:00)
[2019-09-16] MEDS: MoRPHine SULFATE 2 MG/ML CARP IV PRN (18:11)
[2019-09-16] MEDS: PIPERACILLIN/TAZOBACTAM 4.5 GM in DEXTROSE 5% 100 ML IV SCH (18:11)
[2019-09-16 21:57] LABS: Appearance Urine Cloudy (Clear); Bacteria Urine Automated Negative (Negative); Bilirubin Urine 3+ (Negative); Blood Urine 1+ (Negative); Color Urine Dark Yellow; Glucose Urine UA Negative (Negative); Ictotest Urine Positive (Negative); Ketones Urine Negative (Negative); Leukocyte Esterase Urine Negative (Negative); Nitrite Urine Positive (Negative); Protein Urine 1+ (Negative); Specific Gravity Urine 1.021 (1.000-1.030); Urobilinogen Urine Negative (Negative)
[2019-09-17] MEDS ORDERED: SODIUM CHLORIDE 0.9% 1000ML 500 ML IV ONE ×2 (01:43→16:54)
[2019-09-17] MEDS ORDERED: KETOROLAC TROMETHAMINE 15 MG/ML VIAL IV ONE (01:52)
[2019-09-17] MEDS ORDERED: ACETAMINOPHEN 325 MG TAB PO STA (01:55)
[2019-09-17] MEDS ORDERED: KETOROLAC TROMETHAMINE 15 MG/ML VIAL ONE (01:59)
[2019-09-17] MEDS: PIPERACILLIN/TAZOBACTAM 4.5 GM in DEXTROSE 5% 100 ML IV SCH ×3 (02:00→18:02)
--- NOTE | 2019-09-17 06:45 | Progress Note ---
Date of Service September 17, 2019 Assessment & Plan (1) Choledocholithiasis with acute cholecystitis: Called regarding fevers overnight, persistent despite Tylenol. Reports increased abdominal pain. Exam; Right upper and lower quadrant tenderness, no nondistended, no rigidity, no rebound tenderness Plan; Tylenol Toradol 500 cc bolus Results & Data Vital Signs (Past 12 Hours) Vital Signs Temp Pulse Resp BP Pulse Ox 09/17/19 03:55 37.0 C 69 17 116/76 93 09/17/19 01:30 38.0 C H 09/16/19 23:29 38.2 C H 88 18 106/66 94 PG Care Time/CCT Total # of Minutes Spent Total Time Spent with Patient: Total time spent is greater than 50% in coordination of care (as documented) at patient's floor/unit and/or counseling patient:
[2019-09-17 07:00] LABS: Basophils # (auto) 0.02 K/uL (0-0.2); Basophils % (auto) 0.2 %; Eosinophils # (auto) 0.01 K/uL (0-0.5); Eosinophils % (auto) 0.1 %; Hematocrit (blood only) 33.4 % (37-47); Hemoglobin 9.6 g/dL (12.0-16.0); Immature Granulocytes # (auto) 0.02 K/uL (0.00-0.02); Immature Granulocytes % (auto) 0.2 %; Lymphocytes # (auto) 0.28 K/uL (1.2-3.4); Lymphocytes % (auto) 2.4 %; Mean Corpuscular Hemoglobin 22.2 pg (25-34); Mean Corpuscular Hgb Conc 28.7 g/dL (32-36); Mean Corpuscular Volume 77.1 fL (80-100); Mean Platelet Volume 9.2 fL (7.4-10.4); Monocytes # (auto) 0.59 K/uL (0.11-0.59); Monocytes % (auto) 5.1 %; Neutrophils # (auto) 10.61 K/uL (1.4-6.5); Platelet Count 129 K/uL (130-400); RDW Coefficient of Variation 18.8 % (11.5-14.5); RDW Standard Deviation 53.1 fL (36.4-46.3); Red Blood Count 4.33 M/uL (4.2-5.4); White Blood Count 11.53 K/uL (4.8-10.8)
[2019-09-17 07:02] LABS: Albumin Globulin Ratio 0.9 (0.9-2); Albumin Level 2.6 gm/dl (3.4-5.0); BUN Creatinine Ratio 11.5 (10-20); Bilirubin,Total 7.9 mg/dl (0.2-1); Calcium 7.9 mg/dl (8.5-10.1); Creatinine Clr Calc Pharmacy 46.7 ml/min; Est GFR (African American) 40.3; Est GFR (Non-African American) 34.8; Potassium 3.7 mmol/L (3.5-5.1); Total Protein 5.6 gm/dl (6.4-8.2)
[2019-09-17] MEDS: MoRPHine SULFATE 2 MG/ML CARP IV PRN (08:11)
[2019-09-17] MEDS: NSS + 20MEQ KCL 20 MEQ/1,000 ML BAG IV SCH ×2 (08:13→17:46)
[2019-09-17] MEDS: ONDANSETRON INJ 2 MG/ML 2 ML VIAL IV PRN (08:16)
[2019-09-17] MEDS: PANTOprazole 40 MG TAB PO SCH (08:59)
[2019-09-17] MEDS: METOPROLOL SUCC 50MG EXT REL TAB PO SCH (08:59)
[2019-09-17] MEDS: ASPIRIN 81 MG ECTAB PO SCH (08:59)
[2019-09-17] MEDS: INSULIN ASPART 100 UNITS/ML 3 ML PEN SC SCH ×4 (09:56→20:52)
--- NOTE | 2019-09-17 10:15 | Surgery Progress Note ---
Date of Service September 17, 2019 Assessment & Plan (1) Choledocholithiasis with acute cholecystitis: plan for ERCP + lap lotus tomorrow Subjective medicated for some pain this morning Physical Exam Gastrointestinal (Abdomen): Percussion/Palpation: abdomen soft Results & Data Vital Signs (Past 12 Hours) Vital Signs Temp Pulse Resp BP Pulse Ox 09/17/19 07:25 37.2 C 81 18 104/69 96 09/17/19 03:55 37.0 C 69 17 116/76 93 09/17/19 01:30 38.0 C H 09/16/19 23:29 38.2 C H 88 18 106/66 94 PG Care Time/CCT Total # of Minutes Spent Total Time Spent with Patient: Total time spent is greater than 50% in coordination of care (as documented) at patient's floor/unit and/or counseling patient:
[2019-09-17] MEDS ORDERED: CALCIUM CARBONATE 500 MG CHEWABLE TAB PO PRN (10:34)
--- NOTE | 2019-09-17 10:36 | Hospitalist Progress Note ---
Date of Service September 17, 2019 Assessment & Plan (1) Choledocholithiasis with acute cholecystitis: 2 days of pain and nausea, presented with jaundice vitals stable treat with Zosyn IV, NSS at 70cc/hr pain better today on Zosyn, controlled with Morphine PRN c/o indigestion, Protonix and Tums PRN plan for ERCP and lap lotus tomorrow NPO after midnight repeat CBC and CMP in the morning (2) Diabetes: hold oral agents use Novolog SS monitor for hypoglycemia, no episodes (3) CAD (coronary artery disease): h/o DAMON in 2014 no issues since that time continue Aspirin 81mg daily due to h/o stent Metoprolol 300mg in the AM (4) Cardiomyopathy: examines euvolemic, cut fluids back to 70cc/hr (5) HTN (hypertension): hold Losartan and Lasix continue Metoprolol with sips given h/o atrial fibrillation (6) Sepsis: due to cholecystitis treat with Zosyn, NSS at 70cc/hr follow up cultures, no growth plan for ERCP/cholecystectomy (7) Atrial fibrillation: chronic, rate controlled continue Metoprolol hold Eliquis, last dose was last evening, 09/15 (8) CKD stage 3 due to type 2 diabetes mellitus: Cr is 1.6, within baseline range continue IV fluids repeat BMP in the morning electrolytes stable Subjective patient feeling okay this morning, had Morphine 2 hours prior which helped the pain c/o some indigestion last night and this morning, gave her Protonix and added Tums PRN no fever, no dyspnea, no chest pain, she has not had a BM tolerating water and some Jello, not interested in trying anything else which is fine reviewed labs, Bili up to 7, WBC is 11k plan for ERCP and lap lotus tomorrow AM Review of Systems Review of Systems: All systems reviewed & are unremarkable except as noted in HPI & below Gastrointestinal: + abdominal pain (RUQ), + belching and + heartburn; no nausea, no vomiting, no constipation and no diarrhea/loose stools Physical Exam Constitutional: WD/WN, vitals as above + overweight Eyes: normal visual gray by confrontation, + scleral abnormality (icterus), PERRL and EOM intact bilaterally ENMT: external ear and nose normal, oropharynx normal Neck: trachea midline, no thyromegaly Respiratory: normal respiratory effort, lungs clear to auscultation Cardiovascular: RRR, no murmur, no edema Gastrointestinal (Abdomen): Inspection/Auscultation: + abdomen distended and normal bowel sounds Percussion/Palpation: + abdomen tender (RUQ) and abdomen soft; no guarding and abdomen not rigid Musculoskeletal: no cyanosis or clubbing, extremities motor strength 5/5 Skin: no rashes, warm and dry (mild jaundice) Neurologic: patellar DTR's 2+ bilat, sensation intact and PERRL, EOMI, accommodation nl, no face palsy, no dysarthria Psychiatric: A+Ox3, euthymic affect Lymphatic: no cervical or axillary lymphadenopathy Results & Data Vital Signs (Past 12 Hours) Vital Signs Temp Pulse Resp BP Pulse Ox 09/17/19 07:25 37.2 C 81 18 104/69 96 09/17/19 03:55 37.0 C 69 17 116/76 93 09/17/19 01:30 38.0 C H 09/16/19 23:29 38.2 C H 88 18 106/66 94 Laboratory Results Laboratory Results - last 24 hr 09/16/19 09/16/19 09/16/19 12:28 17:14 20:11 WBC RBC Hgb Hct MCV MCH MCHC RDW Std Deviation RDW Coeff of Esthela Plt Count MPV Immature Gran % (Auto) Neut % (Auto) Lymph % (Auto) [place] % (Auto) Eos % (Auto) Baso % (Auto) Immature Gran # (Auto) Neut # (Auto) Lymph # (Auto) [place] # (Auto) Eos # (Auto) Baso # (Auto) Sodium Potassium Chloride Carbon Dioxide Anion Gap BUN Creatinine Est Cr Clr Drug Dosing Est GFR ( Amer) Est GFR (Non-Af Amer) BUN/Creatinine Ratio Glucose POC Glucose 200 H 174 H 183 H Calcium Total Bilirubin AST ALT Alkaline Phosphatase Total Protein Albumin Globulin Albumin/Globulin Ratio Urine Color Urine Appearance Urine pH Ur Specific [place] Urine Protein Urine Glucose (UA) Urine Ketones Urine Blood Urine Nitrite Urine Bilirubin Urine Urobilinogen Ur Leukocyte Esterase Urine WBC (Auto) Urine RBC (Auto) U Hyaline Cast (Auto) U Epithel Cells (Auto) Urine Bacteria (Auto) 09/16/19 09/17/19 09/17/19 21:40 05:52 06:42 WBC 11.53 H RBC 4.33 Hgb 9.6 L Hct 33.4 L MCV 77.1 L MCH 22.2 L MCHC 28.7 L RDW Std Deviation 53.1 H RDW Coeff of Esthela 18.8 H Plt Count 129 L MPV 9.2 Immature Gran % (Auto) 0.2 Neut % (Auto) 92.0 Lymph % (Auto) 2.4 [place] % (Auto) 5.1 Eos % (Auto) 0.1 Baso % (Auto) 0.2 Immature Gran # (Auto) 0.02 Neut # (Auto) 10.61 H Lymph # (Auto) 0.28 L [place] # (Auto) 0.59 Eos # (Auto) 0.01 Baso # (Auto) 0.02 Sodium 133 L Potassium 3.7 Chloride 103 Carbon Dioxide 23 Anion Gap 7.0 BUN 19 H Creatinine 1.69 H Est Cr Clr Drug Dosing 46.7 Est GFR ( Amer) 40.3 Est GFR (Non-Af Amer) 34.8 BUN/Creatinine Ratio 11.5 Glucose 130 H POC Glucose Calcium 7.9 L D Total Bilirubin 7.9 H AST 62 H ALT 107 H Alkaline Phosphatase 181 H Total Protein 5.6 L Albumin 2.6 L Globulin 3.0 Albumin/Globulin Ratio 0.9 Urine Color Dark Yellow Urine Appearance Cloudy A Urine pH 5.0 Ur Specific [place] 1.021 Urine Protein 1+ H Urine Glucose (UA) Negative Urine Ketones Negative Urine Blood 1+ H Urine Nitrite Positive A Urine Bilirubin 3+ H Urine Urobilinogen Negative Ur Leukocyte Esterase Negative Urine WBC (Auto) 1-5 Urine RBC (Auto) 5-10 H U Hyaline Cast (Auto) 1-5 U Epithel Cells (Auto) 10-20 H Urine Bacteria (Auto) Negative 09/17/19 08:34 WBC RBC Hgb Hct MCV MCH MCHC RDW Std Deviation RDW Coeff of Esthela Plt Count MPV Immature Gran % (Auto) Neut % (Auto) Lymph % (Auto) [place] % (Auto) Eos % (Auto) Baso % (Auto) Immature Gran # (Auto) Neut # (Auto) Lymph # (Auto) [place] # (Auto) Eos # (Auto) Baso # (Auto) Sodium Potassium Chloride Carbon Dioxide Anion Gap BUN Creatinine Est Cr Clr Drug Dosing Est GFR ( Amer) Est GFR (Non-Af Amer) BUN/Creatinine Ratio Glucose POC Glucose 121 H Calcium Total Bilirubin AST ALT Alkaline Phosphatase Total Protein Albumin Globulin Albumin/Globulin Ratio Urine Color Urine Appearance Urine pH Ur Specific [place] Urine Protein Urine Glucose (UA) Urine Ketones Urine Blood Urine Nitrite Urine Bilirubin Urine Urobilinogen Ur Leukocyte Esterase Urine WBC (Auto) Urine RBC (Auto) U Hyaline Cast (Auto) U Epithel Cells (Auto) Urine Bacteria (Auto) Medications Administered Current Inpatient Medications Acetaminophen (Tylenol) 650 mg PO Q4H PRN PRN Reason: pain/fever Stop: 10/16/19 10:54 Last Admin: 09/16/19 23:57 Dose: 650 mg Documented by: Aspirin (Ecotrin Ectab) 81 mg PO QAM [facility] Stop: 10/17/19 08:59 Last Admin: 09/17/19 08:59 Dose: 81 mg Documented by: Calcium Carbonate (Tums) 500 mg PO Q6 PRN PRN Reason: Indigestion Stop: 10/17/19 10:33 Potassium Chloride/Sodium Chloride (Normal Saline W/20 Meq Kcl) 20 meq in 1,000 mls @ 70 mls/hr IV .[id number] [facility] Stop: 10/16/19 11:59 Last Admin: 09/17/19 08:13 Dose: 70 mls/hr Documented by: Piperacillin Sod/Tazobactam (Sod 4.5 gm/ Dextrose) 120 mls @ 30 mls/hr IV Q8H [facility]; Protocol Stop: 09/26/19 17:59 Last Admin: 09/17/19 10:34 Dose: 30 mls/hr Documented by: Indomethacin (Indocin) 100 mg MO ONE ONE Stop: 09/18/19 07:01 Insulin Aspart (Novolog Flexpen) 0 units SC ACHS [facility] Stop: 10/16/19 11:29 Last Admin: 09/17/19 09:56 Dose: 1 units Documented by: Metoprolol Succinate (Toprol Xl) 300 mg PO DAILY [facility] Stop: 10/16/19 11:59 Last Admin: 09/17/19 08:59 Dose: 300 mg Documented by: Miscellaneous Information (Consult) 1 ea N/A UD PRN PRN Reason: Consult Stop: 10/16/19 10:54 Morphine Sulfate (Morphine Sulfate) 2 mg IV Q4H PRN PRN Reason: Pain Stop: 09/30/19 10:54 Last Admin: 09/17/19 08:11 Dose: 2 mg Documented by: Morphine Sulfate (Morphine Sulfate) 4 mg IV Q4H PRN PRN Reason: Severe Pain Stop: 09/30/19 10:54 Ondansetron HCl (Zofran) 4 mg IV Q6H PRN PRN Reason: Nausea Stop: 10/16/19 10:54 Last Admin: 09/17/19 08:16 Dose: 4 mg Documented by: Pantoprazole Sodium (Protonix) 40 mg PO QAM [facility] Stop: 10/17/19 08:59 Last Admin: 09/17/19 08:59 Dose: 40 mg Documented by: PG Care Time/CCT Total # of Minutes Spent Total Time Spent with Patient: Total time spent is greater than 50% in coordination of care (as documented) at patient's floor/unit and/or counseling patient: (1) Diabetes Diabetes mellitus complication status: without complication Diabetes mellitus snf insulin use: with snf use Diabetes mellitus type: type 2 Qualified Code(s): E11.9 - Type 2 diabetes mellitus without complications; 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 transplanted heart: [place] heart Qualified Code(s): I25.10 - Atherosclerotic heart disease of [place] coronary artery without angina pectoris (3) HTN (hypertension) Hypertension type: essential hypertension Qualified Code(s): I10 - Essential (primary) hypertension
--- NOTE | 2019-09-17 11:26 | Gastroenterology Progress Note ---
Date of Service September 17, 2019 Assessment & Plan (1) Choledocholithiasis with acute cholecystitis: Pt is a 49 yr old female with RUQ/back pain, n/v, jaundice, with leukocytosis, fever, imaging with gallstones and intra/extrahepatic biliary dilation w possible filling defect on CBD. She takes Eliquis for Afib, last dose last night. Plan was for ERCP tomorrow to allow Eliquis wash out. However, with signs of cholangitis, ERCP will be completed this afternoon. Keep NPO. Will give a dose of Reglan to empty the stomach. Currently attempting to inform Dr. Soto (surgery) of our plans for ERCP today. Supervising Physician Co-Signing Physician Notes Attending attestation I have seen, examined this patient, and agree with the findings and above by our mid-level provider NATACHA Aranda, with the following additions -Still with intermittent pain treated by IV analgesia -Overall looks well, sitting on side of bed without pain -Febrile last night -Timing of ERCP to be determined by Dr. Noriega, possibly considering going today. Subjective Ms. Cronin is a 49 yr old female patient with cholelithiasis, suggestion of choledocholithiasis on US who is scheduled for ERCP tomorrow. Temp last night to 38.2, WBC 11.5, T Bili 6.6->7.9. Pt said felt "not well," this morning, then "better," by 10 AM For breakfast a "spoonful" of cream of wheat and two cubes of jello, then NPO. Pt is alert, oriented, hemodynamically stable. Review of Systems Constitutional: + fever, + fatigue and + weakness (mild) Eyes: no icterus Respiratory: no cough, no dyspnea, no dyspnea on exertion and no wheezing Cardiovascular: no chest pain, no dyspnea, no palpitations and no syncope Gastrointestinal: + abdominal pain (upper abdomen), + bloating and + nausea; no vomiting Genitourinary: no dysuria, no urinary incontinence and no hematuria Musculoskeletal: + back pain (right mid back pain radiating to the RUQ, improved compared to yesterday) Integumentary: no rash, no pruritus and no change in skin color Neurologic: no unsteadiness, no tremor(s) and no syncope Psychiatric: no behavioral changes, no depression, no irritability, no anxiety and no confusion Endocrine: + fatigue Hematologic / Lymphatic: no problem reported Allergy / Immunological: no cough, no dyspnea and no rash Physical Exam Physical Exam: Ms. Shanelle Cronin is a 49 yr old female with abdominal pain, elevated Bilirubin and cholelithiasis, likely choledocholithiasis with temp and leukocytosis suggesting cholangitis. Constitutional: WD/WN, vitals as above Eyes: PERRL, conjunctivae normal, anicteric sclerae ENMT: external ear and nose normal, oropharynx normal Neck: trachea midline, no thyromegaly Respiratory: normal respiratory effort, lungs clear to auscultation Cardiovascular: RRR, no murmur, no edema Gastrointestinal (Abdomen): Inspection/Auscultation: + abdomen distended (mild) and normal bowel sounds (hypoactive, but present) Percussion/Palpation: + abdomen tender (epigastric and RUQ) and abdomen soft Musculoskeletal: no cyanosis or clubbing, extremities motor strength 5/5 Skin: no rashes, warm and dry Neurologic: patellar DTR's 2+ bilat, sensation intact Psychiatric: A+Ox3, euthymic affect Lymphatic: no cervical or axillary lymphadenopathy Results & Data Vital Signs (Past 12 Hours) Vital Signs Temp Pulse Resp BP Pulse Ox 09/17/19 07:25 37.2 C 81 18 104/69 96 09/17/19 03:55 37.0 C 69 17 116/76 93 09/17/19 01:30 38.0 C H 09/16/19 23:29 38.2 C H 88 18 106/66 94 Laboratory Results WBC 11.5, T Bili 6.6->7.9, Hb 9.6, Hct 33, AST 184->62, ALT 176->107, Alk Phos 265->181. Diagnostic Findings RUQ US 09/16/19 1. Gallbladder distention with sludge, cholelithiasis and wall thickening is noted in conjunction with positive sonographic Miller's sign. Findings are suspicious for acute cholecystitis. 2. Intrahepatic and extrahepatic biliary ductal dilation is noted with equivocal choledocholithiasis. Correlate with laboratory analysis. 3. Hypoechoic lesion of the superior pole right kidney, 2.2 cm with thin internal septation suggests a probable complex cyst. This could be further evaluated with CT or MRI. Medications Administered On zosyn
[2019-09-17] MEDS ORDERED: METOCLOPRAMIDE HCL INJ 5 MG/ML 2 ML VIAL IV STA (11:41)
[2019-09-17] MEDS ORDERED: PROPOFOL IV EMULSION 10 MG/ML 20 ML VIAL IV ONE (14:08)
[2019-09-17] MEDS ORDERED: fentaNYL citrate 100 MCG/2 ML VIAL ONE (14:08)
[2019-09-17] MEDS ORDERED: MIDAZOLAM HCL 1 MG/ML 2ML VIAL ONE (14:08)
[2019-09-17] MEDS ORDERED: LIDOCAINE HCL 2% 2 ML VIAL/AMP(20MG/ML) INFIL ONE (14:08)
[2019-09-17] MEDS ORDERED: DEXAMETHASONE SOD INJ 4 MG/ML VIAL ONE (14:08)
[2019-09-17] MEDS ORDERED: ONDANSETRON INJ 2 MG/ML 2 ML VIAL ONE (14:08)
--- NOTE | 2019-09-17 14:08 | Anesthesiology Consultation ---
Date of Service September 17, 2019 Assessment & Plan (1) Encounter for pre-operative examination: Chart Review Chart Review: Acceptable Risk for Surgery History Surgery Operation Date: 09/17/19 10:25 Proposed Procedures p Endoscopic Retrograde Cholangiopancreatogram - Js Noriega Operation Date: 09/18/19 10:30 Proposed Procedures p Laparoscopic Cholecystectomy with Cholangiogram - Samuel Soto MD Height/Weight Height: 5 ft 4 in Weight: 103.6 kg Allergies Allergy/AdvReac Type Severity Reaction Status Date / Time lisinopril AdvReac Mild Cough Verified 09/17/19 14:08 Medications Home Medications Medication Instructions Recorded Confirmed Last Taken atorvastatin 80 mg PO DAILY 08/01/18 09/16/19 09/15/19 ibuprofen 400 mg PO Q4 PRN 08/01/18 09/16/19 Unknown metformin 500 mg PO BID 08/01/18 09/16/19 09/15/19 magnesium 200 mg PO DAILY #30 tab 01/04/19 09/16/19 09/15/19 potassium chloride 20 meq PO DAILY #30 tab 01/04/19 09/16/19 09/15/19 losartan 100 mg tablet 100 mg PO DAILY #30 tab 06/30/19 09/16/19 09/15/19 blood sugar diagnostic strips #10 ea 07/06/19 09/16/19 Unknown ferrous gluconate 324 mg (37.5 mg 324 mg PO BID tab 07/06/19 09/16/19 09/15/19 iron) tablet furosemide 40 mg tablet 40 mg PO DAILY 07/06/19 09/16/19 09/15/19 metoprolol succinate ER 200 mg 300 mg PO DAILY tab 07/06/19 09/16/19 09/15/19 tablet,extended release 24 hr pantoprazole 40 mg tablet,delayed 40 mg PO DAILY #30 tab 07/22/19 09/16/19 09/15/19 release apixaban 5 mg tablet 5 mg PO BID #30 tab 09/15/19 09/16/19 Unknown Active Medications Generic Name Dose Route Start Last Admin Trade Name Freq PRN Reason Stop Dose Admin Acetaminophen 650 mg 09/16/19 10:55 09/16/19 23:57 Tylenol PO 10/16/19 10:54 650 mg Q4H PRN Administration pain/fever Aspirin 81 mg 09/17/19 09:00 09/17/19 08:59 Ecotrin Ectab PO 10/17/19 08:59 81 mg QAM REAGAN Administration Potassium Chloride/Sodium Chloride 20 meq in 1,000 mls @ 70 mls/hr 09/16/19 12:00 09/17/19 08:13 Normal Saline W/20 Meq Kcl IV 10/16/19 11:59 70 mls/hr .[id number] REAGAN Administration Piperacillin Sod/Tazobactam 120 mls @ 30 mls/hr 09/16/19 18:00 09/17/19 10:34 Sod 4.5 gm/ Dextrose IV 09/26/19 17:59 30 mls/hr Q8H REAGAN Administration Protocol Insulin Aspart 0 units 09/16/19 11:30 09/17/19 12:59 Novolog Flexpen SC 10/16/19 11:29 Not Given ACHS REAGAN Metoprolol Succinate 300 mg 09/16/19 12:00 09/17/19 08:59 Toprol Xl PO 10/16/19 11:59 300 mg DAILY REAGAN Administration Morphine Sulfate 2 mg 09/16/19 10:55 09/17/19 08:11 Morphine Sulfate IV 09/30/19 10:54 2 mg Q4H PRN Administration Pain Ondansetron HCl 4 mg 09/16/19 10:55 09/17/19 08:16 Zofran IV 10/16/19 10:54 4 mg Q6H PRN Administration Nausea Pantoprazole Sodium 40 mg 09/17/19 09:00 09/17/19 08:59 Protonix PO 10/17/19 08:59 40 mg QAM REAGAN Administration Past Medical History Medical History Paroxysmal atrial fibrillation Mild acid reflux (Acute) Dyslipidemia (Acute) Cardiomyopathy (Acute) Wide-complex tachycardia (Acute) Diabetes (Acute) CAD (coronary artery disease) (Acute) Hypomagnesemia (Acute) Atrial fibrillation with RVR (Acute) Elevated troponin (Acute) Shortness of breath (Acute) HTN (hypertension) (Acute) CHF (congestive heart failure) (Acute) Chest pain (Acute) NSTEMI (non-ST elevated myocardial infarction) (Acute) Benign essential HTN DM II (diabetes mellitus, type II), controlled HLD (hyperlipidemia) Morbid obesity with BMI of 40.0-44.9, adult Myocardial infarction anterior [place], DAMON to LAD in 2015 Past Family History Family History Other Diabetes Heart disease Hypertension Myocardial infarction Past Surgical History Surgical History S/P coronary artery stent placement H/O heart artery stent 2015 Social History Smoking Status: Never smoker Do You Dip or Chew Tobacco: No Hx Alcohol Use: No Hx Substance Use: No substance use type: does not use Physical Exam Vital Signs Last Vital Signs Temp 37.2 C 09/17/19 07:25 Pulse 81 09/17/19 07:25 Resp 18 09/17/19 07:25 BP 104/69 09/17/19 07:25 Pulse Ox 96 09/17/19 07:25 Testing Laboratory Results 09/17/19 06:42 09/17/19 05:52 Urine Color Dark Yellow 09/16/19 21:40 Urine Appearance Cloudy (Clear) A 09/16/19 21:40 Urine pH 5.0 (4.5-7.5) 09/16/19 21:40 Ur Specific [place] 1.021 (1.000-1.030) 09/16/19 21:40 Urine Protein 1+ (Negative) H 09/16/19 21:40 Urine Glucose (UA) Negative (Negative) 09/16/19 21:40 Urine Ketones Negative (Negative) 09/16/19 21:40 Urine Nitrite Positive (Negative) A 09/16/19 21:40 Ur Leukocyte Esterase Negative (Negative) 09/16/19 21:40 Urine WBC (Auto) 1-5 /hpf (0-5) 09/16/19 21:40 Urine RBC (Auto) 5-10 /hpf (0-4) H 09/16/19 21:40 U Hyaline Cast (Auto) 1-5 /lpf (0-5) 09/16/19 21:40 U Epithel Cells (Auto) 10-20 /lpf (0-5) H 09/16/19 21:40 Urine Bacteria (Auto) Negative (Negative) 09/16/19 21:40 09/17/19 09/17/19 11:59 08:34 POC Glucose 149 H 121 H Electrocardiogram Date: 09/16/19 Findings: + NSR @ (79), + RBBB and + [place] (inferior) no change from December Echocardiogram Date: 01/03/19 EF: 40-45% Valvular Disease: + MR (mild to moderate)
[2019-09-17] MEDS ORDERED: ePHEDrine sulfate 50 MG/ML AMP IV PRN (14:09)
[2019-09-17] MEDS ORDERED: ONDANSETRON INJ 2 MG/ML 2 ML VIAL IV PRN (14:09)
[2019-09-17] MEDS ORDERED: fentaNYL citrate 100 MCG/2 ML VIAL IV PRN (14:09)
[2019-09-17] MEDS ORDERED: ATROPINE SULFATE 0.1 MG/ML 10ML SYR IV PRN (14:09)
--- NOTE | 2019-09-17 14:10 | History & Physical Bridge Note ---
Date of Service September 17, 2019 History & Physical Bridge Note I have examined the patient, reviewed the History & Physical and in the interval since the performance of the History & Physical I have noted the following changes of clinical significance: patient with increasing bilirubin, fever and mild leukocytosis. She also notes feeling very "fatigued". Given the declining status there is a high concern for cholangitis despite present use of antibiotics. We are proceeding with ERCP today for biliary decompression. I have disucssed the risks to include bleeding, infection, perforation, pain, pancreatitis, and failed biliary cannulation.
[2019-09-17] MEDS ORDERED: INDOMETHACIN 50 MG SUPP PR ONE (14:11)
[2019-09-17] MEDS ORDERED: ESMOLOL HCL INJ 10 MG/ML 10ML VIAL IV ONE (14:50)
[2019-09-17] MEDS ORDERED: METOPROLOL TARTRATE 1 MG/ML VIAL IV ONE (14:50)
--- NOTE | 2019-09-17 15:05 | Post Operative Brief Note ---
Immediate Post Op Note v1 Date of Surgery September 17, 2019 Pre & Post Diagnosis Operation Date: 09/17/19 10:25 Pre-Op Diagnosis: Choledocholithiasis with cholangitis Post-Op Diagnosis: Choledocholithiasis with acute cholangitis Operation Date: 09/18/19 10:30 <No data on this case meets the specified criteria> I identified the patient and participated in the time-out.: Yes Procedure Operation Date: 09/17/19 10:25 Actual Procedures p Endoscopic Retrograde Cholangiopancreatogram(Not Applicable) - Js Noriega Operation Date: 09/18/19 10:30 <No data on this case meets the specified criteria> Surgeon Js Noriega Seo Manager ninahum Estimated Blood Loss 5 Findings Consistent with Post-Op Diagnosis
--- NOTE | 2019-09-17 15:27 | Communication Note ---
Date of Service: September 17, 2019 Patient underwent ERCP this afternoon with biliary sphincterotomy. During the procedure she was tachycardic consistent with atrial fibrillation. Post procedure her tachycardia persisted, the doctor was most atrial fibrillation and a rapid ventricular rate. Recommendations Postoperative management in ICU or PCU (will discuss with Dr. Pena) Continue with broad-spectrum antibiotic coverage Watch for symptoms consistent with pancreatitis tomorrow If patient stable tomorrow perhaps cholecystectomy will be in her best interest
[2019-09-17] MEDS ORDERED: SODIUM CHLORIDE 0.9% 1000ML 1,000 ML IV ONE (15:29)
[2019-09-17] MEDS ORDERED: dilTIAZem HCl 5 MG/ML 5 ML VIAL IV STA (15:29)
--- NOTE | 2019-09-17 15:39 | GI REPORT ---
Patient Name: Shanelle Cronin Procedure Date: 09/17/2019 2:24 PM Date of : 1970 Admit Type: Inpatient Age: 49 Gender: Female Attending MD: Js Noriega DO Procedure: ERCP Providers: Js Noriega DO Referring MD: Jacky Pena, Estrellita Obrien Indications: Abdominal pain of suspected biliary origin, For therapy of bile duct stone(s), Suspected ascending cholangitis Medicines: General Anesthesia Complications: Atrial fibrillation Estimated Blood Loss: Estimated blood loss was minimal. Procedure: Pre-Anesthesia Assessment: - Prior to the procedure, a History and Physical was performed, and patient medications, allergies and sensitivities were reviewed. The patient's tolerance of previous anesthesia was reviewed. - The risks and benefits of the procedure and the sedation options and risks were discussed with the patient. All questions were answered and informed consent was obtained. - Patient identification and proposed procedure were verified prior to the procedure by the physician, the nurse and the gunnery/ordnance officer. The procedure was verified in the procedure room. - Pre-procedure physical examination revealed no contraindications to sedation. - ASA Grade Assessment: III - A patient with severe systemic disease. - After reviewing the risks and benefits, the patient was deemed in satisfactory condition to undergo the procedure. - The anesthesia plan was to use general anesthesia. - Immediately prior to administration of medications, the patient was re-assessed for adequacy to receive sedatives. - The heart rate, respiratory rate, oxygen saturations, blood pressure, adequacy of pulmonary ventilation, and response to care were monitored throughout the procedure. - The physical status of the patient was re-assessed after the procedure. After obtaining informed consent, the scope was passed under direct vision. Throughout the procedure, the patient's blood pressure, pulse, and oxygen saturations were monitored continuously. The Scope was introduced through the mouth, and advanced to the duodenum and used to inject contrast into the bile duct. The ERCP was accomplished without difficulty. The patient tolerated the procedure well. Findings: The total fluoroscopy exposure time was 1 minute and 3 seconds. Indomethacin 100 mg was given via suppository to decrease the risk of post-ERCP pancreatitis (PEP). A scout leaser film of the abdomen was obtained. Multiple large stones were seen in the Gallbladder. The esophagus was successfully intubated under direct vision without detailed examination of the pharynx, larynx, and associated structures, and upper GI tract. The upper GI tract was grossly normal. The major papilla was congested and edematous. The bile duct was deeply cannulated with the short-nosed traction sphincterotome and 0.035 in Angled Acrobat 2 guidewire (PD not cannulated or injected). Contrast was injected. I personally interpreted the bile duct images. Contrast extended to the bifurcation. The biliary orifice was stenotic. This appeared benign. The CBD was modestly dilated to 15 mm. The lower third of the main bile duct contained filling defect(s) thought to be a stone. The cystic duct and gallbladder did not fill with contast, perhaps consistent with coexisting cholecystitis. Biliary sphincterotomy was made with a monofilament Fusion OMNI sphincterotome using ERBE electrocautery. The sphincterotomy oozed blood. To discover objects, the biliary tree was swept with a 15 mm balloon starting at the bifurcation. One stone was removed. No stones remained. Pus was swept from the duct. One 7 Fr by 7 cm and a 7Fr by 4 cm biliary stents with a full external pigtail and a full internal pigtail were into the common bile duct. Bile and pus flowed through the stents. The stents were in good position. The endoscope was withdrawn from the patient. Impression: - The major papilla appeared congested. - Biliary papillary stenosis, benign. - Choledocholithiasis and cholangitis was found. Complete removal was accomplished by biliary sphincterotomy and balloon extraction. - Two biliary stents were placed into the common bile duct. - The cystic duct and gallbladder did not fill with contrast. - Indomethacin given to decrease risk of post-ERCP pancreatitis. Recommendation: - [facility]. Given tachycardia and A fibrilliation will likely transfer to PCU or ICU. - NPO. - Use broad spectrum antibiotics. - Repeat ERCP in 6 weeks to remove stent. Js Noriega D.O. Js Noriega DO 09/17/2019 3:38:50 PM This report has been signed electronically. Note Initiated On: 09/17/2019 2:24 PM Number of Addenda: 0 I attest to the content of the Intraoperative Record and orders documented therein, exceptions below {[id number]}
--- NOTE | 2019-09-17 16:03 | Anesthesiology Progress Note ---
Date of Service September 17, 2019 Anesthesia Post Procedure Vital Signs Vital Signs: Temp Pulse Pulse Resp BP Pulse Ox 09/17/19 15:55 128 H 19 102/63 97 09/17/19 15:45 125 H 18 102/76 99 09/17/19 15:35 117 H 24 99/77 L 97 09/17/19 15:28 36.7 C 157 H 22 106/63 95 09/17/19 14:05 37.3 C 135 H 20 102/69 95 09/17/19 07:25 37.2 C 81 18 104/69 96 09/17/19 03:55 37.0 C 69 17 116/76 93 09/17/19 01:30 38.0 C H 09/16/19 23:29 38.2 C H 88 18 106/66 94 Pain Intensity Generalized: Pain Intensity: 0 Transfer of Care Handoff Completed per policy Notes Mental Status: alert / awake / arousable and participated in evaluation Patient Amnestic to Procedure: Yes Nausea / Vomiting: adequately controlled Pain: adequately controlled Airway Patency, RR, SpO2: stable & adequate BP & HR: stable & adequate Hydration State: stable & adequate Anesthetic Complications: no major complications apparent and Pt Satisfied with anesthetic care
--- NOTE | 2019-09-17 16:09 | Fluoroscopy Report ---
[place] ERCP biliary ductal CLINICAL HISTORY: ERCP. COMPARISON STUDY: Right upper quadrant ultrasound September 16, 2019. FLUOROSCOPY TIME: 1 minute and 42 seconds. FLUOROSCOPIC IMAGES: 10 FINDINGS: Gallstones are noted. Fluoroscopic images demonstrate cannulation of the common bile duct w ith balloon sweep through the common bile duct and placement of a common bile duct stent which appear s appropriately positioned. IMPRESSION: Fluoroscopy provided for ERCP with placement of a common bile duct stent. Electronically signed by: Yung Oates M.D. 09/17/2019 4:08 PM
[2019-09-17] MEDS ORDERED: METOPROLOL TARTRATE 1 MG/ML VIAL IV PRN (16:54)
[2019-09-17] MEDS ORDERED: Nursing to Pharmacy Communication ONE (22:45)
[2019-09-17] MEDS ORDERED: DEXTROSE 50% 50 ML SYRINGE IV PRN (23:00)
[2019-09-17] MEDS ORDERED: GLUCOSE 10 TABS/TUBE PO PRN (23:00)
[2019-09-17] MEDS ORDERED: CARBOHYDRATES FOR HYPOGLYCEMIA PO PRN (23:00)
[2019-09-17] MEDS ORDERED: GLUCOSE 40% GEL 15 GM TUBE PO PRN (23:00)
[2019-09-17] MEDS ORDERED: GLUCAGON FOR INJ 1 MG VIAL SQ PRN (23:00)
[2019-09-18] MEDS: INSULIN ASPART 100 UNITS/ML 3 ML PEN SC SCH ×5 (00:49→21:14)
[2019-09-18] MEDS: PIPERACILLIN/TAZOBACTAM 4.5 GM in DEXTROSE 5% 100 ML IV SCH ×3 (02:10→18:34)
[2019-09-18] MEDS: NSS + 20MEQ KCL 20 MEQ/1,000 ML BAG IV SCH ×2 (06:14→21:12)
[2019-09-18] MEDS ORDERED: INDOMETHACIN 50 MG SUPP PR ONE (07:00)
[2019-09-18 07:52] LABS: Basophils # (auto) 0.01 K/uL (0-0.2); Basophils % (auto) 0.1 %; Eosinophils # (auto) 0.04 K/uL (0-0.5); Eosinophils % (auto) 0.5 %; Hematocrit (blood only) 32.5 % (37-47); Hemoglobin 9.1 g/dL (12.0-16.0); Immature Granulocytes # (auto) 0.01 K/uL (0.00-0.02); Immature Granulocytes % (auto) 0.1 %; Lymphocytes # (auto) 0.38 K/uL (1.2-3.4); Lymphocytes % (auto) 4.4 %; Mean Corpuscular Hemoglobin 21.8 pg (25-34); Mean Corpuscular Volume 77.9 fL (80-100); Mean Platelet Volume 9.9 fL (7.4-10.4); Monocytes # (auto) 0.73 K/uL (0.11-0.59); Monocytes % (auto) 8.5 %; Neutrophils # (auto) 7.44 K/uL (1.4-6.5); Neutrophils % (auto) 86.4 %; Platelet Count 151 K/uL (130-400); RDW Coefficient of Variation 18.9 % (11.5-14.5); RDW Standard Deviation 54.3 fL (36.4-46.3); Red Blood Count 4.17 M/uL (4.2-5.4); White Blood Count 8.61 K/uL (4.8-10.8)
--- NOTE | 2019-09-18 07:57 | Surgery Progress Note ---
Date of Service September 18, 2019 Assessment & Plan (1) Choledocholithiasis with acute cholecystitis: Tolerated ERCP yesterday, stones removed and CBD stents placed Patient afebrile now for >24 hours AM labs pending Plan for OR later this AM for cholecystectomy with Dr. Soto, keep patient NPO with IVF and IV abx Subjective Patient with no complaints overnight. States pain has improved some since ERCP, but still has some epigastric and RUQ soreness. Is prepared for OR today. Physical Exam Physical Exam: awake/alert Constitutional: well developed, well nourished and cooperative; no acute distress Gastrointestinal (Abdomen): Percussion/Palpation: + abdomen tender (mildly in epigastric and RUQ regions) and abdomen soft Results & Data Vital Signs (Past 12 Hours) Vital Signs Temp Pulse Resp BP BP Pulse Ox 09/18/19 07:18 36.4 C L 88 20 97/66 L 97 09/18/19 03:27 36.4 C L 78 19 96/71 L 97 09/18/19 00:10 36.6 C 87 17 97/59 L 97 PG Care Time/CCT Total # of Minutes Spent Total Time Spent with Patient: Total time spent is greater than 50% in coordination of care (as documented) at patient's floor/unit and/or counseling patient:
[2019-09-18 08:15] LABS: Albumin Globulin Ratio 0.8 (0.9-2); Albumin Level 2.5 gm/dl (3.4-5.0); BUN Creatinine Ratio 15.3 (10-20); Bilirubin,Total 5.7 mg/dl (0.2-1); Calcium 8.3 mg/dl (8.5-10.1); Creatinine Clr Calc Pharmacy 50.4 ml/min; Est GFR (African American) 42.5; Est GFR (Non-African American) 36.6; Globulin 3.1 gm/dl (2.5-4.0); Potassium 3.9 mmol/L (3.5-5.1); Total Protein 5.6 gm/dl (6.4-8.2)
--- NOTE | 2019-09-18 08:23 | Anesthesiology Consultation ---
Date of Service September 18, 2019 Assessment & Plan (1) Encounter for pre-operative examination: Chart Review Chart Review: Acceptable Risk for Surgery Consults Requested none ASA ASA3 Proposed Anesthesia Anesthesia Type: General Risk / Benefits Reviewed With: PT / POA / Parent / Guardian, Accepts Plan and Informed Consent Obtained History Surgery Operation Date: 09/17/19 10:25 Proposed Procedures p Endoscopic Retrograde Cholangiopancreatogram - Js Noriega Operation Date: 09/18/19 10:30 Proposed Procedures p Laparoscopic Cholecystectomy with Cholangiogram - Samuel Soto MD Height/Weight Height: 5 ft 4 in Weight: 110 kg Allergies Allergy/AdvReac Type Severity Reaction Status Date / Time lisinopril AdvReac Mild Cough Verified 09/17/19 14:08 Medications Home Medications Medication Instructions Recorded Confirmed Last Taken atorvastatin 80 mg PO DAILY 08/01/18 09/16/19 09/15/19 ibuprofen 400 mg PO Q4 PRN 08/01/18 09/16/19 Unknown metformin 500 mg PO BID 08/01/18 09/16/19 09/15/19 magnesium 200 mg PO DAILY #30 tab 01/04/19 09/16/19 09/15/19 potassium chloride 20 meq PO DAILY #30 tab 01/04/19 09/16/19 09/15/19 losartan 100 mg tablet 100 mg PO DAILY #30 tab 06/30/19 09/16/19 09/15/19 blood sugar diagnostic strips #10 ea 07/06/19 09/16/19 Unknown ferrous gluconate 324 mg (37.5 mg 324 mg PO BID tab 07/06/19 09/16/19 09/15/19 iron) tablet furosemide 40 mg tablet 40 mg PO DAILY 07/06/19 09/16/19 09/15/19 metoprolol succinate ER 200 mg 300 mg PO DAILY tab 07/06/19 09/16/19 09/15/19 tablet,extended release 24 hr pantoprazole 40 mg tablet,delayed 40 mg PO DAILY #30 tab 07/22/19 09/16/19 09/15/19 release apixaban 5 mg tablet 5 mg PO BID #30 tab 09/15/19 09/16/19 Unknown oxycodone-acetaminophen [Percocet] 1 - 2 tab PO .every 4-6 hours PRN 09/18/19 Unknown #15 tab Active Medications Generic Name Dose Route Start Last Admin Trade Name Freq PRN Reason Stop Dose Admin Acetaminophen 650 mg 09/16/19 10:55 09/16/19 23:57 Tylenol PO 10/16/19 10:54 650 mg Q4H PRN Administration pain/fever Aspirin 81 mg 09/17/19 09:00 09/18/19 09:12 Ecotrin Ectab PO 10/17/19 08:59 81 mg QAM REAGAN Administration Potassium Chloride/Sodium Chloride 20 meq in 1,000 mls @ 70 mls/hr 09/16/19 12:00 09/18/19 06:14 Normal Saline W/20 Meq Kcl IV 10/16/19 11:59 70 mls/hr .[id number] REAGAN Administration Piperacillin Sod/Tazobactam 120 mls @ 30 mls/hr 09/16/19 18:00 09/18/19 09:16 Sod 4.5 gm/ Dextrose IV 09/26/19 17:59 30 mls/hr Q8H REAGAN Administration Protocol Insulin Aspart 0 units 09/18/19 00:00 09/18/19 06:24 Novolog Flexpen SC 10/18/19 00:00 Not Given Q6 REAGAN Metoprolol Succinate 300 mg 09/16/19 12:00 09/18/19 09:12 Toprol Xl PO 10/16/19 11:59 150 mg DAILY REAGAN Administration Morphine Sulfate 2 mg 09/16/19 10:55 09/17/19 08:11 Morphine Sulfate IV 09/30/19 10:54 2 mg Q4H PRN Administration Pain Ondansetron HCl 4 mg 09/16/19 10:55 09/17/19 08:16 Zofran IV 10/16/19 10:54 4 mg Q6H PRN Administration Nausea Pantoprazole Sodium 40 mg 09/17/19 09:00 09/18/19 09:12 Protonix PO 10/17/19 08:59 40 mg QAM REAGAN Administration NPO Date Last Intake of Fluids: 09/17/19 Time Last Intake of Fluids: 09:00 Last Intake of Fluids Comment: Few bites of jello Date Last Intake of Solids: 09/14/19 Past Medical History Medical History Paroxysmal atrial fibrillation Mild acid reflux (Acute) Dyslipidemia (Acute) Cardiomyopathy (Acute) Wide-complex tachycardia (Acute) Diabetes (Acute) CAD (coronary artery disease) (Acute) Hypomagnesemia (Acute) Atrial fibrillation with RVR (Acute) Elevated troponin (Acute) Shortness of breath (Acute) HTN (hypertension) (Acute) CHF (congestive heart failure) (Acute) Chest pain (Acute) NSTEMI (non-ST elevated myocardial infarction) (Acute) Benign essential HTN DM II (diabetes mellitus, type II), controlled HLD (hyperlipidemia) Morbid obesity with BMI of 40.0-44.9, adult Myocardial infarction anterior MD, DAMON to LAD in 2015 Exercise / Class Metabolic Activity II 4-5 Yardwork/Stairs/Walk up hill Past Family History Family History Other Diabetes Heart disease Hypertension Myocardial infarction Past Surgical History Surgical History S/P coronary artery stent placement S/P ERCP H/O heart artery stent 2014 Past Anesthesia History No Hx of Anesthesia Complications and No Family Hx of Anesthesia Complications History of PONV No Hx of PONV and No Hx of Motion Sickness Social History Smoking Status: Never smoker Do You Dip or Chew Tobacco: No Hx Alcohol Use: No Hx Substance Use: No substance use type: does not use Physical Exam Vital Signs Last Vital Signs Temp 97.5 F L 09/18/19 07:18 Pulse 88 09/18/19 07:18 Resp 20 09/18/19 07:18 BP 97/66 L 09/18/19 07:18 Pulse Ox 97 09/18/19 07:18 ENMT Mouth: no dentition abnormality Thyromental Distance: > or= 3.5 Finger Breadths Mallampati Class: III Neck normal visual inspection Respiratory normal respiratory effort Auscultation: lungs clear to auscultation bilaterally Cardiovascular Rate/Rhythm: + abnormal rate and + abnormal rhythm Testing Laboratory Results 09/18/19 06:46 09/18/19 06:46 Urine Color Dark Yellow 09/16/19 21:40 Urine Appearance Cloudy (Clear) A 09/16/19 21:40 Urine pH 5.0 (4.5-7.5) 09/16/19 21:40 Ur Specific Sophia 1.021 (1.000-1.030) 09/16/19 21:40 Urine Protein 1+ (Negative) H 09/16/19 21:40 Urine Glucose (UA) Negative (Negative) 09/16/19 21:40 Urine Ketones Negative (Negative) 09/16/19 21:40 Urine Nitrite Positive (Negative) A 09/16/19 21:40 Ur Leukocyte Esterase Negative (Negative) 09/16/19 21:40 Urine WBC (Auto) 1-5 /hpf (0-5) 09/16/19 21:40 Urine RBC (Auto) 5-10 /hpf (0-4) H 09/16/19 21:40 U Hyaline Cast (Auto) 1-5 /lpf (0-5) 09/16/19 21:40 U Epithel Cells (Auto) 10-20 /lpf (0-5) H 09/16/19 21:40 Urine Bacteria (Auto) Negative (Negative) 09/16/19 21:40 09/18/19 09/18/19 06:10 00:05 POC Glucose 116 H 137 H Electrocardiogram Date: 09/16/19 Findings: + NSR @ (79), + RBBB and + MD (inferior) no change from December Chest X-Ray Date: 09/16/19 IMPRESSION: No acute cardiopulmonary findings. Stable mild enlargement of the cardiac silhouette. Echocardiogram Date: 01/03/19 EF: 40-45% Valvular Disease: + MR (mild to moderate) LV mod dilated mild LVH LV systolic function is mild to mod reduced Distal anterior, distal anterolateral, distal inferior, apex, and mid to distal setpum and anteroseptum are akinetic LA is mildly dilated PA systolic pressure 50 mmHg
--- NOTE | 2019-09-18 08:44 | Cardiology Progress Note ---
Date of Service September 18, 2019 Assessment & Plan (1) CAD (coronary artery disease): (2) S/P coronary artery stent placement: (3) Cardiomyopathy: (4) Paroxysmal atrial fibrillation: (5) HTN (hypertension): (6) Choledocholithiasis with acute cholecystitis: (7) Dyslipidemia: ASSESSMENT/PLAN: 1. CAD s/p LAD PCI: No angina. Recommend aspirin 81 mg daily given prior PCI, especially while off of her anticoagulation therapy. Continue beta-nas as tolerated. Can resume high intensity statin therapy. 2. Cardiomyopathy: Mildly reduced LV systolic function. ContinuebBeta- nas. She appears euvolemic. 3. Paroxysmal atrial fibrillation: She developed atrial fibrillation during ERCP. She remains in atrial fibrillation. She will likely convert spontaneously as per her history. Given that she is mildly hypertensive, would recommend giving a lower dose of metoprolol this morning. Can give metoprolol succinate 150 mg. If she becomes tachycardic during the cholecystectomy,anesthesiology can provide IV diltiazem as appropriate. Resume anti-coagulation was safe from a surgical standpoint. Anticoagulation therapy is on hold for upcoming cholecystectomy. 4. Hypertension: She has been mildly hypotensive but is asymptomatic. Reduce beta-nas dose as above. Hypotension may be related to her acute illness. 5. Dyslipidemia: Statin therapy when no contraindication. 6. Acute cholecystitis: Cholecystectomy is being planned for today. Treatment for atrial fibrillation as above. Plan of care discussed with Dr. Pena and nursing staff. I will be away from the hospital for the next 2 days. He is contact on-call refueling ramp supervisor for any questions or concerns. Subjective Yesterday during ERCP, she went into atrial fibrillation with rapid ventricular response. She did not receive metoprolol on 09/16/2019. She also did not take metoprolol on 09/15/2019. She did receive her metoprolol yesterday. Her heart rate has since improved. She was completely asymptomatic with the atrial fibrillation. She denies chest pain, shortness of breath, syncope, near syncope, palpitations. She has not had any further vomiting. Nausea improved. Her abdominal pain has also improved. She has remained n.p.o. She is planned to undergo cholecystectomy later today. Review of systems: As above. Physical Exam Physical Exam: Gen.: No acute distress. Alert and oriented. HEENT: Icteric sclera. Neck: No JVD. Anicteric Cardiac: Irregularly irregular, but rate controlled. Normal S1-S2. No murmurs, rubs, or gallops. Pulmonary: Clear to auscultation bilaterally without wheezes, rales, or rhonchi. Abdomen: Soft, nondistended, with hypoactive bowel sounds. Mild right upper quadrant tenderness. No rebound tenderness. No bruits noted. Extremities: 2+ radial pulses bilaterally. 2+ posterior tibialis pulses bilaterally. Trace bilateral lower extremity edema. No cyanosis. Psychiatric: Affect appears appropriate. Results & Data Vital Signs (Past 12 Hours) Vital Signs Temp Pulse Resp BP BP Pulse Ox 09/18/19 07:18 36.4 C L 88 20 97/66 L 97 09/18/19 03:27 36.4 C L 78 19 96/71 L 97 09/18/19 00:10 36.6 C 87 17 97/59 L 97 Laboratory Results Laboratory Results - last 24 hr 09/17/19 09/17/19 09/17/19 08:34 11:59 14:10 WBC RBC Hgb Hct MCV MCH MCHC RDW Std Deviation RDW Coeff of Esthela Plt Count MPV Immature Gran % (Auto) Neut % (Auto) Lymph % (Auto) Petroleum % (Auto) Eos % (Auto) Baso % (Auto) Immature Gran # (Auto) Neut # (Auto) Lymph # (Auto) Petroleum # (Auto) Eos # (Auto) Baso # (Auto) Sodium Potassium Chloride Carbon Dioxide Anion Gap BUN Creatinine Est Cr Clr Drug Dosing Est GFR ( Amer) Est GFR (Non-Af Amer) BUN/Creatinine Ratio Glucose POC Glucose 121 H 149 H 135 H Calcium Total Bilirubin AST ALT Alkaline Phosphatase Total Protein Albumin Globulin Albumin/Globulin Ratio 09/17/19 09/17/19 09/17/19 15:29 17:12 20:44 WBC RBC Hgb Hct MCV MCH MCHC RDW Std Deviation RDW Coeff of Esthela Plt Count MPV Immature Gran % (Auto) Neut % (Auto) Lymph % (Auto) Petroleum % (Auto) Eos % (Auto) Baso % (Auto) Immature Gran # (Auto) Neut # (Auto) Lymph # (Auto) Petroleum # (Auto) Eos # (Auto) Baso # (Auto) Sodium Potassium Chloride Carbon Dioxide Anion Gap BUN Creatinine Est Cr Clr Drug Dosing Est GFR ( Amer) Est GFR (Non-Af Amer) BUN/Creatinine Ratio Glucose POC Glucose 169 H 160 H 165 H Calcium Total Bilirubin AST ALT Alkaline Phosphatase Total Protein Albumin Globulin Albumin/Globulin Ratio 09/18/19 09/18/19 09/18/19 00:05 06:10 06:46 WBC 8.61 RBC 4.17 L Hgb 9.1 L Hct 32.5 L MCV 77.9 L MCH 21.8 L MCHC 28.0 L RDW Std Deviation 54.3 H RDW Coeff of Esthela 18.9 H Plt Count 151 MPV 9.9 Immature Gran % (Auto) 0.1 Neut % (Auto) 86.4 Lymph % (Auto) 4.4 Petroleum % (Auto) 8.5 Eos % (Auto) 0.5 Baso % (Auto) 0.1 Immature Gran # (Auto) 0.01 Neut # (Auto) 7.44 H Lymph # (Auto) 0.38 L Petroleum # (Auto) 0.73 H Eos # (Auto) 0.04 Baso # (Auto) 0.01 Sodium Potassium Chloride Carbon Dioxide Anion Gap BUN Creatinine Est Cr Clr Drug Dosing Est GFR ( Amer) Est GFR (Non-Af Amer) BUN/Creatinine Ratio Glucose POC Glucose 137 H 116 H Calcium Total Bilirubin AST ALT Alkaline Phosphatase Total Protein Albumin Globulin Albumin/Globulin Ratio 09/18/19 06:46 WBC RBC Hgb Hct MCV MCH MCHC RDW Std Deviation RDW Coeff of Esthela Plt Count MPV Immature Gran % (Auto) Neut % (Auto) Lymph % (Auto) Petroleum % (Auto) Eos % (Auto) Baso % (Auto) Immature Gran # (Auto) Neut # (Auto) Lymph # (Auto) Petroleum # (Auto) Eos # (Auto) Baso # (Auto) Sodium 138 Potassium 3.9 Chloride 107 Carbon Dioxide 24 Anion Gap 7.0 BUN 25 H Creatinine 1.62 H Est Cr Clr Drug Dosing 50.4 Est GFR ( Amer) 42.5 Est GFR (Non-Af Amer) 36.6 BUN/Creatinine Ratio 15.3 Glucose 119 H POC Glucose Calcium 8.3 L Total Bilirubin 5.7 H AST 32 ALT 71 Alkaline Phosphatase 171 H Total Protein 5.6 L Albumin 2.5 L Globulin 3.1 Albumin/Globulin Ratio 0.8 L Diagnostic Findings Telemetry reviewed: Atrial fibrillation. ERCP note reviewed. Medications Administered Current Inpatient Medications Acetaminophen (Tylenol) 650 mg PO Q4H PRN PRN Reason: pain/fever Stop: 10/16/19 10:54 Last Admin: 09/16/19 23:57 Dose: 650 mg Documented by: Aspirin (Ecotrin Ectab) 81 mg PO QAM REAGAN Stop: 10/17/19 08:59 Last Admin: 09/17/19 08:59 Dose: 81 mg Documented by: Calcium Carbonate (Tums) 500 mg PO Q6 PRN PRN Reason: Indigestion Stop: 10/17/19 10:33 Dextrose (Dextrose 50%) 25 - 50 ml IV UD PRN; Protocol PRN Reason: Hypoglycemia Protocol Stop: 10/17/19 22:59 Glucagon (Glucagen) 1 mg SQ UD PRN; Protocol PRN Reason: Hypoglycemia Protocol Stop: 10/17/19 22:59 Glucose (Glucose 40%) 15 - 30 gm PO UD PRN; Protocol PRN Reason: Hypoglycemia Protocol Stop: 10/17/19 22:59 Glucose (Dex4 Glucose) 4 - 8 tabs PO UD PRN; Protocol PRN Reason: Hypoglycemia Protocol Stop: 10/17/19 22:59 Potassium Chloride/Sodium Chloride (Normal Saline W/20 Meq Kcl) 20 meq in 1,000 mls @ 70 mls/hr IV .[id number] [facility] Stop: 10/16/19 11:59 Last Admin: 09/18/19 06:14 Dose: 70 mls/hr Documented by: Piperacillin Sod/Tazobactam (Sod 4.5 gm/ Dextrose) 120 mls @ 30 mls/hr IV Q8H [facility]; Protocol Stop: 09/26/19 17:59 Last Infusion: 09/18/19 06:12 Dose: Infused Documented by: Insulin Aspart (Novolog Flexpen) 0 units SC Q6 [facility] Stop: 10/18/19 00:00 Last Admin: 09/18/19 06:24 Dose: Not Given Documented by: Metoprolol Succinate (Toprol Xl) 300 mg PO DAILY [facility] Stop: 10/16/19 11:59 Last Admin: 09/17/19 08:59 Dose: 300 mg Documented by: Metoprolol Tartrate (Lopressor) 5 mg IV Q4 PRN PRN Reason: tachycardia Stop: 10/17/19 16:53 Miscellaneous (Carbohydrates For Hypoglycemia) 15 - 30 gm PO UD PRN PRN Reason: Hypoglycemia Treatment Stop: 10/17/19 22:59 Miscellaneous Information (Consult) 1 ea N/A UD PRN PRN Reason: Consult Stop: 10/16/19 10:54 Morphine Sulfate (Morphine Sulfate) 2 mg IV Q4H PRN PRN Reason: Pain Stop: 09/30/19 10:54 Last Admin: 09/17/19 08:11 Dose: 2 mg Documented by: Morphine Sulfate (Morphine Sulfate) 4 mg IV Q4H PRN PRN Reason: Severe Pain Stop: 09/30/19 10:54 Ondansetron HCl (Zofran) 4 mg IV Q6H PRN PRN Reason: Nausea Stop: 10/16/19 10:54 Last Admin: 09/17/19 08:16 Dose: 4 mg Documented by: Pantoprazole Sodium (Protonix) 40 mg PO QAM REAGAN Stop: 10/17/19 08:59 Last Admin: 09/17/19 08:59 Dose: 40 mg Documented by: PG Care Time/CCT Total # of Minutes Spent Total Time Spent with Patient: Total time spent is greater than 50% in coordination of care (as documented) at patient's floor/unit and/or counseling patient: (1) CAD (coronary artery disease) Coronary Disease-Associated Artery/Lesion type: [place] artery [place] vs. transplanted heart: [place] heart Associated angina: without angina Qualified Code(s): I25.10 - Atherosclerotic heart disease of [place] coronary artery without angina pectoris (2) HTN (hypertension) Hypertension type: essential hypertension Qualified Code(s): I10 - Essential (primary) hypertension
[2019-09-18] MEDS ORDERED: NEOSTIGMINE METHYLSULFATE 5 MG/5 ML SYR ONE (08:48)
[2019-09-18] MEDS ORDERED: LIDOCAINE HCL 2% 2 ML VIAL/AMP(20MG/ML) INFIL ONE (08:48)
[2019-09-18] MEDS ORDERED: GLYCOPYRROLATE 0.2 MG/ML VIAL ONE (08:48)
[2019-09-18] MEDS ORDERED: MIDAZOLAM HCL 1 MG/ML 2ML VIAL ONE (08:48)
[2019-09-18] MEDS ORDERED: ROCURONIUM BROMIDE 10 MG/ML 5 ML VIAL ONE ×5 (08:48→12:00)
[2019-09-18] MEDS ORDERED: PROPOFOL IV EMULSION 10 MG/ML 20 ML VIAL IV ONE (08:48)
[2019-09-18] MEDS ORDERED: fentaNYL citrate 100 MCG/2 ML VIAL ONE ×2 (08:48→11:14)
[2019-09-18] MEDS: ASPIRIN 81 MG ECTAB PO SCH (09:12)
[2019-09-18] MEDS: PANTOprazole 40 MG TAB PO SCH (09:12)
[2019-09-18] MEDS: METOPROLOL SUCC 50MG EXT REL TAB PO SCH (09:12)
--- NOTE | 2019-09-18 09:20 | Hospitalist Progress Note ---
Date of Service September 18, 2019 Assessment & Plan (1) Sepsis: due to cholecystitis and cholangitis treat with Zosyn, NSS at 70cc/hr ERCP on 09/17 with stone removal, biliary stent placed WBC down to normal, afebrile, bili down sepsis resolved (2) Cholangitis: evidence on ERCP on 09/17 obstructing stone in the CBD with purulent bile behind the stone had some hypotension and tachycardia after the procedure continue Zosyn for now, convert to PO Augmentin on discharge (3) Choledocholithiasis with acute cholecystitis: 2 days of pain and nausea, presented with jaundice vitals stable treat with Zosyn IV, NSS at 70cc/hr plan for lap lotus today no RUQ pain today, no fevers, WBC normal (4) Atrial fibrillation: paroxysmal afib, went back into afib with RVR yesterday during ERCP rates better controlled with aggressive fluid bolus, Lopressor 5mg IV PRN will give Toprol 150mg this morning due to SBP in high 90s likely that she will have some RVR during procedure or after, use Lopressor PRN will see post op (5) Diabetes: hold oral agents use Novolog SS, q6 sugar checks monitor for hypoglycemia, no episodes (6) CAD (coronary artery disease): h/o DAMON in 2014 no issues since that time continue Aspirin 81mg daily due to h/o stent Metoprolol (7) Cardiomyopathy: examines euvolemic (8) HTN (hypertension): hold Losartan and Lasix decrease Toprol to 150mg from 300mg due to SBP 90's (9) CKD stage 3 due to type 2 diabetes mellitus: Cr is 1.62, within baseline range continue IV fluids repeat BMP in the morning electrolytes stable Subjective patient resting comfortably this morning no RUQ pain, no nausea, she had a small BM this morning Bili down to 5.7 from 7, Alk phos trending down, WBC down to normal today, AST/ALT normal and Cr at baseline HR on the tele monitor is 80-100's atrial fibrillation d/w Dr. Denton about kaci-operative management with her systolic BP high 90's he recommends Toprol 150mg this AM (1/2 her normal dose) would expect some RVR possibly intra-op or post op, we will manage updated patient's at the bedside plan for OR today at 1030 Review of Systems Review of Systems: All systems reviewed & are unremarkable except as noted in HPI & below Constitutional: + fatigue and + weakness; no fever, no chills and no sweats Respiratory: no cough and no dyspnea Cardiovascular: no chest pain, no palpitations and no edema Gastrointestinal: no abdominal pain, no nausea, no vomiting, no constipation and no diarrhea/loose stools Physical Exam Constitutional: WD/WN, vitals as above + overweight Eyes: normal visual gray by confrontation, + scleral abnormality (icterus), PERRL and EOM intact bilaterally ENMT: external ear and nose normal, oropharynx normal Neck: trachea midline, no thyromegaly Respiratory: normal respiratory effort, lungs clear to auscultation Cardiovascular: RRR, no murmur, no edema Gastrointestinal (Abdomen): Inspection/Auscultation: normal bowel sounds; abdomen not distended Percussion/Palpation: abdomen soft; abdomen nontender, no guarding and abdomen not rigid Musculoskeletal: no cyanosis or clubbing, extremities motor strength 5/5 Skin: no rashes, warm and dry (mild jaundice) Neurologic: patellar DTR's 2+ bilat, sensation intact and PERRL, EOMI, accommodation nl, no face palsy, no dysarthria Psychiatric: A+Ox3, euthymic affect Lymphatic: no cervical or axillary lymphadenopathy Results & Data Vital Signs (Past 12 Hours) Vital Signs Temp Pulse Resp BP BP Pulse Ox 09/18/19 07:18 36.4 C L 88 20 97/66 L 97 09/18/19 03:27 36.4 C L 78 19 96/71 L 97 09/18/19 00:10 36.6 C 87 17 97/59 L 97 Laboratory Results Laboratory Results - last 24 hr 09/17/19 09/17/19 09/17/19 11:59 14:10 15:29 WBC RBC Hgb Hct MCV MCH MCHC RDW Std Deviation RDW Coeff of Esthela Plt Count MPV Immature Gran % (Auto) Neut % (Auto) Lymph % (Auto) [place] % (Auto) Eos % (Auto) Baso % (Auto) Immature Gran # (Auto) Neut # (Auto) Lymph # (Auto) [place] # (Auto) Eos # (Auto) Baso # (Auto) Sodium Potassium Chloride Carbon Dioxide Anion Gap BUN Creatinine Est Cr Clr Drug Dosing Est GFR ( Amer) Est GFR (Non-Af Amer) BUN/Creatinine Ratio Glucose POC Glucose 149 H 135 H 169 H Calcium Total Bilirubin AST ALT Alkaline Phosphatase Total Protein Albumin Globulin Albumin/Globulin Ratio 09/17/19 09/17/19 09/18/19 17:12 20:44 00:05 WBC RBC Hgb Hct MCV MCH MCHC RDW Std Deviation RDW Coeff of Esthela Plt Count MPV Immature Gran % (Auto) Neut % (Auto) Lymph % (Auto) [place] % (Auto) Eos % (Auto) Baso % (Auto) Immature Gran # (Auto) Neut # (Auto) Lymph # (Auto) [place] # (Auto) Eos # (Auto) Baso # (Auto) Sodium Potassium Chloride Carbon Dioxide Anion Gap BUN Creatinine Est Cr Clr Drug Dosing Est GFR ( Amer) Est GFR (Non-Af Amer) BUN/Creatinine Ratio Glucose POC Glucose 160 H 165 H 137 H Calcium Total Bilirubin AST ALT Alkaline Phosphatase Total Protein Albumin Globulin Albumin/Globulin Ratio 09/18/19 09/18/19 09/18/19 06:10 06:46 06:46 WBC 8.61 RBC 4.17 L Hgb 9.1 L Hct 32.5 L MCV 77.9 L MCH 21.8 L MCHC 28.0 L RDW Std Deviation 54.3 H RDW Coeff of Esthela 18.9 H Plt Count 151 MPV 9.9 Immature Gran % (Auto) 0.1 Neut % (Auto) 86.4 Lymph % (Auto) 4.4 [place] % (Auto) 8.5 Eos % (Auto) 0.5 Baso % (Auto) 0.1 Immature Gran # (Auto) 0.01 Neut # (Auto) 7.44 H Lymph # (Auto) 0.38 L [place] # (Auto) 0.73 H Eos # (Auto) 0.04 Baso # (Auto) 0.01 Sodium 138 Potassium 3.9 Chloride 107 Carbon Dioxide 24 Anion Gap 7.0 BUN 25 H Creatinine 1.62 H Est Cr Clr Drug Dosing 50.4 Est GFR ( Amer) 42.5 Est GFR (Non-Af Amer) 36.6 BUN/Creatinine Ratio 15.3 Glucose 119 H POC Glucose 116 H Calcium 8.3 L Total Bilirubin 5.7 H AST 32 ALT 71 Alkaline Phosphatase 171 H Total Protein 5.6 L Albumin 2.5 L Globulin 3.1 Albumin/Globulin Ratio 0.8 L Medications Administered Current Inpatient Medications Acetaminophen (Tylenol) 650 mg PO Q4H PRN PRN Reason: pain/fever Stop: 10/16/19 10:54 Last Admin: 09/16/19 23:57 Dose: 650 mg Documented by: Aspirin (Ecotrin Ectab) 81 mg PO QAM REAGAN Stop: 10/17/19 08:59 Last Admin: 09/17/19 08:59 Dose: 81 mg Documented by: Calcium Carbonate (Tums) 500 mg PO Q6 PRN PRN Reason: Indigestion Stop: 10/17/19 10:33 Dextrose (Dextrose 50%) 25 - 50 ml IV UD PRN; Protocol PRN Reason: Hypoglycemia Protocol Stop: 10/17/19 22:59 Glucagon (Glucagen) 1 mg SQ UD PRN; Protocol PRN Reason: Hypoglycemia Protocol Stop: 10/17/19 22:59 Glucose (Glucose 40%) 15 - 30 gm PO UD PRN; Protocol PRN Reason: Hypoglycemia Protocol Stop: 10/17/19 22:59 Glucose (Dex4 Glucose) 4 - 8 tabs PO UD PRN; Protocol PRN Reason: Hypoglycemia Protocol Stop: 10/17/19 22:59 Potassium Chloride/Sodium Chloride (Normal Saline W/20 Meq Kcl) 20 meq in 1,000 mls @ 70 mls/hr IV .[id number] [facility] Stop: 10/16/19 11:59 Last Admin: 09/18/19 06:14 Dose: 70 mls/hr Documented by: Piperacillin Sod/Tazobactam (Sod 4.5 gm/ Dextrose) 120 mls @ 30 mls/hr IV Q8H [facility]; Protocol Stop: 09/26/19 17:59 Last Infusion: 09/18/19 06:12 Dose: Infused Documented by: Insulin Aspart (Novolog Flexpen) 0 units SC Q6 [facility] Stop: 10/18/19 00:00 Last Admin: 09/18/19 06:24 Dose: Not Given Documented by: Metoprolol Succinate (Toprol Xl) 300 mg PO DAILY [facility] Stop: 10/16/19 11:59 Last Admin: 09/17/19 08:59 Dose: 300 mg Documented by: Metoprolol Tartrate (Lopressor) 5 mg IV Q4 PRN PRN Reason: tachycardia Stop: 10/17/19 16:53 Miscellaneous (Carbohydrates For Hypoglycemia) 15 - 30 gm PO UD PRN PRN Reason: Hypoglycemia Treatment Stop: 10/17/19 22:59 Miscellaneous Information (Consult) 1 ea N/A UD PRN PRN Reason: Consult Stop: 10/16/19 10:54 Morphine Sulfate (Morphine Sulfate) 2 mg IV Q4H PRN PRN Reason: Pain Stop: 09/30/19 10:54 Last Admin: 09/17/19 08:11 Dose: 2 mg Documented by: Morphine Sulfate (Morphine Sulfate) 4 mg IV Q4H PRN PRN Reason: Severe Pain Stop: 09/30/19 10:54 Ondansetron HCl (Zofran) 4 mg IV Q6H PRN PRN Reason: Nausea Stop: 10/16/19 10:54 Last Admin: 09/17/19 08:16 Dose: 4 mg Documented by: Pantoprazole Sodium (Protonix) 40 mg PO QAM REAGAN Stop: 10/17/19 08:59 Last Admin: 09/17/19 08:59 Dose: 40 mg Documented by: PG Care Time/CCT Total # of Minutes Spent Total Time Spent with Patient: Total time spent is greater than 50% in coordination of care (as documented) at patient's floor/unit and/or counseling patient: (1) Diabetes Diabetes mellitus type: type 2 Diabetes mellitus intermodal dispatcher insulin use: with intermodal dispatcher use Diabetes mellitus complication status: without complication Qualified Code(s): E11.9 - Type 2 diabetes mellitus without complications; Z79.4 - custodial (current) use of insulin (2) CAD (coronary artery disease) Coronary Disease-Associated Artery/Lesion type: [place] artery [place] vs. transplanted heart: [place] heart Associated angina: without angina Qualified Code(s): I25.10 - Atherosclerotic heart disease of [place] coronary artery without angina pectoris (3) HTN (hypertension) Hypertension type: essential hypertension Qualified Code(s): I10 - Essential (primary) hypertension
--- NOTE | 2019-09-18 09:39 | Anesthesiology Progress Note ---
Date of Service September 18, 2019 Anesthesia Post Procedure Vital Signs Vital Signs: Temp Pulse Pulse Resp BP BP Pulse Ox 09/18/19 07:18 36.4 C L 88 20 97/66 L 97 09/18/19 03:27 36.4 C L 78 19 96/71 L 97 09/18/19 00:10 36.6 C 87 17 97/59 L 97 09/17/19 19:23 36.7 C 99 H 18 102/70 95 09/17/19 18:09 107 H 18 92/65 L 98 09/17/19 17:50 103 H 18 86/59 L 99 09/17/19 17:39 107 H 18 93/69 L 99 09/17/19 17:34 120 H 09/17/19 17:26 128 H 18 96/68 L 100 09/17/19 17:17 115 H 18 96/68 L 98 09/17/19 17:00 37 C 102 H 18 92/67 L 98 09/17/19 16:35 37.1 C 114 H 18 98/66 L 98 09/17/19 16:15 36.2 C L 91 H 16 100/55 L 98 09/17/19 16:05 115 H 18 95/52 L 95 09/17/19 15:55 128 H 19 102/63 97 09/17/19 15:45 125 H 18 102/76 99 09/17/19 15:35 117 H 24 99/77 L 97 09/17/19 15:28 36.7 C 157 H 22 106/63 95 09/17/19 14:05 37.3 C 135 H 20 102/69 95 Pain Intensity Generalized: Pain Intensity: 0 Notes Mental Status: alert / awake / arousable and participated in evaluation Patient Amnestic to Procedure: Yes Nausea / Vomiting: adequately controlled Pain: adequately controlled Airway Patency, RR, SpO2: stable & adequate BP & HR: stable & adequate Hydration State: stable & adequate Anesthetic Complications: no major complications apparent and Pt Satisfied with anesthetic care
[2019-09-18] MEDS ORDERED: ONDANSETRON INJ 2 MG/ML 2 ML VIAL IV PRN (10:08)
[2019-09-18] MEDS ORDERED: ePHEDrine sulfate 50 MG/ML AMP IV PRN (10:08)
[2019-09-18] MEDS ORDERED: fentaNYL citrate 100 MCG/2 ML VIAL IV PRN (10:08)
[2019-09-18] MEDS ORDERED: ATROPINE SULFATE 0.1 MG/ML 10ML SYR IV PRN (10:08)
[2019-09-18] MEDS ORDERED: LIDOCAINE HCL 1% 20 ML VIAL ONE (10:14)
[2019-09-18] MEDS ORDERED: EPINEPHrine INJ 1 MG/ML AMP ONE (10:14)
[2019-09-18] MEDS ORDERED: CONRAY 60% 50 ML VIAL ONE (10:14)
--- NOTE | 2019-09-18 10:21 | History & Physical Bridge Note ---
Date of Service September 18, 2019 History & Physical Bridge Note I have examined the patient, reviewed the History & Physical and in the interval since the performance of the History & Physical I have noted the following changes of clinical significance: no changes noted Examined this morning he feels better than yesterday seemed like the pressure was relieved there is is at bedside at this point we will proceed with laparoscopic cholecystectomy intraoperative cholangiogram risk and complication of procedure were explained to her and her including open procedure injury to other organs and she would like to proceed accordingly operative permit was signed Supervising Physician Co-Signing Physician Notes Attending attestation I have seen, examined this patient, and agree with the findings and above by our mid-level provider NATACHA Aranda, with the following additions -Still with intermittent pain treated by IV analgesia -Overall looks well, sitting on side of bed without pain -Febrile last night -Timing of ERCP to be determined by Dr. Noriega, possibly considering going today.
[2019-09-18] MEDS ORDERED: LIDOCAINE/EPINE 2% 1:100,000 20ML ONE (10:25)
[2019-09-18] MEDS ORDERED: LIDOCAINE/EPINEPHRINE 1% 20 ML VIAL ONE (10:26)
--- NOTE | 2019-09-18 10:30 | Gastroenterology Progress Note ---
Date of Service September 18, 2019 Assessment & Plan (1) Choledocholithiasis with acute cholecystitis: Pt is a 49 yr old female admitted with abdominal pain who is Post procedure day #1 for ERCP with sphincterotomy and sweeping of the bile duct for stones, cholangitis present. Also only a few hrs post lap choley, doing well. GI will watch peripherally. Diet, DC, anticoagulation per surgery and primary hospitalist. Supervising Physician Co-Signing Physician Notes Attending attestation I have seen, examined this patient, and agree with the findings and above by our mid-level provider NATACHA Hodge, with the following additions. -Doing well post cholecystectomy, will need follow-up with Dr. Noriega for indwelling biliary stents. Subjective Ms. Shanelle Cronin is a 49 yr old female admitted for abdominal pain, elevated LFTs then imaging suggestive of choledocholithiasis. She then experienced mild fever suggestive of cholangitis. She underwent ERCP yesterday with sphincterotomy and sweeping of the bile duct for Choledocholithiasis. Findings were suggestive of cholangitis. A-fib present. Then underwent lap cholecystectomy today. Today: leukocytosis resolved: 11->8. Most recent temp 09/17 01:30. LFTs improving: T Bili 7.9->5.7, AST 62->32, AL 176->71, Alk Phos 176->71. After surgery, pt awake, BS present, abdomen soft and lungs clear. Review of Systems Constitutional: + fever, + fatigue and + weakness (mild) Eyes: no icterus Gastrointestinal: + abdominal pain (incisional discomfort), + bloating (mild) and + nausea (denies today); no vomiting Endocrine: + fatigue Physical Exam Constitutional: WD/WN, vitals as above Eyes: PERRL, conjunctivae normal, anicteric sclerae ENMT: external ear and nose normal, oropharynx normal Neck: trachea midline, no thyromegaly Respiratory: normal respiratory effort, lungs clear to auscultation Cardiovascular: RRR, no murmur, no edema Gastrointestinal (Abdomen): Inspection/Auscultation: + abdomen distended (mild) and normal bowel sounds (hypoactive, but present) Percussion/Palpation: + abdomen tender (epigastric and RUQ, incisional areas) and abdomen soft Musculoskeletal: no cyanosis or clubbing, extremities motor strength 5/5 Skin: no rashes, warm and dry Neurologic: patellar DTR's 2+ bilat, sensation intact Psychiatric: A+Ox3, euthymic affect Lymphatic: no cervical or axillary lymphadenopathy Results & Data Vital Signs (Past 12 Hours) Vital Signs Temp Pulse Pulse Resp BP BP Pulse Ox 09/18/19 09:58 36.8 C 88 18 94/57 L 98 09/18/19 07:18 36.4 C L 88 20 97/66 L 97 09/18/19 03:27 36.4 C L 78 19 96/71 L 97 09/18/19 00:10 36.6 C 87 17 97/59 L 97
[2019-09-18] MEDS ORDERED: PHENYLEPHRINE 100MCG/ML 5ML SYR ONE (11:08)
--- NOTE | 2019-09-18 11:43 | Fluoroscopy Report ---
INTRAOPERATIVE CHOLANGIOGRAM HISTORY: Post cholecystectomy. FLUOROSCOPY TIME: 5 seconds. Single fluoroscopic spot image of the right upper quadrant. FINDINGS: Fluoroscopy was provided for an intraoperative cholangiogram status post cholecystectomy. C ontrast was injected through the cystic duct remnant. The proximal colon hepatic duct is identified. However, the majority of the common bile duct is now well opacified and obscured by the extravasation of contrast. Contrast extends into the small bowel. There is no intrahepatic bile duct dilatation. IMPRESSION: Fluoroscopy provided for an intraoperative cholangiogram status post cholecystectomy. The majority of the common bile duct is not well visualized and obscured by the extravasated contrast. Electronically signed by: Paulino Shaffer M.D. 09/18/2019 11:42 AM
[2019-09-18] MEDS ORDERED: ESMOLOL HCL INJ 10 MG/ML 10ML VIAL IV ONE (12:05)
--- NOTE | 2019-09-18 12:13 | Post Operative Brief Note ---
PG Immediate Post Op with CF Date of Surgery September 18, 2019 Pre & Post Diagnosis Operation Date: 09/17/19 10:25 Pre-Op Diagnosis: Choledocholithiasis with acute cholecystitis Post-Op Diagnosis: Choledocholithiasis with acute cholecystitis Operation Date: 09/18/19 10:30 Pre-Op Diagnosis: Choledocholithiasis with acute cholecystitis Post-Op Diagnosis: Choledocholithiasis with acute cholecystitis I identified the patient and participated in the time-out.: Yes Procedure Operation Date: 09/17/19 10:25 Actual Procedures p Endoscopic Retrograde Cholangiopancreatogram(Not Applicable) - Js Noriega Operation Date: 09/18/19 10:30 Actual Procedures p Laparoscopic Cholecystectomy with Cholangiogram(Not Applicable) - Samuel Soto MD Surgeon Samuel Soto MD Legal Researcher ninahum Estimated Blood Loss 5 Findings Consistent with Post-Op Diagnosis Specimens Specimen Description: Permanent Specimen A: gallbladder Drains Casey-Cabezas Drain (19 round)
--- NOTE | 2019-09-18 12:30 | Operative Report ---
PG Post Operative Report Pre & Post Diagnosis Operation Date: 09/17/19 10:25 Pre-Op Diagnosis: Choledocholithiasis with acute cholecystitis Post-Op Diagnosis: Choledocholithiasis with acute cholecystitis Operation Date: 09/18/19 10:30 Pre-Op Diagnosis: Choledocholithiasis with acute cholecystitis Post-Op Diagnosis: Choledocholithiasis with acute cholecystitis I identified the patient and participated in the time-out.: Yes Procedure Operation Date: 09/17/19 10:25 Actual Procedures p Endoscopic Retrograde Cholangiopancreatogram(Not Applicable) - Js Noriega Operation Date: 09/18/19 10:30 Actual Procedures p Laparoscopic Cholecystectomy with Cholangiogram(Not Applicable) - Samuel Soto MD Patient was brought into the operating theater general trach anesthesia the abdomen was prepped Betadine solution properly draped a timeout was had patient was identified made a small transverse incision about a quarter of an inch long just above the umbilicus followed by see a Veress needle followed by CO2 after establishing good pneumoperitoneum followed by the scope point of entry inspected no injury identified attention was turned to the right upper quadrant where we could see liver that had some micro-nodularity diffusely possible likely steatosis of early cirrhosis gallbladder could not see from this point of view at this time therefore we placed a 5 mm epigastric port and 2 5 mm subcostal ports with preemptive local analgesic we then were able to expose identify the gallbladder that was tense quite edematous we elected to aspirated which we did this bilious dark drainage the aspirating site was controlled was grasper laterally and elevating the gallbladder and we started her dissection towards the neck where the wall was quite edematous and was even hard to grab with the largest grasper finally were able to elevate the gallbladder and try to expose the triangle KITA we did a mostly bluntly we then were few small bleeders were identified right at the takeoff of the gallbladder without any problem controlled and we dissected out we created a window which was appeared to be in one small anterior artery with a which we clipped and divided we get around the structure the gallbladder dissected the undersurface of it without any problem the gallbladder cystic duct was dilated distally proximally appeared normal we were able in the clipped approximately a small opening cystic duct was made #4 urethral catheter was advanced into the common cystic duct from transverse to the abdominal wall and a 14 Angiocath first x-ray which he did see just basically some extravasation and further images that we took we can see if corkscrew type of cystic duct is redundant and flow into the duodenum patient had a few biliary stents there that we could see at this point we then wanted to choke up more on the gallbladder since it was redundant and we did that when we are doing that we had a little bleeder in the cephalad portion of and away from the duct itself a small bleeder likely a branch of the cystic artery we were able then to control it with clips. We then continued elevating the gallbladder from the fossa to the point and then we could expose the baldomero hepatis area in the triangle KITA sufficient enough that we could see that the cystic duct itself was very small at the takeoff as was doing that that actually from around the other clip or superiorly. We at this point were able to grab it and just placed one clip and we did back to evaluate that after we took out the gallbladder which we took out in antegrade fashion leaving as much is posterior peritoneum was possible there was patchy necrosis of the posterior wall the gallbladder into the liver once free from the liver we placed an Endopouch and took it out intact through the epigastric took it out through the epigastric port and pieces was completely sealed will bilirubinate his stools. Cultures were taken. This point the suction subhepatic area was checked for hemostasis we went back and visualized the cystic duct we were able then grasped with the fine gravel from the mid subcostal port then dissected out towards the common bile duct to an area that we felt it was sufficient enough but stayed away from the common bile duct the duct here appeared to be a little bit larger normal but we were able to doubly secured with a 5 mm clips. Once this is been performed we placed the camera right subcostal port to visualize the umbilical opening as we first went in which was found there were no adhesions that I elected to drain the subhepatic fossa due to the significant amount of inflammation at the patient had and probably some drainage from 1 of the sides of the gallbladder is we are taking around the #19 Tony was brought in medially from the umbilical port and taken out through subcostal port placement subhepatically. The area was then checked hemostasis appear satisfactory individual trochars removed the last the umbilical trocar 4-0 Monocryl for skin edges Steri-Strips applied procedure was tolerated well by the patient estimated blood loss approximately 100 cc addendum the dissection was quite difficult given the patient's habits as the acute inflammation. And the small bleeder that we had addendumB Latricia betancourt Was present throughout the procedure and help with exposure retraction camera work and wound closure Surgeon Samuel Soto MD Manager Pest siddharth Estimated Blood Loss 100 Findings Consistent with Post-Op Diagnosis Specimens gallbladder and stones c and s Description of Procedure merda I attest to the content of the Intraoperative Record and any orders documented therein. Any exceptions are noted below. Supervising Physician Co-Signing Physician Notes Attending attestation I have seen, examined this patient, and agree with the findings and above by our mid-level provider NATACHA Aranda, with the following additions -Still with intermittent pain treated by IV analgesia -Overall looks well, sitting on side of bed without pain -Febrile last night -Timing of ERCP to be determined by Dr. Noriega, possibly considering going today.
--- NOTE | 2019-09-18 13:10 | Anesthesiology Progress Note ---
Date of Service September 18, 2019 Anesthesia Post Procedure Vital Signs Vital Signs: Temp Pulse Pulse Pulse Resp BP BP 09/18/19 12:50 99 H 15 98/69 L 09/18/19 12:40 103 H 16 93/57 L 09/18/19 12:30 98.1 F 94 H 19 81/46 L 09/18/19 10:36 98 H 09/18/19 09:58 98.2 F 88 18 94/57 L 09/18/19 07:18 97.5 F L 88 20 97/66 L 09/18/19 03:27 97.5 F L 78 19 96/71 L 09/18/19 00:10 97.9 F 87 17 97/59 L 09/17/19 19:23 98.1 F 99 H 18 102/70 09/17/19 18:09 107 H 18 92/65 L 09/17/19 17:50 103 H 18 86/59 L 09/17/19 17:39 107 H 18 93/69 L 09/17/19 17:34 120 H 09/17/19 17:26 128 H 18 96/68 L 09/17/19 17:17 115 H 18 96/68 L 09/17/19 17:00 98.6 F 102 H 18 92/67 L 09/17/19 16:35 98.8 F 114 H 18 98/66 L 09/17/19 16:15 97.2 F L 91 H 16 100/55 L 09/17/19 16:05 115 H 18 95/52 L 09/17/19 15:55 128 H 19 102/63 09/17/19 15:45 125 H 18 102/76 09/17/19 15:35 117 H 24 99/77 L 09/17/19 15:28 98.1 F 157 H 22 106/63 09/17/19 14:05 99.1 F 135 H 20 102/69 Pulse Ox 09/18/19 12:50 97 09/18/19 12:40 97 09/18/19 12:30 93 09/18/19 10:36 09/18/19 09:58 98 09/18/19 07:18 97 09/18/19 03:27 97 09/18/19 00:10 97 09/17/19 19:23 95 09/17/19 18:09 98 09/17/19 17:50 99 09/17/19 17:39 99 09/17/19 17:34 09/17/19 17:26 100 09/17/19 17:17 98 09/17/19 17:00 98 09/17/19 16:35 98 09/17/19 16:15 98 09/17/19 16:05 95 09/17/19 15:55 97 09/17/19 15:45 99 09/17/19 15:35 97 09/17/19 15:28 95 09/17/19 14:05 95 Pain Intensity Generalized: Pain Intensity: 0 Transfer of Care Handoff Completed per policy Notes Mental Status: alert / awake / arousable and participated in evaluation Patient Amnestic to Procedure: Yes Nausea / Vomiting: adequately controlled Pain: adequately controlled Airway Patency, RR, SpO2: stable & adequate BP & HR: stable & adequate Hydration State: stable & adequate Anesthetic Complications: no major complications apparent and Pt Satisfied with anesthetic care
[2019-09-18] MEDS: MoRPHine SULFATE 4 MG/ML 1 ML CARP\\VIAL IV PRN ×2 (13:43→18:47)
[2019-09-18] MEDS: ONDANSETRON INJ 2 MG/ML 2 ML VIAL IV PRN (13:57)
[2019-09-18] MEDS ORDERED: Nursing to Pharmacy Communication ONE (15:21)
[2019-09-18] MEDS: OXYCODONE HCL IR 5 MG TAB (IMMEDIATE RELEASE) PO PRN ×2 (15:57→21:12)
[2019-09-19] MEDS: OXYCODONE HCL IR 5 MG TAB (IMMEDIATE RELEASE) PO PRN ×3 (02:35→23:06)
[2019-09-19] MEDS: PIPERACILLIN/TAZOBACTAM 4.5 GM in DEXTROSE 5% 100 ML IV SCH ×3 (02:36→17:59)
[2019-09-19] MEDS: MoRPHine SULFATE 4 MG/ML 1 ML CARP\\VIAL IV PRN (04:00)
[2019-09-19] MEDS: INSULIN ASPART 100 UNITS/ML 3 ML PEN SC SCH ×4 (08:22→22:12)
[2019-09-19] MEDS: ASPIRIN 81 MG ECTAB PO SCH (08:23)
[2019-09-19] MEDS: PANTOprazole 40 MG TAB PO SCH (08:23)
[2019-09-19] MEDS: METOPROLOL SUCC 50MG EXT REL TAB PO SCH (08:23)
--- NOTE | 2019-09-19 08:42 | Progress Note ---
Date of Service September 19, 2019 Assessment & Plan (1) Cholangitis: Patient underwent ERCP several days ago and appears to be recovering well from aspect of her cholangitis. We will plan to do a repeat ERCP in about 6 to 8 weeks for stent removal. I would suggest completion of a 10-day course of broad-spectrum antibiotics for the underlying cholangitis per please call with any additional questions or concerns during the remainder of the hospital admission. Subjective Patient underwent ERCP on for cholangitis. She seems to be recovering well from our perspective. She did undergo cholecystectomy yesterday afternoon. Review of Systems Eyes: no diplopia Respiratory: no change in sputum Cardiovascular: no chest pain with activity Physical Exam Eyes: PERRL, conjunctivae normal, anicteric sclerae Respiratory: normal respiratory effort, lungs clear to auscultation Cardiovascular: RRR, no murmur, no edema Gastrointestinal (Abdomen): Inspection/Auscultation: abdomen normal to inspection and normal bowel sounds; abdomen not distended Results & Data Vital Signs (Past 12 Hours) Vital Signs Temp Pulse Pulse Resp BP Pulse Ox 09/19/19 07:21 36.5 C 98 H 18 103/72 94 09/19/19 03:35 36.5 C 93 H 18 125/81 93 09/18/19 23:37 36.4 C L 99 H 19 121/80 95 Laboratory Results Laboratory Results - last 24 hr 09/18/19 09/18/19 09/18/19 06:46 12:32 16:05 POC Glucose 160 H 148 H Lipase 3315 H 09/18/19 09/18/19 09/19/19 18:07 20:20 07:19 POC Glucose 147 H 186 H 135 H Lipase
[2019-09-19 09:01] LABS: Hematocrit (blood only) 32.7 % (37-47); Hemoglobin 9.2 g/dL (12.0-16.0); Mean Corpuscular Hgb Conc 28.1 g/dL (32-36); Mean Corpuscular Volume 78.2 fL (80-100); Mean Platelet Volume 9.5 fL (7.4-10.4); Platelet Count 205 K/uL (130-400); RDW Coefficient of Variation 18.8 % (11.5-14.5); RDW Standard Deviation 54.4 fL (36.4-46.3); Red Blood Count 4.18 M/uL (4.2-5.4); White Blood Count 9.63 K/uL (4.8-10.8)
[2019-09-19 09:30] LABS: Albumin Level 2.4 gm/dl (3.4-5.0); BUN Creatinine Ratio 20.3 (10-20); Calcium 8.5 mg/dl (8.5-10.1); Creatinine Clr Calc Pharmacy 60.3 ml/min; Est GFR (Non-African American) 44.9; Potassium 4.3 mmol/L (3.5-5.1)
[2019-09-19 09:33] LABS: Albumin Globulin Ratio 0.7 (0.9-2); Bilirubin,Total 2.4 mg/dl (0.2-1); Globulin 3.5 gm/dl (2.5-4.0); Total Protein 5.9 gm/dl (6.4-8.2)
[2019-09-19 09:33] LABS: Immature Granulocytes # (auto) 0.01 K/uL (0.00-0.02); Immature Granulocytes % (auto) 0.1 %; Lymphocytes # (auto) 0.46 K/uL (1.2-3.4); Lymphocytes % (auto) 4.8 %; Monocytes # (auto) 0.49 K/uL (0.11-0.59); Monocytes % (auto) 5.1 %; Neutrophils # (auto) 8.67 K/uL (1.4-6.5)
--- NOTE | 2019-09-19 11:54 | Hospitalist Progress Note ---
Date of Service September 19, 2019 Assessment & Plan (1) Sepsis: due to cholecystitis and cholangitis treat with Zosyn, NSS at 70cc/hr stop fluids today ERCP on 09/17 with stone removal, biliary stent placed WBC down to normal, afebrile, bili down s/p cholecystectomy on 09/18 sepsis resolved (2) Cholangitis: evidence on ERCP on 09/17 obstructing stone in the CBD with purulent bile behind the stone had some hypotension and tachycardia after the procedure continue Zosyn for now, convert to PO Augmentin on discharge will complete 10 days total antibiotics plan for repeat ERCP in 6-8 weeks for stent removal (3) Choledocholithiasis with acute cholecystitis: 2 days of pain and nausea, presented with jaundice vitals stable treat with Zosyn IV, NSS at 70cc/hr s/p lap lotus on 09/18, gall bladder edematous and inflamed no complications, EBL was only 100cc just with some surgical pain now tolerating full liquids, ADAT per surgery WBC normal, no fever, bili 2.4 maybe go home tomorrow if okay with surgery (4) Atrial fibrillation: paroxysmal afib, went back into afib with RVR 09/17 during ERCP rates better controlled with aggressive fluid bolus, Lopressor 5mg IV PRN continue Toprol 300mg daily, rates in 100's this morning resume Eliquis when okay with surgery (5) Diabetes: hold oral agents use Novolog SS, q6 sugar checks monitor for hypoglycemia, no episodes (6) CAD (coronary artery disease): h/o DAMON in 2014 no issues since that time continue Aspirin 81mg daily due to h/o stent Metoprolol (7) Cardiomyopathy: examines euvolemic (8) HTN (hypertension): hold Losartan and Lasix decrease Toprol to 150mg from 300mg due to SBP 90's (9) CKD stage 3 due to type 2 diabetes mellitus: Cr is 1.37, within baseline range stop IV fluids repeat BMP in the morning electrolytes stable Subjective patient feeling well today, OOB in chair, less pain, tolerating full liquids breathing is stable, no chest pain/pressure d/w Dr. Noriega, he would like to repeat ERCP in 6-8 weeks for stent removal recommends 10 days of broad spectrum antibiotics d/w Dr. Peters, he will evaluate and determine diet progression on the monitor she is in afib, rates 100's, BP acceptable WBC is 9, Hb 9.2, Cr is 1.37 and electrolytes stable bili down to 2.4 today Review of Systems Review of Systems: All systems reviewed & are unremarkable except as noted in HPI & below Gastrointestinal: + abdominal pain (mild, RUQ); no nausea, no vomiting, no constipation and no diarrhea/loose stools Physical Exam Constitutional: WD/WN, vitals as above + overweight Eyes: PERRL, conjunctivae normal, anicteric sclerae ENMT: external ear and nose normal, oropharynx normal Neck: trachea midline, no thyromegaly Respiratory: normal respiratory effort, lungs clear to auscultation Cardiovascular: Rate/Rhythm: + tachycardic and + irregularly irregular Heart Sounds: normal S1 and normal S2; no murmur Vessels: no JVD Extremities: normal capillary refill; no edema Gastrointestinal (Abdomen): Inspection/Auscultation: normal bowel sounds; abdomen not distended Percussion/Palpation: abdomen soft; abdomen nontender, no guarding and abdomen not rigid Musculoskeletal: no cyanosis or clubbing, extremities motor strength 5/5 Skin: no rashes, warm and dry (mild jaundice) Neurologic: patellar DTR's 2+ bilat, sensation intact and PERRL, EOMI, accommodation nl, no face palsy, no dysarthria Psychiatric: A+Ox3, euthymic affect Lymphatic: no cervical or axillary lymphadenopathy Results & Data Vital Signs (Past 12 Hours) Vital Signs Temp Pulse Resp BP Pulse Ox 09/19/19 11:21 36.4 C L 104 H 20 121/81 95 09/19/19 07:21 36.5 C 98 H 18 103/72 94 09/19/19 03:35 36.5 C 93 H 18 125/81 93 Laboratory Results Laboratory Results - last 24 hr 09/18/19 09/18/19 09/18/19 12:32 16:05 18:07 WBC RBC Hgb Hct MCV MCH MCHC RDW Std Deviation RDW Coeff of Esthela Plt Count MPV Immature Gran % (Auto) Neut % (Auto) Lymph % (Auto) [place] % (Auto) Eos % (Auto) Baso % (Auto) Immature Gran # (Auto) Neut # (Auto) Lymph # (Auto) [place] # (Auto) Eos # (Auto) Baso # (Auto) Sodium Potassium Chloride Carbon Dioxide Anion Gap BUN Creatinine Est Cr Clr Drug Dosing Est GFR ( Amer) Est GFR (Non-Af Amer) BUN/Creatinine Ratio Glucose POC Glucose 160 H 148 H 147 H Calcium Total Bilirubin Direct Bilirubin AST ALT Alkaline Phosphatase Total Protein Albumin Globulin Albumin/Globulin Ratio Lipase 09/18/19 09/19/19 09/19/19 20:20 07:19 08:26 WBC RBC Hgb Hct MCV MCH MCHC RDW Std Deviation RDW Coeff of Esthela Plt Count MPV Immature Gran % (Auto) Neut % (Auto) Lymph % (Auto) [place] % (Auto) Eos % (Auto) Baso % (Auto) Immature Gran # (Auto) Neut # (Auto) Lymph # (Auto) [place] # (Auto) Eos # (Auto) Baso # (Auto) Sodium 139 Potassium 4.3 Chloride 109 H Carbon Dioxide 22 Anion Gap 7.0 BUN 28 H Creatinine 1.37 H Est Cr Clr Drug Dosing 60.3 Est GFR ( Amer) 52.0 Est GFR (Non-Af Amer) 44.9 BUN/Creatinine Ratio 20.3 H Glucose 159 H POC Glucose 186 H 135 H Calcium 8.5 Total Bilirubin 2.4 H D Direct Bilirubin 2.0 H AST 19 ALT 59 Alkaline Phosphatase 163 H Total Protein 5.9 L Albumin 2.4 L Globulin 3.5 Albumin/Globulin Ratio 0.7 L Lipase 898 H 09/19/19 09/19/19 08:31 11:23 WBC 9.63 RBC 4.18 L Hgb 9.2 L Hct 32.7 L MCV 78.2 L MCH 22.0 L MCHC 28.1 L RDW Std Deviation 54.4 H RDW Coeff of Esthela 18.8 H Plt Count 205 MPV 9.5 Immature Gran % (Auto) 0.1 Neut % (Auto) 90.0 Lymph % (Auto) 4.8 [place] % (Auto) 5.1 Eos % (Auto) 0.0 Baso % (Auto) 0.0 Immature Gran # (Auto) 0.01 Neut # (Auto) 8.67 H Lymph # (Auto) 0.46 L [place] # (Auto) 0.49 Eos # (Auto) 0.00 Baso # (Auto) 0.00 Sodium Potassium Chloride Carbon Dioxide Anion Gap BUN Creatinine Est Cr Clr Drug Dosing Est GFR ( Amer) Est GFR (Non-Af Amer) BUN/Creatinine Ratio Glucose POC Glucose 162 H Calcium Total Bilirubin Direct Bilirubin AST ALT Alkaline Phosphatase Total Protein Albumin Globulin Albumin/Globulin Ratio Lipase Medications Administered Current Inpatient Medications Aspirin (Ecotrin Ectab) 81 mg PO QAM REAGAN Stop: 10/17/19 08:59 Last Admin: 09/19/19 08:23 Dose: 81 mg Documented by: Calcium Carbonate (Tums) 500 mg PO Q6 PRN PRN Reason: Indigestion Stop: 10/17/19 10:33 Dextrose (Dextrose 50%) 25 - 50 ml IV UD PRN; Protocol PRN Reason: Hypoglycemia Protocol Stop: 10/17/19 22:59 Glucagon (Glucagen) 1 mg SQ UD PRN; Protocol PRN Reason: Hypoglycemia Protocol Stop: 10/17/19 22:59 Glucose (Glucose 40%) 15 - 30 gm PO UD PRN; Protocol PRN Reason: Hypoglycemia Protocol Stop: 10/17/19 22:59 Glucose (Dex4 Glucose) 4 - 8 tabs PO UD PRN; Protocol PRN Reason: Hypoglycemia Protocol Stop: 10/17/19 22:59 Piperacillin Sod/Tazobactam (Sod 4.5 gm/ Dextrose) 120 mls @ 30 mls/hr IV Q8H REAGAN; Protocol Stop: 09/26/19 17:59 Last Admin: 09/19/19 09:41 Dose: 30 mls/hr Documented by: Insulin Aspart (Novolog Flexpen) 0 units SC ACHS REAGAN Stop: 10/18/19 16:29 Last Admin: 09/19/19 08:22 Dose: 6 units Documented by: Metoprolol Succinate (Toprol Xl) 300 mg PO DAILY REAGAN Stop: 10/16/19 11:59 Last Admin: 09/19/19 08:23 Dose: 300 mg Documented by: Metoprolol Tartrate (Lopressor) 5 mg IV Q4 PRN PRN Reason: tachycardia Stop: 10/17/19 16:53 Miscellaneous (Carbohydrates For Hypoglycemia) 15 - 30 gm PO UD PRN PRN Reason: Hypoglycemia Treatment Stop: 10/17/19 22:59 Miscellaneous Information (Consult) 1 ea N/A UD PRN PRN Reason: Consult Stop: 10/16/19 10:54 Morphine Sulfate (Morphine Sulfate) 2 mg IV Q4H PRN PRN Reason: Pain Stop: 09/30/19 10:54 Last Admin: 09/17/19 08:11 Dose: 2 mg Documented by: Morphine Sulfate (Morphine Sulfate) 4 mg IV Q4H PRN PRN Reason: Severe Pain Stop: 09/30/19 10:54 Last Admin: 09/19/19 04:00 Dose: 4 mg Documented by: Ondansetron HCl (Zofran) 4 mg IV Q6H PRN PRN Reason: Nausea Stop: 10/16/19 10:54 Last Admin: 09/18/19 13:57 Dose: 4 mg Documented by: Oxycodone HCl (Roxicodone Immediate Rel) 5 mg PO Q4 PRN PRN Reason: Pain Stop: 10/02/19 15:30 Last Admin: 09/19/19 02:35 Dose: 5 mg Documented by: Pantoprazole Sodium (Protonix) 40 mg PO QAM REAGAN Stop: 10/17/19 08:59 Last Admin: 09/19/19 08:23 Dose: 40 mg Documented by: PG Care Time/CCT Total # of Minutes Spent Total Time Spent with Patient: Total time spent is greater than 50% in coordination of care (as documented) at patient's floor/unit and/or counseling patient: (1) Diabetes Diabetes mellitus type: type 2 Diabetes mellitus 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 transplanted heart: [place] heart Associated angina: without angina Qualified Code(s): I25.10 - Atherosclerotic heart disease of [place] coronary artery without angina pectoris (3) HTN (hypertension) Hypertension type: essential hypertension Qualified Code(s): I10 - Essential (primary) hypertension
--- NOTE | 2019-09-19 12:34 | Surgery Progress Note ---
Date of Service September 19, 2019 Assessment & Plan (1) Cholangitis: POD # 1 lap lotus and POD # 2 ERCP -vitals stable - post op pain at incisions controlled - t. bili improving 2.4 today, alk phos 163, lipase down to 898 - mirella drain with serosanguineous output Plan: Advance to regular dm diet continue iv zosyn, convert to PO on discharge for total of 10 days per GI continue mirella drain may remove prior to discharge incentive spirometry encouraged to patient ambulate in hallway and scds May resume Eliquis starting Saturday Dr. Peters has seen and examined pt, agrees with above Subjective feeling better today pain at incision sites tolerated full liquids no n/v no chest pain/sob Physical Exam Constitutional: WD/WN, vitals as above not ill appearing Respiratory: normal respiratory effort, lungs clear to auscultation Cardiovascular: Rate/Rhythm: + irregularly irregular Gastrointestinal (Abdomen): Inspection/Auscultation: abdomen normal to inspection and + abdominal surgical drain present (serosanguineous); abdomen not distended Percussion/Palpation: + abdomen tender (at incision sites and drain site) Skin: no rashes, warm and dry + incision (covered with dressings) Psychiatric: A+Ox3, euthymic affect Results & Data Vital Signs (Past 12 Hours) Vital Signs Temp Pulse Resp BP Pulse Ox 09/19/19 11:21 36.4 C L 104 H 20 121/81 95 09/19/19 07:21 36.5 C 98 H 18 103/72 94 09/19/19 03:35 36.5 C 93 H 18 125/81 93 Laboratory Results 09/19/19 09/19/19 09/19/19 Range/Units 11:23 08:31 08:26 WBC 9.63 (4.8-10.8) K/uL RBC 4.18 L (4.2-5.4) M/uL Hgb 9.2 L (12.0-16.0) g/dL Hct 32.7 L (37-47) % MCV 78.2 L (80-100) fL MCH 22.0 L (25-34) pg MCHC 28.1 L (32-36) g/dL RDW Std Deviation 54.4 H (36.4-46.3) fL RDW Coeff of Esthela 18.8 H (11.5-14.5) % Plt Count 205 (130-400) K/uL MPV 9.5 (7.4-10.4) fL Immature Gran % (Auto) 0.1 % Neut % (Auto) 90.0 % Lymph % (Auto) 4.8 % [place] % (Auto) 5.1 % Eos % (Auto) 0.0 % Baso % (Auto) 0.0 % Immature Gran # (Auto) 0.01 (0.00-0.02) K/uL Neut # (Auto) 8.67 H (1.4-6.5) K/uL Lymph # (Auto) 0.46 L (1.2-3.4) K/uL [place] # (Auto) 0.49 (0.11-0.59) K/uL Eos # (Auto) 0.00 (0-0.5) K/uL Baso # (Auto) 0.00 (0-0.2) K/uL Sodium 139 (136-145) mmol/L Potassium 4.3 (3.5-5.1) mmol/L Chloride 109 H (98-107) mmol/L Carbon Dioxide 22 (21-32) mmol/L Anion Gap 7.0 (3-11) BUN 28 H (7-18) mg/dl Creatinine 1.37 H (0.6-1.2) mg/dl Est Cr Clr Drug Dosing 60.3 ml/min Est GFR ( Amer) 52.0 Est GFR (Non-Af Amer) 44.9 BUN/Creatinine Ratio 20.3 H (10-20) Glucose 159 H (70-99) mg/dl POC Glucose 162 H (70-99) Calcium 8.5 (8.5-10.1) mg/dl Total Bilirubin 2.4 H D (0.2-1) mg/dl Direct Bilirubin 2.0 H (0-0.2) mg/dl AST 19 (15-37) U/L ALT 59 (12-78) U/L Alkaline Phosphatase 163 H (45-117) U/L Total Protein 5.9 L (6.4-8.2) gm/dl Albumin 2.4 L (3.4-5.0) gm/dl Globulin 3.5 (2.5-4.0) gm/dl Albumin/Globulin Ratio 0.7 L (0.9-2) Lipase 898 H (73-393) U/L 09/19/19 09/18/19 09/18/19 Range/Units 07:19 20:20 18:07 WBC (4.8-10.8) K/uL RBC (4.2-5.4) M/uL Hgb (12.0-16.0) g/dL Hct (37-47) % MCV (80-100) fL MCH (25-34) pg MCHC (32-36) g/dL RDW Std Deviation (36.4-46.3) fL RDW Coeff of Esthela (11.5-14.5) % Plt Count (130-400) K/uL MPV (7.4-10.4) fL Immature Gran % (Auto) % Neut % (Auto) % Lymph % (Auto) % [place] % (Auto) % Eos % (Auto) % Baso % (Auto) % Immature Gran # (Auto) (0.00-0.02) K/uL Neut # (Auto) (1.4-6.5) K/uL Lymph # (Auto) (1.2-3.4) K/uL [place] # (Auto) (0.11-0.59) K/uL Eos # (Auto) (0-0.5) K/uL Baso # (Auto) (0-0.2) K/uL Sodium (136-145) mmol/L Potassium (3.5-5.1) mmol/L Chloride (98-107) mmol/L Carbon Dioxide (21-32) mmol/L Anion Gap (3-11) BUN (7-18) mg/dl Creatinine (0.6-1.2) mg/dl Est Cr Clr Drug Dosing ml/min Est GFR ( Amer) Est GFR (Non-Af Amer) BUN/Creatinine Ratio (10-20) Glucose (70-99) mg/dl POC Glucose 135 H 186 H 147 H (70-99) Calcium (8.5-10.1) mg/dl Total Bilirubin (0.2-1) mg/dl Direct Bilirubin (0-0.2) mg/dl AST (15-37) U/L ALT (12-78) U/L Alkaline Phosphatase (45-117) U/L Total Protein (6.4-8.2) gm/dl Albumin (3.4-5.0) gm/dl Globulin (2.5-4.0) gm/dl Albumin/Globulin Ratio (0.9-2) Lipase (73-393) U/L 09/18/19 09/18/19 Range/Units 16:05 12:32 WBC (4.8-10.8) K/uL RBC (4.2-5.4) M/uL Hgb (12.0-16.0) g/dL Hct (37-47) % MCV (80-100) fL MCH (25-34) pg MCHC (32-36) g/dL RDW Std Deviation (36.4-46.3) fL RDW Coeff of Esthela (11.5-14.5) % Plt Count (130-400) K/uL MPV (7.4-10.4) fL Immature Gran % (Auto) % Neut % (Auto) % Lymph % (Auto) % [place] % (Auto) % Eos % (Auto) % Baso % (Auto) % Immature Gran # (Auto) (0.00-0.02) K/uL Neut # (Auto) (1.4-6.5) K/uL Lymph # (Auto) (1.2-3.4) K/uL [place] # (Auto) (0.11-0.59) K/uL Eos # (Auto) (0-0.5) K/uL Baso # (Auto) (0-0.2) K/uL Sodium (136-145) mmol/L Potassium (3.5-5.1) mmol/L Chloride (98-107) mmol/L Carbon Dioxide (21-32) mmol/L Anion Gap (3-11) BUN (7-18) mg/dl Creatinine (0.6-1.2) mg/dl Est Cr Clr Drug Dosing ml/min Est GFR ( Amer) Est GFR (Non-Af Amer) BUN/Creatinine Ratio (10-20) Glucose (70-99) mg/dl POC Glucose 148 H 160 H (70-99) Calcium (8.5-10.1) mg/dl Total Bilirubin (0.2-1) mg/dl Direct Bilirubin (0-0.2) mg/dl AST (15-37) U/L ALT (12-78) U/L Alkaline Phosphatase (45-117) U/L Total Protein (6.4-8.2) gm/dl Albumin (3.4-5.0) gm/dl Globulin (2.5-4.0) gm/dl Albumin/Globulin Ratio (0.9-2) Lipase (73-393) U/L
[2019-09-20] MEDS: PIPERACILLIN/TAZOBACTAM 4.5 GM in DEXTROSE 5% 100 ML IV SCH ×2 (01:19→09:16)
[2019-09-20] MEDS: MoRPHine SULFATE 4 MG/ML 1 ML CARP\\VIAL IV PRN (01:22)
[2019-09-20] MEDS: OXYCODONE HCL IR 5 MG TAB (IMMEDIATE RELEASE) PO PRN (06:25)
[2019-09-20 07:40] LABS: Creatinine Clr Calc Pharmacy 60.5 ml/min; Est GFR (Non-African American) 44.9
[2019-09-20] MEDS: INSULIN ASPART 100 UNITS/ML 3 ML PEN SC SCH ×2 (08:02→12:01)
[2019-09-20] MEDS: PANTOprazole 40 MG TAB PO SCH (08:02)
[2019-09-20] MEDS: ASPIRIN 81 MG ECTAB PO SCH (08:02)
[2019-09-20 08:04] LABS: Hematocrit (blood only) 32.7 % (37-47); Hemoglobin 9.1 g/dL (12.0-16.0); Mean Corpuscular Hemoglobin 22.2 pg (25-34); Mean Corpuscular Hgb Conc 27.8 g/dL (32-36); Mean Corpuscular Volume 79.8 fL (80-100); Mean Platelet Volume 9.5 fL (7.4-10.4); Nucleated RBC # (auto) 0.03 K/uL (0-0); Nucleated RBC % (auto) 0.4 %; Platelet Count 221 K/uL (130-400); RDW Coefficient of Variation 19.1 % (11.5-14.5); RDW Standard Deviation 56.1 fL (36.4-46.3)
[2019-09-20] MEDS: METOPROLOL SUCC 50MG EXT REL TAB PO SCH (08:05)
[2019-09-20 08:25] LABS: Albumin Level 2.4 gm/dl (3.4-5.0); BUN Creatinine Ratio 19.1 (10-20); Calcium 9.3 mg/dl (8.5-10.1); Creatinine Clr Calc Pharmacy 60.1 ml/min; Est GFR (African American) 51.5; Est GFR (Non-African American) 44.5
[2019-09-20 08:29] LABS: Basophils # (auto) 0.05 K/uL (0-0.2); Basophils % (auto) 0.8 %; Echinocytes 1+; Eosinophils # (auto) 0.04 K/uL (0-0.5); Eosinophils % (auto) 0.6 %; Immature Granulocytes # (auto) 0.01 K/uL (0.00-0.02); Immature Granulocytes % (auto) 0.2 %; Lymphocytes % (auto) 19.4 %; Monocytes # (auto) 0.55 K/uL (0.11-0.59); Monocytes % (auto) 8.9 %; Neutrophils # (auto) 4.35 K/uL (1.4-6.5); Neutrophils % (auto) 70.1 %; Ovalocytes 1+
[2019-09-20 08:30] LABS: Albumin Globulin Ratio 0.7 (0.9-2); Bilirubin,Total 1.6 mg/dl (0.2-1); Globulin 3.5 gm/dl (2.5-4.0); Total Protein 5.9 gm/dl (6.4-8.2)
--- NOTE | 2019-09-20 11:45 | Surgery Progress Note ---
Date of Service September 20, 2019 Assessment & Plan (1) Choledocholithiasis with acute cholecystitis: Postop day #2 status post upper scopic cholecystectomy for gangrenous cholecystitis. She is doing well. She is tolerating a regular diet. Total bilirubin has continued to decrease towards normal Casey-Cabezas with 180 cc out yesterday 160 cc out so far today all serosanguineous, [place]-Cabezas removed From surgical standpoint patient can be discharged to home. Discharge instructions were discussed. She should follow-up with Dr. Soto in approximately 2 weeks Subjective Postoperative day #2 status post laparoscopic cholecystectomy for gangrenous cholecystitis Feels much better today Tolerated regular diet Denies nausea and vomiting Passing flatus Physical Exam Gastrointestinal (Abdomen): Inspection/Auscultation: normal bowel sounds and + abdominal surgical incision (Clean, dry and intact); abdomen not distended Percussion/Palpation: + abdomen tender (Incisional only) and abdomen soft Results & Data Vital Signs (Past 12 Hours) Vital Signs Temp Pulse Resp BP Pulse Ox 09/20/19 11:36 36.5 C 76 16 106/76 97 09/20/19 08:04 111/78 09/20/19 07:24 36.5 C 73 18 95/69 L 96 09/20/19 01:29 EST 36.6 C 87 16 115/84 96 Laboratory Results 09/20/19 09/20/19 09/20/19 Range/Units 11:35 07:38 07:38 WBC 6.20 (4.8-10.8) K/uL RBC 4.10 L (4.2-5.4) M/uL Hgb 9.1 L (12.0-16.0) g/dL Hct 32.7 L (37-47) % MCV 79.8 L (80-100) fL MCH 22.2 L (25-34) pg MCHC 27.8 L (32-36) g/dL RDW Std Deviation 56.1 H (36.4-46.3) fL RDW Coeff of Esthela 19.1 H (11.5-14.5) % Plt Count 221 (130-400) K/uL MPV 9.5 (7.4-10.4) fL Immature Gran % (Auto) 0.2 % Neut % (Auto) 70.1 % Lymph % (Auto) 19.4 % [place] % (Auto) 8.9 % Eos % (Auto) 0.6 % Baso % (Auto) 0.8 % Immature Gran # (Auto) 0.01 (0.00-0.02) K/uL Neut # (Auto) 4.35 (1.4-6.5) K/uL Lymph # (Auto) 1.20 (1.2-3.4) K/uL [place] # (Auto) 0.55 (0.11-0.59) K/uL Eos # (Auto) 0.04 (0-0.5) K/uL Baso # (Auto) 0.05 (0-0.2) K/uL Absolute Nucleated RBC 0.03 H (0-0) K/uL Nucleated RBC % (auto) 0.4 % Ovalocytes 1+ Echinocytes 1+ Sodium 139 (136-145) mmol/L Potassium 4.0 (3.5-5.1) mmol/L Chloride 109 H (98-107) mmol/L Carbon Dioxide 25 (21-32) mmol/L Anion Gap 6.0 (3-11) BUN 26 H (7-18) mg/dl Creatinine 1.38 H (0.6-1.2) mg/dl Est Cr Clr Drug Dosing 60.1 ml/min Est GFR ( Amer) 51.5 Est GFR (Non-Af Amer) 44.5 BUN/Creatinine Ratio 19.1 (10-20) Glucose 124 H (70-99) mg/dl POC Glucose 177 H (70-99) Calcium 9.3 (8.5-10.1) mg/dl Total Bilirubin 1.6 H (0.2-1) mg/dl AST 14 L (15-37) U/L ALT 45 (12-78) U/L Alkaline Phosphatase 142 H (45-117) U/L Total Protein 5.9 L (6.4-8.2) gm/dl Albumin 2.4 L (3.4-5.0) gm/dl Globulin 3.5 (2.5-4.0) gm/dl Albumin/Globulin Ratio 0.7 L (0.9-2) 09/20/19 09/20/19 09/19/19 Range/Units 07:23 06:46 20:08 WBC (4.8-10.8) K/uL RBC (4.2-5.4) M/uL Hgb (12.0-16.0) g/dL Hct (37-47) % MCV (80-100) fL MCH (25-34) pg MCHC (32-36) g/dL RDW Std Deviation (36.4-46.3) fL RDW Coeff of Esthela (11.5-14.5) % Plt Count (130-400) K/uL MPV (7.4-10.4) fL Immature Gran % (Auto) % Neut % (Auto) % Lymph % (Auto) % [place] % (Auto) % Eos % (Auto) % Baso % (Auto) % Immature Gran # (Auto) (0.00-0.02) K/uL Neut # (Auto) (1.4-6.5) K/uL Lymph # (Auto) (1.2-3.4) K/uL [place] # (Auto) (0.11-0.59) K/uL Eos # (Auto) (0-0.5) K/uL Baso # (Auto) (0-0.2) K/uL Absolute Nucleated RBC (0-0) K/uL Nucleated RBC % (auto) % Ovalocytes Echinocytes Sodium (136-145) mmol/L Potassium (3.5-5.1) mmol/L Chloride (98-107) mmol/L Carbon Dioxide (21-32) mmol/L Anion Gap (3-11) BUN (7-18) mg/dl Creatinine 1.37 H (0.6-1.2) mg/dl Est Cr Clr Drug Dosing 60.5 ml/min Est GFR ( Amer) 52.0 Est GFR (Non-Af Amer) 44.9 BUN/Creatinine Ratio (10-20) Glucose (70-99) mg/dl POC Glucose 120 H 159 H (70-99) Calcium (8.5-10.1) mg/dl Total Bilirubin (0.2-1) mg/dl AST (15-37) U/L ALT (12-78) U/L Alkaline Phosphatase (45-117) U/L Total Protein (6.4-8.2) gm/dl Albumin (3.4-5.0) gm/dl Globulin (2.5-4.0) gm/dl Albumin/Globulin Ratio (0.9-2) 09/19/19 Range/Units 16:18 WBC (4.8-10.8) K/uL RBC (4.2-5.4) M/uL Hgb (12.0-16.0) g/dL Hct (37-47) % MCV (80-100) fL MCH (25-34) pg MCHC (32-36) g/dL RDW Std Deviation (36.4-46.3) fL RDW Coeff of Esthela (11.5-14.5) % Plt Count (130-400) K/uL MPV (7.4-10.4) fL Immature Gran % (Auto) % Neut % (Auto) % Lymph % (Auto) % Garland % (Auto) % Eos % (Auto) % Baso % (Auto) % Immature Gran # (Auto) (0.00-0.02) K/uL Neut # (Auto) (1.4-6.5) K/uL Lymph # (Auto) (1.2-3.4) K/uL Garland # (Auto) (0.11-0.59) K/uL Eos # (Auto) (0-0.5) K/uL Baso # (Auto) (0-0.2) K/uL Absolute Nucleated RBC (0-0) K/uL Nucleated RBC % (auto) % Ovalocytes Echinocytes Sodium (136-145) mmol/L Potassium (3.5-5.1) mmol/L Chloride (98-107) mmol/L Carbon Dioxide (21-32) mmol/L Anion Gap (3-11) BUN (7-18) mg/dl Creatinine (0.6-1.2) mg/dl Est Cr Clr Drug Dosing ml/min Est GFR ( Amer) Est GFR (Non-Af Amer) BUN/Creatinine Ratio (10-20) Glucose (70-99) mg/dl POC Glucose 162 H (70-99) Calcium (8.5-10.1) mg/dl Total Bilirubin (0.2-1) mg/dl AST (15-37) U/L ALT (12-78) U/L Alkaline Phosphatase (45-117) U/L Total Protein (6.4-8.2) gm/dl Albumin (3.4-5.0) gm/dl Globulin (2.5-4.0) gm/dl Albumin/Globulin Ratio (0.9-2)
--- NOTE | 2019-09-20 14:29 | Discharge Summary ---
Date of Service September 20, 2019 Admission HPI Per Admitting Provider 49 yo female with history of NSTEMI, atrial fibrillation, DM type II who presented to the ED this morning with abdominal pain and nausea. Her symptoms started two days ago, were subtle. She had epigastric and RUQ pain, associated with nausea and poor appetite. Two days ago she had fevers, chills. No dyspnea or cough. No chest pain or pressure. She stayed home from work due to not feeling well. Her symptoms progressed to the point that she was having severe pain in RUQ. The pain would not improve with positioning. She developed some yellow discoloration of her eyes and skin over the past 24 hours. Her last BM was this morning, normal color, no blood. She takes Eliquis for her atrial fibrillation, last dose was last night. She follows with Dr. Toribio in the office. She has a history of NSTEMI with DAMON in 2014, no events since that time. She believes she had an echo within the past year. In the ED she had stable vitals but temperature was 37.9. WBC was 11.3, Cr 1.44. Bili elevated at 6.6, Alk phos 265. GB US with evidence of cholecystitis, possible CBD dilatation. General surgery consulted for possible cholecystitis, they would like medicine admission with GI consultation. Will need to wait 48 hours from Eliquis dosing. Principal Diagnosis Sepsis due to cholangitis and cholecystitis Discharge Exam Constitutional WD/WN, vitals as above + overweight Eyes PERRL, conjunctivae normal, anicteric sclerae EOM intact bilaterally ENMT external ear and nose normal, oropharynx normal Neck trachea midline, no thyromegaly Respiratory normal respiratory effort, lungs clear to auscultation Cardiovascular Rate/Rhythm: + irregularly irregular Heart Sounds: normal S1 and normal S2; no murmur Vessels: no JVD Extremities: normal capillary refill; no edema Gastrointestinal (Abdomen) Inspection/Auscultation: normal bowel sounds; abdomen not distended Percussion/Palpation: abdomen soft; abdomen nontender, no guarding and abdomen not rigid Musculoskeletal no cyanosis or clubbing, extremities motor strength 5/5 Skin no rashes, warm and dry (mild jaundice) Neurologic patellar DTR's 2+ bilat, sensation intact and PERRL, EOMI, accommodation nl, no face palsy, no dysarthria Psychiatric A+Ox3, euthymic affect Lymphatic no cervical or axillary lymphadenopathy Discharge Data Allergies Allergy/AdvReac Type Severity Reaction Status Date / Time lisinopril AdvReac Mild Cough Verified 09/17/19 14:08 Consultations 09/16/19 08:26 ED Decision to Admit Stat 09/16/19 10:55 Consult Cardiology Routine Consult Gastroenterology Routine Consult General Surgery Routine Procedures Performed Operation Date: 09/17/19 10:25 Actual Procedures p Endoscopic Retrograde Cholangiopancreatogram(Not Applicable) - Js Noriega Operation Date: 09/18/19 10:30 Actual Procedures p Laparoscopic Cholecystectomy with Cholangiogram(Not Applicable) - Samuel Soto MD Ordered Studies 09/16/19 06:47 US gallbladder Stat 09/17/19 13:09 FL ERCP biliary ductal Routine 09/18/19 10:30 FL cholangiogram OR Routine Hospital Course (1) Sepsis: due to cholecystitis and cholangitis treat with Zosyn, NSS at 70cc/hr stop fluids 09/19 ERCP on 09/17 with stone removal, biliary stent placed WBC down to normal, afebrile, bili down to 1.6 on discharge s/p cholecystectomy on 09/18 sepsis resolved (2) Cholangitis: evidence on ERCP on 09/17 obstructing stone in the CBD with purulent bile behind the stone had some hypotension and tachycardia after the procedure continue Zosyn for now, convert to PO Augmentin on discharge, complete 10 days total from 09/17 plan for repeat ERCP in 6-8 weeks for stent removal with Dr. Noriega (3) Choledocholithiasis with acute cholecystitis: 2 days of pain and nausea, presented with jaundice vitals stable treat with Zosyn IV, NSS at 70cc/hr s/p lap lotus on 09/18, gall bladder edematous and inflamed no complications, EBL was only 100cc just with some surgical pain now tolerating regular diet prior to discharge WBC normal, no fever, bili 1.6 MATEO removed on 09/20 d/c to home no lifting more than 10lb for 2 weeks instructed to stay off of work for 2 weeks follow up with Dr. Soto (4) Atrial fibrillation: paroxysmal afib, went back into afib with RVR 09/17 during ERCP rates better controlled with aggressive fluid bolus, Lopressor 5mg IV PRN continue Toprol 300mg daily, rates in 90's this morning resume Eliquis on 11 in the morning (5) Diabetes: hold oral agents use Novolog SS, q6 sugar checks monitor for hypoglycemia, no episodes resume oral agents on discharge (6) CAD (coronary artery disease): h/o DAMON in 2014 no issues since that time continue Aspirin 81mg daily due to h/o stent Metoprolol (7) Cardiomyopathy: examines euvolemic (8) HTN (hypertension): hold Losartan and Lasix decrease Toprol to 150mg from 300mg due to SBP 90's (9) CKD stage 3 due to type 2 diabetes mellitus: Cr is within baseline range stop IV fluids electrolytes stable Total Time Total Time Spent Total Time Spent (In Minutes): 36 minutes Total Time Includes: Examination of the Patient, Discharge Planning, Medication Reconciliation, Communication With Other Providers (Dr. Peters) and Other (updated family) Discharge Plan Discharge Items Patient Disposition: Home - Self-Care Reason For Visit: ACUTE CHOLECYSTITIS Discharge Diagnosis: Acute cholecystitis, gangrenous gall bladder Choledocholithiasis (stone in common bile duct) with cholangitis Atrial fibrillation with episode of RVR Mild pancreatitis after ERCP Condition on Discharge: Good Goals: get rest and improve nutrition take next two weeks off of work finish course of antibiotics Activity: Per Instructions section Lifting: No more than 10 pounds Bathing Comment: you may shower Exercise/Sports: Wait until after follow-up appointment Driving/Machine Use: do not resume driving while taking narcotics for pain Non-emergency contact: Primary Care Provider and Surgeon Call non-emergency contact if: you have any medication questions, your pain is not controlled, your pain is unusual for you, you have a fever, your temperature is above 101.5, your wound has increased redness, your wound has increased drainage and your wound pain has increased Follow-up/Referrals: Samuel Soto MD [Surgeon] - (Please call the clinic to schedule follow up within 1 week. You may call the office sooner if you have any questions/concerns.) Marylou Dasilva MD [Primary Care Provider] - Diet: Carb Consistent or DM2 Addtl Attending Provider Instructions: Medications: - AUGMENTIN: complete course of antibiotics as directed, next dose would be due this evening - PERCOCET: take as needed for surgical pain, only take as directed - ELIQUIS: held for surgeries, okay to resume tomorrow morning Sepsis due to cholangitis, cholecystitis successful treatment with ERCP on 09/17 and lap cholecystectomy on 09/18 no fever, WBC returned to normal, vitals stable the past two days your bilirubin has returned to near normal level you had an episode of rapid heart rate with afib but your heart rate has been well controlled per surgery, you need to be off work for 2 weeks due to surgery, you cannot lift more than 10lbs until after two weeks FOLLOW UP - Dr. Dasilva in one week, call her office for appt - Dr. Soto in 2 weeks, call his office for appt Pending Studies at Discharge: No Stand-Alone Forms: My [facility] [employer], Work/School Release (Inpt), Smoking Cessation Medications and DC Order Prescriptions: New oxycodone-acetaminophen [Percocet] 5-325 mg tablet 1 - 2 tab PO .every 4-6 hours PRN (Reason: pain, for initial therapy. max 8 per day) Qty: 15 RF: 0 amoxicillin-pot clavulanate [Augmentin] 875-125 mg tablet 1 tab PO BID Qty: 10 RF: 0 Eliquis 5 mg tablet 5 mg PO BID 30 Days Qty: 60 RF: 3 Continued losartan 100 mg tablet 100 mg PO DAILY Qty: 30 RF: 11 ferrous gluconate 324 mg (37.5 mg iron) tablet 324 mg PO BID RF: 0 furosemide 40 mg tablet 40 mg PO DAILY RF: 0 FreeStyle Lite Strips strip .ROUTE .MEDSUPPLY Qty: 10 RF: 0 pantoprazole 40 mg tablet,delayed release (DR/EC) 40 mg PO DAILY Qty: 30 RF: 5 metformin 500 mg tablet 500 mg PO BID RF: 0 atorvastatin 80 mg tablet 80 mg PO DAILY RF: 0 ibuprofen 200 mg Tablet 400 mg PO Q4 PRN (Reason: Fever Or Pain) RF: 0 metoprolol succinate 200 mg tablet extended release 24 hr 300 mg PO DAILY RF: 0 magnesium 200 mg tablet 200 mg PO DAILY Qty: 30 RF: 0 potassium chloride 20 mEq tablet extended release 20 meq PO DAILY Qty: 30 RF: 0 Discharge Orders: Discharge Order (Routine); Ordered 09/20/19 Ordered By: Jacky Escobar/Other Patient Handouts: ERCP, Fibrillation Atrial Dc, Cholecystectomy Laparoscopic Dc Admission Data Admit Date/Time: 09/16/19 09:00 Attending Provider: Jacky Pena Admit Provider: Jacky Pena Primary Care Provider: Marylou Dasilva Other Providers: Jacky Pena ; Bud Masters ; Deric Pena ; Brad Aquino ; Imani Pleitez ; Ruperto Rizzo ; Js Noriega ; Perico Luna ; Kellie Castillo ; Bud Gilbert ; Raghu Beckwith ; Valeri Shpepard ; Rosalba Shultz ; Twyla Palmer ; Reyna Alvarado ; Lazaro Lynn ; Samuel Soto Other Interventions: Discharge Summary Assessment (RN) Last Done: 09/20/19 12:07 DC Date/Time DO NOT enter until pt leaves facility: 09/20/19 12:44
== END 2019-09-20 12:44 | disposition home or self-care (01) | DRG 854 ==
LOC: ED 05:41 → 3N 09:00 → 2S 09-17 17:20

== ENCOUNTER 2019-11-19 17:01 | Inpatient (IN) ==
--- NOTE | 2019-11-19 17:41 | XRay Report ---
XR chest 1V portable CLINICAL HISTORY: Dyspnea COMPARISON STUDY: 09/16/2019 FINDINGS: Minimal interstitial infiltrate left mid to lower lung. Lungs otherwise are clear. Mild sta ble cardiac enlargement. IMPRESSION: Minimal poorly defined interstitial infiltrate left mid to lower lung. ACT 112: Negative or not required by law. The above report was generated using voice recognition software. It may contain grammatical, syntax or spelling errors. Electronically signed by: Emiliano Prince M.D. 11/19/2019 5:40 PM
[2019-11-19 18:32] LABS: INR 1.5 (0.9-1.1); Partial Thromboplastin Ratio 1.1; Partial Thromboplastin Time 29.6 Seconds (21.0-31.0); Prothrombin Time 15.3 Seconds (9.0-12.0)
[2019-11-19 18:36] LABS: Albumin Level 3.3 gm/dl (3.4-5.0); BUN Creatinine Ratio 11.3 (10-20); Calcium 8.8 mg/dl (8.5-10.1); Creatinine Clr Calc Pharmacy 56.6 ml/min; Est GFR (African American) 49.8; Magnesium 1.2 mg/dl (1.8-2.4); Potassium 3.3 mmol/L (3.5-5.1)
[2019-11-19 18:38] LABS: Hematocrit (blood only) 33.6 % (37-47); Hemoglobin 9.6 g/dL (12.0-16.0); Mean Corpuscular Hgb Conc 28.6 g/dL (32-36); Mean Corpuscular Volume 73.5 fL (80-100); Mean Platelet Volume 9.8 fL (7.4-10.4); Platelet Count 191 K/uL (130-400); RDW Coefficient of Variation 19.2 % (11.5-14.5); RDW Standard Deviation 51.5 fL (36.4-46.3); Red Blood Count 4.57 M/uL (4.2-5.4); White Blood Count 8.39 K/uL (4.8-10.8)
[2019-11-19 18:41] LABS: Basophils # (auto) 0.04 K/uL (0-0.2); Basophils % (auto) 0.5 %; Echinocytes 1+; Eosinophils # (auto) 0.01 K/uL (0-0.5); Eosinophils % (auto) 0.1 %; Hypochromasia Present; Immature Granulocytes # (auto) 0.01 K/uL (0.00-0.02); Immature Granulocytes % (auto) 0.1 %; Lymphocytes # (auto) 0.51 K/uL (1.2-3.4); Lymphocytes % (auto) 6.1 %; Monocytes % (auto) 9.5 %; Neutrophils # (auto) 7.02 K/uL (1.4-6.5); Neutrophils % (auto) 83.7 %; Polychromasia 1+
[2019-11-19 18:49] LABS: Bilirubin,Total 3.1 mg/dl (0.2-1); Globulin 3.4 gm/dl (2.5-4.0); Total Protein 6.7 gm/dl (6.4-8.2); Troponin I 0.072 ng/ml (0-0.045)
--- NOTE | 2019-11-19 19:33 | Ultrasound Report ---
US venous doppler LE BI HISTORY: Pain. Edema. DVT COMPARISON STUDY: None. FINDINGS: There is normal compressibility, flow, and augmentation within the bilateral lower extremit y deep venous systems. IMPRESSION: No DVT within the right or left lower extremity. ACT 112: Negative or not required by law. The above report was generated using voice recognition software. It may contain grammatical, syntax or spelling errors. Electronically signed by: Emiliano Prince M.D. 11/19/2019 7:31 PM
[2019-11-19] MEDS ORDERED: FUROSEMIDE 40 MG/4 ML VIAL IV STA (19:41)
--- NOTE | 2019-11-19 19:45 | Ultrasound Report ---
US abdomen limited HISTORY: Pain. Edema. biliary stent, elevated bilirubin. COMPARISON: 09/16/2019 FINDINGS: Pancreas: The pancreas demonstrates a normal echotexture. Liver: Findings of a cholecystectomy. No intrahepatic biliary ductal distention. Gallbladder: Prior cholecystectomy CBD: Common bile duct stent considered patent with a maximum diameter 3 mm. Right kidney: No evidence for hydronephrosis. 2 renal cysts measuring 1.5 cm or less. Ascites trace free fluid surrounding the liver IMPRESSION: 1. Biliary ductal stent appearing to be patent. 2. Bile ducts show no evidence for distention.. 3. Trace perihepatic ascites. 4. Interval cholecystectomy. ACT 112: Negative or not required by law. The above report was generated using voice recognition software. It may contain grammatical, syntax or spelling errors. Electronically signed by: Emiliano Prince M.D. 11/19/2019 7:44 PM
[2019-11-19] MEDS: POTASSIUM CHLORIDE / WTR 10 MEQ/100 ML PLCT IV SCH ×2 (20:00→21:13)
[2019-11-19] MEDS: MAGNESIUM SULFATE / D5W 1 GM/100 ML BAG IV SCH ×2 (20:00→21:13)
[2019-11-19] MEDS ORDERED: cefTRIAXone SODIUM 2,000 MG/70 ML BAG IV STA (20:06)
--- NOTE | 2019-11-19 20:11 | Emergency Department Note ---
Entered by Joanie Crews acting as a scribe for History of Present Illness General Chief complaint: Chest Pain Stated complaint: CHEST PAIN, SWOLLEN FEET, LETHARGIC Time Seen by Provider: 11/19/19 17:22 Source: patient History of Present Illness Provider complaint: leg swelling Onset (ago): week(s) 3 Location: lower extremity, left and right Maximum Pain Intensity: 2 Quality: + other (leg swelling) Associated symptoms: + cough, + nausea/vomiting (Positive nausea; negative vomiting ), + shortness of breath and + other (Positive faitgue; Negative urinary symptoms; Negative hematochezia; Negative black stools;); no fever/chills Treatments prior to arrival: other (Elevated fluid pills; ) The patient, who is a 49 year old female with a medical history of atrial fibrillation, pedal edema and sepsis, presents to the Emergency Room with complaints of worsening leg swelling that started three weeks ago. The patient states that when she went to her PCP 9 days ago. The patient explains that she is feeling fatigued, short of breath, and diarrhea. The patient denies black or bloody stools. The patient reports having a cough and feeling nauseous. The patient denies a fever, vomiting, and urinary symptoms. The patient relays that her PCP determines that her congestive heart failure could have contributed to this and increased her fluid pill. The patient expresses that this did not improve her symptoms. The patient reports having a myocardial infarction in 2014 and has a heart stent placed. The patient confirms that she is on Eliquis. The patient denies a history of blood clots. Home Medications Home Medications Medication Instructions Recorded Confirmed Type ibuprofen 400 mg PO Q6H PRN 08/01/18 11/19/19 History metformin 500 mg PO BID 08/01/18 11/19/19 History losartan 100 mg tablet 100 mg PO DAILY #30 tab 06/30/19 11/19/19 Rx blood sugar diagnostic #10 ea 07/06/19 11/10/19 History metoprolol succinate 200 mg 300 mg PO DAILY tab 07/06/19 11/19/19 History tablet,extended release 24 hr apixaban 5 mg tablet 5 mg PO BID 30 Days #60 tab 09/21/19 11/19/19 Rx atorvastatin 80 mg tablet 80 mg PO DAILY #30 tab 09/29/19 11/19/19 Rx furosemide 40 mg tablet 60 mg PO DAILY tab 11/10/19 11/19/19 History pantoprazole 40 mg PO QAM 11/19/19 11/19/19 History Allergies Allergy/AdvReac Type Severity Reaction Status Date / Time lisinopril AdvReac Mild Cough Verified 11/19/19 17:46 Past Med/Surg History Medical History Atrial fibrillation with RVR (Acute) Benign essential HTN CAD (coronary artery disease) (Acute) Cardiomyopathy (Acute) Chest pain (Acute) CHF (congestive heart failure) (Acute) Diabetes (Acute) DM II (diabetes mellitus, type II), controlled Dyslipidemia (Acute) Elevated troponin (Acute) HLD (hyperlipidemia) HTN (hypertension) (Acute) Hypomagnesemia (Acute) Mild acid reflux (Acute) Morbid obesity with BMI of 40.0-44.9, adult Myocardial infarction anterior NH, DAMON to LAD in 2014 NSTEMI (non-ST elevated myocardial infarction) (Acute) Paroxysmal atrial fibrillation Shortness of breath (Acute) Wide-complex tachycardia (Acute) Surgical History H/O heart artery stent 2015 Hx laparoscopic cholecystectomy (09/18/19) Laparoscopic Cholecystectomy with Cholangiogram Dr. 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 and A total of 10 systems reviewed and were otherwise negative Physical Exam Vital Signs Vital Signs - 24 hr 11/19/19 17:06 11/19/19 17:34 Temperature 36.7 C Temperature Source Oral Pulse Rate 113 H Respiratory Rate 22 Respiratory Depth Normal Blood Pressure 139/90 Blood Pressure Mean 106 Blood Pressure Position Sitting Pulse Oximetry 96 96 Oxygen Delivery Method Room Air Room Air Sepsis Recent Fever Within 48 Hours No Sepsis Action Taken by Nursing No Action Required Vital signs reviewed. General: Chronically ill-appearing female, in some discomfort. HEENT: Mild scleral icterus, PERRLA, neck supple. Atraumatic. Cardiovascular: Tachycardic rate and Regular rhythm, no extra sounds. Pulmonary: Clear to auscultation bilaterally, normal work of breathing. Abdomen: Soft, nontender, nondistended, positive bowel sounds. Musculoskeletal: Atraumatic, 3+ pitting edema to bilateral lower extremity. Neurologic: Patient awake alert and oriented x 3 Skin: Warm, dry, no rash Course Course 1726: Past medical records reviewed. The patient was evaluated in room B11. A complete history and physical exam was performed. 1755: I reassessed the patient and updated her on her results. 2105: I reviewed the patient's case with Dr. Burris, [facility] Hospitalist. He will evaluate the patient for further management. Consultations Consultation #1: I reviewed the patient's case with Dr. Burris, [facility] Hospitalist. He will evaluate the patient for further management. Time: 21:06 Administered Medications Apixaban (Eliquis) 5 mg PO BID [facility] Stop: 12/19/19 22:01 Last Admin: 11/20/19 21:00 Dose: 5 mg Documented by: [id number] Admin: 11/20/19 08:01 Dose: 5 mg Documented by: [id number] Admin: 11/19/19 22:42 Dose: 5 mg Documented by: [id number] Atorvastatin Calcium (Lipitor) 80 mg PO DAILY [facility] Stop: 12/20/19 08:59 Last Admin: 11/20/19 08:01 Dose: 80 mg Documented by: [id number] Guaifenesin/Codeine Phosphate (Robitussin-Ac Sugar Free) 5 ml PO Q6H PRN PRN Reason: Cough Stop: 12/19/19 22:01 Last Admin: 11/19/19 22:20 Dose: 5 ml Documented by: [id number] Azithromycin 500 mg/ Dextrose 255 mls @ 125 mls/hr IV Q24H [facility] Stop: 11/27/19 05:59 Last Infusion: 11/20/19 08:15 Dose: 0 mls/hr Documented by: [id number] Admin: 11/20/19 06:08 Dose: 125 mls/hr Documented by: [id number] Ceftriaxone Sodium 2,000 mg/ (Dextrose) 70 mls @ 100 mls/hr IV Q24H [facility]; Protocol Stop: 11/26/19 19:59 Last Infusion: 11/20/19 20:15 Dose: 0 mls/hr Documented by: [id number] Admin: 11/20/19 19:33 Dose: 100 mls/hr Documented by: [id number] Furosemide 40 mg/ Syringe 4 mls @ 4 mls/min IV [id number] [facility] Stop: 12/20/19 09:29 Last Admin: 11/20/19 17:24 Dose: 4 mls/min Documented by: [id number] Admin: 11/20/19 10:18 Dose: 4 mls/min Documented by: [id number] Insulin Aspart (Novolog Flexpen) 0 units SC ACHS [facility] Stop: 12/19/19 22:01 Last Admin: 11/20/19 21:02 Dose: 5 units Documented by: [id number] Cosigned by: [id number] Admin: 11/20/19 17:24 Dose: 3 units Documented by: [id number] Cosigned by: [id number] Admin: 11/20/19 12:07 Dose: 8 units Documented by: [id number] Cosigned by: [id number] Admin: 11/20/19 08:04 Dose: 2 units Documented by: [id number] Cosigned by: [id number] Admin: 11/19/19 22:46 Dose: 7 units Documented by: [id number] Cosigned by: [id number] Losartan Potassium (Cozaar) 100 mg PO DAILY [facility] Stop: 12/20/19 08:59 Last Admin: 11/20/19 08:01 Dose: 100 mg Documented by: [id number] Metoprolol Succinate (Toprol Xl) 300 mg PO DAILY [facility] Stop: 12/20/19 08:59 Last Admin: 11/20/19 07:59 Dose: 300 mg Documented by: [id number] Ondansetron HCl (Zofran) 4 mg IV Q6H PRN PRN Reason: Nausea Stop: 12/19/19 22:01 Last Admin: 11/20/19 06:22 Dose: 4 mg Documented by: [id number] Pantoprazole Sodium (Protonix) 40 mg PO QAM [facility] Stop: 12/20/19 08:59 Last Admin: 11/20/19 08:00 Dose: 40 mg Documented by: [id number] Discontinued Medications Aspirin (Ecotrin) 325 mg PO ONE ONE Stop: 11/19/19 22:03 Last Admin: 11/19/19 22:42 Dose: 325 mg Documented by: [id number] Furosemide (Lasix) 40 mg IV NOW STA Stop: 11/19/19 19:42 Last Admin: 11/19/19 21:11 Dose: 40 mg Documented by: [id number] Magnesium Sulfate/Dextrose (Magnesium Sulfate / D5w) 1 gm in 100 mls @ 100 mls/hr IV Q1H [facility] Stop: 11/19/19 20:59 Last Infusion: 11/19/19 22:13 Dose: 0 mls/hr Documented by: [id number] Admin: 11/19/19 21:13 Dose: 100 mls/hr Documented by: [id number] Infusion: 11/19/19 21:00 Dose: 100 mls/hr Documented by: [id number] Admin: 11/19/19 20:00 Dose: 100 mls/hr Documented by: [id number] Potassium Chloride (K Low / Wtr) 10 meq in 100 mls @ 100 mls/hr IV Q1H [facility] Stop: 11/19/19 20:59 Last Infusion: 11/19/19 22:13 Dose: 0 mls/hr Documented by: [id number] Admin: 11/19/19 21:13 Dose: 100 mls/hr Documented by: [id number] Infusion: 11/19/19 21:00 Dose: 100 mls/hr Documented by: [id number] Admin: 11/19/19 20:00 Dose: 100 mls/hr Documented by: [id number] Ceftriaxone Sodium (Rocephin) 2,000 mg in 70 mls @ 140 mls/hr IV NOW STA Stop: 11/19/19 20:35 Last Infusion: 11/19/19 21:55 Dose: 0 mls/hr Documented by: [id number] Admin: 11/19/19 21:14 Dose: 140 mls/hr Documented by: [id number] Potassium Chloride (K Low / Wtr) 10 meq in 100 mls @ 100 mls/hr IV Q1H [facility] Stop: 11/20/19 20:29 Last Admin: 11/20/19 21:00 Dose: 100 mls/hr Documented by: [id number] Infusion: 11/20/19 20:34 Dose: 0 mls/hr Documented by: [id number] Admin: 11/20/19 19:34 Dose: 100 mls/hr Documented by: [id number] Menthol (Nice) Confirm Administered Dose 24 ruddy BUCCAL .STK-MED ONE Stop: 11/19/19 22:54 Last Admin: 11/19/19 22:57 Dose: 24 ruddy Documented by: [id number] Potassium Chloride (Klor-Con Pwd) 40 meq PO TODAY@1930 [facility] Stop: 11/20/19 19:31 Last Admin: 11/20/19 20:58 Dose: 40 meq Documented by: [id number] Medical Decision Making Differential Diagnosis Differential Diagnosis includes but is not limited to dehydration, stroke, anemia, hypoglycemia, hyponatremia, hypernatremia, urinary tract infection, pneumonia, bronchitis, sepsis, gastroenteritis, additional abdominal pathology, metabolic abnormalities and infections. Medical Records Attestation: I reviewed the patient's medical records. Home Medications Current Medication List: was personally reviewed by me Laboratory Data Attestation: I reviewed the patient's lab results. Result diagrams: 11/20/19 05:37 11/20/19 05:37 Lab Results 11/19/19 11/19/19 11/19/19 Range/Units 18:05 18:05 18:05 WBC 8.39 (4.8-10.8) K/uL RBC 4.57 (4.2-5.4) M/uL Hgb 9.6 L (12.0-16.0) g/dL Hct 33.6 L (37-47) % MCV 73.5 L (80-100) fL MCH 21.0 L (25-34) pg MCHC 28.6 L (32-36) g/dL RDW Std Deviation 51.5 H (36.4-46.3) fL RDW Coeff of Esthela 19.2 H (11.5-14.5) % Plt Count 191 (130-400) K/uL MPV 9.8 (7.4-10.4) fL Immature Gran % (Auto) 0.1 % Neut % (Auto) 83.7 % Lymph % (Auto) 6.1 % Mcleod % (Auto) 9.5 % Eos % (Auto) 0.1 % Baso % (Auto) 0.5 % Immature Gran # (Auto) 0.01 (0.00-0.02) K/uL Neut # (Auto) 7.02 H (1.4-6.5) K/uL Lymph # (Auto) 0.51 L (1.2-3.4) K/uL Mcleod # (Auto) 0.80 H (0.11-0.59) K/uL Eos # (Auto) 0.01 (0-0.5) K/uL Baso # (Auto) 0.04 (0-0.2) K/uL Polychromasia 1+ Hypochromasia Present Echinocytes 1+ PT 15.3 H (9.0-12.0) Seconds INR 1.5 H (0.9-1.1) APTT 29.6 (21.0-31.0) Seconds PTT Ratio 1.1 Sodium 138 (136-145) mmol/L Potassium 3.3 L (3.5-5.1) mmol/L Chloride 102 (98-107) mmol/L Carbon Dioxide 25 (21-32) mmol/L Anion Gap 11.0 (3-11) BUN 16 (7-18) mg/dl Creatinine 1.42 H (0.6-1.2) mg/dl Est Cr Clr Drug Dosing 56.6 ml/min Est GFR ( Amer) 49.8 Est GFR (Non-Af Amer) 43.0 BUN/Creatinine Ratio 11.3 (10-20) Glucose 136 H (70-99) mg/dl Calcium 8.8 (8.5-10.1) mg/dl Magnesium 1.2 L (1.8-2.4) mg/dl Total Bilirubin 3.1 H (0.2-1) mg/dl AST 15 (15-37) U/L ALT 14 (12-78) U/L Alkaline Phosphatase 72 (45-117) U/L Troponin I 0.072 H* (0-0.045) ng/ml Total Protein 6.7 (6.4-8.2) gm/dl Albumin 3.3 L (3.4-5.0) gm/dl Globulin 3.4 (2.5-4.0) gm/dl Albumin/Globulin Ratio 1.0 (0.9-2) Imaging Data Radiologist's Impression: Radiology results as stated below per my review and the radiologist's interpretation: XR chest 1V portable CLINICAL HISTORY: Dyspnea COMPARISON STUDY: 09/16/2019 FINDINGS: Minimal interstitial infiltrate left mid to lower lung. Lungs otherwise are clear. Mild stable cardiac enlargement. IMPRESSION: Minimal poorly defined interstitial infiltrate left mid to lower lung. ACT 112: Negative or not required by law. The above report was generated using voice recognition software. It may contain grammatical, syntax or spelling errors. Electronically signed by: Emiliano Prince M.D. 11/19/2019 5:40 PM US venous doppler LE BI HISTORY: Pain. Edema. DVT COMPARISON STUDY: None. FINDINGS: There is normal compressibility, flow, and augmentation within the bilateral lower extremity deep venous systems. IMPRESSION: No DVT within the right or left lower extremity. ACT 112: Negative or not required by law. The above report was generated using voice recognition software. It may contain grammatical, syntax or spelling errors. Electronically signed by: Emiliano Prince M.D. 11/19/2019 7:31 PM US abdomen limited HISTORY: Pain. Edema. biliary stent, elevated bilirubin. COMPARISON: 09/16/2019 FINDINGS: Pancreas: The pancreas demonstrates a normal echotexture. Liver: Findings of a cholecystectomy. No intrahepatic biliary ductal distention. Gallbladder: Prior cholecystectomy CBD: Common bile duct stent considered patent with a maximum diameter 3 mm. Right kidney: No evidence for hydronephrosis. 2 renal cysts measuring 1.5 cm or less. Ascites trace free fluid surrounding the liver IMPRESSION: 1. Biliary ductal stent appearing to be patent. 2. Bile ducts show no evidence for distention.. 3. Trace perihepatic ascites. 4. Interval cholecystectomy. ACT 112: Negative or not required by law. The above report was generated using voice recognition software. It may contain grammatical, syntax or spelling errors. Electronically signed by: Emiliano Prince M.D. 11/19/2019 7:44 PM ECG Data Attestation: I personally reviewed and interpreted this ECG as follows: Indication: + chest pain Rate (beats per minute): 95 Rhythm: + sinus rhythm ECG Intervals/blocks: + Right Bundle branch block ECG [place]: + Left axis deviation ECG Findings: + PVCs and + Other (Previous inferior infarct; ) Comparison ECG Date: from (07/19/19) Change: the following changes noted (Sinus rhythm has replaced atrial fibrillation;) Blood Pressure Blood Pressure Findings: Normal blood pressure MDM Narrative This patient was evaluated and appeared to be acute on chronically ill. She is pale and slightly jaundiced. Chest x-ray was performed and is negative. EKG reveals a right bundle branch block with a left axis deviation. Laboratory work reveals a slightly elevated troponin at 0.07, hemoglobin of 9.6 with a creatinine of 1.4. Ultrasound bilateral lower extremities is negative for DVT. Patient was medicated with IV Lasix 40 mg. Patient is noted to be hypokalemic and hypomagnesemic. These electrolytes were replaced intravenously. Patient is noted to have a slightly elevated bilirubin at 3.1. Ultrasound of the right upper quadrant reveals the biliary stent in place. I did discuss the findings with the patient. She will be evaluated by the hospitalist service for further management of her decompensated heart failure and the need for IV diuresis. She has expressed an understanding of the plan and agrees. Impression & Plan Decompensated heart failure, Hypomagnesemia, Hypokalemia, Hyperbilirubinemia, History of biliary duct stent placement Discharge Plan Visit Data *Final* Discharge Date/Time: 11/19/19 21:33 Chief Complaint: Chest Pain Stated Complaint: CHEST PAIN, SWOLLEN FEET, LETHARGIC ED Provider: Sharita Hassan Discharge Problem: Decompensated heart failure, Hypomagnesemia, Hypokalemia, Hyperbilirubinemia, History of biliary duct stent placement Patient Disposition: Admitted As Inpatient Discharge Instructions Interventions: ED Discharge Assessment Last Done: 11/19/19 21:33 The scribe's documentation has been prepared under my direction and personally reviewed by me in its entirety. I confirm that the note above accurately reflects all work, treatment, procedures, and medical decision making performed by me.
--- NOTE | 2019-11-19 21:10 | History & Physical Report ---
Date of Service November 19, 2019 Assessment & Plan (1) Shortness of breath: 49 yo F here with worsening SOB and dry cough x 4 months, and worsening pedal edema up to thighs x 3 weeks. PMHx significant for HFrEF (last TTE 12/2018 EF 40% on lasix - recently increased to 60mg daily due to worsening edema), AFIB (on metoprolol and eliquis), CAD (h/o stent in 2014, on losartan). Recent surgical h/o cholecystectomy in Sep. She states her cough has been ongoing since September - denies fevers, chills, hemoptysis, sputum production - and is recently worsening, inhibiting sleep and causing a subjective chest tightness. Her lower ext edema has been ongoing for 3 weeks - seen by her PCP in October and lasix was increased from 40 to 60mg daily. Her edema did recede to below the knees. No weeping or redness. H/o iron deficiency anemia - told to take iron by PCP but noncompliant due to GI issues. Labs in ED remarkable for stable/worsening microcytic anemia - H&H 9.6/33.6, MCV 73.5, INR 1.5, Na 138, K 3.3, creatinine 1.42 (has CKD III) , BSG 136, Tbili 3.1, AST/ALT 15/14, Trop 0.072. Imaging: abdomen U/S shows patent biliary stent, b/l venous doppler show NO DVT, CXR with possible patchy infiltrate bilaterally, stable cardiomegaly. ED course: rocephin, 40mg IV lasix, mag and potassium repletion IV Assessment: Chronic cough, with worsening dyspnea on exertion/pedal edema -likely 2/2 decompensated HF, minimally responsive to PO lasix increase -also with dry cough ([id number]), which could be from similar etiology - vs. infectious or bronchitis -also with chronic iron deficiency anemia, noncompliant with PO iron -also with mildly elev troponin -significantly absent: no hypoxia Plan: -Admit to telemetry -received 40 IV lasix in ED -- will HOLD AM dose - for day team to clinically assess. -e-lytes replete as needed -TTE -trend troponins -c/s cardiology - is a participant in their HF clinic -add TSH (previously have been normal) Cough -CXR suggestive of infiltrate, but otherwise clinically pt does not appear infectious - will not continue rocephin from ED. -is on Losartan, so not NAGA related. -venous dopplers b/l LE NEG for DVT -do not suspect PE - pt is also already on anticoagulation -however given chronicity of her cough and anemia, will manriquez-scan to r/o mass -- CT w/o con (poor creatinine function) of chest/abdomen pending. -cough suppressants ordered. Anemia, iron def -certainly could be contributory to heart failure symptoms/fatigue -hemoccult all stools - hold off on iron until resulted. -pt is on eliquis for her AFIB, will continue this until stool results come in - if +, will need gastroenterology input. FEN/GI: HH/T2DM diet, to be judicious with any IVF hydration given decompensated CHF DVT ppx: on eliquis CODE STATUS: FULL DISPO: tele (2) Decompensated heart failure: (3) Hypomagnesemia: replete as needed (4) Hypokalemia: replete as needed (5) Hyperbilirubinemia: recent cholecystectomy and placement of biliary stent this Fall -- no abdominal pain or change in stools -- will trend, add direct bili (6) History of biliary duct stent placement: (7) Anemia: iron deficient on labs -- very likely contributing to her fatigue - pt noncompliant with iron due to GI upset -- recommend iron gluconate as may be more tolerable -- awaiting hemoccult at this time. Defer to PCP. (8) Pedal edema: (9) Paroxysmal atrial fibrillation: Rate controlled with metoprolol, anticoagulated on eliquis (10) S/P coronary artery stent placement: (11) CKD stage 3 due to type 2 diabetes mellitus: avoid nephrotoxic agents (12) Diabetes: ISS last a1c in May 6.2. Order A1c. Hold metformin (13) Dyslipidemia: Cont statin (14) Elevated troponin: Presents for chest tightness, cough -- with no ST changes on EKG, will mikhail nd trops, TTE in am. History of Present Illness Primary Care Provider: Marylou Dasilva MD 49 yo F here with worsening SOB and dry cough x 4 months, and worsening pedal edema up to thighs x 3 weeks. PMHx significant for HFrEF (last TTE 12/2018 EF 40% on lasix - recently increased to 60mg daily due to worsening edema), AFIB (on metoprolol and eliquis), CAD (h/o stent in 2014, on losartan). Recent surgical h/o cholecystectomy in Sep. She states her cough has been ongoing since September - denies fevers, chills, hemoptysis, sputum production - and is recently worsening, inhibiting sleep and causing a subjective chest tightness. Her lower ext edema has been ongoing for 3 weeks - seen by her PCP in October and lasix was increased from 40 to 60mg daily. Her edema did recede to below the knees. No weeping or redness. H/o iron deficiency anemia - told to take iron by PCP but noncompliant due to GI issues. Denies joint pains, fevers, chills. Endorses exertional dyspnea. Snores, no sleep study as of yet. PMH: as above PSH: DAMON 2014, cholecystectomy 2018 SH: lives with . works in [employer]. Denies T/E/D. Allergies Allergy/AdvReac Type Severity Reaction Status Date / Time lisinopril AdvReac Mild Cough Verified 11/19/19 17:46 Home Medications Home Medications Medication Instructions Recorded Confirmed Type ibuprofen 400 mg PO Q6H PRN 08/01/18 11/19/19 History metformin 500 mg PO BID 08/01/18 11/19/19 History losartan 100 mg tablet 100 mg PO DAILY #30 tab 06/30/19 11/19/19 Rx blood sugar diagnostic #10 ea 07/06/19 11/10/19 History metoprolol succinate 200 mg 300 mg PO DAILY tab 07/06/19 11/19/19 History tablet,extended release 24 hr apixaban 5 mg tablet 5 mg PO BID 30 Days #60 tab 09/21/19 11/19/19 Rx atorvastatin 80 mg tablet 80 mg PO DAILY #30 tab 09/29/19 11/19/19 Rx furosemide 40 mg tablet 60 mg PO DAILY tab 11/10/19 11/19/19 History pantoprazole 40 mg PO QAM 11/19/19 11/19/19 History Past Med/Surg History Medical History Atrial fibrillation with RVR (Acute) Benign essential HTN CAD (coronary artery disease) (Acute) Cardiomyopathy (Acute) Chest pain (Acute) CHF (congestive heart failure) (Acute) Diabetes (Acute) DM II (diabetes mellitus, type II), controlled Dyslipidemia (Acute) Elevated troponin (Acute) HLD (hyperlipidemia) HTN (hypertension) (Acute) Hypomagnesemia (Acute) Mild acid reflux (Acute) Morbid obesity with BMI of 40.0-44.9, adult Myocardial infarction anterior NV, DAMON to LAD in 2014 NSTEMI (non-ST elevated myocardial infarction) (Acute) Paroxysmal atrial fibrillation Shortness of breath (Acute) Wide-complex tachycardia (Acute) Surgical History H/O heart artery stent 2014 Hx laparoscopic cholecystectomy (09/18/19) Laparoscopic Cholecystectomy with Cholangiogram Dr. 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 Beliefs That Will Affect Care: None Current Living Situation: Spouse Other Information That Helps Us Care for You: No Feels Safe at Home: Yes Safety Concerns: Feels Safe At This Time Smoking Status: Former smoker Do You Dip or Chew Tobacco: No ; Second Hand Exposure: No ; Tobacco Cessation Education Requested by Patient: No Hx Alcohol Use: No Hx Substance Use: No Review of Systems Review of Systems: All systems reviewed & are unremarkable except as noted in HPI & below Physical Exam Physical Exam: Vitals noted and within normal limits with the exception of AFIB on monitor - rate 80s - 108 GENERAL: Awake, alert to person, place, and time, nontoxic-appearing, in no distress. HENT: Normocephalic, atraumatic. Mucus membranes appear moist. EYES: Normal conjunctiva. Sclera non-icteric. EOMI. NECK: Supple. Full range of motion. No JVD. RESPIRATORY: Clear to auscultation. Normal work of breathing. CARDIAC: irreg/irreg, rate 80s-108. Extremities warm and well perfused, ABDOMEN: Soft, non-distended. No tenderness to palpation in all four quadrants. No rebound or guarding. No masses. Bowel sounds are normal. LOWER EXTREMITIES: Inspection of calves reveal equal size bilaterally. They are non-tender. 3+ edema to mid calf. No discoloration. NEURO: No gross focal motor deficits noted. Sensation in tact. CN II-XII grossly in tact. . SKIN: Rash not present. No jaundice noted. Significant lesions not present. PSYCH: Appropriate mood and affect. Cooperative. is present at bedside. Exam as done by Abbie Cisneros MD, [employer] Installer. Results & Data Vital Signs (Past 12 Hours) Vital Signs Temp Pulse Resp BP Pulse Ox 11/19/19 17:34 96 11/19/19 17:06 36.7 C 113 H 22 139/90 96 Supervising Physician Co-Signing Physician Notes Pt seen/examined in conjunction with resident MD Melvi Cisneros. Orders and plan of admission reviewed with resident. 49 y/o F Hx CAD, AF, HTN, DM II, systolic CHF - recent cholecystectomy and biliary stenting. Presents with a cough, SOB and progressive edema. Evaluation is consistent with CHF exacerbation. OE: AAO x 3 S1, 2 irr Crackles R NT, ND + 3+ BL edema P: CHF - not responding to PO diuresis - placed on IV Lasix AF - Rate control - cont Apixaban Placed on a SS Cont Losartan, atorvastatin Resident Activity Tracking Resident Involvement: Resident Care Provided Care Provided: Adult Hospital Medicine (1) Diabetes Diabetes mellitus complication status: without complication Diabetes mellitus intermediate designer insulin use: with intermediate designer use Diabetes mellitus type: type 2 Qualified Code(s): E11.9 - Type 2 diabetes mellitus without complications; Z79.4 - retirement (current) use of insulin
[2019-11-19] MEDS ORDERED: ALUMINUM/MAGNESIUM SUSP 30 ML UDC PO PRN (22:02)
[2019-11-19] MEDS ORDERED: MAGNESIUM HYDROXIDE SUSP 30 ML UDC PO PRN (22:02)
[2019-11-19] MEDS ORDERED: GLUCAGON FOR INJ 1 MG VIAL SQ PRN (22:02)
[2019-11-19] MEDS ORDERED: GLUCOSE 40% GEL 15 GM TUBE PO PRN (22:02)
[2019-11-19] MEDS ORDERED: CARBOHYDRATES FOR HYPOGLYCEMIA PO PRN (22:02)
[2019-11-19] MEDS ORDERED: ASPIRIN 325 MG ECTAB PO ONE (22:02)
[2019-11-19] MEDS ORDERED: GUAIFENESIN/CODEINE 100MG/10MG 5ML UDC PO PRN (22:02)
[2019-11-19] MEDS ORDERED: ONDANSETRON INJ 2 MG/ML 2 ML VIAL IV PRN (22:02)
[2019-11-19] MEDS ORDERED: POLYETHYLENE (MIRALAX) 17 GM PACK PO PRN (22:02)
[2019-11-19] MEDS ORDERED: ACETAMINOPHEN 325 MG TAB PO PRN (22:02)
[2019-11-19] MEDS ORDERED: GLUCOSE 10 TABS/TUBE PO PRN (22:02)
[2019-11-19] MEDS ORDERED: DEXTROSE 50% 50 ML SYRINGE IV PRN (22:02)
--- NOTE | 2019-11-19 22:39 | CT Scan Report ---
CT chest wo con CT DOSE: HISTORY: Dyspnea SOB, cough 4 months, edema TECHNIQUE: Multiaxial CT images of the chest were performed without contrast. A dose lowering techni que was utilized adhering to the principles of ALARA. COMPARISON: 10/27/2015 FINDINGS: Interval development of a consolidative left upper lobe infiltrate. Interval development of right and to a lesser extent left pleural effusion. Adenopathy within the mediastinal and hilar mark ons is mildly progressive. Several small axillary nodes bilaterally unchanged. Thoracic aorta is normal course and caliber. IMPRESSION: 1. Mildly progressive mediastinal and hilar adenopathy. 2. Interval development of a consolidative left upper lobe infiltrate. 3. Small right and to a lesser extent left pleural effusions. ACT 112: Negative or not required by law. The above report was generated using voice recognition software. It may contain grammatical, syntax or spelling errors. Electronically signed by: Emiliano Prince M.D. 11/19/2019 10:38 PM
[2019-11-19] MEDS: APIXABAN 5 MG TABLET PO SCH (22:42)
--- NOTE | 2019-11-19 22:43 | CT Scan Report ---
CT abdomen wo con CT DOSE: 1563.59 mGy.cm HISTORY: Elevated liver function tests elevated bili TECHNIQUE: Multiaxial CT images of the abdomen was performed without contrast. A dose lowering techn ique was utilized adhering to the principles of ALARA. COMPARISON STUDY: None. FINDINGS: Interval development of small right and to a lesser extent left pleural effusion. Findings no prior cholecystectomy. Pancreas and spleen are unremarkable. Cortical scarring of the kid neys bilaterally. 2 cm hypodense nodule versus cyst mid aspect right kidney. 2 cm anterior right midl allie cyst versus hypodense nodule. Findings of mild body wall anasarca. Nonobstructive bowel pattern. A biliary stent appears to be in position. Several small para-aortic and retroperitoneal nodes. IMPRESSION: 1. Mild developing body wall anasarca.. 2. Small right and to a lesser extent left pleural effusion. 3. Several renal cysts and/or cortical scarring. 4. Nonobstructive bowel pattern. 5. Probable biliary stent. ACT 112: Negative or not required by law. The above report was generated using voice recognition software. It may contain grammatical, syntax or spelling errors. Electronically signed by: Emiliano Prince M.D. 11/19/2019 10:42 PM
[2019-11-19] MEDS: INSULIN ASPART 100 UNITS/ML 3 ML PEN SC SCH (22:46)
[2019-11-19] MEDS ORDERED: COUGH DROP (SUGAR FREE) LOZ 24 LOZ/1 BOX BUCCAL ONE (22:53)
[2019-11-20 03:36] LABS: Appearance Urine Clear (Clear); Bilirubin Urine Negative (Negative); Blood Urine Negative (Negative); Color Urine Yellow; Glucose Urine UA Negative (Negative); Ketones Urine Negative (Negative); Leukocyte Esterase Urine Negative (Negative); Nitrite Urine Negative (Negative); Protein Urine Negative (Negative); Specific Gravity Urine 1.006 (1.000-1.030); Urobilinogen Urine Negative (Negative); pH Urine 7.5 (4.5-7.5)
[2019-11-20 05:53] LABS: Hematocrit (blood only) 33.5 % (37-47); Hemoglobin 9.5 g/dL (12.0-16.0); Mean Corpuscular Hemoglobin 20.8 pg (25-34); Mean Corpuscular Hgb Conc 28.4 g/dL (32-36); Mean Corpuscular Volume 73.3 fL (80-100); Mean Platelet Volume 9.3 fL (7.4-10.4); Platelet Count 162 K/uL (130-400); RDW Coefficient of Variation 19.2 % (11.5-14.5); RDW Standard Deviation 50.6 fL (36.4-46.3); Red Blood Count 4.57 M/uL (4.2-5.4); White Blood Count 7.08 K/uL (4.8-10.8)
[2019-11-20] MEDS: AZITHROMYCIN 500 MG in DEXTROSE 5% 250 ML IV SCH (06:08)
[2019-11-20 06:12] LABS: Albumin Level 3.2 gm/dl (3.4-5.0); BUN Creatinine Ratio 10.8 (10-20); Calcium 8.8 mg/dl (8.5-10.1); Creatinine Clr Calc Pharmacy 56.2 ml/min; Est GFR (African American) 49.8; Magnesium 1.6 mg/dl (1.8-2.4); Potassium 3.2 mmol/L (3.5-5.1)
[2019-11-20 06:18] LABS: Basophils # (auto) 0.01 K/uL (0-0.2); Basophils % (auto) 0.1 %; Eosinophils # (auto) 0.02 K/uL (0-0.5); Eosinophils % (auto) 0.3 %; Hypochromasia Present; Lymphocytes # (auto) 0.47 K/uL (1.2-3.4); Lymphocytes % (auto) 6.6 %; Monocytes # (auto) 0.59 K/uL (0.11-0.59); Monocytes % (auto) 8.3 %; Neutrophils # (auto) 5.99 K/uL (1.4-6.5); Neutrophils % (auto) 84.7 %; Ovalocytes 1+; Polychromasia 1+
[2019-11-20 06:28] LABS: Bilirubin,Total 2.6 mg/dl (0.2-1); Globulin 3.2 gm/dl (2.5-4.0); Thyroid Stimulating Hormone 1.65 uIu/ml (0.300-4.500); Total Protein 6.4 gm/dl (6.4-8.2); Troponin I 0.057 ng/ml (0-0.045)
[2019-11-20 07:13] LABS: Estimated Average Glucose 134 mg/dl; Hemoglobin A1C 6.3 % (4.5-5.6)
[2019-11-20] MEDS: METOPROLOL SUCC 50MG EXT REL TAB PO SCH (07:59)
[2019-11-20] MEDS: PANTOprazole 40 MG TAB PO SCH (08:00)
[2019-11-20] MEDS: ATORVASTATIN 40 MG TAB PO SCH (08:01)
[2019-11-20] MEDS: LOSARTAN POTASSIUM 50 MG TAB PO SCH (08:01)
[2019-11-20] MEDS: APIXABAN 5 MG TABLET PO SCH ×2 (08:01→21:00)
[2019-11-20] MEDS: INSULIN ASPART 100 UNITS/ML 3 ML PEN SC SCH ×4 (08:04→21:02)
--- NOTE | 2019-11-20 09:00 | CT Scan Report ---
CT SCAN OF THE PELVIS WITHOUT IV CONTRAST CLINICAL HISTORY: Lymphadenopathy. COMPARISON STUDY: No priors. TECHNIQUE: CT scan of the pelvis is performed from the pelvic inlet to the proximal femora. Images ar e reviewed in the axial, sagittal, and coronal planes. IV contrast was not administrated for this exa mination. Note that the examination was performed in a suboptimal fashion without IV contrast. A dose lowering technique was utilized adhering to the principles of ALARA. CT DOSE: 956.06 mGy.cm FINDINGS: The bladder, uterus, and adnexa are normal as visualized. There is trace free fluid in the cul-de-sac . The visualized loops of small bowel and colon are normal in caliber. There is mild sigmoid divertic ulosis without CT evidence of acute diverticulitis. The partially imaged kidneys demonstrate cortical atrophy. Cysts are noted in the lower pole of the r ight kidney. A common bile duct stent is partially imaged. The abdominal aorta is normal in caliber n oting mild to moderate atherosclerotic calcification. There is no pelvic sidewall or inguinal adenopa thy. The skeletal structures are osteopenic. No lytic or blastic lesion is seen. The sacroiliac joints and hips are normal as imaged. Degenerative sclerosis is noted in the pubic symphysis. There is generali zed atrophy of the regional musculature. Mild body wall edema is noted. IMPRESSION: 1. No acute abnormality is identified in the pelvis. 2. There is a small volume of nonspecific free fluid in the cul-de-sac. 3. Mild body wall edema. ACT 112: Negative or not required by law. Dictated: 11/20/2019 8:46 AM Transcribed: 11/20/2019 8:57 AM Karoline [id number] [email or web address] Electronically signed by: Erik Isabel M.D. 11/20/2019 8:59 AM
--- NOTE | 2019-11-20 10:01 | Cardiology Consultation ---
Date of Consultation November 20, 2019 Assessment & Plan (1) Decompensated heart failure: Patient presented with worsening shortness of breath, dry cough, and increased lower extremity edema. Her PO diuretic therapy was titrated as an outpatient with continued/worsening symptoms. Her Pro-BNP is elevated >21,000, and echocardiogram shows reduced LV systolic function, decreased from prior. Recommend continued diuresis with IV Lasix. Will order 40 mg IV BID. Monitor renal function closely while diuresing. Recommend close monitoring of I's&O's. Low sodium diet, <2,000 mg daily. (2) CAD (coronary artery disease): She has known CAD with a history of LAD PCI. She reports chest discomfort, but only in association with coughing. She denies angina. ECG shows no acute ischemic changes. Troponin was mildly elevated at 0.072 upon arrival but has since trended down. The troponin elevation is likely secondary to demand ischemia and not account development representative of an ACS. Recommend continued medical therapy. It does not appear as though she has been ordered aspirin. She should be on an antiplatelet agent given her history of PCI. Recommend low dose aspirin therapy if no contraindications. Continue high intensity statin therapy and beta nas. (3) Paroxysmal atrial fibrillation: Continue beta nas for rate control strategy. Continue Eliquis for stroke risk reduction. (4) Cardiomyopathy: Her echocardiogram shows a LV EF of 25-30%. This is reduced from her previous echocardiogram in December 2018, which showed an EF of 40-45%. The etiology for the further reduction in her LV systolic function is unclear. She is on good medical therapy with metoprolol succinate 300 mg daily and losartan 100 mg daily. She would be a good candidate for Entresto, though, and will consider switching her losartan to Entresto in the future, after diuresis. Patient discussed with Dr. Ordoñez, and the plan was made in collaboration with him. Supervising Physician Co-Signing Physician Notes I saw and examined the patient at the bedside and agree with the documentation by Gricel Mcelroy PA-C. Briefly, the patient has a history a mild ischemic cardiomyopathy and presented with symptoms pulmonary vascular congestion. She did receive diuretic therapy and her symptoms have improved significantly. Echocardiography did demonstrate reduced LV systolic function from baseline. The etiology of her decompensation is unclear. No documented a arrhythmias, no medication noncompliance. No dietary indiscretion. I do not believe she has suffered a recent ischemic event despite her history of coronary disease. With her declining LV function we need to intensify her medical therapy. Would agree with continued diuresis while an inpatient monitoring her electrolytes and renal function closely. She may best be served by discharged on a higher diuretic dose of Lasix, possibly 80 milligrams daily. I would also advocate a change of losartan to Entresto and addition of spironolactone. Again, we will need to monitor her electrolytes and renal function closely upon discharge. She did have a very brief run of nonsustained ventricular tachycardia on telemetry. The degree of her LV dysfunction currently meets criteria for implantation of an ICD as primary prophylaxis against sudden cardiac . However, I think we will simply continue her on beta-blockade and monitor her LV function over the next few months prior to committing to device therapy. History of Present Illness History of Present Illness Mrs. Cronin is a 49-year-old female with a past medical history significant for CAD s/p NSTEMI and PCI of mid LAD (10/15/2015), cardiomyopathy (EF 40-45%), paroxysmal atrial fibrillation on Eliquis, hypertension, dyslipidemia, and type 2 diabetes mellitus. She was recently admitted from 09/16/19 - 09/20/19 with sepsis due to cholangitis and cholecystitis. She underwent ERCP and laparoscopic cholecystectomy. She states that following discharge home, she developed exertional dyspnea with activities such as ambulating up stairs and walking about 50 yards on ground level. She also noted some wheezing and a dry cough. Her cough was worse with lying down, therefore, she has been sleeping propped up at night. In addition, she developed bilateral lower extremity edema. She was seen by her PCP last week and was instructed in increase her Lasix from 40 to 60 mg daily. Despite the increased oral diuretic therapy, her symptoms continued. Yesterday, she felt as though her breathing was worse, and she also noted some chest discomfort in association with coughing. She also felt very fatigued and therefore decided to go to the ED for further evaluation. Her weight has actually been trending down over the last year. She states that she is down about 50 lbs since November 2018. She has been following a low sodium diet. She denies angina. She denies palpitations, lightheadedness, syncope, or presyncope. She denies abnormal bleeding such as melena, hematochezia, or hematuria. She denies cerebrovascular symptoms. Family history: Father with CAD s/p CABG. Social history: Remote history of smoking. Occasional alcohol. No drugs. Allergies Allergy/AdvReac Type Severity Reaction Status Date / Time lisinopril AdvReac Mild Cough Verified 11/19/19 17:46 Home Medications Home Medications Medication Instructions Recorded Confirmed Type ibuprofen 400 mg PO Q6H PRN 08/01/18 11/19/19 History metformin 500 mg PO BID 08/01/18 11/19/19 History losartan 100 mg tablet 100 mg PO DAILY #30 tab 06/30/19 11/19/19 Rx blood sugar diagnostic #10 ea 07/06/19 11/10/19 History metoprolol succinate 200 mg 300 mg PO DAILY tab 07/06/19 11/19/19 History tablet,extended release 24 hr apixaban 5 mg tablet 5 mg PO BID 30 Days #60 tab 09/21/19 11/19/19 Rx atorvastatin 80 mg tablet 80 mg PO DAILY #30 tab 09/29/19 11/19/19 Rx furosemide 40 mg tablet 60 mg PO DAILY tab 11/10/19 11/19/19 History pantoprazole 40 mg PO QAM 11/19/19 11/19/19 History Patient History Medical History Atrial fibrillation with RVR (Acute) Benign essential HTN CAD (coronary artery disease) (Acute) Cardiomyopathy (Acute) Chest pain (Acute) CHF (congestive heart failure) (Acute) Diabetes (Acute) DM II (diabetes mellitus, type II), controlled Dyslipidemia (Acute) Elevated troponin (Acute) HLD (hyperlipidemia) HTN (hypertension) (Acute) Hypomagnesemia (Acute) Mild acid reflux (Acute) Morbid obesity with BMI of 40.0-44.9, adult Myocardial infarction anterior ND, DAMON to LAD in 2014 NSTEMI (non-ST elevated myocardial infarction) (Acute) Paroxysmal atrial fibrillation Shortness of breath (Acute) Wide-complex tachycardia (Acute) Surgical History H/O heart artery stent 2014 Hx laparoscopic cholecystectomy (09/18/19) Laparoscopic Cholecystectomy with Cholangiogram Dr. Soto 09/18/19 S/P coronary artery stent placement S/P ERCP Family History Other Diabetes Heart disease Hypertension Myocardial infarction Social History Preferred Language: [place] Communication Ability: Effective Coal Chemist Required: No Beliefs That Will Affect Care: None Current Living Situation: Spouse Other Information That Helps Us Care for You: No Feels Safe at Home: Yes Safety Concerns: Feels Safe At This Time Smoking Status: Former smoker Do You Dip or Chew Tobacco: No ; Second Hand Exposure: No ; Tobacco Cessation Education Requested by Patient: No Hx Alcohol Use: No Hx Substance Use: No Physical Exam Physical Exam: Constitutional: Alert, oriented, in no acute distress HEENT: Head is atraumatic and normocephalic. EOMs intact. Sclera non-icteric. Face is symmetric. No perioral cyanosis. Mucous membranes moist Neck: Supple, no appreciable Pulmonary: Normal respiratory effort, decreased breath sounds left lower lung field, otherwise clear to auscultation throughout Cardiac: Regular with occasional ectopy, normal S1 and S2, no gallops, no rubs, 1/6 systolic murmur Extremities: Support stockings noted. 2+ lower extremity edema to the knees bilaterally. No clubbing or cyanosis. Pulses intact Abdomen: Obese. Normal bowel sounds, soft, non-tender, no abdominal masses palpated Skin: Normal skin color, turgor, and pigmentation. No rash or skin lesions Neurological: Oriented to person, place, and time Results & Data Vital Signs (Past 12 Hours) Vital Signs Temp Pulse Pulse Resp BP Pulse Ox 11/20/19 07:35 99.1 F 105 H 18 109/72 92 11/20/19 07:30 102 H 11/20/19 03:23 99.3 F 101 H 18 123/88 95 11/19/19 23:23 99.5 F 102 H 20 117/80 98 11/19/19 22:03 99 H 11/19/19 21:57 98.8 F 101 H 24 143/87 H 97 Laboratory Results Laboratory Results WBC 7.08 K/uL (4.8-10.8) 11/20/19 05:37 RBC 4.57 M/uL (4.2-5.4) 11/20/19 05:37 Hgb 9.5 g/dL (12.0-16.0) L 11/20/19 05:37 Hct 33.5 % (37-47) L 11/20/19 05:37 MCV 73.3 fL (80-100) L 11/20/19 05:37 MCH 20.8 pg (25-34) L 11/20/19 05:37 MCHC 28.4 g/dL (32-36) L 11/20/19 05:37 RDW Std Deviation 50.6 fL (36.4-46.3) H 11/20/19 05:37 RDW Coeff of [place]hel[place] 19.2 % (11.5-14.5) H 11/20/19 05:37 Plt Count 162 K/uL (130-400) 11/20/19 05:37 MPV 9.3 fL (7.4-10.4) 11/20/19 05:37 Immature Gran % (Auto) 0.0 % 11/20/19 05:37 Neut % (Auto) 84.7 % 11/20/19 05:37 Lymph % (Auto) 6.6 % 11/20/19 05:37 Villalba % (Auto) 8.3 % 11/20/19 05:37 Eos % (Auto) 0.3 % 11/20/19 05:37 Baso % (Auto) 0.1 % 11/20/19 05:37 Immature Gran # (Auto) 0.00 K/uL (0.00-0.02) 11/20/19 05:37 Neut # (Auto) 5.99 K/uL (1.4-6.5) 11/20/19 05:37 Lymph # (Auto) 0.47 K/uL (1.2-3.4) L 11/20/19 05:37 [place] # (Auto) 0.59 K/uL (0.11-0.59) 11/20/19 05:37 Eos # (Auto) 0.02 K/uL (0-0.5) 11/20/19 05:37 Baso # (Auto) 0.01 K/uL (0-0.2) 11/20/19 05:37 Polychromasia 1+ 11/20/19 05:37 Hypochromasia Present 11/20/19 05:37 Ovalocytes 1+ 11/20/19 05:37 Echinocytes 1+ 11/19/19 18:05 PT 15.3 Seconds (9.0-12.0) H 11/19/19 18:05 INR 1.5 (0.9-1.1) H 11/19/19 18:05 APTT 29.6 Seconds (21.0-31.0) 11/19/19 18:05 PTT Ratio 1.1 11/19/19 18:05 Sodium 137 mmol/L (136-145) 11/20/19 05:37 Potassium 3.2 mmol/L (3.5-5.1) L 11/20/19 05:37 Chloride 100 mmol/L (98-107) 11/20/19 05:37 Carbon Dioxide 30 mmol/L (21-32) 11/20/19 05:37 Anion Gap 7.0 (3-11) 11/20/19 05:37 BUN 15 mg/dl (7-18) 11/20/19 05:37 Creatinine 1.42 mg/dl (0.6-1.2) H 11/20/19 05:37 Est Cr Clr Drug Dosing 56.2 ml/min 11/20/19 05:37 Est GFR ( Amer) 49.8 11/20/19 05:37 Est GFR (Non-Af Amer) 43.0 11/20/19 05:37 BUN/Creatinine Ratio 10.8 (10-20) 11/20/19 05:37 Glucose 129 mg/dl (70-99) H 11/20/19 05:37 POC Glucose 166 (70-99) H 11/20/19 07:28 Estimat Average Glucose 134 mg/dl 11/20/19 05:37 Hemoglobin A1c 6.3 % (4.5-5.6) H 11/20/19 05:37 Calcium 8.8 mg/dl (8.5-10.1) 11/20/19 05:37 Magnesium 1.6 mg/dl (1.8-2.4) L 11/20/19 05:37 Total Bilirubin 2.6 mg/dl (0.2-1) H 11/20/19 05:37 Direct Bilirubin 1.0 mg/dl (0-0.2) H 11/20/19 05:37 AST 10 U/L (15-37) L 11/20/19 05:37 ALT 12 U/L (12-78) 11/20/19 05:37 Alkaline Phosphatase 71 U/L (45-117) 11/20/19 05:37 Troponin I 0.057 ng/ml (0-0.045) H* 11/20/19 05:37 NT-Pro-B Natriuret Pep 25338 pg/ml (0-900) H 11/20/19 05:37 Total Protein 6.4 gm/dl (6.4-8.2) 11/20/19 05:37 Albumin 3.2 gm/dl (3.4-5.0) L 11/20/19 05:37 Globulin 3.2 gm/dl (2.5-4.0) 11/20/19 05:37 Albumin/Globulin Ratio 1.0 (0.9-2) 11/20/19 05:37 TSH 1.650 uIu/ml (0.300-4.500) 11/20/19 05:37 Urine Color Yellow 11/20/19 03:20 Urine Appearance Clear (Clear) 11/20/19 03:20 Urine pH 7.5 (4.5-7.5) 11/20/19 03:20 Ur Specific [place] 1.006 (1.000-1.030) 11/20/19 03:20 Urine Protein Negative (Negative) 11/20/19 03:20 Urine Glucose (UA) Negative (Negative) 11/20/19 03:20 Urine Ketones Negative (Negative) 11/20/19 03:20 Urine Blood Negative (Negative) 11/20/19 03:20 Urine Nitrite Negative (Negative) 11/20/19 03:20 Urine Bilirubin Negative (Negative) 11/20/19 03:20 Urine Urobilinogen Negative (Negative) 11/20/19 03:20 Ur Leukocyte Esterase Negative (Negative) 11/20/19 03:20 Diagnostic Findings ECG: Sinus rhythm with PVCs. Left axis deviation. RBBB. Inferior infarct. Anteroseptal infarct. CXR: Minimal poorly defined interstitial infiltrate left mid to lower lung. Venous doppler: No DVT within the right or left lower extremity. Chest CT: 1. Mildly progressive mediastinal and hilar adenopathy. 2. Interval development of a consolidative left upper lobe infiltrate. 3. Small right and to a lesser extent left pleural effusions. Echo: LV EF 25-30%. Moderate mitral regurgitation. RVSP elevated at 40-50 mmHg. PG Care Time/CCT Total # of Minutes Spent Total Time Spent with Patient: Total time spent is greater than 50% in coordination of care (as documented) at patient's floor/unit and/or counseling patient: (1) CAD (coronary artery disease) Associated angina: without angina Coronary Disease-Associated Artery/Lesion type: [place] artery [place] vs. transplanted heart: [place] heart Qualified Code(s): I25.10 - Atherosclerotic heart disease of [place] coronary artery without angina pectoris
[2019-11-20] MEDS: FUROSEMIDE 40 MG in SYRINGE 0 ML IV SCH ×2 (10:18→17:24)
[2019-11-20] MEDS ORDERED: POTASSIUM CHLORIDE PWD 20 MEQ PACK PO SCH (19:30)
[2019-11-20] MEDS: cefTRIAXone SODIUM 2,000 MG in DEXTROSE 5% 50 ML IV SCH (19:33)
[2019-11-20] MEDS: POTASSIUM CHLORIDE / WTR 10 MEQ/100 ML PLCT IV SCH ×2 (19:34→21:00)
[2019-11-20] MEDS ORDERED: POTASSIUM CHLORIDE 20 MEQ TABCR PO SCH (21:00)
--- NOTE | 2019-11-20 22:48 | Hospitalist Progress Note ---
Date of Service November 20, 2019 Assessment & Plan (1) Shortness of breath: 49 yo F here with worsening SOB and dry cough x 4 months, and worsening pedal edema up to thighs x 3 weeks. PMHx significant for HFrEF (last TTE 12/2018 EF 40% on lasix - recently increased to 60mg daily due to worsening edema), AFIB (on metoprolol and eliquis), CAD (h/o stent in 2014, on losartan). Recent surgical h/o cholecystectomy in Sep. She states her cough has been ongoing since September - denies fevers, chills, hemoptysis, sputum production - and is recently worsening, inhibiting sleep and causing a subjective chest tightness. Her lower ext edema has been ongoing for 3 weeks - seen by her PCP in October and lasix was increased from 40 to 60mg daily. Her edema did recede to below the knees. No weeping or redness. H/o iron deficiency anemia - told to take iron by PCP but noncompliant due to GI issues. Labs in ED remarkable for stable/worsening microcytic anemia - H&H 9.6/33.6, MCV 73.5, INR 1.5, Na 138, K 3.3, creatinine 1.42 (has CKD III) , BSG 136, Tbili 3.1, AST/ALT 15/14, Trop 0.072. Imaging: abdomen U/S shows patent biliary stent, b/l venous doppler show NO DVT, CXR with possible patchy infiltrate bilaterally, stable cardiomegaly. ED course: rocephin, 40mg IV lasix, mag and potassium repletion IV Assessment: Chronic cough, with worsening dyspnea on exertion/pedal edema -likely 2/2 decompensated HF, minimally responsive to PO lasix increase -will continue to diurese at this time. -Plan is to continue to diurese patient as much as tolerated by the kidneys. Cough -CXR suggestive of infiltrate, but otherwise clinically pt does not appear infectious - -Placed on rocephin and azithromycin. -is on Losartan, so not NAGA related. -venous dopplers b/l LE NEG for DVT -do not suspect PE - pt is also already on anticoagulation -however given chronicity of her cough and anemia, will manriquez-scan to r/o mass -- CT w/o con (poor creatinine function) of chest/abdomen pending. -cough suppressants ordered. Anemia, iron def -certainly could be contributory to heart failure symptoms/fatigue -hemoccult all stools - hold off on iron until resulted. -pt is on eliquis for her AFIB, will continue this until stool results come in - if +, will need gastroenterology input. FEN/GI: HH/T2DM diet, to be judicious with any IVF hydration given decompensated CHF DVT ppx: on eliquis CODE STATUS: FULL DISPO: tele (2) Decompensated heart failure: (3) Hypomagnesemia: replete as needed (4) Hypokalemia: replete as needed (5) Hyperbilirubinemia: recent cholecystectomy and placement of biliary stent this Fall -- no abdominal pain or change in stools -- will trend, add direct bili (6) History of biliary duct stent placement: (7) Anemia: iron deficient on labs -- very likely contributing to her fatigue - pt noncompliant with iron due to GI upset -- recommend iron gluconate as may be more tolerable -- awaiting hemoccult at this time. Defer to PCP. (8) Pedal edema: (9) Paroxysmal atrial fibrillation: Rate controlled with metoprolol, anticoagulated on eliquis (10) S/P coronary artery stent placement: (11) CKD stage 3 due to type 2 diabetes mellitus: avoid nephrotoxic agents (12) Diabetes: ISS last a1c in May 6.2. Order A1c. Hold metformin (13) Dyslipidemia: Cont statin (14) Elevated troponin: Presents for chest tightness, cough -- with no ST changes on EKG, will trend trops, TTE in am. (2) Decompensated heart failure: (3) Hypomagnesemia: (4) Hypokalemia: (5) Hyperbilirubinemia: (6) History of biliary duct stent placement: (7) Anemia: (8) Pedal edema: (9) Paroxysmal atrial fibrillation: (10) S/P coronary artery stent placement: (11) CKD stage 3 due to type 2 diabetes mellitus: (12) Diabetes: (13) Dyslipidemia: (14) Elevated troponin: Subjective 49 yo female who reports feeling better but not back to baseline. Patient continues to have a cough. Review of Systems Review of Systems: All systems reviewed & are unremarkable except as noted in HPI & below Physical Exam Physical Exam: GENERAL: Awake, alert to person, place, and time, nontoxic- appearing, in no distress. HENT: Normocephalic, atraumatic. Mucus membranes appear moist. EYES: Normal conjunctiva. Sclera non-icteric. EOMI. NECK: Supple. Full range of motion. No JVD. RESPIRATORY: bilateral rales at the bases. CARDIAC: irreg/irreg, rate 80s-108. Extremities warm and well perfused, ABDOMEN: Soft, non-distended. No tenderness to palpation in all four quadrants. No rebound or guarding. No masses. Bowel sounds are normal. LOWER EXTREMITIES: 3+ edema to mid calf. No discoloration. NEURO: No gross focal motor deficits noted. Sensation in tact. CN II-XII grossly in tact. . SKIN: Rash not present. No jaundice noted. Significant lesions not present. PSYCH: Appropriate mood and affect. Cooperative. Results & Data Vital Signs (Past 12 Hours) Vital Signs Temp Pulse Pulse Resp BP BP Pulse Ox 11/20/19 19:18 37.3 C 76 18 105/71 94 11/20/19 16:00 67 11/20/19 15:42 36.9 C 64 18 95/64 L 90 11/20/19 11:17 37 C 70 18 92/61 L 97/65 L 99 PG Care Time/CCT Total # of Minutes Spent Total Time Spent with Patient: Total time spent is greater than 50% in coordination of care (as documented) at patient's floor/unit and/or counseling patient: (1) Diabetes Diabetes mellitus type: type 2 Diabetes mellitus medical terminologist insulin use: with fdc use Diabetes mellitus complication status: without complication Qualified Code(s): E11.9 - Type 2 diabetes mellitus without complications; Z79.4 - residential (current) use of insulin
[2019-11-21] MEDS: AZITHROMYCIN 500 MG in DEXTROSE 5% 250 ML IV SCH (06:21)
--- NOTE | 2019-11-21 07:21 | Electrocardiogram Report ---
Test Reason : Blood Pressure : / mmHG Vent. Rate : 095 BPM Atrial Rate : 095 BPM P-R Int : 196 ms QRS Dur : 138 ms QT Int : 356 ms P-R-T Axes : 047 -51 071 degrees QTc Int : 447 ms Sinus rhythm with marked sinus arrhythmia with frequent , and consecutive Premature ventricular compl exes Possible Left atrial enlargement Left axis deviation Right bundle branch block Inferior infarct (cited on or before 16-SEP-2019) Poor R wave progression, consider anterior PR vs. lead placement vs. LVH Abnormal ECG When compared with ECG of 18-SEP-2019 08:57, Sinus rhythm has replaced Atrial fibrillation QT has shortened Confirmed by Natanael Odroñez ([id number]) on 11/21/2019 7:20:56 AM Referred By: REFERRED SELF Confirmed By:Jose Luis Ordoñez
[2019-11-21] MEDS: LOSARTAN POTASSIUM 50 MG TAB PO SCH (08:27)
[2019-11-21] MEDS: FUROSEMIDE 40 MG in SYRINGE 0 ML IV SCH ×3 (08:27→19:09)
[2019-11-21] MEDS: APIXABAN 5 MG TABLET PO SCH ×2 (08:27→21:03)
[2019-11-21] MEDS: PANTOprazole 40 MG TAB PO SCH (08:27)
[2019-11-21] MEDS: METOPROLOL SUCC 50MG EXT REL TAB PO SCH (08:28)
[2019-11-21] MEDS: ATORVASTATIN 40 MG TAB PO SCH (08:28)
[2019-11-21] MEDS: INSULIN ASPART 100 UNITS/ML 3 ML PEN SC SCH ×4 (08:30→21:04)
[2019-11-21] MEDS: POTASSIUM CHLORIDE PWD 20 MEQ PACK PO SCH ×2 (11:41→21:02)
[2019-11-21 19:12] LABS: BUN Creatinine Ratio 12.7 (10-20); Calcium 8.2 mg/dl (8.5-10.1); Creatinine Clr Calc Pharmacy 48.6 ml/min; Est GFR (African American) 42.1; Est GFR (Non-African American) 36.4; Potassium 3.5 mmol/L (3.5-5.1)
--- NOTE | 2019-11-21 20:03 | Hospitalist Progress Note ---
Date of Service November 21, 2019 Assessment & Plan (1) Decompensated heart failure: Apears her SOb is mainly drived by her cardiomyopathy. Her EF has significantly decreased TO 25% FROM 45% EARLIER in the year. Patient has been diuresed during the hospital stay, however her BMP is showing increased in creatinine, bicarb and BUN. This makes it seem like we are getting to the point where diuretics will need to be held back. Will hold evening dose of lasix. Will closely monitor. Her BP has been low normal, may need to cut back on the losartan. (2) Shortness of breath: 49 yo F here with worsening SOB and dry cough x 4 months, and worsening pedal edema up to thighs x 3 weeks. PMHx significant for HFrEF (last TTE 12/2018 EF 40% on lasix - recently increased to 60mg daily due to worsening edema), AFIB (on metoprolol and eliquis), CAD (h/o stent in 2014, on losartan). Recent surgical h/o cholecystectomy in Sep. She states her cough has been ongoing since September - denies fevers, chills, hemoptysis, sputum production - and is recently worsening, inhibiting sleep and causing a subjective chest tightness. Her lower ext edema has been ongoing for 3 weeks - seen by her PCP in October and lasix was increased from 40 to 60mg daily. Her edema did recede to below the knees. No weeping or redness. H/o iron deficiency anemia - told to take iron by PCP but noncompliant due to GI issues. Labs in ED remarkable for stable/worsening microcytic anemia - H&H 9.6/33.6, MCV 73.5, INR 1.5, Na 138, K 3.3, creatinine 1.42 (has CKD III) , BSG 136, Tbili 3.1, AST/ALT 15/14, Trop 0.072. Imaging: abdomen U/S shows patent biliary stent, b/l venous doppler show NO DVT, CXR with possible patchy infiltrate bilaterally, stable cardiomegaly. ED course: rocephin, 40mg IV lasix, mag and potassium repletion IV Assessment: Chronic cough, with worsening dyspnea on exertion/pedal edema -likely 2/2 decompensated HF, minimally responsive to PO lasix increase -will continue to diurese at this time. -Plan is to continue to diurese patient as much as tolerated by the kidneys. Cough -CXR suggestive of infiltrate, but otherwise clinically pt does not appear infectious - -Placed on rocephin and azithromycin. -is on Losartan, so not NAGA related. -venous dopplers b/l LE NEG for DVT -do not suspect PE - pt is also already on anticoagulation -however given chronicity of her cough and anemia, will manriquez-scan to r/o mass -- CT w/o con (poor creatinine function) of chest/abdomen pending. -cough suppressants ordered. -The CT scan was negative for masses Anemia, iron def -certainly could be contributory to heart failure symptoms/fatigue -hemoccult all stools - hold off on iron until resulted. -pt is on eliquis for her AFIB, will continue this until stool results come in - if +, will need gastroenterology input. FEN/GI: HH/T2DM diet, to be judicious with any IVF hydration given decompensated CHF DVT ppx: on eliquis CODE STATUS: FULL DISPO: tele (2) Decompensated heart failure: (3) Hypomagnesemia: replete as needed (4) Hypokalemia: replete as needed (5) Hyperbilirubinemia: recent cholecystectomy and placement of biliary stent this Fall -- no abdominal pain or change in stools -- will trend, add direct bili (6) History of biliary duct stent placement: (7) Anemia: iron deficient on labs -- very likely contributing to her fatigue - pt noncompliant with iron due to GI upset -- recommend iron gluconate as may be more tolerable -- awaiting hemoccult at this time. Defer to PCP. (8) Pedal edema: (9) Paroxysmal atrial fibrillation: Rate controlled with metoprolol, anticoagulated on eliquis (10) S/P coronary artery stent placement: (11) CKD stage 3 due to type 2 diabetes mellitus: avoid nephrotoxic agents (12) Diabetes: ISS last a1c in May 23.2. Order A1c. Hold metformin (13) Dyslipidemia: Cont statin (14) Elevated troponin: Presents for chest tightness, cough -- with no ST changes on EKG, will trend trops, TTE in am. (3) Hypomagnesemia: (4) Hypokalemia: (5) Hyperbilirubinemia: (6) History of biliary duct stent placement: (7) Anemia: (8) Pedal edema: (9) Paroxysmal atrial fibrillation: (10) S/P coronary artery stent placement: (11) CKD stage 3 due to type 2 diabetes mellitus: (12) Diabetes: (13) Dyslipidemia: (14) Elevated troponin: Subjective Patient reports feeling better. She has noticed a decrease in her lower leg edema, and improvement with her breathing. Review of Systems Review of Systems: All systems reviewed & are unremarkable except as noted in HPI & below Physical Exam Physical Exam: GENERAL: Awake, alert to person, place, and time, nontoxic- appearing, in no distress. HENT: Normocephalic, atraumatic. Mucus membranes appear moist. EYES: Normal conjunctiva. Sclera non-icteric. EOMI. NECK: Supple. Full range of motion. No JVD. RESPIRATORY: bilateral rales at the bases. CARDIAC: rate controlled. Extremities warm and well perfused, LOWER EXTREMITIES: decreased lower extremity edema. No discoloration. NEURO: No gross focal motor deficits noted. . . SKIN: Rash not present. No jaundice noted. Significant lesions not present. PSYCH: Appropriate mood and affect. Cooperative. Results & Data Vital Signs (Past 12 Hours) Vital Signs Temp Pulse Pulse Resp BP Pulse Ox 11/21/19 19:04 36.9 C 75 18 108/75 100 11/21/19 17:24 75 102/67 11/21/19 16:13 73 11/21/19 15:10 36.7 C 65 18 90/62 L 99 11/21/19 12:00 36.8 C 74 16 93/63 L 99 11/21/19 11:12 74 11/21/19 10:08 74 91/63 L PG Care Time/CCT Total # of Minutes Spent Total Time Spent with Patient: Total time spent is greater than 50% in coordination of care (as documented) at patient's floor/unit and/or counseling patient: (1) Diabetes Diabetes mellitus complication status: without complication Diabetes mellitus fci insulin use: with fci use Diabetes mellitus type: type 2 Qualified Code(s): E11.9 - Type 2 diabetes mellitus without complications; Z79.4 - [facility] (current) use of insulin
[2019-11-21] MEDS: cefTRIAXone SODIUM 2,000 MG in DEXTROSE 5% 50 ML IV SCH (21:02)
[2019-11-22] MEDS: AZITHROMYCIN 500 MG in DEXTROSE 5% 250 ML IV SCH (06:13)
[2019-11-22] MEDS: ATORVASTATIN 40 MG TAB PO SCH (08:29)
[2019-11-22] MEDS: APIXABAN 5 MG TABLET PO SCH (08:30)
[2019-11-22] MEDS: POTASSIUM CHLORIDE PWD 20 MEQ PACK PO SCH (08:30)
[2019-11-22] MEDS: PANTOprazole 40 MG TAB PO SCH (08:30)
[2019-11-22] MEDS: INSULIN ASPART 100 UNITS/ML 3 ML PEN SC SCH ×2 (08:31→12:22)
[2019-11-22] MEDS ORDERED: LOSARTAN POTASSIUM 50 MG TAB PO SCH (09:00)
[2019-11-22] MEDS ORDERED: METOPROLOL SUCC 50MG EXT REL TAB PO SCH (09:00)
[2019-11-22] MEDS ORDERED: FUROSEMIDE 20 MG TAB PO ONE (09:35)
--- NOTE | 2019-11-22 11:57 | Cardiology Progress Note ---
Date of Service November 22, 2019 Assessment & Plan (1) Decompensated heart failure: The patient has diuresed well. Her intravenous furosemide was placed on hold yesterday as her BUN and creatinine had increased. She will be started on oral dosing today. Although she does demonstrate some lower extremity edema, she appears to be well compensated. Stable for hospital discharge later today. (2) CAD (coronary artery disease): The patient had a non ST elevation TX and received a DAMON to the mid LAD in September 2015. Continue with medical management. (3) Paroxysmal atrial fibrillation: Continue rate control and long-term anticoagulation. (4) Cardiomyopathy: Left ventricular ejection fraction now reduced at 25-30%. Would continue with medical management. Could consider change from losartan to Entresto as an outpatient. Subjective The patient is resting comfortably at the bedside and without complaints of chest pain or dyspnea. Her is present. Physical Exam Physical Exam: In general this is a mildly obese white female in no acute distress. HEENT exam is negative. Neck is supple with full carotid upstrokes. Jugular venous pressure is flat at 90 degrees. No thyromegaly. Cardiovascular exam reveals a regular rhythm with normal S1-S2. A 1/6 basal systolic ejection murmur is noted. Lungs are clear without rales, rhonchi, or wheezes. Abdomen is obese without bruits. Extremities reveal intact radial artery pulses bilaterally. There is 1+ pretibial edema noted. 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 PG Care Time/CCT Total # of Minutes Spent Total Time Spent with Patient: Total time spent is greater than 50% in coordination of care (as documented) at patient's floor/unit and/or counseling patient: (1) CAD (coronary artery disease) Associated angina: without angina Coronary Disease-Associated Artery/Lesion type: [place] artery [place] vs. transplanted heart: [place] heart Qualified Code(s): I25.10 - Atherosclerotic heart disease of [place] coronary artery without angina pectoris
[2019-11-22] MEDS ORDERED: FUROSEMIDE 20 MG TAB PO SCH (17:00)
--- NOTE | 2019-11-29 10:43 | Discharge Summary ---
Date of Service November 22, 2019 Admission HPI Per Admitting Provider 49 yo F here with worsening SOB and dry cough x 4 months, and worsening pedal edema up to thighs x 3 weeks. PMHx significant for HFrEF (last TTE 12/2018 EF 40% on lasix - recently increased to 60mg daily due to worsening edema), AFIB (on metoprolol and eliquis), CAD (h/o stent in 2014, on losartan). Recent surgical h/o cholecystectomy in Sep. She states her cough has been ongoing since September - denies fevers, chills, hemoptysis, sputum production - and is recently worsening, inhibiting sleep and causing a subjective chest tightness. Her lower ext edema has been ongoing for 3 weeks - seen by her PCP in October and lasix was increased from 40 to 60mg daily. Her edema did recede to below the knees. No weeping or redness. H/o iron deficiency anemia - told to take iron by PCP but noncompliant due to GI issues. Denies joint pains, fevers, chills. Endorses exertional dyspnea. Snores, no sleep study as of yet. PMH: as above PSH: DAMON 2014, cholecystectomy 2018 SH: lives with . works in [employer]. Denies T/E/D. Principal Diagnosis Acute on chronic systolic CHF Discharge Exam GENERAL: Awake, alert to person, place, and time, nontoxic-appearing, in no distress. HENT: Normocephalic, atraumatic. Mucus membranes appear moist. EYES: Normal conjunctiva. Sclera non-icteric. EOMI. NECK: Supple. Full range of motion. No JVD. RESPIRATORY: bilateral rales at the bases. CARDIAC: rate controlled. Extremities warm and well perfused, LOWER EXTREMITIES: decreased lower extremity edema. No discoloration. NEURO: No gross focal motor deficits noted. SKIN: Rash not present. No jaundice noted. Significant lesions not present. PSYCH: Appropriate mood and affect. Cooperative. Discharge Data Allergies Allergy/AdvReac Type Severity Reaction Status Date / Time lisinopril AdvReac Mild Cough Verified 11/25/19 13:55 Consultations 11/19/19 20:03 ED Decision to Admit Stat 11/19/19 22:02 Consult Cardiology Routine Ordered Studies 11/19/19 17:29 US venous doppler LE BI Stat 01/02/20 18:50 US abdomen limited Stat 11/19/19 22:02 CT abdomen wo con Routine CT chest wo con Routine 11/20/19 01:24 CT pelvis wo con Routine Hospital Course (1) Decompensated heart failure: Apears her SOb is mainly drived by her cardiomyopathy. Her EF has significantly decreased TO 25% FROM 45% EARLIER in the year. Patient has been diuresed during the hospital stay, however her BMP is showing increased in creatinine, bicarb and BUN. This makes it seem like we are getting to the point where diuretics will need to be held back. Will hold evening dose of lasix. Will closely monitor. Her BP has been low normal, may need to cut back on the losartan. Appreciate input from cardiology: The patient has diuresed well. Her intravenous furosemide was placed on hold yesterday as her BUN and creatinine had increased. She will be started on oral dosing today. Although she does demonstrate some lower extremity edema, she appears to be well compensated. Stable for hospital discharge later today. (2) Shortness of breath: 49 yo F here with worsening SOB and dry cough x 4 months, and worsening pedal edema up to thighs x 3 weeks. PMHx significant for HFrEF (last TTE 12/2018 EF 40% on lasix - recently increased to 60mg daily due to worsening edema), AFIB (on metoprolol and eliquis), CAD (h/o stent in 2014, on losartan). Recent surgical h/o cholecystectomy in Sep. She states her cough has been ongoing since September - denies fevers, chills, hemoptysis, sputum production - and is recently worsening, inhibiting sleep and causing a subjective chest tightness. Her lower ext edema has been ongoing for 3 weeks - seen by her PCP in October and lasix was increased from 40 to 60mg daily. Her edema did recede to below the knees. No weeping or redness. H/o iron deficiency anemia - told to take iron by PCP but noncompliant due to GI issues. Labs in ED remarkable for stable/worsening microcytic anemia - H&H 9.6/33.6, MCV 73.5, INR 1.5, Na 138, K 3.3, creatinine 1.42 (has CKD III) , BSG 136, Tbili 3.1, AST/ALT 15/14, Trop 0.072. Imaging: abdomen U/S shows patent biliary stent, b/l venous doppler show NO DVT, CXR with possible patchy infiltrate bilaterally, stable cardiomegaly. ED course: rocephin, 40mg IV lasix, mag and potassium repletion IV Assessment: Chronic cough, with worsening dyspnea on exertion/pedal edema -likely 2/2 decompensated HF, minimally responsive to PO lasix increase -will continue to diurese at this time. -Plan is to continue to diurese patient as much as tolerated by the kidneys. Cough -CXR suggestive of infiltrate, but otherwise clinically pt does not appear infectious - -Placed on rocephin and azithromycin. -is on Losartan, so not NAGA related. -venous dopplers b/l LE NEG for DVT -do not suspect PE - pt is also already on anticoagulation -however given chronicity of her cough and anemia, will manriquez-scan to r/o mass -- CT w/o con (poor creatinine function) of chest/abdomen pending. -cough suppressants ordered. -The CT scan was negative for masses Anemia, iron def -certainly could be contributory to heart failure symptoms/fatigue -hemoccult all stools - hold off on iron until resulted. -pt is on eliquis for her AFIB, will continue this until stool results come in - if +, will need gastroenterology input. FEN/GI: HH/T2DM diet, to be judicious with any IVF hydration given decompensated CHF DVT ppx: on eliquis CODE STATUS: FULL DISPO: tele (2) Decompensated heart failure: (3) Hypomagnesemia: replete as needed (4) Hypokalemia: replete as needed (5) Hyperbilirubinemia: recent cholecystectomy and placement of biliary stent this Fall -- no abdominal pain or change in stools -- will trend, add direct bili (6) History of biliary duct stent placement: (7) Anemia: iron deficient on labs -- very likely contributing to her fatigue - pt noncompliant with iron due to GI upset -- recommend iron gluconate as may be more tolerable -- awaiting hemoccult at this time. Defer to PCP. (8) Pedal edema: (9) Paroxysmal atrial fibrillation: Rate controlled with metoprolol, anticoagulated on eliquis (10) S/P coronary artery stent placement: (11) CKD stage 3 due to type 2 diabetes mellitus: avoid nephrotoxic agents (12) Diabetes: ISS last a1c in May 6.2. Order A1c. Hold metformin (13) Dyslipidemia: Cont statin (14) Elevated troponin: Presents for chest tightness, cough -- with no ST changes on EKG, will trend trops, TTE in am. (3) Hypomagnesemia: (4) Hypokalemia: (5) Hyperbilirubinemia: (6) History of biliary duct stent placement: (7) Anemia: (8) Pedal edema: (9) Paroxysmal atrial fibrillation: (10) S/P coronary artery stent placement: (11) CKD stage 3 due to type 2 diabetes mellitus: (12) Diabetes: (13) Dyslipidemia: (14) Elevated troponin: Total Time Total Time Spent Total Time Spent (In Minutes): 32 Total Time Includes: Examination of the Patient, Discharge Planning and Medication Reconciliation Discharge Plan Discharge Items Patient Disposition: Home - Self-Care Reason For Visit: SOB, LEG EDEMA Discharge Diagnosis: Acute congestive heart failure Activity: Resume your previous activity Non-emergency contact: Primary Care Provider Call non-emergency contact if: you have any medication questions Follow-up/Referrals: Marylou Dasilva MD [Primary Care Provider] - Diet: Carb Consistent or DM2 and Heart Healthy Addtl Attending Provider Instructions: Call 911 and go to the Emergency Room if: * You have tightness or pain in your chest that does not go away with rest or Nitroglycerin * You are very short of breath even with rest Call your doctor if any of the following symptoms or problems start or get worse: * Shortness of breath or difficulty breathing * Wake up at night short of breath * Chest pain * Cough * Swelling of your hands, fee, or legs * More fatigued or tired with your normal activity * Palpitations - sudden fast heart beats WEIGHT * Weigh yourself every morning after using the bathroom. * Use the same scale. * Wear the same amount of clothing. * Write your weight down on your chart. * Call your doctor if you gain more than 2-3 pounds in 1-2 days. MEDICATIONS * Use this discharge instruction sheet for instructions. * Take your medications at the time your doctor ordered. * Do not skip a dose of your medicines. * If you miss a dose of medicine, take as soon as possible, but DO NOT DOUBLE A DOSE. * Read your medicine information when you get home. * Know all of the side effects of your medicine. * Call your doctor's office if you have any side effects. * Be sure all of your doctors know what medicine and herbs you take (including cold, flu, and herbal medicine). * Pain Medicine: If you do not get relief from your pain, please call your doctor for help. Take the following with you to your follow-up doctor appointments: * Weight Chart * Medication List * List of questions Do not drink excessive alcohol, beer or wine. Pending Studies at Discharge: No Stand-Alone Forms: Call Back Authorization, [facility], Smoking Cessation Medications and DC Order Prescriptions: New metoprolol succinate 50 mg Tablet Extended Release 24 Hr 200 mg PO QAM Qty: 30 RF: 0 Continued Eliquis 5 mg tablet 5 mg PO BID 30 Days Qty: 60 RF: 11 atorvastatin 80 mg tablet 80 mg PO DAILY Qty: 30 RF: 5 (DME) FreeStyle Lite Strips strip See Dose Instructions .ROUTE .MEDSUPPLY Qty: 10 RF: 0 metformin 500 mg tablet 500 mg PO BID RF: 0 pantoprazole 40 mg tablet,delayed release (DR/EC) 40 mg PO QAM RF: 0 Discontinued losartan 100 mg tablet 100 mg PO DAILY Qty: 30 RF: 11 ibuprofen 200 mg Tablet 400 mg PO Q6H PRN (Reason: Fever Or Pain) RF: 0 metoprolol succinate 200 mg tablet extended release 24 hr 300 mg PO DAILY RF: 0 No Action furosemide 40 mg tablet 40 mg PO DAILY RF: 0 Entresto 24-26 mg tablet 1 tab PO BID Qty: 60 RF: 0 Discharge Orders: Discharge Order (Routine); Ordered 11/22/19 Ordered By: Zain Lundberg Admission Data Admit Date/Time: 11/19/19 21:15 Attending Provider: Zain Lundberg Admit Provider: Abbie Cisneros Primary Care Provider: Marylou Dasilva Other Providers: Cachorro Ordoñez Other Interventions: Discharge Summary Assessment (RN) Last Done: 11/22/19 13:54 DC Date/Time DO NOT enter until pt leaves facility: 11/22/19 14:28
== END 2019-11-22 14:28 | disposition home or self-care (01) | DRG 292 ==
LOC: ED 17:01 → SUATTDRO 21:15 → 2S 21:15

== ENCOUNTER 2021-09-30 22:07 | Inpatient (IN) ==
--- NOTE | 2021-09-30 22:26 | Emergency Department Note ---
History of Present Illness General Chief complaint: Shortness of Breath/Dyspnea Stated complaint: SOB Time Seen by Provider: 09/30/21 22:14 History of Present Illness Maximum Pain Intensity: 5 51-year-old female presents to the ED with a chief complaint of a low pulse ox. The patient states that she has had a cough for several days. Her was here last night and was tested positive for Covid. The patient reports decreased energy as well as generalized weakness. Pulse ox at home using her 's pulse ox showed 77 to 80% on room air. She does not use home oxygen. She does have a history of CHF, diabetes and A. fib. She is chronically on Eliquis. She has not missed any doses. She denies any shortness of breath or chest pains. No additional complaints. Home Medications Medication Instructions Recorded Confirmed Type blood sugar diagnostic (Accu-Chek #100 ea 12/11/19 07/29/20 Rx Hailey Plus test strp) blood-glucose meter (Accu-Chek #1 ea 12/11/19 07/29/20 Rx Hailey Plus Meter) lancets (Accu-Chek Multiclix #100 ea 12/11/19 10/01/21 Rx Lancet) aspirin 81 mg tablet,delayed 81 mg PO QAM 12/28/19 10/01/21 History release (Aspirin Low Dose) apixaban 5 mg tablet (Eliquis) 5 mg PO BID #180 tab 11/08/20 10/01/21 Rx atorvastatin 80 mg tablet 80 mg PO QAM #90 tab 01/17/21 10/01/21 Rx metoprolol succinate 200 mg 200 mg PO QAM #90 tab 06/05/21 10/01/21 Rx tablet,extended release 24 hr furosemide 40 mg tablet 80 mg PO QAM #60 tab 08/11/21 10/01/21 Rx sacubitril 97 mg-valsartan 103 mg 1 tab PO BID #60 tab 08/28/21 10/01/21 Rx tablet (Entresto) amiodarone 200 mg tablet 200 mg PO QAM #30 tab 09/25/21 10/01/21 Rx pantoprazole 40 mg tablet,delayed 40 mg PO DAILY 10/01/21 10/01/21 History release Allergies Allergy/AdvReac Type Severity Reaction Status Date / Time lisinopril AdvReac Mild Cough Verified 10/01/21 00:10 Past Med/Surg History Medical History Acute on chronic systolic (congestive) heart failure Anemia Atrial fibrillation dx 12/2018. follows w/ Dr. Gaspar. On eliquis. CAD (coronary artery disease) S/p DAMON to mid LAD 2014 (Per 03/2020 cardio note, 2014 cath also showed 75% dLAD, 20-30% LCx, 20-30% RCA, right posterior lateral artery 90% ostial stenosis, 2nd right posterior lateral artery 50% Cardiomyopathy EF 21% on nuclear images 01/19/20 CHF (congestive heart failure) Chronic anticoagulation CKD stage 3 due to type 2 diabetes mellitus Diabetes DM II (diabetes mellitus, type II), controlled Dyslipidemia HLD (hyperlipidemia) HTN (hypertension) Hx of myocardial infarction 2014 - TREATED AT [facility] Hypokalemia Hypomagnesemia Lower extremity edema Mild acid reflux Persistent atrial fibrillation Surgical History H/O heart artery stent 2014 [facility] - X1 STENT - DR. GASPAR History of biliary duct stent placement History of ERCP STENT INTACT IN LIVER CURRENTLY History of hysteroscopy Hx laparoscopic cholecystectomy (09/18/19) Laparoscopic Cholecystectomy with Cholangiogram Dr. Soto 09/18/19 Family History Grandmother (Maternal) Breast cancer Brother Diabetes Heart disease Father Diabetes Hypertension Mother Hypertension Social History Smoking Status: Never smoker Second Hand Exposure: Yes ( A CHILD); Hx Alcohol Use: No Hx Substance Use: No Preferred Language: Lebanese Communication Ability: Effective [facility] Director Required: No Beliefs That Will Affect Care: None Current Living Situation: Spouse current occupational status: employed Feels Safe at Home: Yes Dental Care, Regularly: Yes Physical Activity Frequency: Does not Exercise Assistive Devices: Glasses Review of Systems A total of 10 systems reviewed and were otherwise negative Physical Exam Vital Signs Vital Signs - 24 hr 09/30/21 22:08 09/30/21 22:43 09/30/21 22:44 Temperature 36.8 C Temperature Source Temporal Artery Scan Pulse Rate 70 Pulse Rate [Finger] Respiratory Rate 16 Respiratory Effort / Characteristics Non-Labored Spontaneous Non-Labored Respiratory Depth Normal Normal Respiratory Pattern Regular Blood Pressure 96/68 L Blood Pressure [Left Arm] Blood Pressure Mean 77 Blood Pressure Mean [Left Arm] Blood Pressure Position Sitting Blood Pressure Position [Left Arm] Pulse Oximetry 98 92 Oxygen Delivery Method Room Air Nasal Cannula Nasal Cannula Oxygen Flow Rate 4 4 Sepsis Recent Fever Within 48 Hours No Sepsis New/Unexplained Change in Mental Status N/A Sepsis Action Taken by Nursing No Action Required 09/30/21 22:49 09/30/21 22:50 09/30/21 22:55 Temperature Temperature Source Pulse Rate Pulse Rate [Finger] 54 L Respiratory Rate 18 Respiratory Effort / Characteristics Non-Labored Respiratory Depth Respiratory Pattern Blood Pressure Blood Pressure [Left Arm] 69/42 L Blood Pressure Mean Blood Pressure Mean [Left Arm] 51 Blood Pressure Position Blood Pressure Position [Left Arm] Lying Pulse Oximetry 92 92 93 Oxygen Delivery Method Nasal Cannula Nasal Cannula Nasal Cannula Oxygen Flow Rate 4 4 4 Sepsis Recent Fever Within 48 Hours Sepsis New/Unexplained Change in Mental Status Sepsis Action Taken by Nursing 09/30/21 23:16 Temperature Temperature Source Pulse Rate Pulse Rate [Finger] 54 L Respiratory Rate Respiratory Effort / Characteristics Non-Labored Spontaneous Respiratory Depth Respiratory Pattern Blood Pressure Blood Pressure [Left Arm] 77/54 L Blood Pressure Mean Blood Pressure Mean [Left Arm] 61 Blood Pressure Position Blood Pressure Position [Left Arm] Pulse Oximetry 95 Oxygen Delivery Method Nasal Cannula Oxygen Flow Rate 4 Sepsis Recent Fever Within 48 Hours Sepsis New/Unexplained Change in Mental Status Sepsis Action Taken by Nursing CONSTITUTIONAL/VITAL SIGNS: Reviewed / noted above. GENERAL: Non-toxic in appearance. No acute distress. INTEGUMENTARY: Warm, dry, and [place]. HEAD: Normocephalic. EYES: without scleral icterus or trauma. ENT/OROPHARYNX: clear and moist. LYMPHADENOPATHY/NECK: Is supple without lymphadenopathy or meningismus. RESPIRATORY: Clear to auscultation bilaterally. No increased work of breathing. Occasional cough. CARDIOVASCULAR: Regular rate and rhythm. GI/ABDOMEN: Soft and nontender. No organomegaly or pulsatile mass. EXTREMITIES: Warm and well perfused. BACK: No CVA tenderness. NEUROLOGICAL: Intact without focal deficits. PSYCHIATRIC: normal affect. MUSCULOSKELETAL: Normally developed with good muscle tone. TRIAGE NURSING DOCUMENTATION REVIEWED. Course Administered Medications Potassium Chloride (K Low / Wtr) 10 meq in 100 mls @ 100 mls/hr IV Q1H REAGAN Stop: 10/01/21 01:29 Last Admin: 09/30/21 23:44 Dose: 100 mls/hr Documented by: [id number] Dobutamine HCl/Dextrose (Dobutamine / D5w) 500 mg in 250 mls @ 8.1 mls/hr IV .Q24H REAGAN; Protocol Stop: 10/30/21 23:44 Last Admin: 09/30/21 23:53 Dose: 2.5 mcg/kg/min, 8.1 mls/hr Documented by: [id number] Cosigned by: [id number] Discontinued Medications Sodium Chloride (Nss 1000ml) 1,000 mls @ 999 mls/hr IV .Q1H1M REAGAN Stop: 09/30/21 23:30 Last Admin: 09/30/21 22:32 Dose: 999 mls/hr Documented by: [id number] Potassium Chloride (Potassium Chloride 10 Meq Tabcr) 20 meq PO NOW STA Stop: 09/30/21 23:30 Last Admin: 09/30/21 23:44 Dose: 20 meq Documented by: [id number] Critical Care Time Critical Care Time: Yes Total Critical Care Time: 40 I have personally spent 40 minutes of critical care time in the direct management of this patient. This includes bedside care, interpretation of diagnostic studies, and testing, discussion with consultants, patient, and family members, and other required patient management activities. This 40 minutes is in excess of all separately billable procedures. Medical Decision Making Differential Diagnosis The differential was considered includes acute myocardial infarction, acute coronary syndrome, myocarditis, pericarditis, pericardial effusions /tamponad, esophageal perforation, pulmonary embolism, pneumonia, pneumothorax, cardiomyopathy, congestive heart, anemia , COPD/asthma exacerbation. Medical Records Attestation: I reviewed the patient's medical records. Home Medications Current Medication List: was personally reviewed by me Laboratory Data Attestation: I reviewed the patient's lab results. Result diagrams: 09/30/21 22:29 09/30/21 22:29 Lab Results 09/30/21 09/30/21 09/30/21 Range/Units 22:29 22:29 22:29 WBC 2.12 L (4.8-10.8) K/uL RBC 4.63 (4.2-5.4) M/uL Hgb 9.9 L (12.0-16.0) g/dL Hct 35.0 L (37-47) % MCV 75.6 L (80-100) fL MCH 21.4 L (25-34) pg MCHC 28.3 L (32-36) g/dL RDW Std Deviation 54.0 H (36.4-46.3) fL RDW Coeff of Esthela 19.7 H (11.5-14.5) % Plt Count 95 L (130-400) K/uL Immature Gran % (Auto) 0.5 % Neut % (Auto) 80.2 % Lymph % (Auto) 13.2 % [place] % (Auto) 6.1 % Eos % (Auto) 0.0 % Baso % (Auto) 0.0 % Neut # (Auto) 1.70 (1.4-6.5) K/uL Lymph # (Auto) 0.28 L (1.2-3.4) K/uL [place] # (Auto) 0.13 (0.11-0.59) K/uL Eos # (Auto) 0.00 (0-0.5) K/uL Baso # (Auto) 0.00 (0-0.2) K/uL Immature Gran # (Auto) 0.01 (0.00-0.02) K/uL Absolute Nucleated RBC 0.02 H (0-0) K/uL Nucleated RBC % (auto) 0.9 % Platelet Estimate Decreased L (Normal) PT (9.0-12.0) Seconds INR (0.9-1.1) APTT (21.0-31.0) Seconds PTT Ratio Sodium 137 (136-145) mmol/L Potassium 2.7 L (3.5-5.1) mmol/L Chloride 101 (98-107) mmol/L Carbon Dioxide 24 (21-32) mmol/L Anion Gap 12.0 H (3-11) BUN 23 H (7-18) mg/dl Creatinine 2.41 H (0.6-1.2) mg/dl Est Cr Clr Drug Dosing 33.4 ml/min Est GFR ( Amer) 25.9 ml/min Est GFR (Non-Af Amer) 22.3 ml/min BUN/Creatinine Ratio 9.5 L (10-20) Glucose 111 H (70-99) mg/dl Lactate (0.4-2.0) mmol/L Calcium 8.2 L (8.5-10.1) mg/dl Magnesium 2.1 (1.8-2.4) mg/dl Total Bilirubin 1.2 H (0.2-1) mg/dl AST 128 H (15-37) U/L ALT 67 (12-78) U/L Alkaline Phosphatase 70 (45-117) U/L Troponin I 0.250 H* (0-0.045) ng/ml NT-Pro-B Natriuret Pep 96791 H (0-900) pg/ml Total Protein 6.0 L (6.4-8.2) gm/dl Albumin 2.7 L (3.4-5.0) gm/dl Globulin 3.3 (2.5-4.0) gm/dl Albumin/Globulin Ratio 0.8 L (0.9-2) Procalcitonin 0.06 (0-0.5) ng/ml Adenovirus (PCR) (NotDetected) B. pertussis DNA (PCR) (NotDetected) B.parapertussis DNA PCR (NotDetected) C. pneumoniae DNA (PCR) (NotDetected) Coronavirus OC43 (PCR) (NotDetected) Coronavirus HKU1 (PCR) (NotDetected) Coronavirus 229E (PCR) (NotDetected) COVID-19 Eval Order SARS-CoV-2 (PCR) (NotDetected) Coronavirus NL63 (PCR) (NotDetected) Human Metapneumovir PCR (NotDetected) Influenza Type A (PCR) (NotDetected) Influenza Type B (PCR) (NotDetected) M. pneumoniae (PCR) (NotDetected) Parainfluenza 1 (PCR) (NotDetected) Parainfluenza 2 (PCR) (NotDetected) Parainfluenza 3 (PCR) (NotDetected) Parainfluenza 4 (PCR) (NotDetected) RSV (PCR) (NotDetected) Entero/Rhino (PCR) (NotDetected) 09/30/21 09/30/21 09/30/21 Range/Units 22:29 22:30 22:30 WBC (4.8-10.8) K/uL RBC (4.2-5.4) M/uL Hgb (12.0-16.0) g/dL Hct (37-47) % MCV (80-100) fL MCH (25-34) pg MCHC (32-36) g/dL RDW Std Deviation (36.4-46.3) fL RDW Coeff of Esthela (11.5-14.5) % Plt Count (130-400) K/uL Immature Gran % (Auto) % Neut % (Auto) % Lymph % (Auto) % [place] % (Auto) % Eos % (Auto) % Baso % (Auto) % Neut # (Auto) (1.4-6.5) K/uL Lymph # (Auto) (1.2-3.4) K/uL [place] # (Auto) (0.11-0.59) K/uL Eos # (Auto) (0-0.5) K/uL Baso # (Auto) (0-0.2) K/uL Immature Gran # (Auto) (0.00-0.02) K/uL Absolute Nucleated RBC (0-0) K/uL Nucleated RBC % (auto) % Platelet Estimate (Normal) PT 11.1 (9.0-12.0) Seconds INR 1.1 (0.9-1.1) APTT 35.2 H (21.0-31.0) Seconds PTT Ratio 1.3 Sodium (136-145) mmol/L Potassium (3.5-5.1) mmol/L Chloride (98-107) mmol/L Carbon Dioxide (21-32) mmol/L Anion Gap (3-11) BUN (7-18) mg/dl Creatinine (0.6-1.2) mg/dl Est Cr Clr Drug Dosing ml/min Est GFR ( Amer) ml/min Est GFR (Non-Af Amer) ml/min BUN/Creatinine Ratio (10-20) Glucose (70-99) mg/dl Lactate (0.4-2.0) mmol/L Calcium (8.5-10.1) mg/dl Magnesium (1.8-2.4) mg/dl Total Bilirubin (0.2-1) mg/dl AST (15-37) U/L ALT (12-78) U/L Alkaline Phosphatase (45-117) U/L Troponin I (0-0.045) ng/ml NT-Pro-B Natriuret Pep (0-900) pg/ml Total Protein (6.4-8.2) gm/dl Albumin (3.4-5.0) gm/dl Globulin (2.5-4.0) gm/dl Albumin/Globulin Ratio (0.9-2) Procalcitonin (0-0.5) ng/ml Adenovirus (PCR) Not Detected (NotDetected) B. pertussis DNA (PCR) Not Detected (NotDetected) B.parapertussis DNA PCR Not Detected (NotDetected) C. pneumoniae DNA (PCR) Not Detected (NotDetected) Coronavirus OC43 (PCR) Not Detected (NotDetected) Coronavirus HKU1 (PCR) Not Detected (NotDetected) Coronavirus 229E (PCR) Not Detected (NotDetected) COVID-19 Eval Order RESPNP at [facility] SARS-CoV-2 (PCR) Not Detected (NotDetected) Coronavirus NL63 (PCR) Not Detected (NotDetected) Human Metapneumovir PCR Not Detected (NotDetected) Influenza Type A (PCR) Not Detected (NotDetected) Influenza Type B (PCR) Not Detected (NotDetected) M. pneumoniae (PCR) Not Detected (NotDetected) Parainfluenza 1 (PCR) Not Detected (NotDetected) Parainfluenza 2 (PCR) Not Detected (NotDetected) Parainfluenza 3 (PCR) Not Detected (NotDetected) Parainfluenza 4 (PCR) Not Detected (NotDetected) RSV (PCR) Not Detected (NotDetected) Entero/Rhino (PCR) Not Detected (NotDetected) 09/30/21 Range/Units 22:34 WBC (4.8-10.8) K/uL RBC (4.2-5.4) M/uL Hgb (12.0-16.0) g/dL Hct (37-47) % MCV (80-100) fL MCH (25-34) pg MCHC (32-36) g/dL RDW Std Deviation (36.4-46.3) fL RDW Coeff of Esthela (11.5-14.5) % Plt Count (130-400) K/uL Immature Gran % (Auto) % Neut % (Auto) % Lymph % (Auto) % [place] % (Auto) % Eos % (Auto) % Baso % (Auto) % Neut # (Auto) (1.4-6.5) K/uL Lymph # (Auto) (1.2-3.4) K/uL [place] # (Auto) (0.11-0.59) K/uL Eos # (Auto) (0-0.5) K/uL Baso # (Auto) (0-0.2) K/uL Immature Gran # (Auto) (0.00-0.02) K/uL Absolute Nucleated RBC (0-0) K/uL Nucleated RBC % (auto) % Platelet Estimate (Normal) PT (9.0-12.0) Seconds INR (0.9-1.1) APTT (21.0-31.0) Seconds PTT Ratio Sodium (136-145) mmol/L Potassium (3.5-5.1) mmol/L Chloride (98-107) mmol/L Carbon Dioxide (21-32) mmol/L Anion Gap (3-11) BUN (7-18) mg/dl Creatinine (0.6-1.2) mg/dl Est Cr Clr Drug Dosing ml/min Est GFR ( Amer) ml/min Est GFR (Non-Af Amer) ml/min BUN/Creatinine Ratio (10-20) Glucose (70-99) mg/dl Lactate 1.7 (0.4-2.0) mmol/L Calcium (8.5-10.1) mg/dl Magnesium (1.8-2.4) mg/dl Total Bilirubin (0.2-1) mg/dl AST (15-37) U/L ALT (12-78) U/L Alkaline Phosphatase (45-117) U/L Troponin I (0-0.045) ng/ml NT-Pro-B Natriuret Pep (0-900) pg/ml Total Protein (6.4-8.2) gm/dl Albumin (3.4-5.0) gm/dl Globulin (2.5-4.0) gm/dl Albumin/Globulin Ratio (0.9-2) Procalcitonin (0-0.5) ng/ml Adenovirus (PCR) (NotDetected) B. pertussis DNA (PCR) (NotDetected) B.parapertussis DNA PCR (NotDetected) C. pneumoniae DNA (PCR) (NotDetected) Coronavirus OC43 (PCR) (NotDetected) Coronavirus HKU1 (PCR) (NotDetected) Coronavirus 229E (PCR) (NotDetected) COVID-19 Eval Order SARS-CoV-2 (PCR) (NotDetected) Coronavirus NL63 (PCR) (NotDetected) Human Metapneumovir PCR (NotDetected) Influenza Type A (PCR) (NotDetected) Influenza Type B (PCR) (NotDetected) M. pneumoniae (PCR) (NotDetected) Parainfluenza 1 (PCR) (NotDetected) Parainfluenza 2 (PCR) (NotDetected) Parainfluenza 3 (PCR) (NotDetected) Parainfluenza 4 (PCR) (NotDetected) RSV (PCR) (NotDetected) Entero/Rhino (PCR) (NotDetected) Imaging Data My Impression: Chest x-ray: Per my interpretation there is evidence of pulmonary edema ECG Data Attestation: I personally reviewed and interpreted this ECG as follows: Additional Comments: Twelve-lead EKG: Per my interpretation there is a Sinus bradycardia at a rate of 58. First-degree AV block. Right bundle branch block. No ST elevations. Normal QTC. MDM Narrative Patient presents with a nonproductive cough and hypoxia as well as weakness and decreased energy. tested positive for Covid yesterday. She noticed that her pulse ox was low at home. Oxygen saturations here was 76% on room air in triage. This improved with nasal cannula oxygen. The patient's white blood cell count is 2.12. Hemoglobin is 9.9. Platelet count is 95. Potassium is 2.7. BUN is 23 and creatinine is 2.4. Baseline is around 1.6. Lactic acid was negative. Procalcitonin is negative. Troponin is 0.25. BNP is 11,000. The patient was hypotensive when she first came in with a blood pressures in the low 90s. This did drop even lower to the 69/42 during fluid administration. It then improved back to the 90s after receiving about 750 cc of normal saline. The patient was started on dobutamine IV because her chest x-ray shows findings suggesting congestive heart failure with pulmonary edema. Patient was ordered IV potassium 20 mEq as well as p.o. potassium 20 mEq. The patient's bio fire viral panel was all negative. The patient's breathing remained clinically stable and requiring about 4 L of oxygen during her ED stay to keep saturations above 92%. She did not appear to be in any significant respiratory distress. At this time she does not require BiPAP. Impression & Plan Acute cardiac pulmonary edema, Cardiogenic shock Discharge Plan Visit Data Chief Complaint: Shortness of Breath/Dyspnea Stated Complaint: SOB ED Provider: Don Yang Discharge Problem: Acute cardiac pulmonary edema, Cardiogenic shock Patient Disposition: Being Evaluated by Hospitalist Forms Stand Alone Forms: [facility] Prescriptions Prescriptions: No Action (DME) Accu-Chek Hailey Plus test strp Strip See Rx Instructions .ROUTE .MEDSUPPLY Qty: 100 RF: 5 (DME) blood-glucose meter [Accu-Chek Hailey Plus Meter] Misc See Rx Instructions .ROUTE .MEDSUPPLY Qty: 1 RF: 0 (DME) lancets [Accu-Chek Multiclix Lancet] Misc See Rx Instructions .ROUTE .MEDSUPPLY Qty: 100 RF: 5 Eliquis 5 mg tablet 5 mg PO BID Qty: 180 RF: 3 atorvastatin 80 mg tablet 80 mg PO QAM Qty: 90 RF: 3 metoprolol succinate 200 mg tablet extended release 24 hr 200 mg PO QAM Qty: 90 RF: 3 furosemide 40 mg tablet 80 mg PO QAM Qty: 60 RF: 2 Entresto 97-103 mg tablet 1 tab PO BID Qty: 60 RF: 5 amiodarone 200 mg tablet 200 mg PO QAM Qty: 30 RF: 0 aspirin [Aspirin Low Dose] 81 mg Tablet,Delayed Release (Dr/Ec) 81 mg PO QAM RF: 0 pantoprazole 40 mg tablet,delayed release (DR/EC) 40 mg PO DAILY RF: 0 Referrals Referrals: Luis Enrique Velasco DO [Primary Care Provider] -
[2021-09-30] MEDS ORDERED: SODIUM CHLORIDE 0.9% 1000ML 1,000 ML IV SCH (22:30)
[2021-09-30 23:06] LABS: INR 1.1 (0.9-1.1); Partial Thromboplastin Ratio 1.3; Partial Thromboplastin Time 35.2 Seconds (21.0-31.0); Prothrombin Time 11.1 Seconds (9.0-12.0)
[2021-09-30 23:17] LABS: Albumin Level 2.7 gm/dl (3.4-5.0); BUN Creatinine Ratio 9.5 (10-20); Calcium 8.2 mg/dl (8.5-10.1); Creatinine Clr Calc Pharmacy 33.4 ml/min; Est GFR (African American) 25.9 ml/min; Est GFR (Non-African American) 22.3 ml/min; Magnesium 2.1 mg/dl (1.8-2.4); Potassium 2.7 mmol/L (3.5-5.1)
[2021-09-30 23:27] LABS: Hemoglobin 9.9 g/dL (12.0-16.0); Immature Granulocytes # (auto) 0.01 K/uL (0.00-0.02); Immature Granulocytes % (auto) 0.5 %; Lymphocytes # (auto) 0.28 K/uL (1.2-3.4); Lymphocytes % (auto) 13.2 %; Mean Corpuscular Hemoglobin 21.4 pg (25-34); Mean Corpuscular Hgb Conc 28.3 g/dL (32-36); Mean Corpuscular Volume 75.6 fL (80-100); Monocytes # (auto) 0.13 K/uL (0.11-0.59); Monocytes % (auto) 6.1 %; Neutrophils % (auto) 80.2 %; Nucleated RBC # (auto) 0.02 K/uL (0-0); Nucleated RBC % (auto) 0.9 %; Platelet Count 95 K/uL (130-400); Platelet Estimate Decreased (Normal); RDW Coefficient of Variation 19.7 % (11.5-14.5); Red Blood Count 4.63 M/uL (4.2-5.4); White Blood Count 2.12 K/uL (4.8-10.8)
[2021-09-30] MEDS ORDERED: POTASSIUM CHLORIDE 10 MEQ TABCR PO STA (23:29)
[2021-09-30] MEDS ORDERED: STAT IV Infusion **Titration per Protocol STA (23:37)
[2021-09-30 23:40] LABS: Albumin Globulin Ratio 0.8 (0.9-2); Bilirubin,Total 1.2 mg/dl (0.2-1); Globulin 3.3 gm/dl (2.5-4.0); Troponin I 0.25 ng/ml (0-0.045)
[2021-09-30] MEDS: POTASSIUM CHLORIDE / WTR 10 MEQ/100 ML PLCT IV SCH (23:44)
[2021-09-30 23:48] LABS: Adenovirus PCR Not Detected (NotDetected); Bordetella parapertussis PCR Not Detected (NotDetected); Bordetella pertussis PCR Not Detected (NotDetected); Chlamydia pneumoniae PCR Not Detected (NotDetected); Coronavirus 229E PCR Not Detected (NotDetected); Coronavirus CoV-2 (COVID19)PCR Not Detected (NotDetected); Coronavirus HKU1 PCR Not Detected (NotDetected); Coronavirus NL63 PCR Not Detected (NotDetected); Coronavirus OC43PCR Not Detected (NotDetected); Human Metapneumovirus PCR Not Detected (NotDetected); Influenza A PCR Not Detected (NotDetected); Influenza B PCR Not Detected (NotDetected); Mycoplasma pneumoniae PCR Not Detected (NotDetected); Parainfluenza Virus 1 PCR Not Detected (NotDetected); Parainfluenza Virus 2 PCR Not Detected (NotDetected); Parainfluenza Virus 3 PCR Not Detected (NotDetected); Parainfluenza Virus 4 PCR Not Detected (NotDetected); Respiratory Syncytial VirusPCR Not Detected (NotDetected); Rhinovirus/Enterovirus PCR Not Detected (NotDetected)
[2021-09-30] MEDS: DOBUTamine / D5W 500 MG/250 ML BAG IV SCH (23:53)
--- NOTE | 2021-10-01 00:57 | History & Physical Report ---
Date of Service October 01, 2021 Assessment & Plan (1) Acute cardiac pulmonary edema: Plan: 51-year-old female with a past medical history of ischemic cardiomyopathy, coronary disease s/p stent to LAD, A. fib on Eliquis, hypertension, hyperlipidemia, CKD 3 due to type 2 diabetes admitted for acute CHF exacerbation. Hypotension - hypotensive to 69/42 in ER with HR 53 - improved with dobutamine in ER - unknown origin - less likely cardiogenic shock with appropriate cap refill, strong pulses - no source for distributive/septic shock - blood cultures pending. Respiratory biofire negative however with pancytopenia, increased ALT, with COVID19 dx'd yesterday and 5 days of cold symptoms -- 2nd COVID PCR confirmed positive. - possible hypovolemic shock however difficult to fluid resuscitate in setting of CHF exacerbation and bradycardia + hypotension. - ICU transfer for continued pressor management CHF Exacerbation - elevated probnp, pulm edema on CXR - EF 21% on nuc med stress test 01/07 - no peripheral edema - new oxygen req of 4L NC - IV lasix after stabilization of blood pressure - monitor I/O - cardiology consult for severe CHF with LBBB, AICD candidate? COVID19 - symptomatic for 5 days - remdesivir, dexamethasone - high dose anticoagulation - leukopenic, pancytopenic, elevated ALT VIK on CKD - secondary to hypotension - should improve with stabilization of BP, gentle hydration in setting of CHF - Cr up to 2.41 from baseline 1.7 Elevated Troponin - 0.25, no EKG changes - EKG showing RBBB with 1st degree AV block - no complaints of chest pain/pressure - trend trops Pancytopenia - WBC 2.12, Hg 9.7, Plt 95 - most likely due to covid19 infection - notable microcytic anemia with MCV 75 - may benefit from iron supplements/workup after hospitalization Hypokalemia - 2.7 on admission - received 20 meq K PO, 20 meq IV in ER - 40 meq ordered with AM meds - daily CMP Ischemic cardiomyopathy - hold amiodarone, metoprolol, entresto in setting of hypotension - cont statin, asa Afib - apixaban held while on covid anticoagulation - monitor for rate control while holding metoprolol GERD - pantoprazole daily DM2 - SSI, glycemic consult - A1c in AM. 6.2 in February 2021 DVT ppx:weight based lovenox Q12 FEN/GI: heart healthy DM2 diet Bowel regimen: prn Miralax Code Status:full code Dispo: med/tele (2) Type 2 DM with CKD stage 3 and hypertension: (3) Atrial fibrillation: (4) Anemia: (5) S/P coronary artery stent placement: (6) Ischemic cardiomyopathy: (7) CAD (coronary artery disease): (8) Elevated troponin: (9) Hypokalemia: (10) Acute kidney injury superimposed on CKD: (11) Pancytopenia: History of Present Illness Primary Care Provider: Luis Enrique Velasco DO Patient is a 51-year-old female with a past medical history of congestive heart failure with an EF of 25 to 30% brought to the emergency department by her daughter this evening for symptoms of fatigue and lethargy. She states that she has been feeling she is been battling a cold since Saturday the . She states her just got diagnosed with Covid yesterday. She has had a dry Non-productive cough. She denies any fevers or chills, pain with inspiration. She does feel more short of breath than usual. She denies any recent weight gain or peripheral edema. She denies any chest pain, chest tightness, chest pressure. She states that she has just been feeling tired and lethargic all day has been getting progressively worse. She denies any pain or frequency of urination. Allergies Allergy/AdvReac Type Severity Reaction Status Date / Time lisinopril AdvReac Mild Cough Verified 10/01/21 00:10 Home Medications Medication Instructions Recorded Confirmed Type blood sugar diagnostic (Accu-Chek #100 ea 12/11/19 07/29/20 Rx Hailey Plus test strp) blood-glucose meter (Accu-Chek #1 ea 12/11/19 07/29/20 Rx Hailey Plus Meter) lancets (Accu-Chek Multiclix #100 ea 12/11/19 10/01/21 Rx Lancet) aspirin 81 mg tablet,delayed 81 mg PO QAM 12/28/19 10/01/21 History release (Aspirin Low Dose) apixaban 5 mg tablet (Eliquis) 5 mg PO BID #180 tab 11/08/20 10/01/21 Rx atorvastatin 80 mg tablet 80 mg PO QAM #90 tab 01/17/21 10/01/21 Rx metoprolol succinate 200 mg 200 mg PO QAM #90 tab 06/05/21 10/01/21 Rx tablet,extended release 24 hr furosemide 40 mg tablet 80 mg PO QAM #60 tab 08/11/21 10/01/21 Rx sacubitril 97 mg-valsartan 103 mg 1 tab PO BID #60 tab 08/28/21 10/01/21 Rx tablet (Entresto) amiodarone 200 mg tablet 200 mg PO QAM #30 tab 09/25/21 10/01/21 Rx pantoprazole 40 mg tablet,delayed 40 mg PO DAILY 10/01/21 10/01/21 History release Past Med/Surg History Medical History Acute on chronic systolic (congestive) heart failure Anemia Atrial fibrillation dx 12/2018. follows w/ Dr. Gaspar. On eliquis. CAD (coronary artery disease) S/p DAMON to mid LAD 2014 (Per 03/2020 cardio note, 2015 cath also showed 75% dLAD, 20-30% LCx, 20-30% RCA, right posterior lateral artery 90% ostial stenosis, 2nd right posterior lateral artery 50% Cardiomyopathy EF 21% on nuclear images 01/19/20 CHF (congestive heart failure) Chronic anticoagulation CKD stage 3 due to type 2 diabetes mellitus Diabetes DM II (diabetes mellitus, type II), controlled Dyslipidemia HLD (hyperlipidemia) HTN (hypertension) Hx of myocardial infarction 2014 - TREATED AT [facility] Hypokalemia Hypomagnesemia Lower extremity edema Mild acid reflux Persistent atrial fibrillation Surgical History H/O heart artery stent 2014 [place]- [facility] - X1 STENT - DR. GASPAR History of biliary duct stent placement History of ERCP STENT INTACT IN LIVER CURRENTLY History of hysteroscopy Hx laparoscopic cholecystectomy (09/18/19) Laparoscopic Cholecystectomy with Cholangiogram Dr. 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 Beliefs That Will Affect Care: None Current Living Situation: Spouse and Family Current Living Situation Comment: , daughter and grandson current occupational status: employed Other Information That Helps Us Care for You: No Feels Safe at Home: Yes Safety Concerns: Feels Safe At This Time Dental Care, Regularly: Yes Physical Activity Frequency: Does not Exercise Assistive Devices: Oxygen - Continuous Review of Systems Review of Systems: All systems reviewed & are unremarkable except as noted in Subjective Physical Exam Physical Exam: Constitutional: obese, in no apparent distress, laying comfortably in bed. Eyes: EOMI, pupils equal and reactive bilaterally, no scleral icterus Cardiac: bradycardic, 3/6 systolic murmur, <2s cap refill, no jvd Pulm: breathing easily on 4L NC, good air entry bilaterally, decreased air sounds at base R>L, somewhat rhonchorous breath sounds, no crackles or wheezes Abd: soft, nontender, nondistended, normal bowel sounds, no rebound or guarding Extremities: 2+ peripheral pulses, mild pitting edema at ankles BL Neuro: no focal deficits, moving all 4 limbs, A&Ox3 Results & Data Results & Data ([facility]) Vital Signs (Past 12 Hours) Vital Signs Temp Pulse Pulse Resp BP BP Pulse Ox 10/01/21 00:41 90 10/01/21 00:40 62 96/51 L 90 09/30/21 23:16 54 L 77/54 L 95 09/30/21 22:55 54 L 69/42 L 93 09/30/21 22:50 92 09/30/21 22:49 18 92 09/30/21 22:43 92 09/30/21 22:08 36.8 C 70 16 96/68 L 98 Laboratory Results Laboratory Results WBC 2.12 K/uL (4.8-10.8) L 09/30/21 22:29 RBC 4.63 M/uL (4.2-5.4) 09/30/21 22:29 Hgb 9.9 g/dL (12.0-16.0) L 09/30/21 22:29 Hct 35.0 % (37-47) L 09/30/21: MCV 75.6 fL (80-100) L 09/30/21: MCH 21.4 pg (25-34) L 09/30/21: MCHC 28.3 g/dL (32-36) L 09/30/21: RDW Std Deviation 54.0 fL (36.4-46.3) H 09/30/21: RDW Coeff of [place] 19.7 % (11.5-14.5) H 09/30/21: Plt Count 95 K/uL (130-400) L 09/30/21: Immature Gran % (Auto) 0.5 % 09/30/21: Neut % (Auto) 80.2 % 09/30/21: Lymph % (Auto) 13.2 % 09/30/21: [place] % (Auto) 6.1 % 09/30/21: Eos % (Auto) 0.0 % 09/30/21 Baso % (Auto) 0.0 % 09/30/21 Neut # (Auto) 1.70 K/uL (1.4-6.5) 09/30/21: Lymph # (Auto) 0.28 K/uL (1.2-3.4) L 09/30/21: [place] # (Auto) 0.13 K/uL (0.11-0.59) 09/30/21: Eos # (Auto) 0.00 K/uL (0-0.5) 09/30/21: Baso # (Auto) 0.00 K/uL (0-0.2) 09/30/21: Immature Gran # (Auto) 0.01 K/uL (0.00-0.02) 09/30/21: Absolute Nucleated RBC 0.02 K/uL (0-0) H 09/30/21: Nucleated RBC % (auto) 0.9 % 09/30/21: Platelet Estimate Decreased (Normal) L 09/30/21: PT 11.1 Seconds (9.0-12.0) 09/30/21: INR 1.1 (0.9-1.1) 09/30/21 22: APTT 35.2 Seconds (21.0-31.0) H 09/30/21: PTT Ratio 1.3 09/30/21 22: Sodium 137 mmol/L (136-145) 09/30/21 22: Potassium 2.7 mmol/L (3.5-5.1) L 09/30/21 22: Chloride 101 mmol/L (98-107) 09/30/21: Carbon Dioxide 24 mmol/L (21-32) 09/30/21: Anion Gap 12.0 (3-11) H 09/30/21: BUN 23 mg/dl (7-18) H 09/30/21: Creatinine 2.41 mg/dl (0.6-1.2) H 09/30/21: Est Cr Clr Drug Dosing 33.4 ml/min 09/30/21 22: Est GFR ( Amer) 25.9 ml/min 09/30/21: Est GFR (Non-Af Amer) 22.3 ml/min 09/30/21 22: BUN/Creatinine Ratio 9.5 (10-20) L 09/30/21: Glucose 111 mg/dl (70-99) H 09/30/21: Lactate 1.7 mmol/L (0.4-2.0) 09/30/21: Calcium 8.2 mg/dl (8.5-10.1) L 09/30/21: Magnesium 2.1 mg/dl (1.8-2.4) 09/30/21: Total Bilirubin 1.2 mg/dl (0.2-1) H 09/30/21 22: AST 128 U/L (15-37) H 09/30/21 22: ALT 67 U/L (12-78) 09/30/21: Alkaline Phosphatase 70 U/L (45-117) 09/30/21 22: Troponin I 0.250 ng/ml (0-0.045) H* 09/30/21 22: NT-Pro-B Natriuret Pep 45035 pg/ml (0-900) H 09/30/21 22: Total Protein 6.0 gm/dl (6.4-8.2) L 09/30/21 22: Albumin 2.7 gm/dl (3.4-5.0) L 09/30/21 22: Globulin 3.3 gm/dl (2.5-4.0) 09/30/21 22:29 Albumin/Globulin Ratio 0.8 (0.9-2) L 09/30/21 22: Procalcitonin 0.06 ng/ml (0-0.5) 09/30/21 22:29 Adenovirus (PCR) Not Detected (NotDetected) 09/30/21 22:30 B. pertussis DNA (PCR) Not Detected (NotDetected) 09/30/21 22:30 B.parapertussis DNA PCR Not Detected (NotDetected) 09/30/21 22:30 C. pneumoniae DNA (PCR) Not Detected (NotDetected) 09/30/21 22:30 Coronavirus OC43 (PCR) Not Detected (NotDetected) 09/30/21 22:30 Coronavirus HKU1 (PCR) Not Detected (NotDetected) 09/30/21 22:30 Coronavirus 229E (PCR) Not Detected (NotDetected) 09/30/21 22:30 COVID-19 Eval Order RESPNP at [facility] 09/30/21 22:30 SARS-CoV-2 (PCR) Not Detected (NotDetected) 09/30/21 22:30 Coronavirus NL63 (PCR) Not Detected (NotDetected) 09/30/21 22:30 Human Metapneumovir PCR Not Detected (NotDetected) 09/30/21 22:30 Influenza Type A (PCR) Not Detected (NotDetected) 09/30/21 22:30 Influenza Type B (PCR) Not Detected (NotDetected) 09/30/21 22:30 M. pneumoniae (PCR) Not Detected (NotDetected) 09/30/21 22:30 Parainfluenza 1 (PCR) Not Detected (NotDetected) 09/30/21 22:30 Parainfluenza 2 (PCR) Not Detected (NotDetected) 09/30/21 22:30 Parainfluenza 3 (PCR) Not Detected (NotDetected) 09/30/21 22:30 Parainfluenza 4 (PCR) Not Detected (NotDetected) 09/30/21 22:30 RSV (PCR) Not Detected (NotDetected) 09/30/21 22:30 Entero/Rhino (PCR) Not Detected (NotDetected) 09/30/21 22:30 Critical Care Time 50 minutes Supervising Physician Co-Signing Physician Notes Attending addendum: I have physically seen this patient, have supervised the medical residents activities, and agree with the H&P unless as otherwise noted. Assessment and Plan: Acute pulmonary edema/HFrEF exacerbation/acute respiratory failure with hypoxia/elevated troponin/borderline bradycardia- The patient will be admitted to the ICU for serial cardiac enzymes, serial EKG's, cardiac rhythm monitoring and a 2-D echocardiogram with Dopplers. Continue dobutamine begun in the ED for now Hold on Lasix until blood pressure stabilized and improved Serial laboratories: CBC with differential, chemistry profile and magnesium level Consult cardiology and die reamer COVID-19 pneumonia with hypoxia- Combining with HFrEF exacerbation as cause of acute respiratory with hypoxia Dexamethasone 6 mg IV every morning Remdesivir IV per protocol Duonebs every 4 hours while awake and every 2 hours when necessary. Guaifenesin extended release 12 mg p.o. twice daily Azithromycin 500 mg IV daily Consulting pulmonology/die reamer Remaining orders and notations as noted (1) CAD (coronary artery disease) Associated angina: without angina Coronary Disease-Associated Artery/Lesion type: [place] artery [place] vs. transplanted heart: [place] heart Qualified Code(s): I25.10 - Atherosclerotic heart disease of [place] coronary artery without angina pectoris
[2021-10-01] MEDS: POTASSIUM CHLORIDE / WTR 10 MEQ/100 ML PLCT IV SCH (01:14)
[2021-10-01 02:01] LABS: Echinocytes 2+; Ovalocytes 1+
[2021-10-01] MEDS ORDERED: POLYETHYLENE (MIRALAX) 17 GM PACK PO PRN (03:51)
[2021-10-01] MEDS ORDERED: ONDANSETRON INJ 2 MG/ML 2 ML VIAL IV PRN (03:51)
[2021-10-01] MEDS ORDERED: ACETAMINOPHEN 325 MG TAB PO PRN (03:51)
[2021-10-01] MEDS ORDERED: NITROGLYCERIN SL 0.4 MG/TAB TAB SL PRN (03:51)
[2021-10-01] MEDS ORDERED: ALBUTEROL HFA 8 GM INHALER INH PRN (04:24)
[2021-10-01] MEDS ORDERED: STAT IV Infusion **Titration per Protocol STA (04:59)
[2021-10-01] MEDS ORDERED: REMDESIVIR 200 MG in SODIUM CHLORIDE 0.9% 210 ML IV ONE (05:00)
--- NOTE | 2021-10-01 05:02 | Critical Care Consultation ---
Date of Consultation October 01, 2021 History of Present Illness Attending Physician: Russ Taylor MD Allergies Allergy/AdvReac Type Severity Reaction Status Date / Time lisinopril AdvReac Mild Cough Verified 10/01/21 00:10 Home Medications Medication Instructions Recorded Confirmed Type blood sugar diagnostic (Accu-Chek #100 ea 12/11/19 07/29/20 Rx Hailey Plus test strp) blood-glucose meter (Accu-Chek #1 ea 12/11/19 07/29/20 Rx Hailey Plus Meter) lancets (Accu-Chek Multiclix #100 ea 12/11/19 10/01/21 Rx Lancet) aspirin 81 mg tablet,delayed 81 mg PO QAM 12/28/19 10/01/21 History release (Aspirin Low Dose) apixaban 5 mg tablet (Eliquis) 5 mg PO BID #180 tab 11/08/20 10/01/21 Rx atorvastatin 80 mg tablet 80 mg PO QAM #90 tab 01/17/21 10/01/21 Rx metoprolol succinate 200 mg 200 mg PO QAM #90 tab 06/05/21 10/01/21 Rx tablet,extended release 24 hr furosemide 40 mg tablet 80 mg PO QAM #60 tab 08/11/21 10/01/21 Rx sacubitril 97 mg-valsartan 103 mg 1 tab PO BID #60 tab 08/28/21 10/01/21 Rx tablet (Entresto) amiodarone 200 mg tablet 200 mg PO QAM #30 tab 09/25/21 10/01/21 Rx pantoprazole 40 mg tablet,delayed 40 mg PO DAILY 10/01/21 10/01/21 History release Patient History Medical History Acute on chronic systolic (congestive) heart failure Anemia Atrial fibrillation dx 12/2018. follows w/ Dr. Gaspar. On eliquis. CAD (coronary artery disease) S/p DAMON to mid LAD 2014 (Per 03/2020 cardio note, 2015 cath also showed 75% dLAD, 20-30% LCx, 20-30% RCA, right posterior lateral artery 90% ostial stenosis, 2nd right posterior lateral artery 50% Cardiomyopathy EF 21% on nuclear images 01/19/20 CHF (congestive heart failure) Chronic anticoagulation CKD stage 3 due to type 2 diabetes mellitus Diabetes DM II (diabetes mellitus, type II), controlled Dyslipidemia HLD (hyperlipidemia) HTN (hypertension) Hx of myocardial infarction 2015 - TREATED AT [facility] Hypokalemia Hypomagnesemia Lower extremity edema Mild acid reflux Persistent atrial fibrillation Surgical History H/O heart artery stent 2014 [place]- [facility] - X1 STENT - DR. GASPAR History of biliary duct stent placement History of ERCP STENT INTACT IN LIVER CURRENTLY History of hysteroscopy Hx laparoscopic cholecystectomy (09/18/19) Laparoscopic Cholecystectomy with Cholangiogram Dr. Soto 09/18/19 Family History Grandmother (Maternal) Breast cancer Brother Diabetes Heart disease Father Diabetes Hypertension Mother Hypertension Social History Smoking Status: Never smoker Second Hand Exposure: Yes ( A CHILD); Hx Alcohol Use: No Hx Substance Use: No Preferred Language: Micronesian Communication Ability: Effective Electrotype Servicer Required: No Beliefs That Will Affect Care: None Current Living Situation: Spouse and Family Current Living Situation Comment: , daughter and grandson current occupational status: employed Other Information That Helps Us Care for You: No Feels Safe at Home: Yes Safety Concerns: Feels Safe At This Time Dental Care, Regularly: Yes Physical Activity Frequency: Does not Exercise Assistive Devices: Glasses Results & Data Results & Data ([facility]) Vital Signs (Past 12 Hours) Vital Signs Temp Pulse Pulse Resp BP BP Pulse Ox 10/01/21 04:30 73 25 H 92/52 L 92 10/01/21 04:23 93 10/01/21 04:18 74 26 H 112/48 L 94 10/01/21 03:51 10/01/21 03:30 36.9 C 76 18 94/56 L 92 10/01/21 03:02 75 90/46 L 90 10/01/21 01:47 70 90/49 L 91 10/01/21 01:44 108 H 94 10/01/21 01:40 71 29 H 92 10/01/21 01:20 70 20 88 L 10/01/21 01:17 68 91/46 L 90 10/01/21 01:10 62 25 H 89 L 10/01/21 01:06 89 L 10/01/21 00:50 64 19 87 L 10/01/21 00:41 90 10/01/21 00:40 62 62 29 H 96/51 L 90 10/01/21 00:30 63 25 H 92 10/01/21 00:20 64 19 92 10/01/21 00:10 64 26 H 91 10/01/21 00:00 53 L 14 93 09/30/21 23:50 54 L 16 96 09/30/21 23:40 62 23 93 09/30/21 23:30 54 L 32 H 93/55 L 95 09/30/21 23:20 53 L 12 94 09/30/21 23:16 54 L 77/54 L 95 09/30/21 23:10 57 L 19 92 09/30/21 23:00 53 L 12 83/49 L 94 09/30/21 22:55 54 L 69/42 L 93 09/30/21 22:50 51 L 18 93 09/30/21 22:49 18 92 09/30/21 22:43 92 09/30/21 22:40 54 L 16 09/30/21 22:39 54 L 14 09/30/21 22:08 36.8 C 70 16 96/68 L 98 Pulse Ox 10/01/21 04:30 10/01/21 04:23 10/01/21 04:18 10/01/21 03:51 92 10/01/21 03:30 10/01/21 03:02 10/01/21 01:47 10/01/21 01:44 10/01/21 01:40 10/01/21 01:20 10/01/21 01:17 10/01/21 01:10 10/01/21 01:06 10/01/21 00:50 10/01/21 00:41 10/01/21 00:40 10/01/21 00:30 10/01/21 00:20 10/01/21 00:10 10/01/21 00:00 09/30/21 23:50 09/30/21 23:40 09/30/21 23:30 09/30/21 23:20 09/30/21 23:16 09/30/21 23:10 09/30/21 23:00 09/30/21 22:55 09/30/21 22:50 09/30/21 22:49 09/30/21 22:43 09/30/21 22:40 09/30/21 22:39 09/30/21 22:08 Coding
[2021-10-01] MEDS ORDERED: GLUCAGON FOR INJ 1 MG VIAL SQ PRN (05:15)
[2021-10-01] MEDS ORDERED: DEXTROSE 50% 50 ML SYRINGE IV PRN (05:15)
[2021-10-01] MEDS ORDERED: GLUCOSE 10 TABS/TUBE PO PRN (05:15)
[2021-10-01] MEDS ORDERED: PHARMACY GLYCEMIC MGMT CONSULT PRN (05:15)
[2021-10-01] MEDS ORDERED: GLUCOSE 40% GEL 15 GM TUBE PO PRN (05:15)
[2021-10-01] MEDS ORDERED: CARBOHYDRATES FOR HYPOGLYCEMIA PO PRN (05:15)
[2021-10-01] MEDS: NOREPINEPHRINE/D5W 8 MG/508 ML BAG IV SCH (05:27)
[2021-10-01] MEDS ORDERED: ENOXAPARIN INJ 60 MG/0.6 ML SYR SQ SCH (06:00)
[2021-10-01 06:47] LABS: Albumin Level 2.3 gm/dl (3.4-5.0); BUN Creatinine Ratio 10.5 (10-20); Calcium 7.8 mg/dl (8.5-10.1); Creatinine Clr Calc Pharmacy 37.6 ml/min; Est GFR (African American) 29.7 ml/min; Est GFR (Non-African American) 25.7 ml/min; Potassium 2.8 mmol/L (3.5-5.1)
[2021-10-01 06:50] LABS: Albumin Globulin Ratio 0.8 (0.9-2); Globulin 2.9 gm/dl (2.5-4.0); Total Protein 5.2 gm/dl (6.4-8.2)
--- NOTE | 2021-10-01 06:56 | XRay Report ---
XR chest 1V portable CLINICAL HISTORY: SEPSIS. Difficulty breathing COMPARISON STUDY: No previous studies for comparison. TECHNIQUE: 1 view of the chest FINDINGS: Single frontal view of the chest demonstrates the heart to be enlarged. Patchy interstitial and alveo lar opacities are present bilaterally. The findings are most characteristic of a viral type pneumonit is. Covid 19 pneumonia should be excluded. There is no evidence for pleural effusion. There is no doris dence for vascular congestion. There is no acute osseous pathology. IMPRESSION: Patchy interstitial and alveolar opacities bilaterally characteristic of a viral type pne umonitis and probable Covid 19 pneumonia. ACT 112: Negative or not required by law. Electronically signed by: Kirit Kaufman M.D. 10/01/2021 6:55 AM
[2021-10-01 07:18] LABS: Hematocrit (blood only) 31.9 % (37-47); Immature Granulocytes # (auto) 0.01 K/uL (0.00-0.02); Immature Granulocytes % (auto) 0.5 %; Lymphocytes # (auto) 0.27 K/uL (1.2-3.4); Lymphocytes % (auto) 14.4 %; Mean Corpuscular Hemoglobin 21.4 pg (25-34); Mean Corpuscular Hgb Conc 28.2 g/dL (32-36); Mean Corpuscular Volume 75.8 fL (80-100); Mean Platelet Volume 9.8 fL (7.4-10.4); Monocytes # (auto) 0.14 K/uL (0.11-0.59); Monocytes % (auto) 7.4 %; Neutrophils # (auto) 1.46 K/uL (1.4-6.5); Neutrophils % (auto) 77.7 %; Platelet Count 84 K/uL (130-400); RDW Coefficient of Variation 19.7 % (11.5-14.5); RDW Standard Deviation 54.4 fL (36.4-46.3); Red Blood Count 4.21 M/uL (4.2-5.4); White Blood Count 1.88 K/uL (4.8-10.8)
--- NOTE | 2021-10-01 07:32 | Pharmacy Report ---
Pharmacy Glycemic Short Note 2 - Date of Service October 01, 2021 - Glycemic Short BSG Results (Last 24 hours): 09/30/21 10/01/21 22:29 05:47 Glucose 111 H 88 OUTPATIENT ANTIDIABETIC REGIMEN: * N/A; patient states that she was on Lantus + metformin in the past but is not currently taking anything * A1c = 6.2% on 03/09/21 * Repeat A1c pending for 10/02/21 w/ AM labs ASSESSMENT: * 51yo T2DM female (diet controlled) with presumed adequate outpatient control based on admitting BSGs and previous A1c. Updated A1c pending for tomorrow * Pt with multiple risk factors for insulin resistance/hyperglycemia including: critical illness, steroids with dexamethasone, obesity and baseline insulin resistance * Will start with NovoLog CF monotherapy and add CR if BSG >140. Will add weight based NPH to cover dexamethasone if BSG >150 * Titrate to maintain BSGs in the 110-140 mg/dl range. More stringent target chosen for baseline tight control and young age. PLAN FOR INPATIENT GLYCEMIC CONTROL: * Basal insulin * n/a; will start weight based NPH if BSG > 150 * Bolus insulin * NovoLog per scale ACHS or Q6hrs while NPO * Goal Range: Low 110 mg/dL - High 140 mg/dL * Correction Factor: 20 mg/dL/unit * Nutritional / Prandial insulin per carb ratio of 1 unit per -- grams CHO consumed PLAN FOR DISCHARGE: * TBD Pending A1c
[2021-10-01] MEDS: INSULIN ASPART 100 UNITS/ML 3 ML PEN SC SCH ×4 (08:25→22:15)
[2021-10-01] MEDS: DOBUTamine / D5W 500 MG/250 ML BAG IV SCH (08:27)
[2021-10-01] MEDS: dexAMETHasone 6 MG in SYRINGE 0 ML IV SCH (08:48)
[2021-10-01] MEDS: ATORVASTATIN 40 MG TAB PO SCH (08:48)
[2021-10-01] MEDS: PANTOprazole 40 MG TAB PO SCH (08:48)
[2021-10-01] MEDS: ASPIRIN 81 MG ECTAB PO SCH (08:48)
--- NOTE | 2021-10-01 09:50 | Critical Care Consultation ---
Date of Consultation October 01, 2021 Assessment & Plan (1) Cardiogenic shock: (2) Hypokalemia: (3) Acute kidney injury superimposed on CKD: (4) Pancytopenia: (5) Elevated troponin: (6) Acute cardiac pulmonary edema: (7) COVID: Impression: 51-year-old female admitted with CHF exacerbation and hypotension with normal lactate. She had concomitant acute kidney injury and markedly elevated BNP level with low level of troponin. She is chest pain-free. Covid testing initially was negative but follow-up testing was positive. She is on a small amount of oxygen. Its unclear how much of her chest x-ray is attributable to fluid overload and how much may be secondary to Covid pneumon itis. Recommendations: 1. Neurologic: No current issues. Continue to follow clinically. 2. Cardiovascular: CHF exacerbation. Unclear if this is related to COVID or not. We will wean Levophed as tolerated and try and defend systolic blood pressure of 90 given her reduced EF. Repeat echocardiogram and cardiology consultation of been ordered. The patient does have a history of atrial fibrill ation is anticoagulated on apixaban in the outpatient setting. Continue diuresis. Continue apixaban prophylaxis. It is reassuring that her lactate is normal 3. Pulmonary: Diffuse pulmonary infiltrates. Unclear how much could be related to infectious etiologies such as Covid or how much is noninfectious including etiologies such as heart failure. Continue to wean oxygen as tolerated. 4. Renal: Acute renal failure: Baseline creatinine appears to be about 1.6. She was elevated but appears to be decreasing. We will continue to follow closely. Given her clinical improvement, will hold off on renal ultrasound electrolytes fractional excretion of urea and nephrology consultation. Acid- base status is acceptable. Electrolytes will be repleted. 5. GI: No acute issues. Diet as tolerated. No indication for prophylaxis. 6. Heme-onc: Pancytopenia of unclear etiology. This was present back in February. She been on iron supplementation in the past. There were a few nucleated red blood cells circulating, suggestive of possible underlying myelodysplastic syndrome. We will request hematology evaluation given the progressive nature of her cytopenias. Hold on transfusion for now. Prior iron studies performed in February showed a low iron level with a very low ferritin. Discontinue Lovenox and continue apixaban 7. ID: Negative procalcitonin. Initial Covid test negative however follow-up was positive. She is hypoxemic so technically meets criteria for dexamethasone although again it is unclear how much could be related to Covid and how much could be related to heart failure. Seems reasonable to continue steroids for now. No indication for other adjuvant immune suppression currently. She was started on remdesivir. There is no data that this will change the patient's overall outcome however given the fairly abrupt onset of symptoms and inability to exclude Covid as a potential etiology, it seems reasonable to continue for now. 8. Endocrine: Glycemic control per protocol. Patient is critically ill at this point in time with possibility of clinical deterioration. 45 minutes critical care time. Discussed with patient at bedside as well as critical care nurse at bedside. We will follow closely. If the patient is able to wean off of pressors, she can likely be transferred out of the intensive care unit. History of Present Illness Attending Physician: Jacky Pena DO History of Present Illness Asked by admitting hospitalist to assist in critical care management this patient admitted with heart failure hypotension and Covid pneumonia. History is obtained from reviewed electronic medical record as well as discussion with the patient. Patient is a 51-year-old female with a history of heart failure followed in the heart failure clinic and by Dr. Gaspar. She presented to the emergency room early this morning with fatigue and lethargy. recently diagnosed with Covid as well. She is found to be hypotensive in the emergency room and was initially initiated on dobutamine which was then transitioned to Levophed. She states she is coughing a little bit. She is not had fevers chills or night sweats. She does not feel that she is having increased work of breathing and is saturating well on 4 L nasal cannula. She does not use oxygen at home. She denies any chest pain or palpitations and has not noted significant lower extremity edema. No syncope or presyncope. Allergies Allergy/AdvReac Type Severity Reaction Status Date / Time lisinopril AdvReac Mild Cough Verified 10/01/21 00:10 Home Medications Medication Instructions Recorded Confirmed Type blood sugar diagnostic (Accu-Chek #100 ea 12/11/19 07/29/20 Rx Hailey Plus test strp) blood-glucose meter (Accu-Chek #1 ea 12/11/19 07/29/20 Rx Hailey Plus Meter) lancets (Accu-Chek Multiclix #100 ea 12/11/19 10/01/21 Rx Lancet) aspirin 81 mg tablet,delayed 81 mg PO QAM 12/28/19 10/01/21 History release (Aspirin Low Dose) apixaban 5 mg tablet (Eliquis) 5 mg PO BID #180 tab 11/08/20 10/01/21 Rx atorvastatin 80 mg tablet 80 mg PO QAM #90 tab 01/17/21 10/01/21 Rx metoprolol succinate 200 mg 200 mg PO QAM #90 tab 06/05/21 10/01/21 Rx tablet,extended release 24 hr furosemide 40 mg tablet 80 mg PO QAM #60 tab 08/11/21 10/01/21 Rx sacubitril 97 mg-valsartan 103 mg 1 tab PO BID #60 tab 08/28/21 10/01/21 Rx tablet (Entresto) amiodarone 200 mg tablet 200 mg PO QAM #30 tab 09/25/21 10/01/21 Rx pantoprazole 40 mg tablet,delayed 40 mg PO DAILY 10/01/21 10/01/21 History release Patient History Medical History Acute on chronic systolic (congestive) heart failure Anemia Atrial fibrillation dx 12/2018. follows w/ Dr. Gaspar. On eliquis. CAD (coronary artery disease) S/p DAMON to mid LAD 2014 (Per 03/2020 cardio note, 2015 cath also showed 75% dLAD, 20-30% LCx, 20-30% RCA, right posterior lateral artery 90% ostial stenosis, 2nd right posterior lateral artery 50% Cardiomyopathy EF 21% on nuclear images 01/19/20 CHF (congestive heart failure) Chronic anticoagulation CKD stage 3 due to type 2 diabetes mellitus Diabetes DM II (diabetes mellitus, type II), controlled Dyslipidemia HLD (hyperlipidemia) HTN (hypertension) Hx of myocardial infarction 2014 - TREATED AT [facility] Hypokalemia Hypomagnesemia Lower extremity edema Mild acid reflux Persistent atrial fibrillation Surgical History H/O heart artery stent 2014 [facility] - X1 STENT - DR. GASPAR History of biliary duct stent placement History of ERCP STENT INTACT IN LIVER CURRENTLY History of hysteroscopy Hx laparoscopic cholecystectomy (09/18/19) Laparoscopic Cholecystectomy with Cholangiogram Dr. Soto 09/18/19 Family History Grandmother (Maternal) Breast cancer Brother Diabetes Heart disease Father Diabetes Hypertension Mother Hypertension Social History Smoking Status: Never smoker Second Hand Exposure: Yes ( A CHILD); Hx Alcohol Use: No Hx Substance Use: No Preferred Language: Irish Communication Ability: Effective Bicycle Subassembler Required: No Beliefs That Will Affect Care: None Current Living Situation: Spouse and Family Current Living Situation Comment: , daughter and grandson current occupational status: employed Other Information That Helps Us Care for You: No Feels Safe at Home: Yes Safety Concerns: Feels Safe At This Time Dental Care, Regularly: Yes Physical Activity Frequency: Does not Exercise Assistive Devices: Oxygen - Continuous Review of Systems Review of Systems: Per admission H&P Physical Exam Constitutional: WD/WN, vitals as above Neck: trachea midline, no thyromegaly Respiratory: normal respiratory effort; no respiratory distress, no labored breathing and not tachypneic Auscultation: + rales Cardiovascular: RRR, no murmur, no edema Gastrointestinal (Abdomen): normal bowel sounds, soft, nontender, no hepatosplenomegaly Musculoskeletal: Extremities: extremities normal to inspection Skin: no rashes, warm and dry Neurologic: Nonfocal exam Lymphatic: no cervical lymphadenopathy Results & Data Results & Data ([facility]) Vital Signs (Past 12 Hours) Vital Signs Temp Pulse Pulse Resp BP BP Pulse Ox 10/01/21 08:13 36.8 C 10/01/21 08:00 57 L 21 124/67 94 10/01/21 07:30 66 18 97 10/01/21 07:00 69 18 93 10/01/21 06:30 67 21 95 10/01/21 06:10 68 27 H 110/62 92 10/01/21 06:00 66 23 94 10/01/21 05:50 70 21 107/54 L 94 10/01/21 05:40 69 22 112/61 95 10/01/21 05:30 73 21 102/53 L 94 10/01/21 05:20 73 23 90/52 L 93 10/01/21 05:10 72 24 92 10/01/21 05:00 71 24 93 10/01/21 04:50 79 28 H 87/50 L 91 10/01/21 04:40 79 23 92/52 L 96 10/01/21 04:30 73 25 H 92/52 L 92 10/01/21 04:23 74 93 10/01/21 04:18 74 26 H 112/48 L 94 10/01/21 03:51 10/01/21 03:30 36.9 C 76 18 94/56 L 92 10/01/21 03:02 75 90/46 L 90 10/01/21 01:47 70 90/49 L 91 10/01/21 01:44 108 H 94 10/01/21 01:40 71 29 H 92 10/01/21 01:20 70 20 88 L 10/01/21 01:17 68 91/46 L 90 10/01/21 01:10 62 25 H 89 L 10/01/21 01:06 89 L 10/01/21 00:50 64 19 87 L 10/01/21 00:41 90 10/01/21 00:40 62 62 29 H 96/51 L 90 10/01/21 00:30 63 25 H 92 10/01/21 00:20 64 19 92 10/01/21 00:10 64 26 H 91 10/01/21 00:00 53 L 14 93 09/30/21 23:50 54 L 16 96 09/30/21 23:40 62 23 93 09/30/21 23:30 54 L 32 H 93/55 L 95 09/30/21 23:20 53 L 12 94 09/30/21 23:16 54 L 77/54 L 95 09/30/21 23:10 57 L 19 92 09/30/21 23:00 53 L 12 83/49 L 94 09/30/21 22:55 54 L 69/42 L 93 09/30/21 22:50 51 L 18 93 09/30/21 22:49 18 92 09/30/21 22:43 92 09/30/21 22:40 54 L 16 09/30/21 22:39 54 L 14 09/30/21 22:08 36.8 C 70 16 96/68 L 98 Pulse Ox 10/01/21 08:13 10/01/21 08:00 10/01/21 07:30 10/01/21 07:00 10/01/21 06:30 10/01/21 06:10 10/01/21 06:00 10/01/21 05:50 10/01/21 05:40 10/01/21 05:30 10/01/21 05:20 10/01/21 05:10 10/01/21 05:00 10/01/21 04:50 10/01/21 04:40 10/01/21 04:30 10/01/21 04:23 10/01/21 04:18 10/01/21 03:51 92 10/01/21 03:30 10/01/21 03:02 10/01/21 01:47 10/01/21 01:44 10/01/21 01:40 10/01/21 01:20 10/01/21 01:17 10/01/21 01:10 10/01/21 01:06 10/01/21 00:50 10/01/21 00:41 10/01/21 00:40 10/01/21 00:30 10/01/21 00:20 10/01/21 00:10 10/01/21 00:00 09/30/21 23:50 09/30/21 23:40 09/30/21 23:30 09/30/21 23:20 09/30/21 23:16 09/30/21 23:10 09/30/21 23:00 09/30/21 22:55 09/30/21 22:50 09/30/21 22:49 09/30/21 22:43 09/30/21 22:40 09/30/21 22:39 09/30/21 22:08 Laboratory Results Initial troponin 0 0.250 down to 0.216 BNP 11,000 Procalcitonin 0.06 Initial bio fire negative however follow-up Covid testing was positive. Lactate normal at 1.7 Diagnostic Findings Patient's last echocardiogram performed June 2020 showed an EF of 25 to 30% with mild mitral regurgitation moderate TR and severe global hypokinesis of the left ventricle with apical akinesis. Critical Care Results & Data Vital Signs (Past 12 Hours) Vital Signs Temp Pulse Pulse Resp BP BP Pulse Ox 10/01/21 08:13 36.8 C 10/01/21 08:00 57 L 21 124/67 94 10/01/21 07:30 66 18 97 10/01/21 07:00 69 18 93 10/01/21 06:30 67 21 95 10/01/21 06:10 68 27 H 110/62 92 10/01/21 06:00 66 23 94 10/01/21 05:50 70 21 107/54 L 94 10/01/21 05:40 69 22 112/61 95 10/01/21 05:30 73 21 102/53 L 94 10/01/21 05:20 73 23 90/52 L 93 10/01/21 05:10 72 24 92 10/01/21 05:00 71 24 93 10/01/21 04:50 79 28 H 87/50 L 91 10/01/21 04:40 79 23 92/52 L 96 10/01/21 04:30 73 25 H 92/52 L 92 10/01/21 04:23 74 93 10/01/21 04:18 74 26 H 112/48 L 94 10/01/21 03:51 10/01/21 03:30 36.9 C 76 18 94/56 L 92 10/01/21 03:02 75 90/46 L 90 10/01/21 01:47 70 90/49 L 91 10/01/21 01:44 108 H 94 10/01/21 01:40 71 29 H 92 10/01/21 01:20 70 20 88 L 10/01/21 01:17 68 91/46 L 90 10/01/21 01:10 62 25 H 89 L 10/01/21 01:06 89 L 10/01/21 00:50 64 19 87 L 10/01/21 00:41 90 10/01/21 00:40 62 62 29 H 96/51 L 90 10/01/21 00:30 63 25 H 92 10/01/21 00:20 64 19 92 10/01/21 00:10 64 26 H 91 10/01/21 00:00 53 L 14 93 09/30/21 23:50 54 L 16 96 09/30/21 23:40 62 23 93 09/30/21 23:30 54 L 32 H 93/55 L 95 09/30/21 23:20 53 L 12 94 09/30/21 23:16 54 L 77/54 L 95 09/30/21 23:10 57 L 19 92 09/30/21 23:00 53 L 12 83/49 L 94 09/30/21 22:55 54 L 69/42 L 93 09/30/21 22:50 51 L 18 93 09/30/21 22:49 18 92 09/30/21 22:43 92 09/30/21 22:40 54 L 16 09/30/21 22:39 54 L 14 09/30/21 22:08 36.8 C 70 16 96/68 L 98 Pulse Ox 10/01/21 08:13 10/01/21 08:00 10/01/21 07:30 10/01/21 07:00 10/01/21 06:30 10/01/21 06:10 10/01/21 06:00 10/01/21 05:50 10/01/21 05:40 10/01/21 05:30 10/01/21 05:20 10/01/21 05:10 10/01/21 05:00 10/01/21 04:50 10/01/21 04:40 10/01/21 04:30 10/01/21 04:23 10/01/21 04:18 10/01/21 03:51 92 10/01/21 03:30 10/01/21 03:02 10/01/21 01:47 10/01/21 01:44 10/01/21 01:40 10/01/21 01:20 10/01/21 01:17 10/01/21 01:10 10/01/21 01:06 10/01/21 00:50 10/01/21 00:41 10/01/21 00:40 10/01/21 00:30 10/01/21 00:20 10/01/21 00:10 10/01/21 00:00 09/30/21 23:50 09/30/21 23:40 09/30/21 23:30 09/30/21 23:20 09/30/21 23:16 09/30/21 23:10 09/30/21 23:00 09/30/21 22:55 09/30/21 22:50 09/30/21 22:49 09/30/21 22:43 09/30/21 22:40 09/30/21 22:39 09/30/21 22:08 Lab & Micro Results (Past 24 Hours) RBC 4.21 M/uL (4.2-5.4) 10/01/21 WBC 1.88 K/uL (4.8-10.8) L 10/01/21 Hgb 9.0 g/dL (12.0-16.0) L 10/01/21 Hct 31.9 % (37-47) L 10/01/21 MCV 75.8 fL (80-100) L 10/01/21 MCH 21.4 pg (25-34) L 10/01/21 MCHC 28.2 g/dL (32-36) L 10/01/21 RDW Standard Deviation 54.4 fL (36.4-46.3) H 10/01/21 RDW Coefficient of Variation 19.7 % (11.5-14.5) H 10/01/21 Plt Count 84 K/uL (130-400) L 10/01/21 MPV 9.8 fL (7.4-10.4) 10/01/21 Nucleated Red Blood Cells % (auto) 0.9 % 09/30/21 Nucleated RBC Absolute Count (auto) 0.02 K/uL (0-0) H 09/30/21 Neutrophils (%) (Auto) 77.7 % 10/01/21 Lymphocytes (%) (Auto) 14.4 % 10/01/21 Monocytes # (Auto) 0.14 K/uL (0.11-0.59) 10/01/21 Eosinophils # (Auto) 0.00 K/uL (0-0.5) 10/01/21 Immature Granulocyte % (Auto) 0.5 % 10/01/21 Neutrophils # (Auto) 1.46 K/uL (1.4-6.5) 10/01/21 Lymphocytes # (Auto) 0.27 K/uL (1.2-3.4) L 10/01/21 Monocytes # (Auto) 0.14 K/uL (0.11-0.59) 10/01/21 Eosinophils # (Auto) 0.00 K/uL (0-0.5) 10/01/21 Basophils # (Auto) 0.00 K/uL (0-0.2) 10/01/21 Immature Granulocyte # (Auto) 0.01 K/uL (0.00-0.02) 10/01/21 Echinocytes 2+ 09/30/21 Ovalocytes 1+ 09/30/21 Na 137 mmol/L (136-145) 10/01/21 K 2.8 mmol/L (3.5-5.1) L 10/01/21 Cl 104 mmol/L (98-107) 10/01/21 CO2 25 mmol/L (21-32) 10/01/21 Anion Gap 8.0 (3-11) 10/01/21 BUN 23 mg/dl (7-18) H 10/01/21 Creatinine 2.15 mg/dl (0.6-1.2) H 10/01/21 Estimated GFR ( Amer) 29.7 ml/min 10/01/21 Estimated GFR (Non-Af Amer) 25.7 ml/min 10/01/21 BUN/Creatinine Ratio 10.5 (10-20) 10/01/21 Glu 88 mg/dl (70-99) 10/01/21 Ca 7.8 mg/dl (8.5-10.1) L 10/01/21 Total Bilirubin 1.0 mg/dl (0.2-1) 10/01/21 AST 111 U/L (15-37) H 10/01/21 ALT 58 U/L (12-78) 10/01/21 Alkaline Phosphatase 61 U/L (45-117) 10/01/21 TP 5.2 gm/dl (6.4-8.2) L 10/01/21 Albumin 2.3 gm/dl (3.4-5.0) L 10/01/21 Globulin 2.9 gm/dl (2.5-4.0) 10/01/21 Albumin/Globulin Ratio 0.8 (0.9-2) L 10/01/21 Mg 2.1 mg/dl (1.8-2.4) 09/30/21 22:29 09/30/21 Calcium Level 7.8 mg/dl (8.5-10.1) L 10/01/21 05:47 10/01/21 Prothromb Time International Ratio 1.1 (0.9-1.1) 09/30/21 22:29 09/30/21 Diagnostic Findings (Past 24 Hours) Chest X-Ray 09/30/21 22:27 XR chest 1V portable CLINICAL HISTORY: SEPSIS. Difficulty breathing COMPARISON STUDY: No previous studies for comparison. TECHNIQUE: 1 view of the chest FINDINGS: Single frontal view of the chest demonstrates the heart to be enlarged. Patchy interstitial and alveolar opacities are present bilaterally. The findings are most characteristic of a viral type pneumonitis. Covid 19 pneumonia should be excluded. There is no evidence for pleural effusion. There is no evidence for vascular congestion. There is no acute osseous pathology. IMPRESSION: Patchy interstitial and alveolar opacities bilaterally characteristic of a viral type pneumonitis and probable Covid 19 pneumonia. ACT 112: Negative or not required by law. Electronically signed by: Kirit Kaufman M.D. 10/01/2021 6:55 AM I & O Totals 24 Hours 09/30/21 10/01/21 10/02/21 06:59 06:59 06:59 Intake Total 1449.087 / 1449.087 282.46 / 282.46 Balance 1449.087 / 1449.087 282.46 / 282.46 Cumulative 09/30/21 22:07 thru 10/01/21 08:25 Intake Total 1731.547 Balance 1731.547 RT Ventilator Mngmt (Last Documented) Ventilator Ordered Settings Respiratory Rate 21 10/01/21 08:00 Ventilator - PT Measurements Respiratory Rate 21 Coding Level of Care Code Critical Care 1st 30-74 mins Diagnoses Cardiogenic shock R57.0 Hypokalemia E87.6 Acute kidney injury superimposed on CKD N17.9; N18.9 Pancytopenia D61.818 Elevated troponin R77.8 Acute cardiac pulmonary edema I50.1 COVID U07.1 Time Spent (min) 45
[2021-10-01] MEDS ORDERED: FUROSEMIDE INJ 20 MG/2 ML VIAL IV SCH (11:15)
[2021-10-01] MEDS ORDERED: CALCIUM GLUCONATE 10% 2,000 MG in SODIUM CHLORIDE 0.9% 50 ML IV ONE (11:30)
[2021-10-01] MEDS: SODIUM CHLORIDE 0.9% 10ML FLUSH IV SCH (11:55)
[2021-10-01] MEDS ORDERED: INSULIN HUMAN NPH SC SCH (12:00)
--- NOTE | 2021-10-01 13:54 | History & Physical Bridge Note ---
Date of Service October 01, 2021 History & Physical Bridge Note I have examined the patient, reviewed the History & Physical and in the interval since the performance of the History & Physical I have noted the following changes of clinical significance: patient admitted after midnight she is now on Levophed, dobutamine stopped, she is sitting at the edge of the bed on low flow nasal canula, no distress no chest pain, no fever awaiting echocardiogram report, was done this morning appreciate consultation from Dr. Cunha and management as she is ICU status she has a dry cough she says her breathing is a little better however, she says she has not made any urine since this morning discussed that we are treating COVID with dexamethasone and Remdesivir could be heart failure or combination of both check labs in AM and follow up on echo report remain in ICU status as she remains on Levophed
--- NOTE | 2021-10-01 17:21 | Cardiology Consultation ---
Date of Consultation October 01, 2021 Assessment & Plan (1) Chronic systolic CHF (congestive heart failure): (2) Shock: (3) COVID: (4) Elevated troponin: (5) Cardiomyopathy: (6) CAD (coronary artery disease): (7) Chronic anticoagulation: (8) S/P coronary artery stent placement: (9) Pancytopenia: (10) Paroxysmal atrial fibrillation: ASSESSMENT/PLAN: 1. Shock: At the time of assessment this afternoon, she was on Levophed. Dobutamine had been discontinued by other providers. LV systolic function improved on current study and therefore would suspect that her shock was not cardiogenic in nature, however echo was done on dobutamine infusion, which may account for overall improvement in LV systolic function. She also had been on long-term outpatient treatment, with metoprolol succinate 200 mg and high-dose Entresto. Therefore, improvement in LV systolic function may have been due to guideline based therapy. Her hypotension may be driven by her infectious process, especially given worsening pancytopenia. Blood pressure remains improved on Levophed. Can continue on would without dobutamine at this time. If blood pressure precipitously drops, would have low threshold for inotropic therapy. 2. Chronic systolic CHF: Regardless of the underlying process, would recommend diuresis as blood pressure allows. She received 20 mg of IV Lasix today and had reasonable urine output just before cardiology assessment this afternoon. Would try to maintain net negative fluid balance as tolerated. Low-sodium diet. Strict I&Os. Follow-up with heart failure program on discharge as she has not been seen there for several months. 3. Cardiomyopathy: LV systolic function appears improved on today's echo. This could be due to optimized guideline based therapy. She was also receiving dobutamine infusion which could account for improved LV systolic function. Woul d recommend repeating an echo in the future after discharge to get a good assessment of her current baseline LV systolic function. If function remains stable, she would no longer qualify for ICD for primary prevention. Continue guideline based therapy when blood pressure allows and she is off of pressor support. 4. CAD s/p LAD PCI: No angina. Continue aspirin 81 mg daily as platelet counts allow. Resume beta-nas when pressor support is no longer necessary and blood pressure would tolerate. Continue high-intensity statin therapy. 5. Elevated troponin: Troponin mildly elevated but not diagnostic of myocardial infarction. Likely due to hypoxic and hypotensive presentation (demand ischemia). She did not present with acute coronary syndrome. 6. Paroxysmal atrial fibrillation: Sinus rhythm. She continues onward with anticoagulation therapy but monitor platelet level closely as anticoagulation therapy may need to be held at some point. Monitor closely for bleeding. Would resume amiodarone if no contraindication as she would not likely tolerate AFib with RVR in current setting. 7. Chronic anticoagulation: Monitor platelet level closely to determine safety of anticoagulation therapy going forward. 8. Pancytopenia: Will defer to primary hospitalist service and critical care team. 9. Acute on chronic renal insufficiency: Renal function appears to be improving with improved blood pressure. 10. Covid 19 infection: Receiving treatment as per hospitalist and critical care services. 11. Disposition: Cardiology will continue to follow. Dr. Lay will be the on-call postal carrier on Saturday. Please call with any questions or concerns. On discharge, she should follow-up with Dr. Gaspar her primary postal carrier, and heart failure program. 38 minutes critical care time including examination of patient, counseling patient, and coordinating care. Patient care discussed with Dr. Pena of the hospitalist service. History of Present Illness Reason for Consultation: "Severe HFrEF, elevated trop, LBBB, AICD?" Requesting Physician: Dr. Hernandez Attending Physician: Jacky Pena, History of Present Illness Mrs. Cronin is a very pleasant 51-year-old female with history significant for CAD status post NSTEMI and PCI of mid LAD (10/15/2015), cardiomyopathy, HF with reduced EF, paroxysmal atrial fibrillation on Eliquis, hypertension, dyslipidemia, and type 2 diabetes. Her primary postal carrier is Dr. Gaspar. She also follows with Kim Meraz in the Heart failure program. She was admitted on 10/01/2021 with shock in the setting of Covid 19 infection and possibly CHF. She states that for the past 6 days she has been experiencing myalgias and overall generalized weakness. She was noted to be hypoxic at home with oxygen saturations in the 70s based on home pulse oximeter readings. She has been experiencing coughing, especially when she lays flat. Just prior to presentation, she had taken a shower and had a near syncopal event. She denies true syncope. She denies chest pain, palpitations, edema, or bleeding. She weighs herself periodically and has not noted any significant weight gain. In fact, she has not been eating much with her recent viral infection. Her tested positive for Covid19 the day prior to presentation. On presentation, she was noted to be hypotensive with blood pressure as low as 69/42. She was placed on dobutamine and Levophed infusions. She has a history of severely reduced LV systolic function. She was admitted to ICU for medical therapy. She was initiated on dexamethasone and remdesivir and also received IV diuretic. She was noted to have acute on chronic renal insufficiency with a creatinine as high as 2.41 where her baseline is 1.6-1.8. She was also noted to have pancytopenia and leukopenia worsen from presentation of 2.12 down to 1.88. Typically she has normal platelet levels but her platelets have continued to decline as low as 84,000 today. She was seen earlier this afternoon and stated that she was feeling better already from presentation. She denies fevers. She has had the following studies /procedures: 1. Echo 11/20/19: LV is moderately dilated. LV systolic function moderate to severely reduced, EF 25-30%. Moderate-severe global hypokinesis. Left atrium moderately dilated. Moderate MR. RVSP elevated 40-50 mmHg. 2. Nuclear stress 01/19/20: Abnormal myocardial perfusion study with large LAD infarct with minimal kaci-infarct ischemia. EF 21%. Akinesis of the mid to apical anterior/anteroseptal/anterolateral wall segments. Apical akinesis. Otherwise, global hypokinesis. Atrial flutter. 3. Echo 06/20/20: LV systolic function moderately-severely reduced, EF 25-30%. Severe global hypokinesis. Apical akinesis. Mild MR. Mild-mod TR. Review of systems:As above. Review of systems otherwise negative/unremarkable. Family history: Father with CAD status post CABG. Social history:She quit smoking many years ago. In the past, she was a social smoker. Occasional alcohol. No drugs. She works at [employer]. She lives at home. She is unaccompanied. Allergies Allergy/AdvReac Type Severity Reaction Status Date / Time lisinopril AdvReac Mild Cough Verified 10/01/21 00:10 Home Medications Medication Instructions Recorded Confirmed Type blood sugar diagnostic (Accu-Chek #100 ea 12/11/19 07/29/20 Rx Hailey Plus test strp) blood-glucose meter (Accu-Chek #1 ea 12/11/19 07/29/20 Rx Hailey Plus Meter) lancets (Accu-Chek Multiclix #100 ea 12/11/19 10/01/21 Rx Lancet) aspirin 81 mg tablet,delayed 81 mg PO QAM 12/28/19 10/01/21 History release (Aspirin Low Dose) apixaban 5 mg tablet (Eliquis) 5 mg PO BID #180 tab 11/08/20 10/01/21 Rx atorvastatin 80 mg tablet 80 mg PO QAM #90 tab 01/17/21 10/01/21 Rx metoprolol succinate 200 mg 200 mg PO QAM #90 tab 06/05/21 10/01/21 Rx tablet,extended release 24 hr furosemide 40 mg tablet 80 mg PO QAM #60 tab 08/11/21 10/01/21 Rx sacubitril 97 mg-valsartan 103 mg 1 tab PO BID #60 tab 08/28/21 10/01/21 Rx tablet (Entresto) amiodarone 200 mg tablet 200 mg PO QAM #30 tab 09/25/21 10/01/21 Rx pantoprazole 40 mg tablet,delayed 40 mg PO DAILY 10/01/21 10/01/21 History release Patient History Medical History Acute on chronic systolic (congestive) heart failure Anemia Atrial fibrillation dx 12/2018. follows w/ Dr. Gaspar. On eliquis. CAD (coronary artery disease) S/p DAMON to mid LAD 2014 (Per 03/2020 cardio note, 2015 cath also showed 75% dLAD, 20-30% LCx, 20-30% RCA, right posterior lateral artery 90% ostial stenosis, 2nd right posterior lateral artery 50% Cardiomyopathy EF 21% on nuclear images 01/19/20 CHF (congestive heart failure) Chronic anticoagulation CKD stage 3 due to type 2 diabetes mellitus Diabetes DM II (diabetes mellitus, type II), controlled Dyslipidemia HLD (hyperlipidemia) HTN (hypertension) Hx of myocardial infarction 2014 - TREATED AT [facility] Hypokalemia Hypomagnesemia Lower extremity edema Mild acid reflux Persistent atrial fibrillation Surgical History H/O heart artery stent 2014 [place]- [facility] - X1 STENT - DR. GASPAR History of biliary duct stent placement History of ERCP STENT INTACT IN LIVER CURRENTLY History of hysteroscopy Hx laparoscopic cholecystectomy (09/18/19) Laparoscopic Cholecystectomy with Cholangiogram Dr. Soto 09/18/19 Family History Grandmother (Maternal) Breast cancer Brother Diabetes Heart disease Father Diabetes Hypertension Mother Hypertension Social History Smoking Status: Never smoker Second Hand Exposure: Yes ( A CHILD); Hx Alcohol Use: No Hx Substance Use: No Preferred Language: Setswana Communication Ability: Effective Quality Audit Representative Required: No Beliefs That Will Affect Care: None Current Living Situation: Spouse and Family Current Living Situation Comment: , daughter and grandson current occupational status: employed Other Information That Helps Us Care for You: No Feels Safe at Home: Yes Safety Concerns: Feels Safe At This Time Dental Care, Regularly: Yes Physical Activity Frequency: Does not Exercise Assistive Devices: Oxygen - Continuous Physical Exam Physical Exam: Gen.: No acute distress. Alert and oriented. HEENT: Anicteric sclera. Neck: Thick neck without appreciable JVD. No bruits. Normal carotid upstrokes bilaterally. Cardiac: PMI was nonpalpable. No ventricular heave. Regular rate and rhythm. Normal S1-S2. No murmurs, rubs, or gallops. Pulmonary: Clear to auscultation bilaterally without wheezes, rales, or rhonchi. Abdomen: Soft, nontender, nondistended, with normoactive bowel sounds. No bruits noted. Extremities: 2+ radial pulses bilaterally. 2+ posterior tibialis pulses bilaterally. 1+ bilateral lower extremity edema. No cyanosis. Psychiatric: Affect appears appropriate. Results & Data ([facility]) Vital Signs (Past 12 Hours) Vital Signs Temp Pulse Resp BP Pulse Ox 10/01/21 17:00 65 17 97/56 L 90 10/01/21 16:30 61 25 H 87 L 10/01/21 16:00 64 97/63 L 94 10/01/21 15:30 63 23 94 10/01/21 15:00 63 18 94/64 L 94 10/01/21 14:00 62 15 77/49 L 94 10/01/21 13:30 58 L 73/38 L 96 10/01/21 13:00 55 L 94 10/01/21 12:30 62 20 87/56 L 92 10/01/21 12:00 51 L 22 57/34 L 94 10/01/21 11:30 59 L 2 L 70/38 L 93 10/01/21 11:00 65 23 93 10/01/21 10:50 65 20 96 10/01/21 10:40 66 23 95 10/01/21 10:30 64 24 113/56 L 97 10/01/21 10:00 63 23 98 10/01/21 09:30 67 17 116/55 L 98 10/01/21 09:00 71 14 98 10/01/21 08:30 71 15 95 10/01/21 08:13 36.8 C 10/01/21 08:00 57 L 21 124/67 94 10/01/21 07:30 66 18 97 10/01/21 07:00 69 18 93 10/01/21 06:30 67 21 95 10/01/21 06:10 68 27 H 110/62 92 10/01/21 06:00 66 23 94 10/01/21 05:50 70 21 107/54 L 94 10/01/21 05:40 69 22 112/61 95 10/01/21 05:30 73 21 102/53 L 94 10/01/21 05:20 73 23 90/52 L 93 Intake & Output 09/29/21 09/30/21 10/01/21 10/02/21 06:59 06:59 06:59 06:59 Intake Total 1449.087 / 1449.087 587.790 / 587.790 Output Total Balance 1449.087 / 1449.087 586.790 / 586.790 Weight 240 lb 11.916 oz Laboratory Results Laboratory Results - last 24 hr 09/30/21 09/30/21 09/30/21 22:29 22:29 22:29 WBC 2.12 L RBC 4.63 Hgb 9.9 L Hct 35.0 L MCV 75.6 L MCH 21.4 L MCHC 28.3 L RDW Std Deviation 54.0 H RDW Coeff of Esthela 19.7 H Plt Count 95 L MPV Immature Gran % (Auto) 0.5 Neut % (Auto) 80.2 Lymph % (Auto) 13.2 Dooly % (Auto) 6.1 Eos % (Auto) 0.0 Baso % (Auto) 0.0 Neut # (Auto) 1.70 Lymph # (Auto) 0.28 L Dooly # (Auto) 0.13 Eos # (Auto) 0.00 Baso # (Auto) 0.00 Immature Gran # (Auto) 0.01 Absolute Nucleated RBC 0.02 H Nucleated RBC % (auto) 0.9 Platelet Estimate Decreased L Ovalocytes 1+ Echinocytes 2+ PT INR APTT PTT Ratio Sodium 137 Potassium 2.7 L Chloride 101 Carbon Dioxide 24 Anion Gap 12.0 H BUN 23 H Creatinine 2.41 H Est Cr Clr Drug Dosing 33.4 Est GFR ( Amer) 25.9 Est GFR (Non-Af Amer) 22.3 BUN/Creatinine Ratio 9.5 L Glucose 111 H POC Glucose Lactate Calcium 8.2 L Magnesium 2.1 Total Bilirubin 1.2 H AST 128 H ALT 67 Alkaline Phosphatase 70 Troponin I 0.250 H* NT-Pro-B Natriuret Pep 23993 H Total Protein 6.0 L Albumin 2.7 L Globulin 3.3 Albumin/Globulin Ratio 0.8 L Procalcitonin 0.06 Nasal Screen MRSA (PCR) Adenovirus (PCR) Anaplasma Smear See Comment B. pertussis DNA (PCR) B.parapertussis DNA PCR C. pneumoniae DNA (PCR) Coronavirus OC43 (PCR) Coronavirus HKU1 (PCR) Coronavirus 229E (PCR) COVID-19 Eval Order SARS-CoV-2 (PCR) Coronavirus NL63 (PCR) Human Metapneumovir PCR Influenza Type A (PCR) Influenza Type B (PCR) M. pneumoniae (PCR) Parainfluenza 1 (PCR) Parainfluenza 2 (PCR) Parainfluenza 3 (PCR) Parainfluenza 4 (PCR) RSV (PCR) Entero/Rhino (PCR) 09/30/21 09/30/21 09/30/21 22:29 22:30 22:30 WBC RBC Hgb Hct MCV MCH MCHC RDW Std Deviation RDW Coeff of Esthela Plt Count MPV Immature Gran % (Auto) Neut % (Auto) Lymph % (Auto) Dooly % (Auto) Eos % (Auto) Baso % (Auto) Neut # (Auto) Lymph # (Auto) Dooly # (Auto) Eos # (Auto) Baso # (Auto) Immature Gran # (Auto) Absolute Nucleated RBC Nucleated RBC % (auto) Platelet Estimate Ovalocytes Echinocytes PT 11.1 INR 1.1 APTT 35.2 H PTT Ratio 1.3 Sodium Potassium Chloride Carbon Dioxide Anion Gap BUN Creatinine Est Cr Clr Drug Dosing Est GFR ( Amer) Est GFR (Non-Af Amer) BUN/Creatinine Ratio Glucose POC Glucose Lactate Calcium Magnesium Total Bilirubin AST ALT Alkaline Phosphatase Troponin I NT-Pro-B Natriuret Pep Total Protein Albumin Globulin Albumin/Globulin Ratio Procalcitonin Nasal Screen MRSA (PCR) Adenovirus (PCR) Not Detected Anaplasma Smear B. pertussis DNA (PCR) Not Detected B.parapertussis DNA PCR Not Detected C. pneumoniae DNA (PCR) Not Detected Coronavirus OC43 (PCR) Not Detected Coronavirus HKU1 (PCR) Not Detected Coronavirus 229E (PCR) Not Detected COVID-19 Eval Order RESPNP at [facility] SARS-CoV-2 (PCR) Not Detected Coronavirus NL63 (PCR) Not Detected Human Metapneumovir PCR Not Detected Influenza Type A (PCR) Not Detected Influenza Type B (PCR) Not Detected M. pneumoniae (PCR) Not Detected Parainfluenza 1 (PCR) Not Detected Parainfluenza 2 (PCR) Not Detected Parainfluenza 3 (PCR) Not Detected Parainfluenza 4 (PCR) Not Detected RSV (PCR) Not Detected Entero/Rhino (PCR) Not Detected 09/30/21 10/01/21 10/01/21 22:34 00:56 00:56 WBC RBC Hgb Hct MCV MCH MCHC RDW Std Deviation RDW Coeff of Esthela Plt Count MPV Immature Gran % (Auto) Neut % (Auto) Lymph % (Auto) Dooly % (Auto) Eos % (Auto) Baso % (Auto) Neut # (Auto) Lymph # (Auto) Dooly # (Auto) Eos # (Auto) Baso # (Auto) Immature Gran # (Auto) Absolute Nucleated RBC Nucleated RBC % (auto) Platelet Estimate Ovalocytes Echinocytes PT INR APTT PTT Ratio Sodium Potassium Chloride Carbon Dioxide Anion Gap BUN Creatinine Est Cr Clr Drug Dosing Est GFR ( Amer) Est GFR (Non-Af Amer) BUN/Creatinine Ratio Glucose POC Glucose Lactate 1.7 Calcium Magnesium Total Bilirubin AST ALT Alkaline Phosphatase Troponin I NT-Pro-B Natriuret Pep Total Protein Albumin Globulin Albumin/Globulin Ratio Procalcitonin Nasal Screen MRSA (PCR) Adenovirus (PCR) Anaplasma Smear B. pertussis DNA (PCR) B.parapertussis DNA PCR C. pneumoniae DNA (PCR) Coronavirus OC43 (PCR) Coronavirus HKU1 (PCR) Coronavirus 229E (PCR) COVID-19 Eval Order Covid19 at [facility] SARS-CoV-2 (PCR) POSITIVE A* Coronavirus NL63 (PCR) Human Metapneumovir PCR Influenza Type A (PCR) Influenza Type B (PCR) M. pneumoniae (PCR) Parainfluenza 1 (PCR) Parainfluenza 2 (PCR) Parainfluenza 3 (PCR) Parainfluenza 4 (PCR) RSV (PCR) Entero/Rhino (PCR) 10/01/21 10/01/21 10/01/21 05:30 05:47 05:47 WBC 1.88 L RBC 4.21 Hgb 9.0 L Hct 31.9 L MCV 75.8 L MCH 21.4 L MCHC 28.2 L RDW Std Deviation 54.4 H RDW Coeff of Esthela 19.7 H Plt Count 84 L MPV 9.8 Immature Gran % (Auto) 0.5 Neut % (Auto) 77.7 Lymph % (Auto) 14.4 Dooly % (Auto) 7.4 Eos % (Auto) 0.0 Baso % (Auto) 0.0 Neut # (Auto) 1.46 Lymph # (Auto) 0.27 L Dooly # (Auto) 0.14 Eos # (Auto) 0.00 Baso # (Auto) 0.00 Immature Gran # (Auto) 0.01 Absolute Nucleated RBC Nucleated RBC % (auto) Platelet Estimate Ovalocytes Echinocytes PT INR APTT PTT Ratio Sodium 137 Potassium 2.8 L Chloride 104 Carbon Dioxide 25 Anion Gap 8.0 BUN 23 H Creatinine 2.15 H Est Cr Clr Drug Dosing 37.6 Est GFR ( Amer) 29.7 Est GFR (Non-Af Amer) 25.7 BUN/Creatinine Ratio 10.5 Glucose 88 POC Glucose Lactate Calcium 7.8 L Magnesium Total Bilirubin 1.0 AST 111 H ALT 58 Alkaline Phosphatase 61 Troponin I NT-Pro-B Natriuret Pep Total Protein 5.2 L Albumin 2.3 L Globulin 2.9 Albumin/Globulin Ratio 0.8 L Procalcitonin Nasal Screen MRSA (PCR) Negative Adenovirus (PCR) Anaplasma Smear B. pertussis DNA (PCR) B.parapertussis DNA PCR C. pneumoniae DNA (PCR) Coronavirus OC43 (PCR) Coronavirus HKU1 (PCR) Coronavirus 229E (PCR) COVID-19 Eval Order SARS-CoV-2 (PCR) Coronavirus NL63 (PCR) Human Metapneumovir PCR Influenza Type A (PCR) Influenza Type B (PCR) M. pneumoniae (PCR) Parainfluenza 1 (PCR) Parainfluenza 2 (PCR) Parainfluenza 3 (PCR) Parainfluenza 4 (PCR) RSV (PCR) Entero/Rhino (PCR) 10/01/21 10/01/21 10/01/21 05:47 08:00 10:40 WBC RBC Hgb Hct MCV MCH MCHC RDW Std Deviation RDW Coeff of Esthela Plt Count MPV Immature Gran % (Auto) Neut % (Auto) Lymph % (Auto) Dooly % (Auto) Eos % (Auto) Baso % (Auto) Neut # (Auto) Lymph # (Auto) Dooly # (Auto) Eos # (Auto) Baso # (Auto) Immature Gran # (Auto) Absolute Nucleated RBC Nucleated RBC % (auto) Platelet Estimate Ovalocytes Echinocytes PT INR APTT PTT Ratio Sodium Potassium Chloride Carbon Dioxide Anion Gap BUN Creatinine Est Cr Clr Drug Dosing Est GFR ( Amer) Est GFR (Non-Af Amer) BUN/Creatinine Ratio Glucose POC Glucose 105 H Lactate Calcium Magnesium Total Bilirubin AST ALT Alkaline Phosphatase Troponin I 0.216 H* 0.178 H* NT-Pro-B Natriuret Pep Total Protein Albumin Globulin Albumin/Globulin Ratio Procalcitonin Nasal Screen MRSA (PCR) Adenovirus (PCR) Anaplasma Smear B. pertussis DNA (PCR) B.parapertussis DNA PCR C. pneumoniae DNA (PCR) Coronavirus OC43 (PCR) Coronavirus HKU1 (PCR) Coronavirus 229E (PCR) COVID-19 Eval Order SARS-CoV-2 (PCR) Coronavirus NL63 (PCR) Human Metapneumovir PCR Influenza Type A (PCR) Influenza Type B (PCR) M. pneumoniae (PCR) Parainfluenza 1 (PCR) Parainfluenza 2 (PCR) Parainfluenza 3 (PCR) Parainfluenza 4 (PCR) RSV (PCR) Entero/Rhino (PCR) 10/01/21 10/01/21 11:19 16:43 WBC RBC Hgb Hct MCV MCH MCHC RDW Std Deviation RDW Coeff of Esthela Plt Count MPV Immature Gran % (Auto) Neut % (Auto) Lymph % (Auto) Dooly % (Auto) Eos % (Auto) Baso % (Auto) Neut # (Auto) Lymph # (Auto) Dooly # (Auto) Eos # (Auto) Baso # (Auto) Immature Gran # (Auto) Absolute Nucleated RBC Nucleated RBC % (auto) Platelet Estimate Ovalocytes Echinocytes PT INR APTT PTT Ratio Sodium Potassium Chloride Carbon Dioxide Anion Gap BUN Creatinine Est Cr Clr Drug Dosing Est GFR ( Amer) Est GFR (Non-Af Amer) BUN/Creatinine Ratio Glucose POC Glucose 181 H 254 H Lactate Calcium Magnesium Total Bilirubin AST ALT Alkaline Phosphatase Troponin I NT-Pro-B Natriuret Pep Total Protein Albumin Globulin Albumin/Globulin Ratio Procalcitonin Nasal Screen MRSA (PCR) Adenovirus (PCR) Anaplasma Smear B. pertussis DNA (PCR) B.parapertussis DNA PCR C. pneumoniae DNA (PCR) Coronavirus OC43 (PCR) Coronavirus HKU1 (PCR) Coronavirus 229E (PCR) COVID-19 Eval Order SARS-CoV-2 (PCR) Coronavirus NL63 (PCR) Human Metapneumovir PCR Influenza Type A (PCR) Influenza Type B (PCR) M. pneumoniae (PCR) Parainfluenza 1 (PCR) Parainfluenza 2 (PCR) Parainfluenza 3 (PCR) Parainfluenza 4 (PCR) RSV (PCR) Entero/Rhino (PCR) Diagnostic Findings Telemetry personally reviewed: Sinus rhythm. No arrhythmia. ECG personally reviewed 09/30/2021: Sinus bradycardia with first-degree AV block. RBBB. Anterior KS. Inferior KS. similar compared to prior ECG on 01/25/2020. Chest x-ray 09/30/2021: Patchy interstitial alveolar opacities bilaterally characteristic of viral type pneumonitis and probable COVID-19 pneumonia per Radiology. Chest x-ray image personally reviewed. Echo 10/01/2021: moderately dilated LV. EF 40-45%. Mild global hypokinesis with large apical akinesis. Dilated RV. Mild left atrial dilation. Mild to moderate MR. Medications Administered Current Inpatient Medications Acetaminophen (Acetaminophen 325 Mg Tab) 650 mg PO Q4H PRN PRN Reason: Pain or Fever Stop: 10/31/21 03:50 Albuterol (Albuterol Hfa 8 Gm Inhaler) 2 puffs INH Q6H PRN PRN Reason: sob Stop: 10/31/21 04:23 Apixaban (Apixaban 5 Mg Tablet) 5 mg PO BID REAGAN Stop: 10/31/21 08:59 Aspirin (Aspirin 81 Mg Ectab) 81 mg PO QAM REAGAN Stop: 10/31/21 08:59 Last Admin: 10/01/21 08:48 Dose: 81 mg Documented by: Atorvastatin Calcium (Atorvastatin 40 Mg Tab) 80 mg PO QAM REAGAN Stop: 10/31/21 08:59 Last Admin: 10/01/21 08:48 Dose: 80 mg Documented by: Dextrose (Dextrose 50% 50 Ml Syringe) 25 - 50 ml IV UD PRN; Protocol PRN Reason: Hypoglycemia Protocol Stop: 10/31/21 05:14 Furosemide (Furosemide Inj 20 Mg/2 Ml Vial) 20 mg IV DAILY REAGAN Stop: 10/31/21 11:14 Last Admin: 10/01/21 11:39 Dose: 20 mg Documented by: Glucagon (Glucagon For Inj 1 Mg Vial) 1 mg SQ UD PRN; Protocol PRN Reason: Hypoglycemia Protocol Stop: 10/31/21 05:14 Glucose (Glucose 10 Tabs/Tube) 4 - 8 tabs PO UD PRN; Protocol PRN Reason: Hypoglycemia Protocol Stop: 10/31/21 05:14 Glucose (Glucose 40% Gel 15 Gm Tube) 15 - 30 gm PO UD PRN; Protocol PRN Reason: Hypoglycemia Protocol Stop: 10/31/21 05:14 Remdesivir 100 mg/ Sodium (Chloride) 250 mls @ 250 mls/hr IV Q24H REAGAN; Protocol Stop: 10/05/21 12:59 Dexamethasone 6 mg/ Syringe 1.5 mls @ 1 mls/min IV DAILY REAGAN Stop: 10/11/21 08:59 Last Admin: 10/01/21 08:48 Dose: 1 mls/min Documented by: Norepinephrine Bitartrate (Levophed/D5w) 8 mg in 508 mls @ 41.605 mls/hr IV .[id number] [facility]; Protocol Stop: 10/31/21 04:59 Last Titration: 10/01/21 14:28 Dose: 0.1 mcg/kg/min, 41.6 mls/hr Documented by: Insulin Aspart (Insulin Aspart 100 Units/Ml 3 Ml Pen) 0 units SC ACHS [facility]; Protocol Stop: 10/31/21 07:29 Last Admin: 10/01/21 16:59 Dose: 6 units Documented by: Insulin Human NPH (Insulin Human Nph) 20 units SC DAILY REAGAN Stop: 10/31/21 11:59 Last Admin: 10/01/21 12:36 Dose: 20 units Documented by: Miscellaneous (Carbohydrates For Hypoglycemia ) 15 - 30 gm PO UD PRN PRN Reason: Hypoglycemia Protocol Stop: 10/31/21 05:14 Miscellaneous Information (Pharmacy Glycemic Mgmt Consult) 1 ea N/A UD PRN; Protocol PRN Reason: Consult Stop: 10/31/21 05:14 Nitroglycerin (Nitroglycerin Sl 0.4 Mg/Tab Tab) 0.4 mg SL UD PRN PRN Reason: Chest Pain Stop: 10/31/21 03:50 Ondansetron HCl (Ondansetron Inj 2 Mg/Ml 2 Ml Vial) 4 mg IV Q6H PRN PRN Reason: Nausea Stop: 10/31/21 03:50 Pantoprazole Sodium (Pantoprazole 40 Mg Tab) 40 mg PO DAILY [facility] Stop: 10/31/21 08:59 Last Admin: 10/01/21 08:48 Dose: 40 mg Documented by: Polyethylene Glycol (Polyethylene (Miralax) 17 Gm Pack) 17 gm PO DAILY PRN PRN Reason: Constipation Stop: 10/31/21 03:50 Potassium Chloride (Potassium Chloride 20 Meq/15 Ml Udc) 20 meq PO BID [facility] Stop: 10/31/21 20:59 Sodium Chloride (Sodium Chloride 0.9% 10ml Flush) 30 ml IV Q24H [facility] Stop: 10/05/21 14:01 Last Admin: 10/01/21 11:55 Dose: 30 ml Documented by: PG Care Time/CCT Total # of Minutes Spent Total Time Spent with Patient: Total time spent is greater than 50% in coordination of care (as documented) at patient's floor/unit and/or counseling patient: Critical Care Time: Yes Total Critical Care Time: 38 Coding Level of Care Code None Diagnoses Chronic systolic CHF (congestive heart failure) I50.22 Shock R57.9 COVID U07.1 Elevated troponin R77.8 Cardiomyopathy I42.9 CAD (coronary artery disease) I25.10 Coronary Disease-Associated Artery/Lesion type: [place] artery [place] vs. transplanted heart: [place] heart Associated angina: without angina Chronic anticoagulation Z79.01 S/P coronary artery stent placement Z95.5 Pancytopenia D61.818 Paroxysmal atrial fibrillation I48.0 Additional Codes Critical Care Time - Critical Care Time: Yes ([id number]) Time Spent (min) 38 Comment Critical Care time 73993 (1) CAD (coronary artery disease) Coronary Disease-Associated Artery/Lesion type: [place] artery [place] vs. transplanted heart: [place] heart Associated angina: without angina Qualified Code(s): I25.10 - Atherosclerotic heart disease of [place] coronary artery without angina pectoris
--- NOTE | 2021-10-01 17:42 | XCELERA ---
[id number] \\[id number]
--- NOTE | 2021-10-01 20:19 | Billing Data ---
Date of Service October 01, 2021 Coding Level of Care Code Critical Care 1st -74 mins
[2021-10-01] MEDS: POTASSIUM CHLORIDE 20 MEQ/15 ML UDC PO SCH (22:03)
[2021-10-01] MEDS: APIXABAN 5 MG TABLET PO SCH (22:03)
--- NOTE | 2021-10-01 23:31 | Electrocardiogram Report ---
Test Reason : Blood Pressure : / mmHG Vent. Rate : 058 BPM Atrial Rate : 058 BPM P-R Int : 250 ms QRS Dur : 172 ms QT Int : 560 ms P-R-T Axes : 030 269 085 degrees QTc Int : 549 ms Sinus bradycardia with 1st degree A-V block Right bundle branch block Inferior infarct (cited on or before 16-SEP-2019) Anterolateral infarct (cited on or before 14-OCT-2015) Abnormal ECG When compared with ECG of 19-NOV-2019 17:10, Premature ventricular complexes are no longer Present Confirmed by Иван Denton ([id number]) on 10/01/2021 11:31:18 PM Referred By: REFERRED SELF Confirmed By:Иван Denton
[2021-10-02] MEDS: NOREPINEPHRINE/D5W 8 MG/508 ML BAG IV SCH (00:23)
[2021-10-02 07:38] LABS: Anisocytosis Present; Basophils # (auto) 0.01 K/uL (0-0.2); Basophils % (auto) 0.2 %; Echinocytes 1+; Immature Granulocytes # (auto) 0.02 K/uL (0.00-0.02); Immature Granulocytes % (auto) 0.4 %; Lymphocytes # (auto) 0.44 K/uL (1.2-3.4); Lymphocytes % (auto) 8.8 %; Neutrophils # (auto) 4.22 K/uL (1.4-6.5); Neutrophils % (auto) 84.6 %; Ovalocytes 1+
[2021-10-02 07:46] LABS: Hematocrit (blood only) 38.4 % (37-47); Hemoglobin 11.1 g/dL (12.0-16.0); Mean Corpuscular Hemoglobin 21.5 pg (25-34); Mean Corpuscular Hgb Conc 28.9 g/dL (32-36); Mean Corpuscular Volume 74.4 fL (80-100); Mean Platelet Volume 10.3 fL (7.4-10.4); Nucleated RBC # (auto) 0.09 K/uL (0-0); Nucleated RBC % (auto) 1.8 %; Platelet Count 214 K/uL (130-400); RDW Coefficient of Variation 19.5 % (11.5-14.5); RDW Standard Deviation 52.7 fL (36.4-46.3); Red Blood Count 5.16 M/uL (4.2-5.4); White Blood Count 4.99 K/uL (4.8-10.8)
[2021-10-02 07:50] LABS: Albumin Globulin Ratio 0.7 (0.9-2); Albumin Level 2.5 gm/dl (3.4-5.0); BUN Creatinine Ratio 13.1 (10-20); Bilirubin,Total 1.1 mg/dl (0.2-1); C Reactive Protein 0.93 mg/dl (0-0.29); Calcium 8.6 mg/dl (8.5-10.1); Creatinine Clr Calc Pharmacy 40.9 ml/min; Est GFR (Non-African American) 28.5 ml/min; Globulin 3.4 gm/dl (2.5-4.0); Magnesium 2.2 mg/dl (1.8-2.4); Phosphorus 3.6 mg/dl (2.5-4.9); Potassium 3.5 mmol/L (3.5-5.1); Total Protein 5.9 gm/dl (6.4-8.2)
[2021-10-02 08:18] LABS: Estimated Average Glucose 131 mg/dl; Hemoglobin A1C 6.2 % (4.5-5.6)
[2021-10-02] MEDS: AMIODARONE 200 MG TAB PO SCH (08:42)
[2021-10-02] MEDS: PANTOprazole 40 MG TAB PO SCH (08:43)
[2021-10-02] MEDS: POTASSIUM CHLORIDE 20 MEQ/15 ML UDC PO SCH ×2 (08:43→21:00)
[2021-10-02] MEDS: dexAMETHasone 6 MG in SYRINGE 0 ML IV SCH (08:43)
[2021-10-02] MEDS: ATORVASTATIN 40 MG TAB PO SCH (08:43)
[2021-10-02] MEDS: ASPIRIN 81 MG ECTAB PO SCH (08:43)
[2021-10-02] MEDS ORDERED: INSULIN HUMAN NPH SC SCH (09:00)
[2021-10-02] MEDS ORDERED: FUROSEMIDE 40 MG/4 ML VIAL IV SCH (09:00)
[2021-10-02] MEDS: INSULIN ASPART 100 UNITS/ML 3 ML PEN SC SCH ×4 (09:22→21:00)
[2021-10-02] MEDS: APIXABAN 5 MG TABLET PO SCH ×2 (09:24→21:00)
--- NOTE | 2021-10-02 09:28 | XRay Report ---
SINGLE VIEW CHEST CLINICAL HISTORY: Pneumonia. FINDINGS: An AP, portable, upright chest radiograph is compared to study dated 09/30/2021. Correlatio n is made with chest CT dated 11/19/2019. The heart is enlarged noting atherosclerotic calcification of the thoracic aorta. The lungs and pleural spaces are clear. No multifocal airspace consolidation is similar appearance to 09/30/2021. No large pleural effusion or pneumothorax is identified. The bony t horax is grossly intact. IMPRESSION: Multifocal airspace consolidation is similar the appearance to the 09/30/2021 examination . Continued follow-up to complete resolution is recommended. ACT 112: Negative or not required by law. Electronically signed by: Erik Isabel M.D. 10/02/2021 9:27 AM
[2021-10-02] MEDS: REMDESIVIR 100 MG in SODIUM CHLORIDE 0.9% 230 ML IV SCH (11:47)
--- NOTE | 2021-10-02 12:03 | Pharmacy Report ---
Pharmacy Glycemic Short Note 2 - Date of Service October 02, 2021 - Glycemic Short BSG Results (Last 24 hours): 10/01/21 10/01/21 10/02/21 16:43 21:57 06:50 Glucose 159 H POC Glucose 254 H 179 H 10/02/21 08:17 Glucose POC Glucose 152 H OUTPATIENT ANTIDIABETIC REGIMEN: * N/A; patient states that she was on Lantus + metformin in the past but is not currently taking anything * A1c = 6.2% on 03/09/21 * Repeat A1c pending for 10/02/21 w/ AM labs ASSESSMENT: 10/02 * Well controlled type 2 diabetic admitted for COVID19 PNA, shock secondary to sepsis +/- cardiogenic source * IV dexamethasone 6mg daily ordered each AM. Norepi infusing at 0.07mcg/kg/min this AM, dobutamine titrated off. Heart Healthy diet is ordered. * Will utilize NPH to combat steroid induced hyperglycemia, dosed at 0.3unit/kg with each steroid dose * Novolog doses will be based upon weight and moderate stress level initially until steroid effects are more obvious PLAN FOR INPATIENT GLYCEMIC CONTROL: * Basal insulin * NPH 30 units SQ Q AM given at the same time dexamethasone IV given * Bolus insulin * NovoLog per scale ACHS or Q6hrs while NPO * Goal Range: Low 110 mg/dL - High 140 mg/dL * Correction Factor: 20 mg/dL/unit * Nutritional / Prandial insulin per carb ratio of 1 unit per 7 grams CHO consumed PLAN FOR DISCHARGE: * Given A1c of 6.2%, no need to initiate new DM drug therapy on discharge
[2021-10-02] MEDS: SODIUM CHLORIDE 0.9% 10ML FLUSH IV SCH (13:23)
--- NOTE | 2021-10-02 13:45 | Critical Care Progress Note ---
Date of Service October 02, 2021 Assessment & Plan (1) Cardiogenic shock: (2) Hypokalemia: (3) Acute kidney injury superimposed on CKD: (4) Pancytopenia: (5) Elevated troponin: (6) Acute cardiac pulmonary edema: (7) COVID: Plan: Impression: 51-year-old female admitted with CHF exacerbation and hypotension with normal lactate. She had concomitant acute kidney injury and markedly elevated BNP level with low level of troponin. She continues to deny chest pa in. Covid testing initially was negative but follow-up testing was positive. She is on a 4L/min of oxygen. Its unclear how much of her chest x-ray is attributable to fluid overload and how much may be secondary to Covid pneumonitis. pro-BNP elevated at 7424. Recommendations: 1. Neurologic: No current issues. Continue to follow clinically. 2. Cardiovascular: CHF exacerbation. pro-BNP elevated at 7424. Attempted to wean Norepinephrine. Became hypotensive again with a MAP in the 40s. Levophed resumed. Cardiology is now following. The patient does have a history of atrial fibrillation is anticoagulated on apixaban in the outpatient setting. Continue diuresis. Continue apixaban prophylaxis. It is reassuring that her lactate is normal 3. Pulmonary: Diffuse pulmonary infiltrates. Unclear how much could be related to infectious etiologies such as Covid or how much is noninfectious including etiologies such as heart failure. Continue to wean oxygen as tolerated. No acute respiratory distress at rest. Patient tolerating out of bed to chair. Continue to monitor on telemetry 4. Renal: Acute renal failure: Baseline creatinine appears to be about 1.6. Creatinine currently 1.97. Continue to follow closely. Given her clinical improvement, will hold off on renal ultrasound electrolytes fractional excretion of urea and nephrology consultation. Acid-base status is acceptable. Replete electrolytes as needed. 5. GI: No acute issues. Diet as tolerated. No indication for prophylaxis. 6. Heme-onc: Pancytopenia of unclear etiology. This was present back in February. She been on iron supplementation in the past. There were a few nucleated red blood cells circulating, suggestive of possible underlying myelodysplastic syndrome. We will request hematology evaluation given the progressive nature of her cytopenias. Hold on transfusion for now. Prior iron studies performed in February showed a low iron level with a very low ferritin. Discontinued Lovenox and continued on home dose of apixaban 7. ID: Negative procalcitonin. Initial Covid test negative however follow-up was positive. She is hypoxemic so technically meets criteria for dexamethasone although again it is unclear how much could be related to Covid and how much could be related to heart failure. Seems reasonable to continue steroids for now. No indication for other adjuvant immune suppression currently. She was started on remdesivir. Continue full course as patient still requires supplem ental oxygen at 4L/min to maintain sats > 90%. 8. Endocrine: Glycemic control per protocol. Patient is critically ill at this point in time with possibility of clinical deterioration. 45 minutes critical care time. Discussed with patient at bedside as well as critical care nurse at bedside. We will follow closely. Patient may need central line access if she continues to require pressors. This was discussed with the patient. Admission and Anticipated Discharge Date Admission Date: October 01, 2021 Supervising Physician Co-Signing Physician Notes I saw and evaluated the patient with Erik Haddad, and agree with findings and plan as documented in the note. Patient seen and examined at bedside. No acute distress, no adverse events ov ernight Patient was on 0.07 of Levophed at time of examination with MAP of 81. I was able to go down to 0.05 She denies any chest pain, has been urinating well Denies any headache, no dizziness. Has been tolerating diet Constitutional: No acute distress HEENT: EOMI, PERRLA Respiratory system: Decreased air entry bilaterally, no wheeze, rhonchi, positive crackles bilaterally CVS: S1-S2 positive, no murmurs or gallops Abdomen: Soft, nontender, nondistended, positive bowel sounds x4, obese Extremities: +2 pulses bilaterally radialis/ dorsalis pedis, no cyanosis, +1 pitting edema bilateral lower extremity Neuro: Awake alert oriented x3 Psych: Normal mood and affect G/U:No [place] --Prophylaxis VTE: Apixaban GI: Protonix Lines:Peripheral Diet: Cardiorenal Plan: In/out: +780, urine output 901, +2.2 L since coming to the hospital Chest x-ray from today does show improvement in bilateral infiltrates compared to the time of presentation Unable to increase the patient's Lasix to 40 mg IV today. Starting tomorrow I will change to 40 mg p.o. daily and then gradually increase it to home dose of 40 mg twice daily Incentive spirometry will be helpful to the patient Gradually try to titrate off Levophed. Patient creatinine is gradually improving. Patient has low normal potassium she is already on replacement by p.o. potassium Continue with remdesivir and dexamethasone given the COVID-19 positivity I have personally spent 35 minutes of critical care time in the direct management of this patient. This is a life/limb threatening event. This includes time spent evaluating patient, direct bedside care, chart review, placing orders, interpretation of diagnostic studies, discussion with consultants, patient, and family members, as well as other required patient management activities. This time is exclusive of all separately billable procedures, and teaching time and separate from and in addition to any other critical care service time. Please note the above document was generated using voice recognition software. It may contain grammatical, syntax or spelling errors. Subjective Attending: Dr. De Leon Patient seen and examined in room 212. No evidence of acute respiratory distress. She does still require supplemental oxygen 4 L/min via nasal cannula. Patient has not been vaccinated for SARSCOV2. She initially was negative. Repeat swab had positive findings. Patient admitted 10/01/2021. She continues with significant malaise. She is currently sitting at bedside in chair. She states that when she moves to the toilet in the room and back to her chair she is very tired. She also reports some weakness on standing. She does have a cough which currently is nonproductive. She denies any hemoptysis. Patient does have a history of heart failure and currently has an elevated proBNP of 7424. Patient is hypotensive and has been initiated on norepinephrine (Levophed). Map is currently 70 Patient denies fever or chills. No nausea or vomiting. No diarrhea. No leg or calf pain. No pleuritic type pain. Review of Systems Review of Systems: All systems reviewed & are unremarkable except as noted in Subjective Physical Exam Physical Exam: Patient seen and examined at bedside Please refer to Dr. De Leon's addendum for his physical examination findings. Skin: no rashes, warm and dry Lymphatic: no cervical or axillary lymphadenopathy Results & Data Results & Data ([facility]) Vital Signs (Past 12 Hours) Vital Signs Temp Pulse Pulse Resp BP BP Pulse Ox 10/02/21 13:30 71 78/56 L 93 11/15/21 13:00 71 85/52 L 92 10/02/21 12:30 68 104/66 95 10/02/21 12:13 36.9 C 70 19 89/53 L 94 10/02/21 12:00 68 89/53 L 93 10/02/21 11:30 68 98/62 L 94 10/02/21 11:00 59 L 91/57 L 94 10/02/21 10:30 60 96 10/02/21 10:00 66 94 10/02/21 09:30 71 103/60 93 10/02/21 09:00 74 95 10/02/21 08:30 77 91 10/02/21 08:03 36.8 C 71 19 122/72 94 10/02/21 08:00 73 94 10/02/21 07:30 68 93 10/02/21 07:00 67 94 10/02/21 06:30 64 96 10/02/21 06:06 77 86 L 10/02/21 05:44 94/62 L 10/02/21 05:40 67 96 10/02/21 05:30 67 95 10/02/21 05:20 66 95 10/02/21 05:10 64 94 10/02/21 05:00 69 93 10/02/21 04:50 67 95 10/02/21 04:40 68 95 10/02/21 04:30 70 94 10/02/21 04:20 69 93 10/02/21 04:10 72 91 10/02/21 04:00 72 93 10/02/21 03:51 10/02/21 03:50 70 93 10/02/21 03:40 67 91 10/02/21 03:30 68 90 10/02/21 03:20 68 91 10/02/21 03:10 68 89 L 10/02/21 03:03 122/74 10/02/21 03:00 68 91 10/02/21 02:50 65 92 10/02/21 02:40 67 91 10/02/21 02:34 130/78 10/02/21 02:30 66 124/69 92 10/02/21 02:20 63 92 10/02/21 02:10 63 94 10/02/21 02:00 64 94 10/02/21 01:50 67 91 10/02/21 01:40 70 90 Pulse Ox 10/02/21 13:30 10/02/21 13:00 10/02/21 12:30 10/02/21 12:13 10/02/21 12:00 10/02/21 11:30 10/02/21 11:00 10/02/21 10:30 10/02/21 10:00 10/02/21 09:30 10/02/21 09:00 10/02/21 08:30 10/02/21 08:03 10/02/21 08:00 10/02/21 07:30 10/02/21 07:00 10/02/21 06:30 10/02/21 06:06 10/02/21 05:44 10/02/21 05:40 10/02/21 05:30 10/02/21 05:20 10/02/21 05:10 10/02/21 05:00 10/02/21 04:50 10/02/21 04:40 10/02/21 04:30 10/02/21 04:20 10/02/21 04:10 10/02/21 04:00 10/02/21 03:51 93 10/02/21 03:50 10/02/21 03:40 10/02/21 03:30 10/02/21 03:20 10/02/21 03:10 10/02/21 03:03 10/02/21 03:00 10/02/21 02:50 10/02/21 02:40 10/02/21 02:34 10/02/21 02:30 10/02/21 02:20 10/02/21 02:10 10/02/21 02:00 10/02/21 01:50 10/02/21 01:40 Laboratory Results 10/02/21 06:50 10/02/21 06:50 CRP 0.93 ProBNP 7424 Procalcitonin 0.06 Diagnostic Findings Chest X-Ray 10/02/21 07:00 SINGLE VIEW CHEST CLINICAL HISTORY: Pneumonia. FINDINGS: An AP, portable, upright chest radiograph is compared to study dated 09/30/2021. Correlation is made with chest CT dated 11/19/2019. The heart is enlarged noting atherosclerotic calcification of the thoracic aorta. The lungs and pleural spaces are clear. No multifocal airspace consolidation is similar appearance to 09/30/2021. No large pleural effusion or pneumothorax is identified. The bony thorax is grossly intact. IMPRESSION: Multifocal airspace consolidation is similar the appearance to the 09/30/2021 examination. Continued follow-up to complete resolution is recommended. ACT 112: Negative or not required by law. Electronically signed by: Erik Isabel M.D. 10/02/2021 9:27 AM Medications Administered Dexamethasone 6 mg IV daily Apixaban 5 mg p.o. twice daily Furosemide 40 mg IV daily with an additional 40 mg p.o. daily Remdesivir 100 mg IV daily Norepinephrine (Levophed) titrate per policy Coding Level of Care Code Critical Care 1st 30-74 mins Diagnoses Cardiogenic shock R57.0 Hypokalemia E87.6 Acute kidney injury superimposed on CKD N17.9; N18.9 Pancytopenia D61.818 Elevated troponin R77.8 Acute cardiac pulmonary edema I50.1 COVID U07.1 Time Spent (min) 35
--- NOTE | 2021-10-02 15:01 | Cardiology Progress Note ---
Date of Service October 02, 2021 Assessment & Plan (1) Hypotension: (2) Chronic systolic CHF (congestive heart failure): (3) Paroxysmal atrial fibrillation: (4) Ischemic cardiomyopathy: (5) CAD (coronary artery disease): (6) S/P coronary artery stent placement: Plan: Patient is mildly hypotensive but appears well-perfused (not lightheaded, mentation clear, warm, good urine output). Agree with remaining off pressor support to allow endogenous catecholamines to support minimum blood pressure while avoiding excess afterload. Volume status difficult to assess but she does not appear obviously hypervolemic. Weight down slightly and I/O mildly negative. Continue daily diuretic dose to keep slightly negative. Continue amiodarone to maintain sinus rhythm. Anticoagulated with apixaban and on aspirin. Fortunately, her platelet count has returned to normal. No new recommendations. Will continue to follow. Admission and Anticipated Discharge Date Admission Date: October 01, 2021 Subjective Patient notes persistent generalized fatigue but states that she feels "slightly better" than yesterday. She no longer feels lightheaded. No dyspnea at rest on supplemental oxygen (4 L) She does note mild photophobia, stating that the light irritates her eyes. Has a nonproductive cough. No chest pain, subjective palpitations, presyncope, or syncope. No change in mild leg edema. Weaned off of inotropic support. Physical Exam Physical Exam: No distress. Systolic blood pressure 70-85 mmHg range, but does not appear underperfused. Skin: Warm and dry, no ecchymoses or generalized lesions. HEENT: unremarkable. Neck: Jugular venous pulse difficult to assess due to habitus, jugular venous pulse not obviously elevated, no carotid bruits. Lungs: Generally clear with good airflow, few basilar crackles. No wheezing. No accessory muscle use. Cardiac: regular rhythm, no murmur or gallop. Abdomen: benign. Extremities: 1+ pretibial edema, pulses intact. Neurologic: normal affect and conversation nonfocal. Results & Data ([facility]) Laboratory Results Hemoglobin 11.1 with normal white count and normal platelet count (platelets increased from 84,000 214,000 overnight). Normal electrolytes, BUN 26, creatinine 1.97 (down from 2.15). AST 88 (down from 111), ALT 59. proBNP 7424 (down from 11,001) Albumin 2.5. Diagnostic Findings Telemetry showed sinus rhythm in the 60-75 bpm range. Echocardiogram yesterday showed EF 40 to 45% with a large area of apical akinesis and global mild hypokinesis. Right ventricle appears dilated, mild to moderate mitral regurgitation. PG Care Time/CCT Total # of Minutes Spent Total Time Spent with Patient: Total time spent is greater than 50% in coordination of care (as documented) at patient's floor/unit and/or counseling patient: Coding Level of Care Code 84191 Subseq Hosp Care Lvl 3 Diagnoses Hypotension I95.9 Chronic systolic CHF (congestive heart failure) I50.22 Paroxysmal atrial fibrillation I48.0 S/P coronary artery stent placement Z95.5 Ischemic cardiomyopathy I25.5 CAD (coronary artery disease) I25.10 Coronary Disease-Associated Artery/Lesion type: [place] artery [place] vs. transplanted heart: [place] heart Associated angina: without angina (1) CAD (coronary artery disease) Coronary Disease-Associated Artery/Lesion type: [place] artery [place] vs. transplanted heart: [place] heart Associated angina: without angina Qualified Code(s): I25.10 - Atherosclerotic heart disease of [place] artery without angina pectoris
--- NOTE | 2021-10-02 19:34 | Hospitalist Progress Note ---
Date of Service October 02, 2021 Assessment & Plan (1) Pneumonia due to COVID-19 virus: Plan: day #2 dexamethasone 6mg IV daily. day #2 Remdesivir. resulting in #2 below. likely also with component of acute/chronic systolic CHF. (2) Acute respiratory failure with hypoxia: Plan: 2nd to COVID-19 pneumonia + decompensated CHF. treating both. NC O2 support. (3) Shock: Plan: septic? cardiogenic? combination? remains on levophed; defer management to critical care team. (4) Paroxysmal atrial fibrillation: Plan: remains in NSR cont amiodarone to maintain NSR cont eliquis 5mg BID (5) Acute kidney injury superimposed on CKD: Plan: VIK improving with diuresis, pressor support, etc BMP am (6) Hypokalemia: Plan: 2nd diuresis replete repeat BMP am (7) Elevated troponin: Plan: 2nd myocardial demand ischemia in setting of critical illness no evidence of ACS (8) Ischemic cardiomyopathy: Plan: prior echos with EF <30% now with EF 40-45% diurese as tolerated in the setting of hypotension (9) CAD (coronary artery disease): Plan: cont asa cont statin hold metoprolol & Entresto due to shock (10) Acute on chronic systolic (congestive) heart failure: Plan: diurese gently as tolerated resume BB once BPs have normalized (11) DVT prophylaxis: Plan: Eliquis BID (12) Obesity (BMI 30-39.9): Plan: BMI 39 Admission and Anticipated Discharge Date Admission Date: October 01, 2021 Subjective pt sitting in chair coughing throughout the visit feels poorly - no worse than yesterday appetite fair no chest pain dyspnea mildly improved from admission tele overnight wnl still on levophed for BP support Review of Systems Review of Systems: gen - fatigue musculo - had severe muscle aches - diffuse - early in her illness course but now improved CV - no chest pain pulm - coughing, dyspnea GI - no vomiting Physical Exam Physical Exam: gen - sitting in chair, obese, coughing neck - no JVD sitting upright at 90 degrees mouth - MMM heart - RRR, s1 s2 lungs - bibasilar fine rales, no wheeze, no increased work of breathing abd - soft NT ND BS+ ext - <1+ edema b/l, pulses 2+ b/l skin - no rash psych - a/o x 3 Results & Data Results & Data ([facility]) Vital Signs (Past 12 Hours) Vital Signs Temp Pulse Pulse Resp BP BP Pulse Ox 10/02/21 19:21 72 91 10/02/21 19:10 71 93 10/02/21 19:00 65 91 10/02/21 18:51 70 89 L 10/02/21 18:40 69 92 10/02/21 18:30 71 96/62 L 91 10/02/21 18:00 69 22 90 10/02/21 17:30 79 17 113/62 92 10/02/21 17:00 68 27 H 110/66 90 10/02/21 16:30 74 7 L 92 10/02/21 16:00 69 25 H 101/67 87 L 10/02/21 15:50 36.9 C 71 24 77/44 L 89 L 10/02/21 15:30 64 23 76/45 L 88 L 10/02/21 15:00 64 25 H 86/44 L 95 10/02/21 14:51 66 17 93 10/02/21 14:40 61 14 66/36 L 95 10/02/21 14:30 67 69/45 L 92 10/02/21 14:00 69 12 78/48 L 92 10/02/21 13:30 71 78/56 L 93 10/02/21 13:00 71 85/52 L 92 10/02/21 12:30 68 104/66 95 10/02/21 12:13 36.9 C 70 19 89/53 L 94 10/02/21 12:00 68 89/53 L 93 10/02/21 11:30 68 98/62 L 94 10/02/21 11:00 59 L 91/57 L 94 10/02/21 10:30 60 96 10/02/21 10:00 66 94 10/02/21 09:30 71 103/60 93 10/02/21 09:00 74 95 10/02/21 08:30 77 91 10/02/21 08:03 36.8 C 71 19 122/72 94 10/02/21 08:00 73 94 Laboratory Results Laboratory Results - last 24 hr 10/01/21 10/02/21 10/02/21 21:57 06:50 06:50 WBC 4.99 RBC 5.16 Hgb 11.1 L Hct 38.4 MCV 74.4 L MCH 21.5 L MCHC 28.9 L RDW Std Deviation 52.7 H RDW Coeff of Esthela 19.5 H Plt Count 214 D MPV 10.3 Immature Gran % (Auto) 0.4 Neut % (Auto) 84.6 Lymph % (Auto) 8.8 [place] % (Auto) 6.0 Eos % (Auto) 0.0 Baso % (Auto) 0.2 Neut # (Auto) 4.22 Lymph # (Auto) 0.44 L [place] # (Auto) 0.30 Eos # (Auto) 0.00 Baso # (Auto) 0.01 Immature Gran # (Auto) 0.02 Absolute Nucleated RBC 0.09 H Nucleated RBC % (auto) 1.8 Anisocytosis Present Ovalocytes 1+ Echinocytes 1+ Sodium 136 Potassium 3.5 D Chloride 104 Carbon Dioxide 21 Anion Gap 11.0 BUN 26 H Creatinine 1.97 H Est Cr Clr Drug Dosing 40.9 Est GFR ( Amer) 33.0 Est GFR (Non-Af Amer) 28.5 BUN/Creatinine Ratio 13.1 Glucose 159 H POC Glucose 179 H Estimat Average Glucose Hemoglobin A1c Calcium 8.6 Phosphorus 3.6 Magnesium 2.2 Total Bilirubin 1.1 H AST 88 H ALT 59 Alkaline Phosphatase 69 C-Reactive Protein 0.93 H NT-Pro-B Natriuret Pep 7424 H Total Protein 5.9 L Albumin 2.5 L Globulin 3.4 Albumin/Globulin Ratio 0.7 L 10/02/21 10/02/21 10/02/21 06:50 08:17 12:15 WBC RBC Hgb Hct MCV MCH MCHC RDW Std Deviation RDW Coeff of Esthela Plt Count MPV Immature Gran % (Auto) Neut % (Auto) Lymph % (Auto) [place] % (Auto) Eos % (Auto) Baso % (Auto) Neut # (Auto) Lymph # (Auto) [place] # (Auto) Eos # (Auto) Baso # (Auto) Immature Gran # (Auto) Absolute Nucleated RBC Nucleated RBC % (auto) Anisocytosis Ovalocytes Echinocytes Sodium Potassium Chloride Carbon Dioxide Anion Gap BUN Creatinine Est Cr Clr Drug Dosing Est GFR ( Amer) Est GFR (Non-Af Amer) BUN/Creatinine Ratio Glucose POC Glucose 152 H 230 H Estimat Average Glucose 131 Hemoglobin A1c 6.2 H Calcium Phosphorus Magnesium Total Bilirubin AST ALT Alkaline Phosphatase C-Reactive Protein NT-Pro-B Natriuret Pep Total Protein Albumin Globulin Albumin/Globulin Ratio 10/02/21 17:00 WBC RBC Hgb Hct MCV MCH MCHC RDW Std Deviation RDW Coeff of Esthela Plt Count MPV Immature Gran % (Auto) Neut % (Auto) Lymph % (Auto) [place] % (Auto) Eos % (Auto) Baso % (Auto) Neut # (Auto) Lymph # (Auto) [place] # (Auto) Eos # (Auto) Baso # (Auto) Immature Gran # (Auto) Absolute Nucleated RBC Nucleated RBC % (auto) Anisocytosis Ovalocytes Echinocytes Sodium Potassium Chloride Carbon Dioxide Anion Gap BUN Creatinine Est Cr Clr Drug Dosing Est GFR ( Amer) Est GFR (Non-Af Amer) BUN/Creatinine Ratio Glucose POC Glucose 195 H Estimat Average Glucose Hemoglobin A1c Calcium Phosphorus Magnesium Total Bilirubin AST ALT Alkaline Phosphatase C-Reactive Protein NT-Pro-B Natriuret Pep Total Protein Albumin Globulin Albumin/Globulin Ratio PG Care Time/CCT Total # of Minutes Spent Total Time Spent with Patient: Total time spent is greater than 50% in coordination of care (as documented) at patient's floor/unit and/or counseling patient: Coding Level of Care Code 26758 Subseq Hosp Care Lvl 2 Diagnoses Pneumonia due to COVID-19 virus U07.1; J12.82 Acute respiratory failure with hypoxia J96.01 Shock R57.9 Paroxysmal atrial fibrillation I48.0 Acute kidney injury superimposed on CKD N17.9; N18.9 Hypokalemia E87.6 Elevated troponin R77.8 Ischemic cardiomyopathy I25.5 CAD (coronary artery disease) I25.10 Coronary Disease-Associated Artery/Lesion type: [place] artery [place] vs. transplanted heart: [place] heart Associated angina: without angina Acute on chronic systolic (congestive) heart failure I50.23 DVT prophylaxis Z29.9 Obesity (BMI 30-39.9) E66.9 (1) CAD (coronary artery disease) Coronary Disease-Associated Artery/Lesion type: [place] artery [place] vs. transplanted heart: [place] heart Associated angina: without angina Qualified Code(s): I25.10 - Atherosclerotic heart disease of [place] coronary artery wit hout angina pectoris
[2021-10-03] MEDS: NOREPINEPHRINE/D5W 8 MG/508 ML BAG IV SCH ×2 (00:57→10:37)
[2021-10-03 08:26] LABS: Albumin Level 2.6 gm/dl (3.4-5.0); BUN Creatinine Ratio 17.9 (10-20); Calcium 8.6 mg/dl (8.5-10.1); Creatinine Clr Calc Pharmacy 48.8 ml/min; Est GFR (African American) 40.9 ml/min; Est GFR (Non-African American) 35.3 ml/min; Magnesium 2.2 mg/dl (1.8-2.4); Potassium 3.6 mmol/L (3.5-5.1)
[2021-10-03 08:31] LABS: Albumin Globulin Ratio 0.8 (0.9-2); Bilirubin,Total 1.3 mg/dl (0.2-1); Globulin 3.2 gm/dl (2.5-4.0); Phosphorus 2.8 mg/dl (2.5-4.9); Total Protein 5.8 gm/dl (6.4-8.2)
[2021-10-03 08:35] LABS: Anisocytosis Present; Basophils # (auto) 0.01 K/uL (0-0.2); Basophils % (auto) 0.2 %; Echinocytes 2+; Hematocrit (blood only) 39.3 % (37-47); Hemoglobin 11.2 g/dL (12.0-16.0); Immature Granulocytes # (auto) 0.01 K/uL (0.00-0.02); Immature Granulocytes % (auto) 0.2 %; Lymphocytes # (auto) 0.41 K/uL (1.2-3.4); Lymphocytes % (auto) 7.7 %; Mean Corpuscular Hemoglobin 21.3 pg (25-34); Mean Corpuscular Hgb Conc 28.5 g/dL (32-36); Mean Corpuscular Volume 74.9 fL (80-100); Mean Platelet Volume 9.5 fL (7.4-10.4); Monocytes # (auto) 0.29 K/uL (0.11-0.59); Monocytes % (auto) 5.4 %; Neutrophils # (auto) 4.61 K/uL (1.4-6.5); Neutrophils % (auto) 86.5 %; Nucleated RBC # (auto) 0.07 K/uL (0-0); Nucleated RBC % (auto) 1.4 %; Ovalocytes 1+; Platelet Count 197 K/uL (130-400); RDW Coefficient of Variation 19.7 % (11.5-14.5); RDW Standard Deviation 53.6 fL (36.4-46.3); Red Blood Count 5.25 M/uL (4.2-5.4); White Blood Count 5.33 K/uL (4.8-10.8)
[2021-10-03] MEDS ORDERED: FUROSEMIDE 40 MG TAB PO SCH (09:00)
[2021-10-03] MEDS: dexAMETHasone 6 MG in SYRINGE 0 ML IV SCH (09:26)
[2021-10-03] MEDS: APIXABAN 5 MG TABLET PO SCH ×2 (09:26→20:53)
[2021-10-03] MEDS: ATORVASTATIN 40 MG TAB PO SCH (09:27)
[2021-10-03] MEDS: POTASSIUM CHLORIDE 20 MEQ/15 ML UDC PO SCH ×2 (09:27→20:53)
[2021-10-03] MEDS: PANTOprazole 40 MG TAB PO SCH (09:27)
[2021-10-03] MEDS: AMIODARONE 200 MG TAB PO SCH (09:27)
[2021-10-03] MEDS: ASPIRIN 81 MG ECTAB PO SCH (09:28)
[2021-10-03] MEDS: INSULIN ASPART 100 UNITS/ML 3 ML PEN SC SCH ×4 (09:30→20:54)
[2021-10-03] MEDS: INSULIN HUMAN NPH SC SCH (09:32)
--- NOTE | 2021-10-03 11:26 | Critical Care Progress Note ---
Date of Service October 03, 2021 Assessment & Plan (1) Cardiogenic shock: (2) Hypokalemia: (3) Acute kidney injury superimposed on CKD: (4) Pancytopenia: (5) Elevated troponin: (6) Acute cardiac pulmonary edema: (7) COVID: Plan: Impression: 51-year-old female admitted with CHF exacerbation and hypotension with normal lactate. She had concomitant acute kidney injury and markedly elevated BNP level with low level of troponin. She continues to deny chest pa in. Covid testing initially was negative but follow-up testing was positive. She is on a 4L/min of oxygen. Its unclear how much of her chest x-ray is attributable to fluid overload and how much may be secondary to Covid pneumonitis. pro-BNP elevated at 7424. Recommendations: 1. Neurologic: No current issues. Continue to follow clinically. Continue out of bed to chair as tolerated 2. Cardiovascular: CHF exacerbation. pro-BNP elevated at 11,000 on admission and 7424 yesterday. Attempted to wean Norepinephrine. Became hypotensive again with a MAP in the 40s. Levophed resumed. Appreciate Dr. Lay's input. Will continue to add temp to wean Levophed and follow patient symptomatically rather than based on MAP. If patient does not have any lightheadedness or dizziness while sitting in chair okay to target lower MAP. Ultrasound-guided IV placed for continuing pressors as needed. Unable to obtain PICC line or midline due to small caliber of vein. The patient does have a history of atrial fibrillation is anticoagulated on apixaban in the outpatient setting. Continue diuresis. Continue apixaban prophylaxis. 3. Pulmonary: Diffuse pulmonary infiltrates. Unclear how much could be related to infectious etiologies such as Covid or how much is noninfectious including etiologies such as heart failure. Continue to wean oxygen as tolerated. No acute respiratory distress at rest. Patient tolerating out of bed to chair. Continue to monitor on telemetry. Will get repeat chest x-ray in the morning. 4. Renal: Acute renal failure: Baseline creatinine appears to be about 1.6. Creatinine now back to baseline. Continue to follow daily labs. Replete electrolytes as needed. 5. GI: No acute issues. Diet as tolerated. No indication for prophylaxis. 6. Heme-onc: Pancytopenia of unclear etiology. This was present back in February. She been on iron supplementation in the past. There were a few nucleated red blood cells circulating, suggestive of possible underlying myelodysplastic syndrome. Hemoglobin improved to 11.2 today. No active bleeding. Prior iron studies performed in February showed a low iron level with a very low ferritin. Discontinued Lovenox and continued on home dose of apixaban. 7. ID: Negative procalcitonin. Initial Covid test negative however follow-up was positive. She is hypoxemic so technically meets criteria for dexamethasone although again it is unclear how much could be related to Covid and how much could be related to heart failure. Seems reasonable to continue steroids for now. No indication for other adjuvant immune suppression currently. She was started on remdesivir. Continue full course as patient still requires supplemental oxygen at 4L/min to maintain sats > 90%. 8. Endocrine: Glycemic control per protocol. Patient is critically ill at this point in time with possibility of clinical deterioration. 30 minutes critical care time. Discussed with patient at bedside as well as critical care nurse at bedside. We will follow closely. Order placed for midline. Patient unable to get this secondary to small caliber veins. Will hold off on central line at this time as patient seems to be slowly improving. Admission and Anticipated Discharge Date Admission Date: October 01, 2021 Supervising Physician Co-Signing Physician Notes I saw and evaluated the patient with Erik Haddad, and agree with findings and plan as documented in the note. Patient seen and examined at bedside. No acute distress She was on Levophed 0.04 with map in the seventies I went down on Levophed to 0.03 C stated that she is doing well when it comes to her breathing Has been using incentive spirometry Denies any chest pain, urinating well Constitutional: No acute distress HEENT: EOMI, PERRLA Respiratory system:Decreased air entry bilaterally, no wheeze, rhonchi, positive crackles bilaterally CVS: S1-S2 positive, no murmurs or gallops Abdomen: Soft, nontender, nondistended, positive bowel sounds x4,obese Extremities: +2 pulses bilaterally radialis/ dorsalis pedis, no cyanosis,+1 pitting edema bilateral lower extremity Neuro: Awake alert oriented x3 Psych: Normal mood and affect G/U:No [place] --Prophylaxis VTE: Apixaban GI: Protonix Lines:Peripheral Diet: Cardiorenal Plan: In/out: +248, urine output 100 Change Lasix to 40 mg p.o. daily Starting tomorrow we will continue to 40 mg twice daily Creatinine is improving Try to titrate off vasopressin if possible, okay to have labs in the low sixties Please note the above document was generated using voice recognition software. It may contain grammatical, syntax or spelling errors. Subjective Attending: Dr. De Leon Patient seen and examined in room 212 on the [facility] unit. She continues to have significant malaise. She has dyspnea with exertion ambulating from her chair to the toilet across the room and back. She has no lightheadedness or dizziness. She has no nausea or vomiting. She has no diarrhea. She denies any fever, sweats, chills, rigors. She has no chest pain or tightness. She does continue on low-dose norepinephrine (Levophed). This is attempted to be titrated but has had to be resumed due to a low MAP. Patient continues to require 3 to 4 L/min of supplemental oxygen. She denies any significant cough or sputum production. No other acute complaints. Review of Systems Review of Systems: All systems reviewed & are unremarkable except as noted in Subjective Physical Exam Physical Exam: Patient seen and examined in room [address] De Leon's addendum for physical examination Skin: no rashes, warm and dry Lymphatic: no cervical or axillary lymphadenopathy Results & Data Results & Data ([facility]) Vital Signs (Past 12 Hours) Vital Signs Pulse Resp BP Pulse Ox Pulse Ox 10/03/21 10:00 69 22 96 10/03/21 09:15 119/79 10/03/21 09:00 67 21 95 10/03/21 08:45 79/49 L 10/03/21 08:00 70 24 131/80 94 10/03/21 07:30 66 18 129/83 94 10/03/21 07:00 78 24 122/73 93 10/03/21 06:30 71 20 95 10/03/21 06:01 107/71 10/03/21 06:00 65 14 96 10/03/21 05:50 65 16 95 10/03/21 05:40 66 18 96 10/03/21 05:30 65 21 97 10/03/21 05:21 67 12 95 10/03/21 05:10 69 18 94 10/03/21 05:00 68 16 92 10/03/21 04:51 70 17 93 10/03/21 04:40 69 2 L 92 10/03/21 04:30 76 18 88 L 10/03/21 04:21 67 19 89 L 10/03/21 04:10 58 L 23 91 10/03/21 04:00 64 28 H 87 L 10/03/21 03:51 62 23 89 L 10/03/21 03:40 68 26 H 87 L 10/03/21 03:30 58 L 21 87 L 10/03/21 03:20 65 22 105/69 88 L 10/03/21 03:10 67 22 88 L 10/03/21 03:00 68 22 89 L 88 L 10/03/21 02:51 65 21 90 10/03/21 02:45 129/70 10/03/21 02:40 69 21 88 L 10/03/21 02:30 67 14 89 L 10/03/21 02:21 70 4 L 92 10/03/21 02:10 69 0 L 93 10/03/21 02:00 78 17 88 L 10/03/21 01:51 66 22 88 L 10/03/21 01:40 65 21 88 L 10/03/21 01:30 66 22 87 L 10/03/21 01:21 68 22 91 10/03/21 01:10 67 13 90 10/03/21 01:00 73 24 92 10/03/21 00:51 71 90 10/03/21 00:40 77 10/03/21 00:30 72 88 L 10/03/21 00:21 70 92 10/03/21 00:10 65 91 10/03/21 00:00 64 91 10/02/21 23:51 64 91 10/02/21 23:40 68 91 10/02/21 23:30 62 93 Laboratory Results 10/03/21 07:36 10/03/21 07:36 Diagnostic Findings No new diagnostic imaging today Coding Level of Care Code Critical Care 1st 30-74 mins Diagnoses Cardiogenic shock R57.0 Hypokalemia E87.6 Acute kidney injury superimposed on CKD N17.9; N18.9 Pancytopenia D61.818 Elevated troponin R77.8 Acute cardiac pulmonary edema I50.1 COVID U07.1 Time Spent (min) 30
--- NOTE | 2021-10-03 11:54 | Pharmacy Report ---
Pharmacy Glycemic Short Note 2 - Date of Service October 03, 2021 - Glycemic Short BSG Results (Last 24 hours): 10/02/21 10/02/21 10/02/21 12:15 17:00 20:32 Glucose POC Glucose 230 H 195 H 204 H 10/03/21 10/03/21 07:36 08:00 Glucose 152 H POC Glucose 132 H OUTPATIENT ANTIDIABETIC REGIMEN: * N/A; patient states that she was on Lantus + metformin in the past but is not currently taking anything * A1c = 6.2% on 03/09/21 * Repeat A1c pending for 10/02/21 w/ AM labs ASSESSMENT: 10/03 * Patient remained mildly hyperglycemic most of the day yesterday. Norepi weaned down however continues at 0.05mcg/kg/min this AM. IV dexamethasone 6mg continues * Fasting BSG 132 this AM after having received 30 units NPH yesterday, and 4 units correctional insulin at HS * Post-prandial BSGs elevated 3 of 3. PO intake nil per sand control worker. Will increase NPH dose * Will continue Novolog CF and CR for now given change made to NPH dose - will adjust if necessary based upon post-prandial trends today 10/02 * Well controlled type 2 diabetic admitted for COVID19 PNA, shock secondary to sepsis +/- cardiogenic source * IV dexamethasone 6mg daily ordered each AM. Norepi infusing at 0.07mcg/kg/min this AM, dobutamine titrated off. Heart Healthy diet is ordered. * Will utilize NPH to combat steroid induced hyperglycemia, dosed at 0.3unit/kg with each steroid dose * Novolog doses will be based upon weight and moderate stress level initially until steroid effects are more obvious PLAN FOR INPATIENT GLYCEMIC CONTROL: * Basal insulin * NPH 40 units SQ Q AM given at the same time dexamethasone IV given * Bolus insulin * NovoLog per scale ACHS or Q6hrs while NPO * Goal Range: Low 110 mg/dL - High 140 mg/dL * Correction Factor: 20 mg/dL/unit * Nutritional / Prandial insulin per carb ratio of 1 unit per 7 grams CHO consumed PLAN FOR DISCHARGE: * Given A1c of 6.2%, no need to initiate new DM drug therapy on discharge
[2021-10-03] MEDS: REMDESIVIR 100 MG in SODIUM CHLORIDE 0.9% 230 ML IV SCH (12:45)
--- NOTE | 2021-10-03 13:19 | Consultation Report ---
HEMATOLOGY CONSULTATION DATE OF SERVICE: 10/03/2021 REASON FOR CONSULTATION: Pancytopenia, etiology unclear. HISTORY OF PRESENT ILLNESS: Shanelle is a very pleasant, morbidly obese 51-year-old female patient with p ast medical history of ischemic cardiomyopathy, coronary artery disease, atrial fibrillation and now COVID-19 infection, admitted to [facility] with profound hypotension and CHF exacer bation. The patient with known congestive heart failure, apparently has an EF of between 25% and 30% , was brought to the Emergency Room by her daughter for fatigue and lethargy. The patient had been b attling an upper respiratory infection, thought to be a common cold since 09/26. apparently had recently tested positive for COVID. The patient indeed is COVID positive, now receiving remdesiv ir and steroids as well as vasopressors. Clinically, she is starting to feel better. I have been as ked to visit her because of her blood counts. On admission, her white count was 2112 and since has ri sen to almost 5000 in total. Hemoglobin and MCV were both low at 9.9, has improved to 11.1. Platele t count was initially suppressed at 95,000, now up to 214,000. I took notice of the patient's low MC V and iron studies confirm deficient state. The patient remarked having s history of iron deficiency during childbearing years. She reports no active gastrointestinal or genitourinary bleeding. PAST MEDICAL HISTORY: Acute on chronic kidney disease, COVID-19, CHF, atrial fibrillation, ischemic cardiomyopathy, iron-deficiency anemia, type 2 diabetes mellitus. PAST SURGICAL HISTORY: History of coronary artery stent placement in 2014, history of biliary duct s tent placement, ERCP, hysteroscopy, history of laparoscopic cholecystectomy in 09/2019. MEDICATIONS PRIOR TO ADMISSION: Include Protonix 40 mg p.o. daily, amiodarone 200 mg p.o. daily, sac ubitril 97 mg/valsartan 103 mg 1 tablet p.o. b.i.d., Lasix 80 mg p.o. daily, metoprolol 200 mg p.o. d aily, atorvastatin 80 mg p.o. daily, apixaban 5 mg p.o. b.i.d., aspirin 81 mg p.o. daily. ALLERGIES: LISINOPRIL. SOCIAL HISTORY: The patient lives with , daughter and grandson. She is a nonsmoker, nondrink er, and nonillicit drug user. FAMILY HISTORY: Maternal grandmother with history of breast cancer. Brother with diabetes and heart disease. Father suffered from hypertension and diabetes. Mother suffers from hypertension. REVIEW OF SYSTEMS: CONSTITUTIONAL: As per HPI, most notably for decreased exercise tolerance, generalized weakness, logan rtness of breath, dyspnea on exertion, arthralgias and myalgias. Negative for weight loss or anorexi a. SKIN: No rashes or lesions. No history of dermatoses. HEENT: Negative for headaches, lightheadedness or dizziness. No acute visual or hearing deficits. No sinus symptoms, sore throat or dysphagia. LYMPH NODES: No history of lymphoproliferative disease. CARDIAC: Positive for coronary artery disease. No current angina or palpitations. PULMONARY: Positive for shortness of breath and dyspnea. Positive for intermittent cough, nonproduc tive. No hemoptysis. GASTROINTESTINAL: Negative for abdominal pain, nausea, vomiting, diarrhea or constipation, hematoche yuval or melena stools. GENITOURINARY: No hematuria, dysuria, or urinary incontinence. MUSCULOSKELETAL: No arthralgias or myalgias. No focal muscle weakness. ENDOCRINE: Positive for type 2 diabetes mellitus. NEUROLOGIC: Negative for seizure, stroke or migraine headache. HEMATOLOGIC: As per HPI. PHYSICAL EXAMINATION: GENERAL: [place] 51-year-old female, awake, alert and appropriate, in no acute distress. VITAL SIGNS: Temperature 36.5, pulse 65, respiratory rate 14, blood pressure 107/71. SKIN: Warm, dry, noncyanotic without petechia, rash or ecchymosis. HEENT: Atraumatic, normocephalic. Eyes: PERRLA. EOMI. Sclerae are nonicteric. No conjunctival in jection. Nares are patent without rhinorrhea or discharge. Throat clear. Tongue midline. Mucous m embranes moist. NECK: Supple without JVD or thyromegaly. HEART: Regular rate and rhythm. LUNGS: Bibasilar crackles heard posteriorly. ABDOMEN: Obese, soft, nontender, nondistended, without palpable hepatosplenomegaly. No rigidity or guarding. EXTREMITIES: No clubbing, cyanosis or edema. MUSCULOSKELETAL: Strength and pulses are equal in all 4 quadrants. NEUROLOGICAL: She is awake, alert and oriented x3. Cranial nerves grossly intact. LABORATORY DATA: WBC count 4990, hemoglobin 11.1, MCV 74.4, platelet count 214,000. RADIOGRAPHIC DATA: Chest x-ray done on the ; multifocal airspace consolidation similar in appear ance to an x-ray from 09/30. IMPRESSION: 1. Microcytic anemia. 2. Leukopenia (resolved). 3. Thrombocytopenia (resolved). 4. Hypotension. 5. COVID-19. 6. Paroxysmal atrial fibrillation. 7. Acute on chronic kidney disease. 8. Ischemic cardiomyopathy. 9. History of coronary artery disease. PLAN: I have been asked to visit with Shanelle because of her ongoing hematologic issues. She imparted a t bedside. She does have history of iron deficiency and thus iron studies followed by perhaps IV raeann alegre should be done. She reports no gastrointestinal or genitourinary bleeding at present. She is on P PIs, which notoriously block absorption of oral iron and thus may not be adequately supplemented oral ly. I spoke to Dr. Hoover about IV iron and he will look into this after the patient is off ICU statu s. Not sure if this lady is incorporated to [facility], I do not recognize her name, but saw that both Kerry Boggs and Ariella Crockett are on the chart, so I will discuss further with them. That said, I would like to see Shanelle in the office upon recovery. We will continue to follow her periodically duri ng her hospitalization. For any questions and concerns, I can be contacted at any time. Her WBCs and platelets have recovered satisfactorily. Thank you very much for allowing me to participate in her care. Job ID: [id number]
[2021-10-03] MEDS: SODIUM CHLORIDE 0.9% 10ML FLUSH IV SCH (14:09)
--- NOTE | 2021-10-03 17:03 | Cardiology Progress Note ---
Date of Service October 03, 2021 Assessment & Plan (1) Hypotension: (2) Chronic systolic CHF (congestive heart failure): (3) Paroxysmal atrial fibrillation: (4) Ischemic cardiomyopathy: (5) CAD (coronary artery disease): (6) S/P coronary artery stent placement: Plan: Patient with intermittent asymptomatic hypotensive who appears well-perfused (not lightheaded, mentation clear, skin warm, good urine output). If no evidence of hypoperfusion, would be comfortable allowing her to remain off pressor support even with a numerically low mean arterial pressure, to allow endogenous catecholamines to replenish. Volume status difficult to assess but she does not appear obviously hypervolemic. Weight again down slightly and I/O negative. Continue daily diuretic dose to keep slightly negative and on the dry side to minimize alveolar capillary leak Continue amiodarone to maintain sinus rhythm. Anticoagulated with apixaban and on aspirin. Fortunately, her platelet count has returned to normal. No new recommendations. Will continue to follow. Admission and Anticipated Discharge Date Admission Date: October 01, 2021 Subjective Patient still notes fatigue but feels slightly better than yesterday. No new symptoms. No chest pain, subjective palpitations, lightheadedness, presyncope, or syncope. No change in minor leg edema. Still has nonproductive cough. Was on and off vasopressors overnight, never symptomatic but her mean arterial pressure ran low off the vasopressors and they were restarted. She is on minimal dose norepinephrine currently with plans to again discontinue and observe. She notes that her systolic blood pressure at home is in the 90-110 mmHg range. Physical Exam Physical Exam: No distress. Systolic blood pressure 90-113 mmHg range, she does not appear underperfused. Skin: Warm and dry, no ecchymoses or generalized lesions. HEENT: unremarkable. Neck: Jugular venous pulse difficult to assess due to habitus but appears to be just above the clavicle, no carotid bruits. Lungs: Generally clear with good airflow. No wheezing. No accessory muscle use. Cardiac: regular rhythm, no murmur or gallop. Abdomen: benign. Extremities: 1+ pretibial edema, pulses intact. Neurologic: normal affect and conversation nonfocal. Results & Data ([facility]) Laboratory Results Creatinine declined from 1.97 to 1.65. PG Care Time/CCT Total # of Minutes Spent Total Time Spent with Patient: Total time spent is greater than 50% in coordination of care (as documented) at patient's floor/unit and/or counseling patient: Coding Level of Care Code 06676 Subseq Hosp Care Lvl 3 Diagnoses Hypotension I95.9 Chronic systolic CHF (congestive heart failure) I50.22 Paroxysmal atrial fibrillation I48.0 Ischemic cardiomyopathy I25.5 CAD (coronary artery disease) I25.10 Coronary Disease-Associated Artery/Lesion type: [place] artery [place] vs. transplanted heart: [place] heart Associated angina: without angina S/P coronary artery stent placement Z95.5 (1) CAD (coronary artery disease) Coronary Disease-Associated Artery/Lesion type: [place] artery [place] vs. transplanted heart: [place] heart Associated angina: without angina Qualified Code(s): I25.10 - Atherosclerotic heart disease of [place] coronary artery without angina pectoris
[2021-10-03] MEDS ORDERED: MELATONIN 3 MG TAB PO SCH (21:00)
--- NOTE | 2021-10-03 21:46 | Hospitalist Progress Note ---
Date of Service October 03, 2021 Assessment & Plan (1) Pneumonia due to COVID-19 virus: Plan: clinically improved/stable. day #3 dexamethasone 6mg IV daily. day #3 Remdesivir. cont supportive care, pulmonary toilet, NC o2 (or oxymask). (2) Acute respiratory failure with hypoxia: Plan: 2nd to COVID-19 pneumonia + decompensated CHF. treating both. NC O2 support. overall stable. (3) Shock: Plan: septic? cardiogenic? combination? remains on levophed but low-dose and nursing continues to wean per protocol. (4) Paroxysmal atrial fibrillation: Plan: remains in NSR cont amiodarone to maintain NSR cont eliquis 5mg BID (5) Acute kidney injury superimposed on CKD: Plan: VIK resolved BMP am (6) Hypokalemia: Plan: 2nd diuresis repleted and resolved BMP am (7) Elevated troponin: Plan: 2nd myocardial demand ischemia in setting of critical illness no evidence of ACS (8) Ischemic cardiomyopathy: Plan: prior echos with EF <30% now with EF 40-45% this admission IV lasix --> PO lasix today (9) CAD (coronary artery disease): Plan: cont asa cont statin cont to hold metoprolol & Entresto due to shock (10) Acute on chronic systolic (congestive) heart failure: Plan: volume status improved lasix now PO rather than IV resume BB once BPs have normalized (11) DVT prophylaxis: Plan: Eliquis BID (12) Obesity (BMI 30-39.9): Plan: BMI 39 (13) Chronic renal failure, stage 3a: Plan: Cr 1.6 today -- baseline bmp am (14) Insomnia: Plan: add melatonin 3mg HS (15) DM II (diabetes mellitus, type II), controlled: Plan: BSGs controlled/at goal ICU protocol insulin coverage last a1c -- 6.2% earlier this admission Plan: updated pt's family by phone 10/03/21 Admission and Anticipated Discharge Date Admission Date: October 01, 2021 Subjective c/o fatigue, poor sleep cough similar or slightly better today dyspnea on exertion remains no dyspnea at rest orthopnea improved nursing continues to wean levophed as tolerated appetite fair tele overnight wnl Review of Systems Review of Systems: gen - fatigue, but no fevers overnight CV - no chest pain pulm - no hemoptysis neuro - no dizziness HEENT - hoarse voice a bit better Physical Exam Physical Exam: gen - obese, NAD neck - no JVD mouth - MMM, hoarse voice improved heart - RRR, s1 s2 lungs - bibasilar fine rales improved today; no wheeze, no increased work of breathing abd - soft NT ND BS+ ext - no edema b/l, pulses 2+ b/l skin - no rash psych - a/o x 3 Results & Data Results & Data ([facility]) Vital Signs (Past 12 Hours) Vital Signs Pulse Resp BP Pulse Ox 10/03/21 18:00 60 22 84/61 L 92 10/03/21 17:55 73 22 92/59 L 93 10/03/21 17:00 66 27 H 94/60 L 90 10/03/21 16:30 66 21 113/68 94 10/03/21 16:00 58 L 21 102/71 91 10/03/21 15:30 68 25 H 96 10/03/21 15:00 62 20 98 10/03/21 14:30 58 L 21 96 10/03/21 14:00 64 22 102/59 L 98 10/03/21 13:30 71 26 H 94/60 L 96 10/03/21 13:00 76 25 H 101/67 90 10/03/21 12:30 63 22 90/63 L 92 10/03/21 12:00 64 20 107/78 95 10/03/21 11:30 65 19 100/77 96 10/03/21 11:00 77 24 105/69 94 10/03/21 10:30 59 L 21 102/65 98 10/03/21 10:00 69 22 96 Laboratory Results Laboratory Results - last 24 hr 10/03/21 10/03/21 10/03/21 07:36 07:36 08:00 WBC 5.33 RBC 5.25 Hgb 11.2 L Hct 39.3 MCV 74.9 L MCH 21.3 L MCHC 28.5 L RDW Std Deviation 53.6 H RDW Coeff of [place] 19.7 H Plt Count 197 MPV 9.5 Immature Gran % (Auto) 0.2 Neut % (Auto) 86.5 Lymph % (Auto) 7.7 [place] % (Auto) 5.4 Eos % (Auto) 0.0 Baso % (Auto) 0.2 Neut # (Auto) 4.61 Lymph # (Auto) 0.41 L [place] # (Auto) 0.29 Eos # (Auto) 0.00 Baso # (Auto) 0.01 Immature Gran # (Auto) 0.01 Absolute Nucleated RBC 0.07 H Nucleated RBC % (auto) 1.4 Anisocytosis Present Ovalocytes 1+ Echinocytes 2+ Sodium 141 Potassium 3.6 Chloride 109 H Carbon Dioxide 22 Anion Gap 10.0 BUN 30 H Creatinine 1.65 H D Est Cr Clr Drug Dosing 48.8 Est GFR ( Amer) 40.9 Est GFR (Non-Af Amer) 35.3 BUN/Creatinine Ratio 17.9 Glucose 152 H POC Glucose 132 H Calcium 8.6 Phosphorus 2.8 Magnesium 2.2 Total Bilirubin 1.3 H AST 64 H ALT 57 Alkaline Phosphatase 80 Total Creatine Kinase 126 Total Protein 5.8 L Albumin 2.6 L Globulin 3.2 Albumin/Globulin Ratio 0.8 L 10/03/21 10/03/21 10/03/21 12:37 16:43 20:15 WBC RBC Hgb Hct MCV MCH MCHC RDW Std Deviation RDW Coeff of [place] Plt Count MPV Immature Gran % (Auto) Neut % (Auto) Lymph % (Auto) [place] % (Auto) Eos % (Auto) Baso % (Auto) Neut # (Auto) Lymph # (Auto) [place] # (Auto) Eos # (Auto) Baso # (Auto) Immature Gran # (Auto) Absolute Nucleated RBC Nucleated RBC % (auto) Anisocytosis Ovalocytes Echinocytes Sodium Potassium Chloride Carbon Dioxide Anion Gap BUN Creatinine Est Cr Clr Drug Dosing Est GFR ( Amer) Est GFR (Non-Af Amer) BUN/Creatinine Ratio Glucose POC Glucose 191 H 171 H 147 H Calcium Phosphorus Magnesium Total Bilirubin AST ALT Alkaline Phosphatase Total Creatine Kinase Total Protein Albumin Globulin Albumin/Globulin Ratio PG Care Time/CCT Total # of Minutes Spent Total Time Spent with Patient: Total time spent is greater than 50% in coordination of care (as documented) at patient's floor/unit and/or counseling patient: Coding Level of Care Code 43764 Subseq Hosp Care Lvl 2 Diagnoses Pneumonia due to COVID-19 virus U07.1; J12.82 Acute respiratory failure with hypoxia J96.01 Shock R57.9 Paroxysmal atrial fibrillation I48.0 Acute kidney injury superimposed on CKD N17.9; N18.9 Hypokalemia E87.6 Elevated troponin R77.8 Ischemic cardiomyopathy I25.5 CAD (coronary artery disease) I25.10 Associated angina: without angina Coronary Disease-Associated Artery/Lesion type: [place] artery [place] vs. transplanted heart: [place] heart Acute on chronic systolic (congestive) heart failure I50.23 DVT prophylaxis Z29.9 Obesity (BMI 30-39.9) E66.9 Chronic renal failure, stage 3a N18.31 Insomnia G47.00 DM II (diabetes mellitus, type II), controlled E11.9 (1) CAD (coronary artery disease) Associated angina: without angina Coronary Disease-Associated Artery/Lesion type: [place] artery [place] vs. transplanted heart: [place] heart Qualified Code(s): I25.10 - Atherosclerotic heart disease of [place] coronary artery without angina pectoris
[2021-10-04 08:17] LABS: Echinocytes 2+; Hematocrit (blood only) 34.3 % (37-47); Hemoglobin 9.8 g/dL (12.0-16.0); Lymphocytes % (auto) 11.6 %; Mean Corpuscular Hemoglobin 21.5 pg (25-34); Mean Corpuscular Hgb Conc 28.6 g/dL (32-36); Mean Corpuscular Volume 75.2 fL (80-100); Monocytes # (auto) 0.15 K/uL (0.11-0.59); Monocytes % (auto) 5.8 %; Neutrophils # (auto) 2.14 K/uL (1.4-6.5); Neutrophils % (auto) 82.6 %; Nucleated RBC # (auto) 0.02 K/uL (0-0); Nucleated RBC % (auto) 0.9 %; Platelet Count 102 K/uL (130-400); Platelet Estimate Decreased (Normal); RDW Coefficient of Variation 19.8 % (11.5-14.5); RDW Standard Deviation 54.3 fL (36.4-46.3); Red Blood Count 4.56 M/uL (4.2-5.4); White Blood Count 2.59 K/uL (4.8-10.8)
[2021-10-04 08:21] LABS: Albumin Level 2.3 gm/dl (3.4-5.0); BUN Creatinine Ratio 20.9 (10-20); Calcium 8.6 mg/dl (8.5-10.1); Creatinine Clr Calc Pharmacy 52.9 ml/min; Est GFR (African American) 45.2 ml/min; Magnesium 2.2 mg/dl (1.8-2.4); Phosphorus 3.2 mg/dl (2.5-4.9); Potassium 4.1 mmol/L (3.5-5.1)
[2021-10-04 08:25] LABS: Albumin Globulin Ratio 0.8 (0.9-2); Bilirubin,Total 1.2 mg/dl (0.2-1); Ferritin 1200.5 ng/ml (8-388); Total Protein 5.3 gm/dl (6.4-8.2)
--- NOTE | 2021-10-04 08:56 | XRay Report ---
XR chest 1V portable HISTORY: COVID-19, hypoxia COMPARISON: Chest 10/02/2021. FINDINGS: No pneumothorax. No pleural effusions. The heart is mildly enlarged. This remains unchanged . Hazy patchy bilateral airspace opacities persist and are consistent with the patient's known multif ocal viral pneumonia. IMPRESSION: Multifocal bilateral airspace opacities consistent with a viral pneumonia. This is similar to the [place] or study. ACT 112: Negative or not required by law. Electronically signed by: Paulino Shaffer M.D. 10/04/2021 8:55 AM
[2021-10-04] MEDS: AMIODARONE 200 MG TAB PO SCH (09:06)
[2021-10-04] MEDS: APIXABAN 5 MG TABLET PO SCH ×2 (09:07→20:15)
[2021-10-04] MEDS: ASPIRIN 81 MG ECTAB PO SCH (09:07)
[2021-10-04] MEDS: ATORVASTATIN 40 MG TAB PO SCH (09:07)
[2021-10-04] MEDS: FUROSEMIDE 40 MG TAB PO SCH ×2 (09:07→17:59)
[2021-10-04] MEDS: POTASSIUM CHLORIDE 20 MEQ/15 ML UDC PO SCH ×2 (09:08→20:16)
[2021-10-04] MEDS: INSULIN HUMAN NPH SC SCH (09:08)
[2021-10-04] MEDS: PANTOprazole 40 MG TAB PO SCH (09:09)
[2021-10-04] MEDS: dexAMETHasone 6 MG in SYRINGE 0 ML IV SCH (09:10)
[2021-10-04] MEDS: INSULIN ASPART 100 UNITS/ML 3 ML PEN SC SCH ×4 (09:11→20:14)
[2021-10-04] MEDS ORDERED: COUGH DROP (SUGAR FREE) LOZ 24 LOZ/1 BOX BUCCAL PRN (09:20)
[2021-10-04] MEDS ORDERED: COUGH DROP (SUGAR FREE) LOZ 24 LOZ/1 BOX BUCCAL ONE (09:21)
[2021-10-04] MEDS: REMDESIVIR 100 MG in SODIUM CHLORIDE 0.9% 230 ML IV SCH (11:37)
--- NOTE | 2021-10-04 11:55 | Pharmacy Report ---
Pharmacy Glycemic Short Note 2 - Date of Service October 04, 2021 - Glycemic Short BSG Results (Last 24 hours): 10/03/21 10/03/21 10/03/21 12:37 16:43 20:15 Glucose POC Glucose 191 H 171 H 147 H 10/04/21 10/04/21 10/04/21 06:50 07:43 11:38 Glucose 100 H POC Glucose 102 H 139 H OUTPATIENT ANTIDIABETIC REGIMEN: * N/A; patient states that she was on Lantus + metformin in the past but is not currently taking anything * A1c = 6.2% on 03/09/21 * Repeat A1c pending for 10/02/21 w/ AM labs ASSESSMENT: 10/04: * Norepi off today. Dex 6mg continues * Fasting BSG 102 this AM. Will continue morning NPH. * Overall BSGs trending down. Continuing same today as BSGs in range. May need to adjust NPH down tomorrow pending trend. 10/03 * Patient remained mildly hyperglycemic most of the day yesterday. Norepi weaned down however continues at 0.05mcg/kg/min this AM. IV dexamethasone 6mg continues * Fasting BSG 132 this AM after having received 30 units NPH yesterday, and 4 units correctional insulin at HS * Post-prandial BSGs elevated 3 of 3. PO intake nil per pinsetter mechanic helper. Will increase NPH dose * Will continue Novolog CF and CR for now given change made to NPH dose - will adjust if necessary based upon post-prandial trends today 10/02 * Well controlled type 2 diabetic admitted for COVID19 PNA, shock secondary to sepsis +/- cardiogenic source * IV dexamethasone 6mg daily ordered each AM. Norepi infusing at 0.07mcg/kg/min this AM, dobutamine titrated off. Heart Healthy diet is ordered. * Will utilize NPH to combat steroid induced hyperglycemia, dosed at 0.3unit/kg with each steroid dose * Novolog doses will be based upon weight and moderate stress level initially until steroid effects are more obvious PLAN FOR INPATIENT GLYCEMIC CONTROL: * Basal insulin * NPH 40 units SQ Q AM given at the same time dexamethasone IV given * Bolus insulin * NovoLog per scale ACHS or Q6hrs while NPO * Goal Range: Low 110 mg/dL - High 140 mg/dL * Correction Factor: 20 mg/dL/unit * Nutritional / Prandial insulin per carb ratio of 1 unit per 7 grams CHO consumed PLAN FOR DISCHARGE: * Given A1c of 6.2%, no need to initiate new DM drug therapy on discharge
[2021-10-04] MEDS: SODIUM CHLORIDE 0.9% 10ML FLUSH IV SCH (12:46)
--- NOTE | 2021-10-04 16:01 | Cardiology Progress Note ---
Date of Service October 04, 2021 Assessment & Plan (1) Hypotension: (2) COVID: (3) Chronic systolic CHF (congestive heart failure): (4) Paroxysmal atrial fibrillation: (5) Ischemic cardiomyopathy: (6) CAD (coronary artery disease): (7) S/P coronary artery stent placement: Plan: Slow clinical improvement. BP acceptable with good perfusion off pressors. Volume status remains difficult to assess, but at this point she does not seem significantly volume overloaded, pulmonary infiltrates most likely secondary to viral pneumonitis. Continue current diuretic dose of furosemide 40 mg twice daily. Her weight is essentially the same as upon admission. If she gains weight, increase diuretic regimen. Avoiding attempts to more aggressively volume unload given her recent hypotension. Continue amiodarone to maintain sinus rhythm. Anticoagulated with apixaban /aspirin. No new recommendations. Admission and Anticipated Discharge Date Admission Date: October 01, 2021 Subjective Still having trouble sleeping at night, but not due to dyspnea or orthopnea. He states she feels a little bit better. She does note mild increase in her leg edema. No new symptoms. No chest pain, subjective palpitations, lightheadedness, presyncope, or syncope. Still has nonproductive cough. Off vasopressor since last evening, since then her systolic blood pressure has generally been near her baseline of 90-100 mmHg. Weight unchanged overnight. Physical Exam Physical Exam: No distress. Systolic blood pressure 87-110 mmHg range, she does not appear underperfused. Skin: Warm and dry, no ecchymoses or generalized lesions. HEENT: unremarkable. Neck: Jugular venous pulse difficult to assess due to habitus but appears to be just above the clavicle, no carotid bruits. Lungs: Generally clear with good airflow. No wheezing. No accessory muscle use. Cardiac: regular rhythm, no murmur or gallop. Abdomen: benign. Extremities: 1+ pretibial edema, pulses intact. Neurologic: normal affect and conversation nonfocal. Results & Data ([facility]) Laboratory Results Creatinine decreased from 1.65 to 1.52. BUN went from 30 to 32. Normal electrolytes. Diagnostic Findings Chest x-ray today showed multifocal bilateral opacities consistent with viral pneumonia, no change compared with 10/02/2021. PG Care Time/CCT Total # of Minutes Spent Total Time Spent with Patient: Total time spent is greater than 50% in coordination of care (as documented) at patient's floor/unit and/or counseling patient: Coding Level of Care Code 64055 Subseq Hosp Care Lvl 3 Diagnoses Hypotension I95.9 Chronic systolic CHF (congestive heart failure) I50.22 Paroxysmal atrial fibrillation I48.0 Ischemic cardiomyopathy I25.5 CAD (coronary artery disease) I25.10 Coronary Disease-Associated Artery/Lesion type: [place] artery [place] vs. transplanted heart: [place] heart Associated angina: without angina S/P coronary artery stent placement Z95.5 COVID U07.1 (1) CAD (coronary artery disease) Coronary Disease-Associated Artery/Lesion type: [place] artery [place] vs. transplanted heart: [place] heart Associated angina: without angina Qualified Code(s): I25.10 - Atherosclerotic heart disease of [place] coronary artery without angina pectoris
--- NOTE | 2021-10-04 18:37 | Critical Care Progress Note ---
Date of Service October 04, 2021 Assessment & Plan (1) Cardiogenic shock: (2) Hypokalemia: (3) Acute kidney injury superimposed on CKD: (4) Pancytopenia: (5) Elevated troponin: (6) Acute cardiac pulmonary edema: (7) COVID: Plan: Impression: 51-year-old female admitted with CHF exacerbation and hypotension with normal lactate. She had concomitant acute kidney injury and markedly elevated BNP level with low level of troponin. She continues to deny chest pa in. Covid testing initially was negative but follow-up testing was positive. She is on a 4L/min of oxygen. Its unclear how much of her chest x-ray is attributable to fluid overload and how much may be secondary to Covid pneumonitis. Recommendations: 1. Neurologic: No current issues. Continue to follow clinically. Continue out of bed to chair as tolerated 2. Cardiovascular: CHF exacerbation. pro-BNP elevated at 11,000 on admission Off vasopressors as of 10/03/2021 5 PM 3. Pulmonary: Diffuse pulmonary infiltrates. Unclear how much could be related to infectious etiologies such as Covid or how much is noninfectious including etiologies such as heart failure. Continue to wean oxygen as tolerated. No acute respiratory distress at rest. Patient tolerating out of bed to chair. Continue to monitor on telemetry. Will get repeat chest x-ray in the morning. 4. Renal: Acute renal failure: Monitor BUNs/creatinine 5. GI: No acute issues. Diet as tolerated. No indication for prophylaxis. 6. Heme-onc: Pancytopenia of unclear etiology. This was present back in February. She been on iron supplementation in the past. There were a few nucleated red blood cells circulating, suggestive of possible underlying myelodysplastic syndrome. Hemoglobin improved to 11.2 today. No active bleeding. Prior iron studies performed in February showed a low iron level with a very low ferritin. 7. ID: Negative procalcitonin. Initial Covid test negative however follow-up was positive. She is hypoxemic so technically meets criteria for dexamethasone although again it is unclear how much could be related to Covid and how much could be related to heart failure. Seems reasonable to continue steroids for now. No indication for other adjuvant immune suppression currently. She was s tarted on remdesivir. Continue full course as patient still requires supplemental oxygen at 4L/min to maintain sats > 90%. 8. Endocrine: Glycemic control per protocol. --Prophylaxis VTE: Apixaban GI: Protonix Lines:Peripheral Diet: Cardiorenal Plan: In/out: -950, urine output 1451 Patient's creatinine is gradually improving Patient's Lasix have been changed to 40 mg twice daily p.o. starting today Hypokalemia and hypomagnesemia being replaced 900 mL Patient is hemodynamically stable to be sent out of the ICU. Try to titrate off oxygen if possible. Please note the above document was generated using voice recognition software. It may contain grammatical, syntax or spelling errors. Admission and Anticipated Discharge Date Admission Date: October 01, 2021 Subjective Patient seen and examined at bedside. No acute distress, no dizziness overnight No chest pain, shortness of improved No fever or chills. Has been using incentive spirometry She was saturating 94% on 4 L 700 L she was still saturating 93% Review of Systems Review of Systems: All systems reviewed & are unremarkable except as noted in Subjective Physical Exam Physical Exam: Constitutional: No acute distress HEENT: EOMI, PERRLA Respiratory system:Decreased air entry bilaterally, no wheeze, rhonchi, positive crackles bilaterally CVS: S1-S2 positive, no murmurs or gallops Abdomen: Soft, nontender, nondistended, positive bowel sounds x4,obese Extremities: +2 pulses bilaterally radialis/ dorsalis pedis, no cyanosis,+1 pitting edema bilateral lower extremity Neuro: Awake alert oriented x3 Psych: Normal mood and affect G/U:No [place] Skin: no rashes, warm and dry Lymphatic: no cervical or axillary lymphadenopathy Results & Data Results & Data ([facility]) Vital Signs (Past 12 Hours) Vital Signs Temp Pulse Resp BP Pulse Ox 10/04/21 15:45 36.4 C L 65 18 87/62 L 94 10/04/21 11:39 36.6 C 73 20 93/67 L 93 10/04/21 08:00 63 96 10/04/21 07:30 36.4 C L 59 L 18 96/66 L 95 10/04/21 07:00 59 L 96 10/04/21 06:50 10/04/21 06:50 Coding Level of Care Code 40035 Subseq Hosp Care Lvl 3 Diagnoses Cardiogenic shock R57.0 Hypokalemia E87.6 Acute kidney injury superimposed on CKD N17.9; N18.9 Pancytopenia D61.818 Elevated troponin R77.8 Acute cardiac pulmonary edema I50.1 COVID U07.1
--- NOTE | 2021-10-04 20:30 | Hospitalist Progress Note ---
Date of Service October 04, 2021 Assessment & Plan (1) Pneumonia due to COVID-19 virus: Plan: clinically improved/stable. was off O2 during the visit today. day #4 dexamethasone 6mg IV daily. day #4 Remdesivir. cont supportive care. (2) Acute respiratory failure with hypoxia: Plan: resolving. 2nd to COVID-19 pneumonia + decompensated CHF. treating both. (3) Shock: Plan: septic? cardiogenic? combination? either way it is resolved - levophed off. (4) Paroxysmal atrial fibrillation: Plan: remains in NSR cont amiodarone to maintain NSR cont eliquis 5mg BID (5) Acute kidney injury superimposed on CKD: Plan: VIK resolved BMP am Cr today 1.5 (6) Hypokalemia: Plan: repleted and resolved BMP am (7) Elevated troponin: Plan: 2nd myocardial demand ischemia in setting of critical illness no evidence of ACS (8) Ischemic cardiomyopathy: Plan: prior echos with EF <30% EF 40-45% this admission IV lasix --> PO lasix and appears relatively euvolemic today (9) CAD (coronary artery disease): Plan: cont asa cont statin cont to hold metoprolol & Entresto due to shock (10) Acute on chronic systolic (congestive) heart failure: Plan: acute component resolved lasix 40 PO BID resume BB once BPs have normalized hold entresto due to recent shock (11) DVT prophylaxis: Plan: Eliquis BID (12) Obesity (BMI 30-39.9): Plan: BMI 39 (13) Chronic renal failure, stage 3a: Plan: Cr 1.5 today -- baseline bmp am (14) Insomnia: Plan: increase melatonin to 6mg HS (15) DM II (diabetes mellitus, type II), controlled: Plan: BSGs controlled/at goal last a1c -- 6.2% earlier this admission (16) Pancytopenia: Plan: seen by heme/onc significant pathology not suspected viral suppression from COVID? would check b12/folate while here heme recommending Fe infusion during the stay Plan: updated pt's family by phone 10/03/21 and 10/04/21 obtain PT/OT evals Tx to PCU status Admission and Anticipated Discharge Date Admission Date: October 01, 2021 Subjective pt feeling better today appetite improved DOS SANTOS much better mild cough hoarse voice better ambulating better -- in fact, sitting in chair during the visit levophed off - can come off ICU status today tele stable overnight Review of Systems Review of Systems: gen - fatigue, no fevers/chills CV - no chest pain abd - no pain/N/V Pulm - no hemoptysis Physical Exam Physical Exam: gen - obese, NAD, sitting in chair comfortably; looks good today! neck - no JVD mouth - MMM, hoarse voice improved heart - RRR, s1 s2, 2/6 systolic murmur LSB lungs - bibasilar fine rales much improved/minimal today abd - soft NT ND BS+ ext - no edema b/l, pulses 2+ b/l psych - a/o x 3 Results & Data Results & Data ([facility]) Vital Signs (Past 12 Hours) Vital Signs Temp Pulse Resp BP Pulse Ox 10/04/21 15:45 36.4 C L 65 18 87/62 L 94 10/04/21 11:39 36.6 C 73 20 93/67 L 93 Laboratory Results Laboratory Results - last 24 hr 10/04/21 10/04/21 10/04/21 06:50 06:50 07:43 WBC 2.59 L RBC 4.56 Hgb 9.8 L Hct 34.3 L MCV 75.2 L MCH 21.5 L MCHC 28.6 L RDW Std Deviation 54.3 H RDW Coeff of [place] 19.8 H Plt Count 102 L Immature Gran % (Auto) 0.0 Neut % (Auto) 82.6 Lymph % (Auto) 11.6 Major % (Auto) 5.8 Eos % (Auto) 0.0 Baso % (Auto) 0.0 Neut # (Auto) 2.14 Lymph # (Auto) 0.30 L Major # (Auto) 0.15 Eos # (Auto) 0.00 Baso # (Auto) 0.00 Immature Gran # (Auto) 0.00 Absolute Nucleated RBC 0.02 H Nucleated RBC % (auto) 0.9 Platelet Estimate Decreased L Echinocytes 2+ Sodium 141 Potassium 4.1 Chloride 110 H Carbon Dioxide 23 Anion Gap 9.0 BUN 32 H Creatinine 1.52 H Est Cr Clr Drug Dosing 52.9 Est GFR ( Amer) 45.2 Est GFR (Non-Af Amer) 39.0 BUN/Creatinine Ratio 20.9 H Glucose 100 H POC Glucose 102 H Calcium 8.6 Phosphorus 3.2 Magnesium 2.2 Iron 37 TIBC 271 Ferritin 1200.5 H Total Bilirubin 1.2 H AST 56 H ALT 50 Alkaline Phosphatase 70 Total Protein 5.3 L Albumin 2.3 L Globulin 3.0 Albumin/Globulin Ratio 0.8 L 10/04/21 10/04/21 10/04/21 11:38 16:07 20:05 WBC RBC Hgb Hct MCV MCH MCHC RDW Std Deviation RDW Coeff of Esthela Plt Count Immature Gran % (Auto) Neut % (Auto) Lymph % (Auto) Major % (Auto) Eos % (Auto) Baso % (Auto) Neut # (Auto) Lymph # (Auto) Major # (Auto) Eos # (Auto) Baso # (Auto) Immature Gran # (Auto) Absolute Nucleated RBC Nucleated RBC % (auto) Platelet Estimate Echinocytes Sodium Potassium Chloride Carbon Dioxide Anion Gap BUN Creatinine Est Cr Clr Drug Dosing Est GFR ( Amer) Est GFR (Non-Af Amer) BUN/Creatinine Ratio Glucose POC Glucose 139 H 133 H 155 H Calcium Phosphorus Magnesium Iron TIBC Ferritin Total Bilirubin AST ALT Alkaline Phosphatase Total Protein Albumin Globulin Albumin/Globulin Ratio PG Care Time/CCT Total # of Minutes Spent Total Time Spent with Patient: Total time spent is greater than 50% in coordination of care (as documented) at patient's floor/unit and/or counseling patient: Coding Level of Care Code 36740 Subseq Hosp Care Lvl 3 Diagnoses Pneumonia due to COVID-19 virus U07.1; J12.82 Acute respiratory failure with hypoxia J96.01 Shock R57.9 Paroxysmal atrial fibrillation I48.0 Acute kidney injury superimposed on CKD N17.9; N18.9 Hypokalemia E87.6 Elevated troponin R77.8 Ischemic cardiomyopathy I25.5 CAD (coronary artery disease) I25.10 Associated angina: without angina Coronary Disease-Associated Artery/Lesion type: [place] artery [place] vs. transplanted heart: [place] heart Acute on chronic systolic (congestive) heart failure I50.23 DVT prophylaxis Z29.9 Obesity (BMI 30-39.9) E66.9 Chronic renal failure, stage 3a N18.31 Insomnia G47.00 DM II (diabetes mellitus, type II), controlled E11.9 Pancytopenia D61.818 (1) CAD (coronary artery disease) Associated angina: without angina Coronary Disease-Associated Artery/Lesion type: [place] artery [place] vs. transplanted heart: [place] heart Qualified Code(s): I25.10 - Atherosclerotic heart disease of [place] coronary artery without angina pectoris
[2021-10-04] MEDS: MELATONIN 3 MG TAB PO SCH (22:13)
[2021-10-04] MEDS ORDERED: SODIUM CHLORIDE 0.65% NA SOLN 45 ML (OCEAN) ONE (22:16)
[2021-10-05 07:06] LABS: BUN Creatinine Ratio 23.1 (10-20); Calcium 8.7 mg/dl (8.5-10.1); Creatinine Clr Calc Pharmacy 49.6 ml/min; Est GFR (African American) 41.9 ml/min; Est GFR (Non-African American) 36.1 ml/min; Potassium 4.4 mmol/L (3.5-5.1)
[2021-10-05 07:24] LABS: Echinocytes 1+; Hemoglobin 9.7 g/dL (12.0-16.0); Lymphocytes # (auto) 0.26 K/uL (1.2-3.4); Lymphocytes % (auto) 8.3 %; Mean Corpuscular Hemoglobin 21.7 pg (25-34); Mean Corpuscular Hgb Conc 28.5 g/dL (32-36); Mean Corpuscular Volume 76.1 fL (80-100); Mean Platelet Volume 9.5 fL (7.4-10.4); Monocytes # (auto) 0.19 K/uL (0.11-0.59); Neutrophils % (auto) 85.7 %; Platelet Count 120 K/uL (130-400); Platelet Estimate Decreased (Normal); RDW Coefficient of Variation 19.9 % (11.5-14.5); RDW Standard Deviation 54.4 fL (36.4-46.3); Red Blood Count 4.47 M/uL (4.2-5.4); White Blood Count 3.15 K/uL (4.8-10.8)
[2021-10-05] MEDS: ASPIRIN 81 MG ECTAB PO SCH (08:16)
[2021-10-05] MEDS: APIXABAN 5 MG TABLET PO SCH ×2 (08:16→20:18)
[2021-10-05] MEDS: AMIODARONE 200 MG TAB PO SCH (08:17)
[2021-10-05] MEDS: ATORVASTATIN 40 MG TAB PO SCH (08:17)
[2021-10-05] MEDS: PANTOprazole 40 MG TAB PO SCH (08:17)
[2021-10-05] MEDS: FUROSEMIDE 40 MG TAB PO SCH ×2 (08:21→17:01)
[2021-10-05] MEDS: POTASSIUM CHLORIDE 20 MEQ/15 ML UDC PO SCH ×2 (08:22→20:18)
[2021-10-05] MEDS: INSULIN HUMAN NPH SC SCH (08:23)
[2021-10-05] MEDS: INSULIN ASPART 100 UNITS/ML 3 ML PEN SC SCH ×4 (08:24→20:27)
[2021-10-05] MEDS: dexAMETHasone 6 MG in SYRINGE 0 ML IV SCH (08:26)
--- NOTE | 2021-10-05 08:46 | XRay Report ---
XR chest 1V portable CLINICAL HISTORY: COVID-19, hypoxia TECHNIQUE: Single frontal radiograph of the chest was obtained. Comparison: Comparison is made to chest one view 10/04/2021 FINDINGS: Exam is limited by underpenetration. Cardiomegaly is noted. The lungs are clear. No evidence of pleur al effusion or pneumothorax. IMPRESSION: No acute chest disease. ACT 112: Negative or not required by law. Electronically signed by: Jacky Rushing M.D. 10/05/2021 8:45 AM
[2021-10-05] MEDS ORDERED: METOPROLOL TARTRATE 25 MG TAB PO SCH (09:00)
[2021-10-05] MEDS: REMDESIVIR 100 MG in SODIUM CHLORIDE 0.9% 230 ML IV SCH (11:10)
[2021-10-05] MEDS: SODIUM CHLORIDE 0.9% 10ML FLUSH IV SCH (12:38)
--- NOTE | 2021-10-05 18:05 | Cardiology Progress Note ---
Date of Service October 05, 2021 Assessment & Plan (1) Hypotension: (2) COVID: (3) Chronic systolic CHF (congestive heart failure): (4) Paroxysmal atrial fibrillation: (5) Ischemic cardiomyopathy: (6) CAD (coronary artery disease): (7) S/P coronary artery stent placement: Plan: Patient steadily clinically improving. Her blood pressure is at baseline for her (90-110 mmHg). Agree with gradually reintroducing her vasoactive regimen (metoprolol/Entresto) as BP tolerates. Much of this could be done as an outpatient as well. Her outpatient diuretic regimen was apparently furosemide 80 mg every morning, could transition her back to this. Continue amiodarone to maintain sinus rhythm. Anticoagulated with apixaban/aspirin. No major ongoing cardiac issues, will sign off. Please contact if any change in her clinical status. Follow-up in heart failure clinic as well as with Dr. Toribio. Admission and Anticipated Discharge Date Admission Date: October 01, 2021 Subjective Patient reportedly doing better today, no major issues. Her blood pressure is at her baseline (90-110 mmHg). Heart rate low normal to mildly bradycardic after increasing beta-nas. Her chest x-ray today looked remarkably good (no infiltrates or edema). Oxygen saturation 92% on room air. Weight down 1 pound. Physical Exam Physical Exam: Not examined today (Covid unit, minimizing encounters). Results & Data ([facility]) Vital Signs (Past 12 Hours) Vital Signs Temp Pulse Resp BP Pulse Ox Pulse Ox Pulse Ox 10/05/21 16:22 97.5 F L 73 16 102/54 L 92 10/05/21 15:45 94 10/05/21 13:56 94 93 10/05/21 11:13 97.5 F L 65 18 91/55 L 94 10/05/21 07:35 97.7 F 59 L 18 98/60 L 94 Pulse Ox 10/05/21 16:22 10/05/21 15:45 10/05/21 13:56 83 L 10/05/21 11:13 10/05/21 07:35 Laboratory Results Normal electrolytes, BUN 38, creatinine 1.62 (slightly increased). Diagnostic Findings Chest x-ray today was completely normal. Improved compared with prior. PG Care Time/CCT Total # of Minutes Spent Total Time Spent with Patient: Total time spent is greater than 50% in coordination of care (as documented) at patient's floor/unit and/or counseling patient: Coding Level of Care Code 35722 Subseq Hosp Care Lvl 3 Diagnoses Hypotension I95.9 COVID U07.1 Chronic systolic CHF (congestive heart failure) I50.22 Paroxysmal atrial fibrillation I48.0 Ischemic cardiomyopathy I25.5 CAD (coronary artery disease) I25.10 Coronary Disease-Associated Artery/Lesion type: [place] artery [place] vs. transplanted heart: [place] heart Associated angina: without angina S/P coronary artery stent placement Z95.5 (1) CAD (coronary artery disease) Coronary Disease-Associated Artery/Lesion type: [place] artery [place] vs. transplanted heart: [place] heart Associated angina: without angina Qualified Code(s): I25.10 - Atherosclerotic heart disease of [place] coronary artery without angina pectoris
--- NOTE | 2021-10-05 19:35 | Hospitalist Progress Note ---
Date of Service October 05, 2021 Assessment & Plan (1) Pneumonia due to COVID-19 virus: Plan: clinically improved/stable. was off O2 during the visit today once again but did need O2 while sleeping last night. day #5 dexamethasone 6mg IV daily. day #5 Remdesivir. cont supportive care. (2) Acute respiratory failure with hypoxia: Plan: resolving. 2nd to COVID-19 pneumonia + decompensated CHF. off O2 during the daytime. (3) Shock: Plan: septic? cardiogenic? combination? either way it is resolved - levophed off. BPs low normal likely due to her severe CHF. (4) Paroxysmal atrial fibrillation: Plan: remains in NSR cont amiodarone to maintain NSR cont eliquis 5mg BID (5) Acute kidney injury superimposed on CKD: Plan: VIK resolved BMP am (6) Hypokalemia: Plan: repleted and resolved BMP am (7) Elevated troponin: Plan: 2nd myocardial demand ischemia in setting of critical illness no evidence of ACS (8) Ischemic cardiomyopathy: Plan: prior echos with EF <30% EF 40-45% this admission IV lasix --> PO lasix and appears relatively euvolemic today (9) CAD (coronary artery disease): Plan: cont asa cont statin resume BB at 25mg BID and titrate as tolerated (was on 200mg of metoprolol succinate prior) (10) Acute on chronic systolic (congestive) heart failure: Plan: acute component resolved lasix 40 PO BID resume BB as above hold entresto for now (11) DVT prophylaxis: Plan: Eliquis BID (12) Obesity (BMI 30-39.9): Plan: BMI 39 (13) Chronic renal failure, stage 3a: Plan: Cr again stable today bmp am (14) Insomnia: Plan: melatonin 6mg HS (15) DM II (diabetes mellitus, type II), controlled: Plan: BSGs controlled/at goal last a1c -- 6.2% earlier this admission (16) Pancytopenia: Plan: seen by heme/onc significant pathology not suspected viral suppression from COVID? would check b12/folate while here - check those in am heme recommending Fe infusion during the stay ferritin high due to acute phase reactant from COVID check transferrin sat and if <20% will give Fe will need h/o follow-up post-discharge Plan: updated pt's family by phone 10/03/21 and 10/04/21 and today progressing cont PT/OT another 2 days in hospital? Admission and Anticipated Discharge Date Admission Date: October 01, 2021 Subjective no issues overnight or today did "pretty good " with therapy today does get fatigued and short of breath with walking but no worse than previous eating better mild dry cough scant dizziness upon standing and lasts just a second no cp or abd pain overall feeling better Review of Systems Review of Systems: gen - no fevers or chills CV - no chest pain pulm - no dyspnea at rest GI - no abd pain, nausea, emesis Physical Exam Physical Exam: gen - obese, NAD, sitting in chair comfortably neck - no JVD mouth - MMM heart - RRR, s1 s2, 2/6 systolic murmur LSB lungs - bibasilar fine rales scant, good air movement abd - soft NT ND BS+ ext - no edema b/l, pulses 2+ b/l psych - a/o x 3 Results & Data Results & Data ([facility]) Vital Signs (Past 12 Hours) Vital Signs Temp Pulse Resp BP Pulse Ox Pulse Ox Pulse Ox 10/05/21 16:22 36.4 C L 73 16 102/54 L 92 10/05/21 15:45 94 10/05/21 13:56 94 93 10/05/21 11:13 36.4 C L 65 18 91/55 L 94 10/05/21 07:35 36.5 C 59 L 18 98/60 L 94 Pulse Ox 10/05/21 16:22 10/05/21 15:45 10/05/21 13:56 83 L 10/05/21 11:13 10/05/21 07:35 Laboratory Results Laboratory Results - last 24 hr 10/04/21 10/05/21 10/05/21 20:05 05:32 05:32 WBC 3.15 L RBC 4.47 Hgb 9.7 L Hct 34.0 L MCV 76.1 L MCH 21.7 L MCHC 28.5 L RDW Std Deviation 54.4 H RDW Coeff of [place]hel[place] 19.9 H Plt Count 120 L MPV 9.5 Immature Gran % (Auto) 0.0 Neut % (Auto) 85.7 Lymph % (Auto) 8.3 Long % (Auto) 6.0 Eos % (Auto) 0.0 Baso % (Auto) 0.0 Neut # (Auto) 2.70 Lymph # (Auto) 0.26 L Long # (Auto) 0.19 Eos # (Auto) 0.00 Baso # (Auto) 0.00 Immature Gran # (Auto) 0.00 Platelet Estimate Decreased L Echinocytes 1+ Sodium 143 Potassium 4.4 Chloride 111 H Carbon Dioxide 23 Anion Gap 8.0 BUN 38 H Creatinine 1.62 H Est Cr Clr Drug Dosing 49.6 Est GFR ( Amer) 41.9 Est GFR (Non-Af Amer) 36.1 BUN/Creatinine Ratio 23.1 H Glucose 93 POC Glucose 155 H Calcium 8.7 AST 48 H 10/05/21 10/05/21 10/05/21 08:03 11:15 16:55 WBC RBC Hgb Hct MCV MCH MCHC RDW Std Deviation RDW Coeff of Esthela Plt Count MPV Immature Gran % (Auto) Neut % (Auto) Lymph % (Auto) Long % (Auto) Eos % (Auto) Baso % (Auto) Neut # (Auto) Lymph # (Auto) Long # (Auto) Eos # (Auto) Baso # (Auto) Immature Gran # (Auto) Platelet Estimate Echinocytes Sodium Potassium Chloride Carbon Dioxide Anion Gap BUN Creatinine Est Cr Clr Drug Dosing Est GFR ( Amer) Est GFR (Non-Af Amer) BUN/Creatinine Ratio Glucose POC Glucose 87 148 H 149 H Calcium AST PG Care Time/CCT Total # of Minutes Spent Total Time Spent with Patient: Total time spent is greater than 50% in coordination of care (as documented) at patient's floor/unit and/or counseling patient: Coding Level of Care Code 49771 Subseq Hosp Care Lvl 2 Diagnoses Pneumonia due to COVID-19 virus U07.1; J12.82 Acute respiratory failure with hypoxia J96.01 Shock R57.9 Paroxysmal atrial fibrillation I48.0 Acute kidney injury superimposed on CKD N17.9; N18.9 Hypokalemia E87.6 Elevated troponin R77.8 Ischemic cardiomyopathy I25.5 CAD (coronary artery disease) I25.10 Associated angina: without angina Coronary Disease-Associated Artery/Lesion type: [place] artery [place] vs. transplanted heart: [place] heart Acute on chronic systolic (congestive) heart failure I50.23 DVT prophylaxis Z29.9 Obesity (BMI 30-39.9) E66.9 Chronic renal failure, stage 3a N18.31 Insomnia G47.00 DM II (diabetes mellitus, type II), controlled E11.9 Pancytopenia D61.818 (1) CAD (coronary artery disease) Associated angina: without angina Coronary Disease-Associated Artery/Lesion type: [place] artery [place] vs. transplanted heart: [place] heart Qualified Code(s): I25.10 - Atherosclerotic heart disease of [place] coronary artery without angina pectoris
[2021-10-05] MEDS: MELATONIN 3 MG TAB PO SCH (20:17)
[2021-10-05] MEDS: METOPROLOL TARTRATE 25 MG TAB PO SCH (20:18)
[2021-10-06 06:55] LABS: Hematocrit (blood only) 35.7 % (37-47); Hemoglobin 10.2 g/dL (12.0-16.0); Mean Corpuscular Hemoglobin 21.7 pg (25-34); Mean Corpuscular Hgb Conc 28.6 g/dL (32-36); Mean Corpuscular Volume 76.1 fL (80-100); Mean Platelet Volume 9.7 fL (7.4-10.4); Platelet Count 167 K/uL (130-400); RDW Coefficient of Variation 20.2 % (11.5-14.5); RDW Standard Deviation 54.7 fL (36.4-46.3); Red Blood Count 4.69 M/uL (4.2-5.4); White Blood Count 4.85 K/uL (4.8-10.8)
[2021-10-06 07:20] LABS: Anisocytosis Present; Echinocytes 1+; Immature Granulocytes # (auto) 0.02 K/uL (0.00-0.02); Immature Granulocytes % (auto) 0.4 %; Lymphocytes # (auto) 0.22 K/uL (1.2-3.4); Lymphocytes % (auto) 4.5 %; Monocytes # (auto) 0.35 K/uL (0.11-0.59); Monocytes % (auto) 7.2 %; Neutrophils # (auto) 4.26 K/uL (1.4-6.5); Neutrophils % (auto) 87.9 %; Ovalocytes 1+; Poikilocytosis Present
[2021-10-06 07:33] LABS: Vitamin B12 > 2000 pg/ml (193-986)
[2021-10-06 08:14] LABS: BUN Creatinine Ratio 24.2 (10-20); Calcium 9.5 mg/dl (8.5-10.1); Creatinine Clr Calc Pharmacy 44.2 ml/min; Est GFR (African American) 36.4 ml/min; Est GFR (Non-African American) 31.4 ml/min
[2021-10-06] MEDS: ATORVASTATIN 40 MG TAB PO SCH (09:07)
[2021-10-06] MEDS: APIXABAN 5 MG TABLET PO SCH ×2 (09:07→20:19)
[2021-10-06] MEDS: AMIODARONE 200 MG TAB PO SCH (09:07)
[2021-10-06] MEDS: ASPIRIN 81 MG ECTAB PO SCH (09:07)
[2021-10-06] MEDS: dexAMETHasone 6 MG in SYRINGE 0 ML IV SCH (09:08)
[2021-10-06] MEDS: FUROSEMIDE 40 MG TAB PO SCH ×2 (09:08→17:08)
[2021-10-06] MEDS: PANTOprazole 40 MG TAB PO SCH (09:09)
[2021-10-06] MEDS: POTASSIUM CHLORIDE 20 MEQ/15 ML UDC PO SCH ×2 (09:09→20:19)
[2021-10-06] MEDS: METOPROLOL TARTRATE 25 MG TAB PO SCH ×2 (09:10→20:17)
[2021-10-06] MEDS: INSULIN HUMAN NPH SC SCH (09:15)
[2021-10-06] MEDS: INSULIN ASPART 100 UNITS/ML 3 ML PEN SC SCH ×4 (09:16→20:10)
[2021-10-06 12:35] LABS: Potassium 4.6 mmol/L (3.5-5.1)
--- NOTE | 2021-10-06 14:34 | Pharmacy Report ---
Pharmacy Glycemic Short Note 2 - Date of Service October 06, 2021 - Glycemic Short BSG Results (Last 24 hours): 10/05/21 10/05/21 10/06/21 16:55 20:05 06:30 Glucose 82 POC Glucose 149 H 157 H 10/06/21 10/06/21 07:55 12:04 Glucose POC Glucose 76 106 H OUTPATIENT ANTIDIABETIC REGIMEN: * N/A; patient states that she was on Lantus + metformin in the past but is not currently taking anything * A1c = 6.2% on 03/09/21 * Repeat A1c pending for 10/02/21 w/ AM labs ASSESSMENT: 10/06: * Dex 6mg continues. * Fasting BSG this AM- 76. SCr trending up (1.82 today). Other BSGs within goal range. * Will decrease NPH to 35 units tomorrow and adjust carb coverage in attempt to prevent further decrease in BSGs. 10/04: * Norepi off today. Dex 6mg continues * Fasting BSG 102 this AM. Will continue morning NPH. * Overall BSGs trending down. Continuing same today as BSGs in range. May need to adjust NPH down tomorrow pending trend. 10/03 * Patient remained mildly hyperglycemic most of the day yesterday. Norepi weaned down however continues at 0.05mcg/kg/min this AM. IV dexamethasone 6mg continues * Fasting BSG 132 this AM after having received 30 units NPH yesterday, and 4 units correctional insulin at HS * Post-prandial BSGs elevated 3 of 3. PO intake nil per senior safety management consultant. Will increase NPH dose * Will continue Novolog CF and CR for now given change made to NPH dose - will adjust if necessary based upon post-prandial trends today 10/02 * Well controlled type 2 diabetic admitted for COVID19 PNA, shock secondary to sepsis +/- cardiogenic source * IV dexamethasone 6mg daily ordered each AM. Norepi infusing at 0.07mcg/kg/min this AM, dobutamine titrated off. Heart Healthy diet is ordered. * Will utilize NPH to combat steroid induced hyperglycemia, dosed at 0.3unit/kg with each steroid dose * Novolog doses will be based upon weight and moderate stress level initially until steroid effects are more obvious PLAN FOR INPATIENT GLYCEMIC CONTROL: * Basal insulin * NPH 35 units SQ QAM w/ dexamethasone IV * Bolus insulin * NovoLog per scale ACHS or Q6hrs while NPO * Goal Range: Low 110 mg/dL - High 140 mg/dL * Correction Factor: 20 mg/dL/unit * Nutritional / Prandial insulin per carb ratio of 1 unit per 7 grams CHO consumed PLAN FOR DISCHARGE: * Given A1c of 6.2%, no need to initiate new DM drug therapy on discharge
[2021-10-06] MEDS ORDERED: IRON SUCROSE 200 MG in 0.9 % SODIUM CHLORIDE 100 ML IV ONE (17:30)
[2021-10-06] MEDS: MELATONIN 3 MG TAB PO SCH (20:19)
--- NOTE | 2021-10-06 20:38 | Hospitalist Progress Note ---
Date of Service October 06, 2021 Assessment & Plan (1) Pneumonia due to COVID-19 virus: Plan: clinically improved/stable. hypoxia largely resolved. day #6 dexamethasone 6mg IV daily. completed 5-day course of Remdesivir. cont supportive care. no evidence of complicating bacterial superinfection. (2) Acute respiratory failure with hypoxia: Plan: resolved. 2nd to COVID-19 pneumonia + decompensated CHF. off O2 during the daytime with NC O2 at night. will need 2-step prior to discharge. (3) Shock: Plan: septic? cardiogenic? combination? either way it is resolved - levophed off. BPs low normal likely due to her severe CHF. metoprolol resumed. (4) Paroxysmal atrial fibrillation: Plan: remains in NSR cont amiodarone to maintain NSR cont eliquis 5mg BID low-dose BB resumed (5) Acute kidney injury superimposed on CKD: Plan: VIK resolved BMP am (6) Hypokalemia: Plan: repleted and resolved BMP am (7) Elevated troponin: Plan: 2nd myocardial demand ischemia in setting of critical illness no evidence of ACS (8) Ischemic cardiomyopathy: Plan: prior echos with EF <30% EF 40-45% this admission resumed low-dose BB lasix BID BPs too low for Entresto at this time (9) CAD (coronary artery disease): Plan: cont asa cont statin resumed BB at 25mg BID and titrate as tolerated (was on 200mg of metoprolol succinate prior) (10) Acute on chronic systolic (congestive) heart failure: Plan: acute component resolved lasix 40 PO BID resume BB as above hold entresto for now (11) DVT prophylaxis: Plan: Eliquis BID (12) Obesity (BMI 30-39.9): Plan: BMI 39 (13) Chronic renal failure, stage 3a: Plan: Cr bo minimally to 1.8 today; slightly above baseline bmp am (14) Insomnia: Plan: melatonin 6mg HS (15) DM II (diabetes mellitus, type II), controlled: Plan: BSGs controlled/at goal last a1c -- 6.2% earlier this admission (16) Pancytopenia: Plan: seen by heme/onc significant pathology not suspected viral suppression from COVID? b12 and folate wnl heme recommended Fe infusion during the stay - thus, 200mg IV x 1 of Venofer today if tolerates - then 300mg x 1 tomorrow ferritin high due to acute phase reactant from COVID will need h/o follow-up post-discharge Plan: updated pt's family by phone 10/03/21, 10/04, 10/05, and 10/06 progressing cont PT/OT d/c home tomorrow?? Admission and Anticipated Discharge Date Admission Date: October 01, 2021 Subjective pt sitting in chair, reports it was another decent day overall feeling better still very tired and fatigued, but appetite improved mild cough no dyspnea no orthopnea no cp walking in the room without difficulty but hasn't done activity beyond that reports continues to be quite ill from COVID tele overnight SB or NSR Review of Systems Review of Systems: gen - no fevers or chills CV - no chest pain pulm - no significant sputum GI - no abd pain, N/V Physical Exam Physical Exam: gen - obese, NAD, sitting in chair comfortably, tired appearing neck - no JVD upright at 90 degrees mouth - MMM heart - RRR, s1 s2, 2/6 systolic murmur LSB lungs - CTA b/l, minimally decreased BS bases abd - soft NT ND BS+ ext - no edema b/l, pulses 2+ b/l psych - a/o x 3 Results & Data Results & Data ([facility]) Vital Signs (Past 12 Hours) Vital Signs Temp Pulse Pulse Resp BP Pulse Ox 10/06/21 18:48 36.7 C 52 L 19 94/54 L 94 10/06/21 17:00 36.7 C 52 L 18 85/65 L 95 10/06/21 16:00 54 L 10/06/21 10:46 36.5 C 57 L 18 91/55 L 94 Laboratory Results Laboratory Results - last 24 hr 10/06/21 10/06/21 10/06/21 06:30 06:30 06:30 WBC 4.85 RBC 4.69 Hgb 10.2 L Hct 35.7 L MCV 76.1 L MCH 21.7 L MCHC 28.6 L RDW Std Deviation 54.7 H RDW Coeff of [place]hel[place] 20.2 H Plt Count 167 MPV 9.7 Immature Gran % (Auto) 0.4 Neut % (Auto) 87.9 Lymph % (Auto) 4.5 [place] % (Auto) 7.2 Eos % (Auto) 0.0 Baso % (Auto) 0.0 Neut # (Auto) 4.26 Lymph # (Auto) 0.22 L [place] # (Auto) 0.35 Eos # (Auto) 0.00 Baso # (Auto) 0.00 Immature Gran # (Auto) 0.02 Poikilocytosis Present Anisocytosis Present Ovalocytes 1+ Echinocytes 1+ Sodium 138 Potassium Chloride 109 H Carbon Dioxide 22 Anion Gap 7.0 BUN 44 H Creatinine 1.82 H Est Cr Clr Drug Dosing 44.2 Est GFR ( Amer) 36.4 Est GFR (Non-Af Amer) 31.4 BUN/Creatinine Ratio 24.2 H Glucose 82 POC Glucose Calcium 9.5 Iron Cancelled Transferrin Cancelled Transferrin % Sat Cancelled Vitamin B12 > 2000 H Folate 9.70 10/06/21 10/06/21 10/06/21 07:55 10:41 11:57 WBC RBC Hgb Hct MCV MCH MCHC RDW Std Deviation RDW Coeff of [place] Plt Count MPV Immature Gran % (Auto) Neut % (Auto) Lymph % (Auto) [place] % (Auto) Eos % (Auto) Baso % (Auto) Neut # (Auto) Lymph # (Auto) [place] # (Auto) Eos # (Auto) Baso # (Auto) Immature Gran # (Auto) Poikilocytosis Anisocytosis Ovalocytes Echinocytes Sodium Potassium Cancelled 4.6 Chloride Carbon Dioxide Anion Gap BUN Creatinine Est Cr Clr Drug Dosing Est GFR ( Amer) Est GFR (Non-Af Amer) BUN/Creatinine Ratio Glucose POC Glucose 76 Calcium Iron Cancelled 39 Transferrin Cancelled 233 Transferrin % Sat Cancelled 12 L Vitamin B12 Folate 10/06/21 10/06/21 10/06/21 12:04 17:04 20:01 WBC RBC Hgb Hct MCV MCH MCHC RDW Std Deviation RDW Coeff of Esthela Plt Count MPV Immature Gran % (Auto) Neut % (Auto) Lymph % (Auto) [place] % (Auto) Eos % (Auto) Baso % (Auto) Neut # (Auto) Lymph # (Auto) [place] # (Auto) Eos # (Auto) Baso # (Auto) Immature Gran # (Auto) Poikilocytosis Anisocytosis Ovalocytes Echinocytes Sodium Potassium Chloride Carbon Dioxide Anion Gap BUN Creatinine Est Cr Clr Drug Dosing Est GFR ( Amer) Est GFR (Non-Af Amer) BUN/Creatinine Ratio Glucose POC Glucose 106 H 168 H 142 H Calcium Iron Transferrin Transferrin % Sat Vitamin B12 Folate PG Care Time/CCT Total # of Minutes Spent Total Time Spent with Patient: Total time spent is greater than 50% in coordination of care (as documented) at patient's floor/unit and/or counseling patient: Coding Level of Care Code 52103 Subseq Hosp Care Lvl 2 Diagnoses Pneumonia due to COVID-19 virus U07.1; J12.82 Acute respiratory failure with hypoxia J96.01 Shock R57.9 Paroxysmal atrial fibrillation I48.0 Acute kidney injury superimposed on CKD N17.9; N18.9 Hypokalemia E87.6 Elevated troponin R77.8 Ischemic cardiomyopathy I25.5 CAD (coronary artery disease) I25.10 Associated angina: without angina Coronary Disease-Associated Artery/Lesion type: [place] artery [place] vs. transplanted heart: [place] heart Acute on chronic systolic (congestive) heart failure I50.23 DVT prophylaxis Z29.9 Obesity (BMI 30-39.9) E66.9 Chronic renal failure, stage 3a N18.31 Insomnia G47.00 DM II (diabetes mellitus, type II), controlled E11.9 Pancytopenia D61.818 (1) CAD (coronary artery disease) Associated angina: without angina Coronary Disease-Associated Artery/Lesion type: [place] artery [place] vs. transplanted heart: [place] heart Qualified Code(s): I25.10 - Atherosclerotic heart disease of [place] coronary artery without angina pectoris
[2021-10-07 07:56] LABS: BUN Creatinine Ratio 25.3 (10-20); Calcium 9.1 mg/dl (8.5-10.1); Creatinine Clr Calc Pharmacy 40.6 ml/min; Est GFR (African American) 32.6 ml/min; Est GFR (Non-African American) 28.2 ml/min; Potassium 4.4 mmol/L (3.5-5.1)
[2021-10-07 08:06] LABS: Thyroid Stimulating Hormone 0.522 uIu/ml (0.300-4.500)
[2021-10-07] MEDS: ATORVASTATIN 40 MG TAB PO SCH (08:37)
[2021-10-07] MEDS: PANTOprazole 40 MG TAB PO SCH (08:37)
[2021-10-07] MEDS: AMIODARONE 200 MG TAB PO SCH (08:37)
[2021-10-07] MEDS: FUROSEMIDE 40 MG TAB PO SCH (08:37)
[2021-10-07] MEDS: ASPIRIN 81 MG ECTAB PO SCH (08:37)
[2021-10-07] MEDS: dexAMETHasone 6 MG in SYRINGE 0 ML IV SCH (08:38)
[2021-10-07] MEDS: METOPROLOL TARTRATE 25 MG TAB PO SCH (08:38)
[2021-10-07] MEDS: APIXABAN 5 MG TABLET PO SCH ×2 (08:38→20:05)
[2021-10-07] MEDS: POTASSIUM CHLORIDE 20 MEQ/15 ML UDC PO SCH ×2 (08:39→20:05)
[2021-10-07] MEDS: INSULIN ASPART 100 UNITS/ML 3 ML PEN SC SCH ×4 (09:51→20:06)
[2021-10-07] MEDS: INSULIN HUMAN NPH SC SCH (09:52)
[2021-10-07] MEDS ORDERED: IRON SUCROSE 300 MG in SODIUM CHLORIDE 0.9% 250 ML IV ONE (10:00)
--- NOTE | 2021-10-07 19:51 | Hospitalist Progress Note ---
Date of Service October 07, 2021 Assessment & Plan (1) Pneumonia due to COVID-19 virus: Plan: clinically resolving. hypoxia largely resolved - just requiring NC O2 at bedtime. day #7 dexamethasone 6mg IV daily. completed 5-day course of Remdesivir. cont supportive care. no evidence of complicating bacterial superinfection. (2) Acute respiratory failure with hypoxia: Plan: resolved. 2nd to COVID-19 pneumonia + decompensated CHF. off O2 during the daytime with NC O2 at night. will need 2-step prior to discharge. (3) Shock: Plan: septic? cardiogenic? combination? either way it is resolved - levophed off. BPs low normal likely due to her severe CHF and partially due to meds (metoprolol). STOP metoprolol - clearly unable to tolerate at this time due to bradycardia (into the 40s) and low BP. (4) Paroxysmal atrial fibrillation: Plan: remains in NSR cont amiodarone to maintain NSR cont eliquis 5mg BID low-dose BB -- STOP (see below) (5) Acute kidney injury superimposed on CKD: Plan: VIK had resolved, now Cr trending up she appears mildly volume contracted - weight is very low for her hold lasix moving forward temporarily BMP am (6) Hypokalemia: Plan: repleted and resolved BMP am (7) Elevated troponin: Plan: 2nd myocardial demand ischemia in setting of critical illness no evidence of ACS (8) Ischemic cardiomyopathy: Plan: prior echos with EF <30% EF 40-45% this admission typically on metoprolol succinate 200mg daily + highest dose of Entresto I had a lengthy discussion today with on-call [facility] Cardiology, Dr Ramos He agrees that given her bradycardia and hypotension that trying to reintroduce her beta nas is simply not possible - may need a pacer in future with respect to Entresto - if BP will allow will start 26/24 strength, either tonight or in am if the above issues persist will ask Dr Ramos to formally see patient observe overnight (9) CAD (coronary artery disease): Plan: cont asa cont statin holding BB - see above no ACS while here (10) Acute on chronic systolic (congestive) heart failure: Plan: acute component resolved lasix 40 PO BID but now with trending up Cr and probable mild volume contraction - hold lasix holding BB and Entresto due to low BP and low HR (11) DVT prophylaxis: Plan: Eliquis BID (12) Obesity (BMI 30-39.9): Plan: BMI 39 (13) Chronic renal failure, stage 3a: Plan: Cr bo again to 1.9 today; this is above baseline she is mildly dizzy with standing she has low BP (typical baseline for her 95-110) bmp am (14) Insomnia: Plan: melatonin 6mg HS (15) DM II (diabetes mellitus, type II), controlled: Plan: BSGs controlled/at goal last a1c -- 6.2% earlier this admission (16) Pancytopenia: Plan: seen by heme/onc significant pathology not suspected viral suppression from COVID? b12 and folate wnl heme recommended Fe infusion during the stay - thus, 200mg IV x 1 of Venofer on 10/06 Venofer 300mg x 1 today ferritin high due to acute phase reactant from COVID will need h/o follow-up post-discharge repeat CBC in am Plan: updated pt's family by phone 10/03/21, 10/04, 10/05, 10/06, and today progressing cont PT/OT - cleared for home d/c home tomorrow if HR/BP issues are resolved Admission and Anticipated Discharge Date Admission Date: October 01, 2021 Subjective pt reports feeling tired but cough is just about resolved and denies DOS SANTOS tele - ongoing SB, occasionally her HRs are >60 minimal amount of dizziness with standing appetite improved hoarse voice improved no cp or abd pain pt reports that her stated weight today (237 #) is the lowest weight she has had in quite some time Review of Systems Review of Systems: gen - no fevers, no chills CV - no chest pain or orthopnea pulm - no dyspnea gi - no diarrhea Physical Exam Physical Exam: gen - obese, NAD, sitting in chair comfortably, tired appearing neck - no JVD upright at 90 degrees mouth - MM slightly dry heart - madie, regular rhythm, s1 s2, 2/6 systolic murmur LSB lungs - CTA b/l, good airation today abd - soft NT ND BS+ ext - trace edema b/l, pulses 2+ b/l psych - a/o x 3 Results & Data Results & Data ([facility]) Vital Signs (Past 12 Hours) Vital Signs Temp Pulse Pulse Resp BP Pulse Ox 10/07/21 19:31 36.7 C 48 L 16 102/61 93 10/07/21 16:21 36.5 C 54 L 88/49 L 94 10/07/21 16:00 54 L 10/07/21 11:11 36.4 C L 56 L 20 91/50 L 95 10/07/21 08:00 58 L Laboratory Results Laboratory Results - last 24 hr 10/07/21 10/07/21 10/07/21 05:33 07:46 11:05 Sodium 140 Potassium 4.4 Chloride 108 H Carbon Dioxide 21 Anion Gap 11.0 BUN 50 H Creatinine 1.99 H Est Cr Clr Drug Dosing 40.6 Est GFR ( Amer) 32.6 Est GFR (Non-Af Amer) 28.2 BUN/Creatinine Ratio 25.3 H Glucose 105 H POC Glucose 101 H 129 H Calcium 9.1 TSH 0.522 10/07/21 10/07/21 16:37 20:02 Sodium Potassium Chloride Carbon Dioxide Anion Gap BUN Creatinine Est Cr Clr Drug Dosing Est GFR ( Amer) Est GFR (Non-Af Amer) BUN/Creatinine Ratio Glucose POC Glucose 206 H 195 H Calcium TSH PG Care Time/CCT Total # of Minutes Spent Total Time Spent with Patient: Total time spent is greater than 50% in coordination of care (as documented) at patient's floor/unit and/or counseling patient: Coding Level of Care Code 72422 Subseq Hosp Care Lvl 3 Diagnoses Pneumonia due to COVID-19 virus U07.1; J12.82 Acute respiratory failure with hypoxia J96.01 Shock R57.9 Paroxysmal atrial fibrillation I48.0 Acute kidney injury superimposed on CKD N17.9; N18.9 Hypokalemia E87.6 Elevated troponin R77.8 Ischemic cardiomyopathy I25.5 CAD (coronary artery disease) I25.10 Associated angina: without angina Coronary Disease-Associated Artery/Lesion type: [place] artery [place] vs. transplanted heart: [place] heart Acute on chronic systolic (congestive) heart failure I50.23 DVT prophylaxis Z29.9 Obesity (BMI 30-39.9) E66.9 Chronic renal failure, stage 3a N18.31 Insomnia G47.00 DM II (diabetes mellitus, type II), controlled E11.9 Pancytopenia D61.818 (1) CAD (coronary artery disease) Associated angina: without angina Coronary Disease-Associated Artery/Lesion type: [place] artery [place] vs. transplanted heart: [place] heart Qualified Code(s): I25.10 - Atherosclerotic heart disease of [place] coronary artery without angina pectoris
[2021-10-07] MEDS: MELATONIN 3 MG TAB PO SCH (20:05)
[2021-10-08 06:41] LABS: Hematocrit (blood only) 35.1 % (37-47); Hemoglobin 10.1 g/dL (12.0-16.0); Mean Corpuscular Hgb Conc 28.8 g/dL (32-36); Mean Corpuscular Volume 76.3 fL (80-100); Mean Platelet Volume 9.7 fL (7.4-10.4); Platelet Count 199 K/uL (130-400); RDW Coefficient of Variation 20.3 % (11.5-14.5); RDW Standard Deviation 56.4 fL (36.4-46.3); White Blood Count 5.01 K/uL (4.8-10.8)
[2021-10-08 07:05] LABS: Anisocytosis Present; Echinocytes 1+; Immature Granulocytes # (auto) 0.03 K/uL (0.00-0.02); Immature Granulocytes % (auto) 0.6 %; Lymphocytes # (auto) 0.45 K/uL (1.2-3.4); Monocytes # (auto) 0.17 K/uL (0.11-0.59); Monocytes % (auto) 3.4 %; Neutrophils # (auto) 4.36 K/uL (1.4-6.5); Ovalocytes 1+; Poikilocytosis Present
[2021-10-08 07:16] LABS: BUN Creatinine Ratio 29.4 (10-20); Calcium 9.8 mg/dl (8.5-10.1); Creatinine Clr Calc Pharmacy 47.4 ml/min; Est GFR (African American) 40.1 ml/min; Est GFR (Non-African American) 34.6 ml/min; Magnesium 2.6 mg/dl (1.8-2.4); Potassium 4.5 mmol/L (3.5-5.1)
[2021-10-08] MEDS ORDERED: VALSARTAN/SACUBITRIL 26/24MG TAB PO SCH (09:00)
[2021-10-08] MEDS: INSULIN HUMAN NPH SC SCH (09:35)
[2021-10-08] MEDS: ATORVASTATIN 40 MG TAB PO SCH (09:38)
[2021-10-08] MEDS: AMIODARONE 200 MG TAB PO SCH (09:38)
[2021-10-08] MEDS: APIXABAN 5 MG TABLET PO SCH ×2 (09:38→20:10)
[2021-10-08] MEDS: ASPIRIN 81 MG ECTAB PO SCH (09:38)
[2021-10-08] MEDS: POTASSIUM CHLORIDE 20 MEQ/15 ML UDC PO SCH ×2 (09:38→20:10)
[2021-10-08] MEDS: dexAMETHasone 6 MG in SYRINGE 0 ML IV SCH (09:38)
[2021-10-08] MEDS: PANTOprazole 40 MG TAB PO SCH (09:38)
[2021-10-08] MEDS: INSULIN ASPART 100 UNITS/ML 3 ML PEN SC SCH ×4 (09:57→18:07)
[2021-10-08] MEDS ORDERED: IRON SUCROSE 300 MG in SODIUM CHLORIDE 0.9% 250 ML IV ONE (14:00)
--- NOTE | 2021-10-08 14:10 | Pharmacy Report ---
Pharmacy Glycemic Short Note 2 - Date of Service October 08, 2021 - Glycemic Short BSG Results (Last 24 hours): 10/07/21 10/07/21 10/08/21 16:37 20:02 05:42 Glucose 79 POC Glucose 206 H 195 H 10/08/21 10/08/21 10/08/21 08:05 08:06 09:35 Glucose POC Glucose 59 L* 67 L* 131 H 10/08/21 12:00 Glucose POC Glucose 139 H OUTPATIENT ANTIDIABETIC REGIMEN: * N/A; patient states that she was on Lantus + metformin in the past but is not currently taking anything * A1c = 6.2% on 03/09/21 * Repeat A1c pending for 10/02/21 w/ AM labs ASSESSMENT: 10/06: * Dexamethasone 6mg IV continues, day 8 today * Fasting BSG this AM 59mg/dl - DC HS correctional insulin to prevent further AM hypoglycemia, and tighten CR for better prandial coverage during the day 10/06: * Dex 6mg continues. * Fasting BSG this AM- 76. SCr trending up (1.82 today). Other BSGs within goal range. * Will decrease NPH to 35 units tomorrow and adjust carb coverage in attempt to prevent further decrease in BSGs. 10/04: * Norepi off today. Dex 6mg continues * Fasting BSG 102 this AM. Will continue morning NPH. * Overall BSGs trending down. Continuing same today as BSGs in range. May need to adjust NPH down tomorrow pending trend. 10/03 * Patient remained mildly hyperglycemic most of the day yesterday. Norepi weaned down however continues at 0.05mcg/kg/min this AM. IV dexamethasone 6mg continues * Fasting BSG 132 this AM after having received 30 units NPH yesterday, and 4 units correctional insulin at HS * Post-prandial BSGs elevated 3 of 3. PO intake nil per semiconductor manufacturing technician. Will increase NPH dose * Will continue Novolog CF and CR for now given change made to NPH dose - will adjust if necessary based upon post-prandial trends today 10/02 * Well controlled type 2 diabetic admitted for COVID19 PNA, shock secondary to sepsis +/- cardiogenic source * IV dexamethasone 6mg daily ordered each AM. Norepi infusing at 0.07mcg/kg/min this AM, dobutamine titrated off. Heart Healthy diet is ordered. * Will utilize NPH to combat steroid induced hyperglycemia, dosed at 0.3unit/kg with each steroid dose * Novolog doses will be based upon weight and moderate stress level initially until steroid effects are more obvious PLAN FOR INPATIENT GLYCEMIC CONTROL: * Basal insulin * NPH 35 units SQ QAM with dexamethasone IV * Bolus insulin * NovoLog per scale AC (no Novolog at HS) * Goal Range: Low 110 mg/dL - High 140 mg/dL * Correction Factor: 20 mg/dL/unit * Nutritional / Prandial insulin per carb ratio of 1 unit per 5 grams CHO consumed PLAN FOR DISCHARGE: * Given A1c of 6.2%, no need to initiate new DM drug therapy on discharge, continue with lifestyle management.
[2021-10-08] MEDS: MELATONIN 3 MG TAB PO SCH (20:10)
[2021-10-08] MEDS ORDERED: INSULIN ASPART 100 UNITS/ML 3 ML PEN SC SCH (21:00)
--- NOTE | 2021-10-08 23:06 | Hospitalist Progress Note ---
Date of Service October 08, 2021 Assessment & Plan (1) Pneumonia due to COVID-19 virus: Plan: clinically resolved. hypoxia resolved; intermittently requiring NC O2 at bedtime (BEHZAD??). day #8 dexamethasone 6mg IV daily. plan 10 days due to severity of illness. completed 5-day course of Remdesivir. cont supportive care. no evidence of complicating bacterial superinfection. (2) Acute respiratory failure with hypoxia: Plan: resolved. 2nd to COVID-19 pneumonia + decompensated CHF. off O2 during the daytime with NC O2 at night at times. passed ambulatory 2-step. (3) Shock: Plan: present on admission. septic? cardiogenic? combination? either way it is resolved - levophed off. With levophed off her BPs have been low - possibly combination of recent illness, medications, CHF, direct COVID effects? See below. (4) Paroxysmal atrial fibrillation: Plan: remains in NSR cont amiodarone to maintain NSR cont eliquis 5mg BID low-dose BB stopped due to bradycardia to the 40s (5) Acute kidney injury superimposed on CKD: Plan: VIK had resolved, Cr then bo to 1.9 yesterday, and now it is back to 1.6. Held lasix yesterday afternoon and today. Resume lasix possibly in am. BMP am (6) Hypokalemia: Plan: repleted and resolved BMP am (7) Elevated troponin: Plan: 2nd myocardial demand ischemia in setting of critical illness no evidence of ACS (8) Ischemic cardiomyopathy: Plan: prior echos with EF <30% EF 40-45% this admission typically on metoprolol succinate 200mg daily + highest dose of Entresto I had a lengthy discussion both yesterday and today with [facility], Dr Ramos. He agrees that given her bradycardia and hypotension that trying to reintroduce her beta nas is simply not possible - may need a pacer in future. with respect to Entresto - started her back on strength this am. unfortunately her SBP was about 90 following Entresto. will hold additional doses. re-eval cardiac situation in am. d/c home on no beta nas and no Entresto due to BP intolerance? other plan? will ask cardiology to see patient tomorrow on rounds (9) CAD (coronary artery disease): Plan: cont asa cont statin holding BB - see above no ACS while here (10) Acute on chronic systolic (congestive) heart failure: Plan: acute component resolved holding BB and Entresto due to low BP and low HR held lasix last pm and today due to low BPs and ?mild volume contraction? despite holding lasix her weight continues to drop and it is the lowest weight she has had in quite some time re-eval the above in am. (11) DVT prophylaxis: Plan: Eliquis BID (12) Obesity (BMI 30-39.9): Plan: BMI 39 (13) Chronic renal failure, stage 3a: Plan: Cr bo again to 1.9 yesterday (which is above baseline) but now back to 1.6 today she is mildly dizzy with standing she has low systolic BP - about 90 with her cardiac meds on board (typical baseline SBP for her 95-110) see discussion above regarding the blood pressures BMP am (14) Insomnia: Plan: melatonin 6mg HS (15) DM II (diabetes mellitus, type II), controlled: Plan: BSGs controlled/at goal last a1c -- 6.2% earlier this admission pharmacy managing (16) Pancytopenia: Plan: seen by heme/onc significant pathology not suspected viral suppression from COVID? b12 and folate wnl heme recommended Fe infusions during the stay - thus, 200mg IV x 1 of Venofer on 10/06 Venofer 300mg x 1 on 10/07 and 300mg once again today ferritin high due to acute phase reactant from COVID will need h/o follow-up post-discharge Plan: updated pt's family by phone 10/03/21, 10/04, 10/05, 10/06, 10/07 and today progressing cont PT/OT - cleared for home d/c home tomorrow if HR/BP issues are resolved ?? Admission and Anticipated Discharge Date Admission Date: October 01, 2021 Subjective pt feeling better today still tired/fatigued, but this is improving albeit slowly cough much better minimal DOS SANTOS eating better mild amount of dizziness upon standing no chest pain no orthopnea tele overnight - SB or NSR Review of Systems Review of Systems: gen - no fevers, no chills pulm - no sputum HEENT - hoarse voice improving CV - no chest pain GI - no N/V Physical Exam Physical Exam: gen - obese, NAD, sitting in chair comfortably, tired appearing neck - no JVD upright at 90 degrees mouth - MMM heart - madie, regular rhythm, s1 s2, 2/6 systolic murmur LSB lungs - CTA b/l; no rales, no wheeze abd - soft NT ND BS+ ext - 1+ edema b/l, pulses 2+ b/l psych - a/o x 3 Results & Data Results & Data ([facility]) Vital Signs (Past 12 Hours) Vital Signs Temp Pulse Pulse Pulse Pulse Pulse Resp 10/08/21 19:03 36.4 C L 51 L 18 10/08/21 18:10 10/08/21 15:28 57 L 10/08/21 15:00 10/08/21 13:05 10/08/21 12:18 53 L 10/08/21 12:08 89 68 52 L Resp Resp Resp BP Pulse Ox Pulse Ox Pulse Ox 10/08/21 19:03 100/64 94 10/08/21 18:10 91/49 L 10/08/21 15:28 10/08/21 15:00 91/56 L 10/08/21 13:05 91/56 L 10/08/21 12:18 101/52 L 10/08/21 12:08 16 18 16 91 95 Pulse Ox 10/08/21 19:03 10/08/21 18:10 10/08/21 15:28 10/08/21 15:00 10/08/21 13:05 10/08/21 12:18 10/08/21 12:08 96 Laboratory Results Laboratory Results - last 24 hr 10/08/21 10/08/21 10/08/21 05:42 05:42 08:05 WBC 5.01 RBC 4.60 Hgb 10.1 L Hct 35.1 L MCV 76.3 L MCH 22.0 L MCHC 28.8 L RDW Std Deviation 56.4 H RDW Coeff of Esthela 20.3 H Plt Count 199 MPV 9.7 Immature Gran % (Auto) 0.6 Neut % (Auto) 87.0 Lymph % (Auto) 9.0 [place] % (Auto) 3.4 Eos % (Auto) 0.0 Baso % (Auto) 0.0 Neut # (Auto) 4.36 Lymph # (Auto) 0.45 L [place] # (Auto) 0.17 Eos # (Auto) 0.00 Baso # (Auto) 0.00 Immature Gran # (Auto) 0.03 H Poikilocytosis Present Anisocytosis Present Ovalocytes 1+ Echinocytes 1+ Sodium 140 Potassium 4.5 Chloride 110 H Carbon Dioxide 24 Anion Gap 6.0 BUN 49 H Creatinine 1.68 H D Est Cr Clr Drug Dosing 47.4 Est GFR ( Amer) 40.1 Est GFR (Non-Af Amer) 34.6 BUN/Creatinine Ratio 29.4 H Glucose 79 POC Glucose 59 L* Calcium 9.8 Magnesium 2.6 H 10/08/21 10/08/21 10/08/21 08:06 09:35 12:00 WBC RBC Hgb Hct MCV MCH MCHC RDW Std Deviation RDW Coeff of Esthela Plt Count MPV Immature Gran % (Auto) Neut % (Auto) Lymph % (Auto) [place] % (Auto) Eos % (Auto) Baso % (Auto) Neut # (Auto) Lymph # (Auto) [place] # (Auto) Eos # (Auto) Baso # (Auto) Immature Gran # (Auto) Poikilocytosis Anisocytosis Ovalocytes Echinocytes Sodium Potassium Chloride Carbon Dioxide Anion Gap BUN Creatinine Est Cr Clr Drug Dosing Est GFR ( Amer) Est GFR (Non-Af Amer) BUN/Creatinine Ratio Glucose POC Glucose 67 L* 131 H 139 H Calcium Magnesium 10/08/21 10/08/21 16:38 19:58 WBC RBC Hgb Hct MCV MCH MCHC RDW Std Deviation RDW Coeff of Esthela Plt Count MPV Immature Gran % (Auto) Neut % (Auto) Lymph % (Auto) [place] % (Auto) Eos % (Auto) Baso % (Auto) Neut # (Auto) Lymph # (Auto) [place] # (Auto) Eos # (Auto) Baso # (Auto) Immature Gran # (Auto) Poikilocytosis Anisocytosis Ovalocytes Echinocytes Sodium Potassium Chloride Carbon Dioxide Anion Gap BUN Creatinine Est Cr Clr Drug Dosing Est GFR ( Amer) Est GFR (Non-Af Amer) BUN/Creatinine Ratio Glucose POC Glucose 104 H 198 H Calcium Magnesium PG Care Time/CCT Total # of Minutes Spent Total Time Spent with Patient: Total time spent is greater than 50% in coordination of care (as documented) at patient's floor/unit and/or counseling patient: Coding Level of Care Code 70163 Subseq Hosp Care Lvl 3 Diagnoses Pneumonia due to COVID-19 virus U07.1; J12.82 Acute respiratory failure with hypoxia J96.01 Shock R57.9 Paroxysmal atrial fibrillation I48.0 Acute kidney injury superimposed on CKD N17.9; N18.9 Hypokalemia E87.6 Elevated troponin R77.8 Ischemic cardiomyopathy I25.5 CAD (coronary artery disease) I25.10 Coronary Disease-Associated Artery/Lesion type: [place] artery [place] vs. transplanted heart: [place] heart Associated angina: without angina Acute on chronic systolic (congestive) heart failure I50.23 DVT prophylaxis Z29.9 Obesity (BMI 30-39.9) E66.9 Chronic renal failure, stage 3a N18.31 Insomnia G47.00 DM II (diabetes mellitus, type II), controlled E11.9 Pancytopenia D61.818 (1) CAD (coronary artery disease) Coronary Disease-Associated Artery/Lesion type: [place] artery [place] vs. transplanted heart: [place] heart Associated angina: without angina Qualified Code(s): I25.10 - Atherosclerotic heart disease of [place] coronary artery without angina pectoris
[2021-10-09 08:12] LABS: BUN Creatinine Ratio 25.8 (10-20); Calcium 9.5 mg/dl (8.5-10.1); Est GFR (African American) 45.9 ml/min; Est GFR (Non-African American) 39.6 ml/min; Potassium 5.3 mmol/L (3.5-5.1)
[2021-10-09] MEDS: INSULIN ASPART 100 UNITS/ML 3 ML PEN SC SCH ×3 (08:57→16:35)
[2021-10-09] MEDS: AMIODARONE 200 MG TAB PO SCH (08:59)
[2021-10-09] MEDS: ASPIRIN 81 MG ECTAB PO SCH (08:59)
[2021-10-09] MEDS: ATORVASTATIN 40 MG TAB PO SCH (08:59)
[2021-10-09] MEDS: PANTOprazole 40 MG TAB PO SCH (08:59)
[2021-10-09] MEDS: APIXABAN 5 MG TABLET PO SCH (08:59)
[2021-10-09] MEDS: dexAMETHasone 6 MG in SYRINGE 0 ML IV SCH (08:59)
[2021-10-09] MEDS: POTASSIUM CHLORIDE 20 MEQ/15 ML UDC PO SCH (09:00)
[2021-10-09] MEDS: INSULIN HUMAN NPH SC SCH (09:05)
[2021-10-09] MEDS ORDERED: FUROSEMIDE 40 MG/4 ML VIAL IV ONE ×2 (12:58)
--- NOTE | 2021-10-09 12:58 | Cardiology Progress Note ---
Date of Service October 09, 2021 Assessment & Plan (1) Chronic systolic CHF (congestive heart failure): (2) Shock: (3) COVID: (4) Elevated troponin: (5) Cardiomyopathy: (6) CAD (coronary artery disease): (7) Chronic anticoagulation: (8) S/P coronary artery stent placement: (9) Paroxysmal atrial fibrillation: Plan: ASSESSMENT/PLAN: 1. Chronic systolic CHF: Feeling better overall but appears more hypervolemic, with more edema than she is accustomed. Would recommend Lasix 40 mg IV x1. Charted fluid balance and weight is do not correlate. Monitor blood pressure with diuretic. Beta-nas and Entresto on hold for concerns of hypotension and bradycardia. For now, diuretic. If tolerates well, would resume home dose of oral diuretic tomorrow. Would have low threshold to initiate low-dose Entresto, which can be done as an outpatient. Continue to hold beta-nas for now however due to bradycardia. Close follow-up in the Heart failure program. Low-sodium diet. Strict I&Os. Daily weights. 2. Cardiomyopathy: Improved on 10/01/2021 echo however she was on dobutamine at that time. Medical therapy as discussed above. Currently does not qualify for ICD for primary prevention based on most recent echo findings, but would consider repeating an echo off of inotropic therapy in the future, as an outpatient. 3. CAD s/p LAD PCI: No angina. Continue aspirin 81 mg daily. No longer on beta-nas due to bradycardia. Continue high-intensity statin therapy. 4. Elevated troponin: Earlier in the hospital stay, Troponin mildly elevated but not diagnostic of myocardial infarction. Likely due to hypoxic and hypotensive presentation (demand ischemia). She did not present with acute coronary syndrome. 5. Paroxysmal atrial fibrillation: Sinus rhythm. Can continue amiodarone. Mildly bradycardic but appears to be asymptomatic in this regard. Beta-nas has not been resumed due to bradycardia. Continue anticoagulation for stroke risk reduction. 6. Shock: Resolved. No longer on pressors. 7. Covid 19 pneumonia/ infection: Improved. As per hospitalist. 8. Disposition: Recommend diuretic as above. If volume status improves, could possibly be discharged later today if blood pressure tolerates. Otherwise, poss ible discharge tomorrow from a cardiology standpoint. Discussed in detail with Dr. Pena and patient. Either way, recommend very close follow-up with heart failure program and her primary chicken picker, Dr. Toribio, so that her usual heart failure regimen can be initiated/titrated as blood pressure allows. Patient care also discussed with Kim Meraz of the Heart failure program and Dr. Toribio. Admission and Anticipated Discharge Date Admission Date: October 01, 2021 Subjective I was asked to evaluate Mrs. Cronin today before possible discharge. She denies chest pain, shortness of breath, orthopnea, syncope, near-syncope, palpitations, or bleeding. She has more edema than usual for her. She has been sitting typically with her feet down. She does have lightheadedness in the morning. Her heart failure medication regimen has not been resumed due to concerns of mild hypotension and mild bradycardia. Review of systems: As above. Physical Exam Physical Exam: Gen.: No acute distress. Alert and oriented. HEENT: Anicteric sclera. Neck: Thick neck without appreciable JVD. Cardiac: No ventricular heave. Regular and bradycardic in the 50s. Normal S1- S2. No murmurs, rubs, or gallops. Pulmonary: Clear to auscultation bilaterally without wheezes, rales, or rhonchi. Abdomen: Soft, nontender, nondistended, with normoactive bowel sounds. No bruits noted. Extremities: 2+ radial pulses bilaterally. 2+ posterior tibialis pulses bilaterally. 2-3+ bilateral lower extremity edema. No cyanosis. Psychiatric: Affect appears appropriate. Results & Data ([facility]) Vital Signs (Past 12 Hours) Vital Signs Temp Pulse Resp BP Pulse Ox 10/09/21 11:37 36.6 C 56 L 18 102/56 L 94 10/09/21 07:45 36.5 C 55 L 18 97/71 L 96 10/09/21 03:53 36.5 C 56 L 16 112/72 94 Intake & Output 10/07/21 10/08/21 10/09/21 10/10/21 06:59 06:59 06:59 06:59 Intake Total 1275 / 1275 1085 / 1085 535 / 535 Output Total 2101 / 2101 2350 / 2350 2900 / 2900 Balance -826 / -826 -1265 / -1265 -2365 / -2365 Weight 239 lb 10.279 oz 234 lb 2.095 oz 241 lb 2.971 oz Laboratory Results Laboratory Results - last 24 hr 10/08/21 10/08/21 10/09/21 16:38 19:58 07:29 Sodium 143 Potassium 5.3 H D Chloride 112 H Carbon Dioxide 25 Anion Gap 6.0 BUN 39 H Creatinine 1.50 H Est Cr Clr Drug Dosing 54.0 Est GFR ( Amer) 45.9 Est GFR (Non-Af Amer) 39.6 BUN/Creatinine Ratio 25.8 H Glucose 98 POC Glucose 104 H 198 H Calcium 9.5 10/09/21 10/09/21 07:52 11:36 Sodium Potassium Chloride Carbon Dioxide Anion Gap BUN Creatinine Est Cr Clr Drug Dosing Est GFR ( Amer) Est GFR (Non-Af Amer) BUN/Creatinine Ratio Glucose POC Glucose 89 214 H Calcium Diagnostic Findings Telemetry personally reviewed: No arrhythmia noted. Sinus with sinus bradycardia. Medications Administered Current Inpatient Medications Acetaminophen (Acetaminophen 325 Mg Tab) 650 mg PO Q4H PRN PRN Reason: Pain or Fever Stop: 10/31/21 03:50 Last Admin: 10/08/21 10:59 Dose: 650 mg Documented by: Albuterol (Albuterol Hfa 8 Gm Inhaler) 2 puffs INH Q6H PRN PRN Reason: sob Stop: 10/31/21 04:23 Amiodarone HCl (Amiodarone 200 Mg Tab) 200 mg PO QAM [facility] Stop: 11/01/21 08:59 Last Admin: 10/09/21 08:59 Dose: 200 mg Documented by: Apixaban (Apixaban 5 Mg Tablet) 5 mg PO BID [facility] Stop: 10/31/21 08:59 Last Admin: 10/09/21 08:59 Dose: 5 mg Documented by: Aspirin (Aspirin 81 Mg Ectab) 81 mg PO QAM [facility] Stop: 10/31/21 08:59 Last Admin: 10/09/21 08:59 Dose: 81 mg Documented by: Atorvastatin Calcium (Atorvastatin 40 Mg Tab) 80 mg PO QAM [facility] Stop: 10/31/21 08:59 Last Admin: 10/09/21 08:59 Dose: 80 mg Documented by: Dextrose (Dextrose 50% 50 Ml Syringe) 25 - 50 ml IV UD PRN; Protocol PRN Reason: Hypoglycemia Protocol Stop: 10/31/21 05:14 Furosemide (Furosemide 40 Mg Tab) 40 mg PO [id number] [facility] Stop: 11/03/21 08:59 Last Admin: 10/07/21 08:37 Dose: 40 mg Documented by: Glucagon (Glucagon For Inj 1 Mg Vial) 1 mg SQ UD PRN; Protocol PRN Reason: Hypoglycemia Protocol Stop: 10/31/21 05:14 Glucose (Glucose 10 Tabs/Tube) 4 - 8 tabs PO UD PRN; Protocol PRN Reason: Hypoglycemia Protocol Stop: 10/31/21 05:14 Glucose (Glucose 40% Gel 15 Gm Tube) 15 - 30 gm PO UD PRN; Protocol PRN Reason: Hypoglycemia Protocol Stop: 10/31/21 05:14 Dexamethasone 6 mg/ Syringe 1.5 mls @ 1 mls/min IV DAILY [facility] Stop: 10/11/21 08:59 Last Admin: 10/09/21 08:59 Dose: 1 mls/min Documented by: Insulin Aspart (Insulin Aspart 100 Units/Ml 3 Ml Pen) 0 units SC AC [facility]; Protocol Stop: 11/07/21 12:29 Last Admin: 10/09/21 12:41 Dose: 11 units Documented by: Insulin Aspart (Insulin Aspart 100 Units/Ml 3 Ml Pen) 0 units SC [facility]; Protocol Stop: 11/07/21 20:59 Last Admin: 10/08/21 20:14 Dose: Not Given Documented by: Insulin Human NPH (Insulin Human Nph) 35 units SC DAILY [facility] Stop: 11/02/21 08:59 Last Admin: 10/09/21 09:05 Dose: 35 units Documented by: Melatonin (Melatonin 3 Mg Tab) 6 mg PO HS [facility] Stop: 11/03/21 20:59 Last Admin: 10/08/21 20:10 Dose: 6 mg Documented by: Menthol (Cough Drop (Sugar Free) Theresa 24 Theresa/1 Box) 1 theresa BUCCAL Q1H PRN PRN Reason: Sore Throat Stop: 11/03/21 09:19 Metoprolol Tartrate (Metoprolol Tartrate 25 Mg Tab) 25 mg PO BID [facility] Stop: 11/04/21 20:59 Last Admin: 10/07/21 08:38 Dose: 25 mg Documented by: Miscellaneous (Carbohydrates For Hypoglycemia ) 15 - 30 gm PO UD PRN PRN Reason: Hypoglycemia Protocol Stop: 10/31/21 05:14 Miscellaneous Information (Pharmacy Glycemic Mgmt Consult) 1 ea N/A UD PRN; Protocol PRN Reason: Consult Stop: 10/31/21 05:14 Nitroglycerin (Nitroglycerin Sl 0.4 Mg/Tab Tab) 0.4 mg SL UD PRN PRN Reason: Chest Pain Stop: 10/31/21 03:50 Ondansetron HCl (Ondansetron Inj 2 Mg/Ml 2 Ml Vial) 4 mg IV Q6H PRN PRN Reason: Nausea Stop: 10/31/21 03:50 Pantoprazole Sodium (Pantoprazole 40 Mg Tab) 40 mg PO DAILY [facility] Stop: 10/31/21 08:59 Last Admin: 10/09/21 08:59 Dose: 40 mg Documented by: Polyethylene Glycol (Polyethylene (Miralax) 17 Gm Pack) 17 gm PO DAILY PRN PRN Reason: Constipation Stop: 10/31/21 03:50 Potassium Chloride (Potassium Chloride 20 Meq/15 Ml Udc) 20 meq PO BID [facility] Stop: 10/31/21 20:59 Last Admin: 10/09/21 09:00 Dose: Not Given Documented by: Sacubitril/Valsartan (Valsartan/Sacubitril 26/24mg Tab) 1 tab PO BID [facility] Stop: 11/07/21 08:59 Last Admin: 10/08/21 10:55 Dose: 1 tab Documented by: PG Care Time/CCT Total # of Minutes Spent Total Time Spent with Patient: Total time spent is greater than 50% in coordination of care (as documented) at patient's floor/unit and/or counseling patient: Coding Level of Care Code 42418 Subseq Hosp Care Lvl 3 Diagnoses Chronic systolic CHF (congestive heart failure) I50.22 Shock R57.9 COVID U07.1 Elevated troponin R77.8 Cardiomyopathy I42.9 CAD (coronary artery disease) I25.10 Associated angina: without angina Coronary Disease-Associated Artery/Lesion type: [place] artery [place] vs. transplanted heart: [place] heart Chronic anticoagulation Z79.01 S/P coronary artery stent placement Z95.5 Paroxysmal atrial fibrillation I48.0 (1) CAD (coronary artery disease) Associated angina: without angina Coronary Disease-Associated Artery/Lesion type: [place] artery [place] vs. transplanted heart: [place] heart Qualified Code(s): I25.10 - Atherosclerotic heart disease of [place] coronary artery without angina pectoris
--- NOTE | 2021-10-09 15:52 | Discharge Summary ---
Date of Service October 09, 2021 Admission HPI Per Admitting Provider Patient is a 51-year-old female with a past medical history of congestive heart failure with an EF of 25 to 30% brought to the emergency department by her daughter this evening for symptoms of fatigue and lethargy. She states that she has been feeling she is been battling a cold since Saturday the . She states her just got diagnosed with Covid yesterday. She has had a dry Non-productive cough. She denies any fevers or chills, pain with inspiration. She does feel more short of breath than usual. She denies any recent weight gain or peripheral edema. She denies any chest pain, chest tightness, chest pressure. She states that she has just been feeling tired and lethargic all day has been getting progressively worse. She denies any pain or frequency of urination. Principal Diagnosis Acute on chronic systolic heart failure Circulatory shock COVID 19 infection Discharge Exam General: well developed, well nourished, obese female, no acute distress, comfortable Neck: supple, trachea midline, normal thyroid Lungs: clear to auscultation bilaterally, normal respiratory effort, no accessory muscle use, no distress Heart: regular S1 and S2, no murmur, peripheral pulses normal, capillary refill normal, 1+ edema in legs Abdomen: soft, NT, ND, + BS, no hepatomegaly, normal to percussion Extremities: normal in appearance, no cyanosis, no petechiae, strength is 5/5 bilaterally Neuro: awake, cooperative, moves all extremities, no focal motor deficits, CN II-XII intact, sensation in extremities intact, normal speech Skin: warm, dry, no rash, normal turgor Psych: Awake, alert oriented x 3, euthymic affect Discharge Data Allergies Allergy/AdvReac Type Severity Reaction Status Date / Time lisinopril AdvReac Mild Cough Verified 10/01/21 00:10 Consultations 09/30/21 23:48 ED Decision to Admit Stat 10/01/21 00:38 Consult Entertainment Production Professional Routine 10/01/21 05:18 Consult Cardiology Routine 10/01/21 11:09 Consult Hematology Routine Hospital Course (1) Pneumonia due to COVID-19 virus: clinically resolved. hypoxia resolved; intermittently requiring NC O2 at bedtime (BEHZAD??). day #9 dexamethasone 6mg IV daily, no further dexamethasone needed, on room air for days completed 5-day course of Remdesivir. cont supportive care. no evidence of complicating bacterial superinfection. (2) Acute respiratory failure with hypoxia: resolved. 2nd to COVID-19 pneumonia + decompensated CHF. off O2 during the daytime with NC O2 at night at times. passed ambulatory 2-step. would recommend outpatient sleep study to look for BEHZAD (3) Shock: present on admission. septic? cardiogenic? combination? either way it is resolved - levophed off for almost a week With levophed off her BPs have been low - possibly combination of recent illness, medications, CHF, direct COVID effects? See below. (4) Paroxysmal atrial fibrillation: remains in NSR cont amiodarone to maintain NSR cont eliquis 5mg BID low-dose BB stopped due to bradycardia to the 40s, continue to hold metoprolol on discharge (5) Acute kidney injury superimposed on CKD: VIK had resolved, Cr then bo to 1.9 yesterday, now back to 1.5 she needs Lasix daily, gave 40mg IV on day of discharge will continue on 80mg daily as she was previously taking follow BMP as outpatient (6) Hypokalemia: repleted and resolved BMP am (7) Elevated troponin: 2nd myocardial demand ischemia in setting of critical illness no evidence of ACS (8) Ischemic cardiomyopathy: prior echos with EF <30% EF 40-45% this admission (was on Dobutamine at the time) typically on metoprolol succinate 200mg daily + highest dose of Entresto discussed with Dr. Denton will need to hold Entresto and metoprolol due to hypotension and bradycardia will continue on Lasix 80mg daily typical CHF instructions with daily weights, fluid and sodium restriction close follow up with Kim Meraz (9) CAD (coronary artery disease): cont asa cont statin holding BB - see above no ACS while here (10) Acute on chronic systolic (congestive) heart failure: acute component resolved holding BB and Entresto due to low BP and low HR see above (11) DVT prophylaxis: Eliquis BID (12) Obesity (BMI 30-39.9): BMI 39 (13) Chronic renal failure, stage 3a: Cr at baseline (14) Insomnia: melatonin 6mg HS (15) DM II (diabetes mellitus, type II), controlled: BSGs controlled/at goal last a1c -- 6.2% earlier this admission pharmacy managing (16) Pancytopenia: seen by heme/onc significant pathology not suspected viral suppression from COVID? b12 and folate wnl heme recommended Fe infusions during the stay - thus, 200mg IV x 1 of Venofer on 10/06 Venofer 300mg x 1 on 10/07 and 300mg once again 10/08 ferritin high due to acute phase reactant from COVID will need h/o follow-up post-discharge, not urgent d/c to home Total Time Total Time Spent Total Time Spent (In Minutes): 43 minutes Total Time Includes: Examination of the Patient, Discharge Planning, Medication Reconciliation and Communication With Other Providers (Dr. Denton) Discharge Plan Discharge Items Patient Disposition: Home - Self-Care Reason For Visit: HYPOTENSION Discharge Diagnosis: Acute on chronic systolic heart failure COVID 19 infection Condition on Discharge: Good Goals: monitor your weight DAILY fluid restriction, sodium restriction follow up closely with Kim VIGIL with heart failure clinic Activity: Resume your previous activity Weightbearing: Full weightbearing Non-emergency contact: Primary Care Provider and Credit Control Manager Call non-emergency contact if: you have any medication questions Follow-up/Referrals: Luis Enrique Velasco DO [Primary Care Provider] - (one week) Kim Meraz PA-C [Physician Elementary Esl Teacher] - 10/10/21 10:30 am (Congestive Heart Failure Program Appointment Information Early follow up is essential to managing your heart failure. An appointment has been scheduled for you with the [facility] Program within 7 days of discharge. Anticipate this visit to be 30-60 minutes long. Please expect a able seaman phone call from one of our nurses approximately 48 hours from discharge. They will also be placing an order for lab work to be completed 1-2 days prior to your heart failure follow up appointment. Please be sure to have this done so we can go over the results when you come in. Office Location The cardiology office building is located in front of the hospital at [address] Bring the following with you to your follow-up doctor appointments: Please bring your daily weight log any discharge paperwork all of your medication bottles with you to this visit. ) Diet: Heart Healthy Fluids: 2000ml (8 cups) Addtl Attending Provider Instructions: Medications: please note that metoprolol and Entresto are on hold due to slow heart rate and low blood pressures other medications will continue, specifically Lasix 80mg in the morning COVID 19: no further need for treatment, you are on room air, no distress you are already on Eliquis for blood thinner due to atrial fibrillation Acute on chronic systolic heart failure you were initially in shock, required vasopressors to keep blood pressure normal you have been off pressors for some time, still dealing with low normal blood pressure and slow heart rate will continue to hold metoprolol and Entresto but continue Lasix follow up with Kim VIGIL tomorrow please check your weight every morning and record the weight, contact Benita if weight goes up by 2-3 lbs from baseline follow fluid restriction of 2L a day and sodium to less than 2 grams a day Call 911 and go to the Emergency Room if: * You have tightness or pain in your chest that does not go away with rest or Nitroglycerin * You are very short of breath even with rest Call your doctor if any of the following symptoms or problems start or get worse: * Shortness of breath or difficulty breathing * Wake up at night short of breath * Chest pain * Cough * Swelling of your hands, fee, or legs * More fatigued or tired with your normal activity * Palpitations - sudden fast heart beats WEIGHT * Weigh yourself every morning after using the bathroom. * Use the same scale. * Wear the same amount of clothing. * Write your weight down on your chart. * Call your doctor if you gain more than 2-3 pounds in 1-2 days. MEDICATIONS * Use this discharge instruction sheet for instructions. * Take your medications at the time your doctor ordered. * Do not skip a dose of your medicines. * If you miss a dose of medicine, take as soon as possible, but DO NOT DOUBLE A DOSE. * Read your medicine information when you get home. * Know all of the side effects of your medicine. * Call your doctor's office if you have any side effects. * Be sure all of your doctors know what medicine and herbs you take (including cold, flu, and herbal medicine). * Pain Medicine: If you do not get relief from your pain, please call your doctor for help. Take the following with you to your follow-up doctor appointments: * Weight Chart * Medication List * List of questions Do not drink excessive alcohol, beer or wine. Pending Studies at Discharge: No Stand-Alone Forms: My [facility] [employer], Smoking Cessation Medications and DC Order Prescriptions: Continued (DME) Accu-Chek Hailey Plus test strp Strip See Rx Instructions .ROUTE .MEDSUPPLY Qty: 100 RF: 5 (DME) blood-glucose meter [Accu-Chek Hailey Plus Meter] Misc See Rx Instructions .ROUTE .MEDSUPPLY Qty: 1 RF: 0 (DME) lancets [Accu-Chek Multiclix Lancet] Misc See Rx Instructions .ROUTE .MEDSUPPLY Qty: 100 RF: 5 Eliquis 5 mg tablet 5 mg PO BID Qty: 180 RF: 3 atorvastatin 80 mg tablet 80 mg PO QAM Qty: 90 RF: 3 furosemide 40 mg tablet 80 mg PO QAM Qty: 60 RF: 2 amiodarone 200 mg tablet 200 mg PO QAM Qty: 30 RF: 0 aspirin [Aspirin Low Dose] 81 mg Tablet,Delayed Release (Dr/Ec) 81 mg PO QAM RF: 0 pantoprazole 40 mg tablet,delayed release (DR/EC) 40 mg PO DAILY RF: 0 Discontinued metoprolol succinate 200 mg tablet extended release 24 hr 200 mg PO QAM Qty: 90 RF: 3 Entresto 97-103 mg tablet 1 tab PO BID Qty: 60 RF: 5 Discharge Orders: Discharge Order (Routine); Ordered 10/09/21 Ordered By: Jacky Escobar/Other Patient Handouts: A1C, Managing Type 2 Diabetes Admission Data Admit Date/Time: 10/01/21 03:49 Attending Provider: Jacky Pena Admit Provider: Ana Hernandez Primary Care Provider: Luis Enrique Velasco Other Providers: Russ Taylor ; Davin Cunha ; Иван Denton ; Luigi Lujan V. ; Ariella Wilkinson ; Kerry Boggs ; William Poon ; Don Gregory ; Saúl Palmer ; Kelin Sierra ; AdityaP,No Attending Other Interventions: Discharge Summary Assessment (RN) Last Done: 10/09/21 16:25 Coding Level of Care Code D/C DAY MANAGEMENT >30 MINS Diagnoses Pneumonia due to COVID-19 virus U07.1; J12.82 Acute respiratory failure with hypoxia J96.01 Shock R57.9 Paroxysmal atrial fibrillation I48.0 Acute kidney injury superimposed on CKD N17.9; N18.9 Hypokalemia E87.6 Elevated troponin R77.8 Ischemic cardiomyopathy I25.5 CAD (coronary artery disease) I25.10 Associated angina: without angina Coronary Disease-Associated Artery/Lesion type: [place] artery [place] vs. transplanted heart: [place] heart Acute on chronic systolic (congestive) heart failure I50.23 DVT prophylaxis Z29.9 Obesity (BMI 30-39.9) E66.9 Chronic renal failure, stage 3a N18.31 Insomnia G47.00 DM II (diabetes mellitus, type II), controlled E11.9 Pancytopenia D61.818
== END 2021-10-09 17:40 | disposition home or self-care (01) | DRG 177 ==
LOC: ED 22:07 → 2E 10-01 03:05 → SUATTDRO 10-01 03:49 → 2E 10-01 03:49